=== PATIENT | female | born 1945 | race Two or more races ===

== ENCOUNTER 2016-07-31 20:45 | Inpatient (IN) | payer MEDICARE, MEDICAID ==
[~2016-07-31] VITALS: Ht 153.4 cm; Wt 74.8 kg
[2016-07-31 23:52] VITALS: BP 130/86
--- NOTE | 2016-08-01 00:01 | History and Physical ---
History of Present Illness General Date patient seen: Jul 31, 2016 Reason for Hospitalization: ALOC Present Illness HPI 71 year old female with hx of htn, bipolar, cachexia, brought in for evaluation of ALOC. Pt was less responsive. She is admitted to telemetry to rule out acute CVA. Allergies: Coded Allergies: No Known Allergies (Unverified , 07/31/16) Patient History Healthcare decision maker Resuscitation status Advanced Directive on File Past Medical/Surgical History Past Medical/Surgical History: (1) Psychosis (2) History of hypertension Review of Systems Constitutional: Reports: no symptoms All Other Systems: negative except mentioned in HPI Physical Exam General Appearance: cachetic Lines, tubes and drains: peripheral, PICC HEENT: normocephalic, atraumatic, anicteric Neck: non-tender, normal alignment Respiratory/Chest: chest wall non-tender, lungs clear Cardiovascular/Chest: normal peripheral pulses, normal rate, no JVD Abdomen: normal bowel sounds Genitourinary/Rectal: normal genital exam, normal rectal exam Extremities: normal range of motion, non-tender Medications Current Medications Medications (Trade) Dose Ordered Sig/Yao Route PRN Reason Start Time Stop Time Status Last Admin Dose Admin Amlodipine Besylate (Norvasc) 5 mg ONCE ONCE ORAL 08/01/16 00:00 08/01/16 00:01 UNV Clonidine HCl (Catapres) 0.1 mg EVERY 8 HOURS ORAL 08/01/16 06:00 08/31/16 05:59 UNV Hydralazine HCl (Apresoline) 50 mg Q8HR ORAL 08/01/16 06:00 08/31/16 05:59 UNV Risperidone (RisperDAL) 0.5 mg BEDTIME ORAL 08/01/16 21:00 08/31/16 20:59 UNV Assessment/Plan Problem List: (1) Acute encephalopathy ICD Codes: G93.40 - Encephalopathy, unspecified SNOMED: 7686832 (2) ATN (acute tubular necrosis) ICD Codes: N17.0 - Acute kidney failure with tubular necrosis SNOMED: 07081645 (3) Anemia ICD Codes: D64.9 - Anemia, unspecified SNOMED: 328250608 (4) History of hypertension ICD Codes: Z86.79 - Personal history of other diseases of the circulatory system SNOMED: 368632008 (5) Psychosis ICD Codes: F29 - Unspecified psychosis not due to a substance or known physiological condition SNOMED: 75821278 Assessment/Plan neuro evaluation monitor BP MRI anemia w/u psych evaluation check lithium level. JESUS CHE Aug 01, 2016 00:01
[2016-08-01 04:00] VITALS: BP 153/89
[2016-08-01] MEDS: HydrALAZINE 50mg tab ORAL SCH ×4 (06:02→21:45)
[2016-08-01 07:29] LABS: BASOPHILS % (AUTO) 0.5 % (0.0-2.0); EOSINOPHILS % (AUTO) 1.5 % (0.0-3.0); LYMPHOCYTES % (AUTO) 15.6 % (20.0-45.0); MEAN CORPUSCULAR HEMOGLOBIN 27.5 PG (27.0-31.0); MEAN CORPUSCULAR HGB CONC 30.7 G/DL (32.0-36.0); MEAN CORPUSCULAR VOLUME 90 FL (80-99); MEAN PLATELET VOLUME 15.3 FL (6.5-10.1); NEUTROPHILS % (AUTO) 74.4 % (45.0-75.0); PLATELET COUNT 109 K/UL (150-450); RED CELL DISTRIBUTION WIDTH 14.8 % (11.6-14.8); WHITE BLOOD COUNT 5.3 K/UL (4.8-10.8)
[2016-08-01 07:57] LABS: ALANINE AMINOTRANSFERASE 11 U/L (3-33); ALBUMIN/GLOBULIN RATIO 0.8 (1.0-2.7); ANION GAP 12 (5-15); ASPARTATE AMINO TRANSFERASE 17 U/L (5-40); CALCIUM 10.8 mg/dL (8.6-10.2); CARBON DIOXIDE 25 mEQ/L (20-30); CHLORIDE 117 mEQ/L (98-107); CHOLESTEROL 179 mg/dL (< 200); CHOLESTEROL/HDL RATIO 2.1 (3.3-4.4); CREATININE 1.7 mg/dL (0.5-0.9); HEMOLYSIS 4; LDL CHOLESTEROL (CALC.) 79 mg/dL (60-99); POTASSIUM 3.8 mEQ/L (3.4-4.9); SODIUM 154 mEQ/L (135-145); TOTAL PROTEIN 6.8 g/dL (6.6-8.7)
[2016-08-01 08:02] LABS: THYROID STIMULATING HORMONE 0.958 uIU/mL (0.300-4.500)
--- NOTE | 2016-08-01 11:52 | Neurology Progress Note ---
Objective Physical Exam Last Vital Signs Date Time Temp Pulse Resp B/P Pulse Ox O2 Delivery O2 Flow Rate FiO2 08/01/16 08:00 73 08/01/16 06:02 153/89 08/01/16 04:00 97.4 19 97 Nasal Cannula 4.0 Laboratory Tests Test 08/01/16 05:35 White Blood Count 5.3 K/UL (4.8-10.8) Red Blood Count 3.90 M/UL (4.20-5.40) L Hemoglobin 10.7 G/DL (12.0-16.0) L Hematocrit 35.0 % (37.0-47.0) L Mean Corpuscular Volume 90 FL (80-99) Mean Corpuscular Hemoglobin 27.5 PG (27.0-31.0) Mean Corpuscular Hemoglobin Concent 30.7 G/DL (32.0-36.0) L Red Cell Distribution Width 14.8 % (11.6-14.8) Platelet Count 109 K/UL (150-450) L Mean Platelet Volume 15.3 FL (6.5-10.1) H Neutrophils (%) (Auto) 74.4 % (45.0-75.0) Lymphocytes (%) (Auto) 15.6 % (20.0-45.0) L Monocytes (%) (Auto) 8.0 % (1.0-10.0) Eosinophils (%) (Auto) 1.5 % (0.0-3.0) Basophils (%) (Auto) 0.5 % (0.0-2.0) Sodium Level 154 mEQ/L (135-145) H Potassium Level 3.8 mEQ/L (3.4-4.9) Chloride Level 117 mEQ/L (98-107) H Carbon Dioxide Level 25 mEQ/L (20-30) Anion Gap 12 (5-15) Blood Urea Nitrogen 21 mg/dL (7-23) Creatinine 1.7 mg/dL (0.5-0.9) H Estimat Glomerular Filtration Rate mL/min (>60) Glucose Level 89 mg/dL (74-106) Calcium Level 10.8 mg/dL (8.6-10.2) H Total Bilirubin 0.3 mg/dL (0.0-1.2) Aspartate Amino Transf (AST/SGOT) 17 U/L (5-40) Alanine Aminotransferase (ALT/SGPT) 11 U/L (3-33) Alkaline Phosphatase 49 U/L (35-104) Total Protein 6.8 g/dL (6.6-8.7) Albumin 3.2 g/dL (3.5-5.2) L Globulin 3.6 g/dL Albumin/Globulin Ratio 0.8 (1.0-2.7) L Triglycerides Level 67 mg/dL (< 150) Cholesterol Level 179 mg/dL (< 200) LDL Cholesterol 79 mg/dL (60-99) HDL Cholesterol 87 mg/dL (> 60) H Cholesterol/HDL Ratio 2.1 (3.3-4.4) L Thyroid Stimulating Hormone (TSH) 0.958 uIU/mL (0.300-4.500) [place] Level Pending Impression/Recommendations Recommendations #[id number] ALEXIS BACA Aug 01, 2016 11:52
[2016-08-01] MEDS ORDERED: LORazepam Inj 2mg/ml 1ml IV PRN (13:00)
[2016-08-01] MEDS ORDERED: Nitroglycerin Subl 0.4mg tab (Bottle Of 25) SL PRN (13:00)
[2016-08-01] MEDS ORDERED: Miralax 17gm pkt ORAL PRN (13:00)
--- NOTE | 2016-08-01 13:00 | Pulmonology Progress Note ---
Assessment/Plan Problems: (1) Acute encephalopathy (2) ATN (acute tubular necrosis) (3) Anemia (4) History of hypertension (5) Severe protein-calorie malnutrition (6) Psychosis Assessment/Plan MRI pending lithium level was slightly elevated neuro consult appreciated check pt/ot evaluation swallow study calorie count Subjective ROS Limited/Unobtainable: No Constitutional: Reports: no symptoms HEENT: Repors: no symptoms Respiratory: Reports: no symptoms Allergies: Coded Allergies: No Known Allergies (Unverified , 07/31/16) Objective Last 24 Hour Vital Signs Date Time Temp Pulse Resp B/P Pulse Ox O2 Delivery O2 Flow Rate FiO2 08/01/16 08:00 73 08/01/16 06:02 153/89 08/01/16 06:02 153/89 08/01/16 04:21 77 08/01/16 04:00 97.4 81 19 153/89 97 Nasal Cannula 4.0 08/01/16 01:16 98 130/86 07/31/16 23:52 97.0 98 20 130/86 99 Nasal Cannula 4.0 General Appearance: cachetic HEENT: normocephalic, atraumatic Respiratory/Chest: chest wall non-tender, lungs clear Breasts: no masses Cardiovascular: normal peripheral pulses Abdomen: normal bowel sounds, soft, non tender Genitourinary: normal external genitalia Extremities: no cyanosis Skin: no rash Laboratory Tests 08/01/16 05:35: White Blood Count 5.3, Red Blood Count 3.90L, Hemoglobin 10.7L, Hematocrit 35.0L , Mean Corpuscular Volume 90, Mean Corpuscular Hemoglobin 27.5, Mean Corpuscular Hemoglobin Concent 30.7L, Red Cell Distribution Width 14.8, Platelet Count 109L, Mean Platelet Volume 15.3H, Neutrophils (%) (Auto) 74.4, Lymphocytes (%) (Auto) 15.6L, Monocytes (%) (Auto) 8.0, Eosinophils (%) (Auto) 1.5, Basophils (%) (Auto) 0.5, Sodium Level 154H, Potassium Level 3.8, Chloride Level 117H, Carbon Dioxide Level 25, Anion Gap 12, Blood Urea Nitrogen 21, Creatinine 1.7H, Estimat Glomerular Filtration Rate , Glucose Level 89, Uric Acid [Pending], Calcium Level 10.8H, Total Bilirubin 0.3, Aspartate Amino Transf (AST/SGOT) 17, Alanine Aminotransferase (ALT/SGPT) 11, Alkaline Phosphatase 49, Total Creatine Kinase [Pending], Total Protein 6.8, Albumin 3.2L , Globulin 3.6, Albumin/Globulin Ratio 0.8L, Triglycerides Level 67, Cholesterol Level 179, LDL Cholesterol 79, HDL Cholesterol 87H, Cholesterol/HDL Ratio 2.1L, Thyroid Stimulating Hormone (TSH) 0.958, [place] Level 1.80 Current Medications Medications (Trade) Dose Ordered Sig/Yao Route PRN Reason Start Time Stop Time Status Last Admin Dose Admin Acetaminophen (Tylenol) 650 mg Q4H PRN ORAL FEVER 08/01/16 13:00 08/31/16 12:59 UNV Acetaminophen (Tylenol) 650 mg Q4H PRN ORAL Mild Pain (Pain Scale 1-3) 08/01/16 13:00 08/31/16 12:59 UNV Aspirin (ASA) 81 mg DAILY ORAL 08/01/16 13:00 08/31/16 12:59 Bisacodyl (Dulcolax) 10 mg DAILYPRN PRN RECTAL Constipation 08/01/16 13:00 08/31/16 12:59 UNV Clonidine HCl (Catapres) 0.1 mg EVERY 8 HOURS ORAL 08/01/16 06:00 08/31/16 05:59 08/01/16 06:02 Docusate Sodium (Colace) 100 mg EVERY 12 HOURS ORAL 08/01/16 21:00 08/31/16 20:59 UNV Heparin Sodium (Porcine) (Heparin 5000 units/ml) 5,000 units EVERY 12 HOURS SUBQ 08/01/16 21:00 08/31/16 20:59 UNV Hydralazine HCl (Apresoline) 50 mg Q8HR ORAL 08/01/16 06:00 08/31/16 05:59 08/01/16 06:02 Lorazepam (Ativan 2mg/ml 1ml) 0.5 mg Q4H PRN IV For Anxiety 08/01/16 13:00 08/08/16 12:59 UNV Nitroglycerin (Ntg) 0.4 mg Q5M PRN SL Prn Chest Pain 08/01/16 13:00 UNV Ondansetron HCl (Zofran) 4 mg Q6H PRN IVP Nausea & Vomiting 08/01/16 13:00 08/31/16 12:59 UNV Polyethylene Glycol (Miralax) 17 gm DAILY PRN ORAL Constipation 08/01/16 13:00 08/31/16 12:59 UNV Risperidone (RisperDAL) 0.5 mg BEDTIME ORAL 08/01/16 21:00 08/31/16 20:59 Temazepam (Restoril) 15 mg HSPRN PRN ORAL Insomnia 08/01/16 13:00 08/08/16 12:59 UNV JESUS CHE Aug 01, 2016 13:00
[2016-08-01 13:10] LABS: URIC ACID 9.2 mg/dL (3.0-7.5)
[2016-08-01 13:40] VITALS: BP 138/103
[2016-08-01] MEDS: Aspirin Baby 81mg ORAL SCH (13:41)
[2016-08-01] MEDS ORDERED: NS 275ml ONE (13:50)
[2016-08-01] MEDS ORDERED: Sterile Water For Irrig 2000ml IRRIG ONE (13:50)
[2016-08-01] MEDS ORDERED: Tubing IV Secondary IV ONE (13:50)
[2016-08-01] MEDS ORDERED: Sterile Water Irrig 1000ml IRRIG ONE (13:50)
[2016-08-01 16:52] VITALS: BP 137/91
--- NOTE | 2016-08-01 17:30 | Diagnostic Imaging Report ---
Indication: Abnormal renal function tests Technique: Grayscale and duplex images of the kidneys, retroperitoneum, and bladder were obtained. Comparison:None Findings: Right kidney measures 9.8 cm in length. Left kidney measures 9.5 cm in length. Both kidneys demonstrate is increased echogenicity. No hydronephrosis. There are bilateral renal cysts, largest on the right measuring 15 mm diameter, largest on the left measuring 11 mm diameter. Innumerable calcifications are seen throughout the parenchyma of both kidneys, slightly more striking on the left than on the right. Normal inferior vena cava. Bladder is nondistended, demonstrates possible wall thickening. There is incidental finding of a pericardial effusion Impression: Negative for hydronephrosis. Increased bilateral renal echogenicity, consistent with medical renal disease. Bilateral renal cysts Possible bladder wall thickening, most likely artifact of under distention, but chronic bladder obstruction or cystitis not excludable Pericardial effusion incidentally noted
[2016-08-01 20:00] VITALS: BP 121/79
[2016-08-01] MEDS: Docusate 100mg cap ORAL SCH (21:00)
[2016-08-01] MEDS ORDERED: RisperiDONE 0.25mg tab ORAL SCH (21:00)
[2016-08-01] MEDS: Heparin 5000 units/ml inj SUBQ SCH (21:00)
--- NOTE | 2016-08-01 23:01 | Consultation ---
DATE OF CONSULTATION: 08/01/2016 CONSULTING PHYSICIAN: Stephanie Kebede M.D. HISTORY OF PRESENT ILLNESS: The patient is a 71-year-old female with a history of schizoaffective disorder, who has been admitted to the hospital due to uncontrollable blood pressure or hypertensive crisis and also altered mental level of consciousness. During the evaluation, the patient is confused, not able to answer the questions. The patient was admitted to rule out CVA and the patient is presenting with impairment of cognition. She has been presenting with waxing and waning consciousness. PAST PSYCHIATRIC HISTORY: Diagnosed with schizoaffective disorder as well as psychiatric hospitalization. She has been treated with risperidone and lithium. PAST MEDICAL HISTORY: Significant for hypertension. ALLERGIES: No known drug allergies. SUBSTANCE ABUSE HISTORY: No known history of illicit drug use or alcohol. MENTAL STATUS EXAMINATION: The patient is not able to be engaged during evaluation. She is a poor historian. impairment in concentration, memory, and attention. Waxing and waning consciousness. ASSESSMENT: Alpha I Delirium due to general medical condition. Alpha II Deferred. Alpha III As above. Alpha IV Low. Alpha V Global assessment of functioning is 10. PLAN: 1. We will hold off all the psychotropic medications including risperidone. 2. [place] level is 1.8. 3. We will continue to follow and readjust the medications. Stephanie Kebede M.D. DR: Karyna JOB#: [id number] CC:
--- NOTE | 2016-08-01 23:31 | Consultation ---
DATE OF CONSULTATION: 08/01/2016 NEUROLOGICAL CONSULTATION REQUESTING PHYSICIAN: Ila Mckenna M.D. HISTORY OF PRESENT ILLNESS: This is a 71-year-old female, seen in neurological consultation to evaluate acute onset of confusion and disorientation. The patient was brought initially from [facility] where she was admitted for episodes of confusion, lethargy, and mental status changes from her local assisted living facility. In addition, she had a significant elevation of blood pressure and according to the nursing facility, she is more confused and more altered than usual baseline mentation. The patient initially was nonverbal. No history was obtained. Her [place] coma scale was 10. She had a EKG with premature ventricular contractions. Also chest x-ray, no acute pulmonary disease. Stat CT of the brain revealed no acute intracranial abnormalities. There was a small vessel disease noted. Lab work was obtained with sodium 148, calcium of 11.0, and normal ammonia. Negative drug screen. Normal thyroid. The patient was brought to the facility. She . She has been on maintained on hydralazine, clonidine and amlodipine with small dose of Risperdal 0.5 at that time. Her vital signs down to 153/89 and temperature 97.4 degrees. Lab work was obtained revealing mild anemia, hemoglobin 10.7, hematocrit 35.0 and platelet count 109,000. Chemistry panel with creatinine 1.7, sodium 154, and calcium 10.8. Unremarkable lipid panel and normal TSH. [place] level pending. Since admission till present, there were no paroxysmal events. The patient still with abnormal speech and confusion. PAST MEDICAL HISTORY: The patient has a history of hypertension and history of memory loss. She has a history of chronic psychiatric disorder and chronic renal failure. She is considered to be nonambulatory, although she claims being able to use walker for ambulation. MEDICATIONS: Prior to admission including clonidine, amlodipine, hydralazine, Mylanta, Ativan, lithium, temazepam, and Risperdal. ALLERGIES: None reported. FAMILY HISTORY: Unavailable. REVIEW OF SYMPTOMS: Limited due to the patient's status, who informed that she does feel week, but not too weak. PHYSICAL EXAMINATION: GENERAL: The patient is well-developed, somewhat cachectic and ill-appearing elderly female, lying in bed quietly. VITAL SIGNS: Now stable, blood pressure of 152/89. HEENT: Head, normocephalic. No evidence of trauma. Eyes, ears, and throat are clear. NECK: Rigid in all directions. MUSCULOSKELETAL: Unremarkable. There is no deformities. Peripheral pulses 1+ and symmetric. MENTAL STATUS: The patient is alert. She was able to give her age of 69. She is unaware where she is now and unable to give her address or place. Her speech is very slow with poor verbal output, dysarthric, difficult to understand. Speech is hypophonic. The patient appears quite confused and does not able to provide with any meaningful history. CRANIAL NERVE II: Pupils both responding to light and accommodation. Extraocular movement intact. No nystagmus. CRANIAL NERVE V: Normal corneal responses. CRANIAL NERVE VII: No facial asymmetry. CRANIAL NERVE VIII: Slight decrease in hearing. CRANIAL NERVE IX THROUGH XII: Tongue is in midline. MOTOR EXAMINATION: Increased muscle tone. There is a resting tremor of both hands. Deep reflexes are 2+ bilaterally. Plantar response is mute. SENSORY EXAMINATION: Withdrawing to pin stimulation. Gait not tested. The patient was having difficulty to turn around or sit up and . IMPRESSION: 1. 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 2. Hypertension, out of control. 3. Hypercalcemia. 4. Chronic renal failure. 5. Chronic anemia. RECOMMENDATION: 1. Get a MRI of the brain without contrast. 2. Carotid duplex study. 3. A 2D echocardiogram. 4. Start on aspirin 81 mg daily. Consider adding a statin. 5. Get PT/OT assessment for mobility protocol. 6. Maintain strict blood pressure control. Thank you for allowing me to see this interesting patient in neurological consultation. Jean Carlos Field M.D. DR: CELINE JOB#: [id number] CC:
[2016-08-02] VITALS: BP 138/92
[2016-08-02 04:00] VITALS: BP 152/72
[2016-08-02] MEDS: HydrALAZINE 50mg tab ORAL SCH ×3 (05:43→21:33)
[2016-08-02 07:06] LABS: BASOPHILS % (AUTO) 0.6 % (0.0-2.0); EOSINOPHILS % (AUTO) 2.1 % (0.0-3.0); LYMPHOCYTES % (AUTO) 13.8 % (20.0-45.0); MEAN CORPUSCULAR HEMOGLOBIN 27.8 PG (27.0-31.0); MEAN CORPUSCULAR HGB CONC 31.1 G/DL (32.0-36.0); MEAN CORPUSCULAR VOLUME 89 FL (80-99); MONOCYTES % (AUTO) 8.9 % (1.0-10.0); NEUTROPHILS % (AUTO) 74.7 % (45.0-75.0); PLATELET COUNT 111 K/UL (150-450); RED BLOOD COUNT 3.76 M/UL (4.20-5.40); RED CELL DISTRIBUTION WIDTH 14.7 % (11.6-14.8); WHITE BLOOD COUNT 7.7 K/UL (4.8-10.8)
[2016-08-02 07:11] LABS: INR 1.1 (0.9-1.1); PROTHROMBIN TIME 11.9 SEC (9.30-11.50)
[2016-08-02 07:32] LABS: LACTATE DEHYDROGENASE 240 U/L (135-230)
[2016-08-02 07:33] LABS: HEMOLYSIS 1; IRON 56 ug/dL (37-145); TOTAL IRON BINDING CAPACITY 221 ug/dL (250-400)
[2016-08-02 08:00] VITALS: BP 130/77
--- NOTE | 2016-08-02 08:31 | Cardiology Report ---
APPROVED REPORT EXAM: Two-dimensional and M-mode echocardiogram with Doppler and color Doppler. INDICATION LV function M-Mode DIMENSIONS IVSd1.9 (0.7-1.1cm)Left Atrium (MM)5.1 (1.6-4.0cm) LVDd4.9 (3.5-5.6cm)Aortic Root3.5 (2.0-3.7cm) PWd2.5 (0.7-1.1cm)Aortic Cusp Exc.1.8 (1.5-2.0cm) LVDs2.3 (2.5-4.0cm) PWs2.9 cm Normal left ventricular chamber size, systolic function and wall motion. Left ventricular ejection fraction estimated to be 65 %. Mild to moderate left ventricular hypertrophy by 2-D. Anterior Echo-free space, may be due to pericardial fat or effusion. Moderate left atrial enlargement. Right atrial size at upper limits of normal. Right ventricular chamber size is within normal limits. Focal aortic valve sclerosis with adequate cusp excursion. Thickened mitral valve leaflets with normal excursion. Mitral annulus and aortic root calcification. Normal pulmonic valve structure. Normal tricuspid valve structure. IVC at normal size with physiologic collapse. A color flow and spectral Doppler study was performed and revealed: Mild aortic regurgitation. Mild mitral regurgitation. Mitral diastolic velocities suggest reduced left ventricular relaxation c/w mild LV diastolic dysfunction (Grade I). Trace tricuspid regurgitation. Tricuspid systolic velocities suggests peak right ventricular systolic pressure of 17 mmHg. Mild pulmonic regurgitation present.
[2016-08-02] MEDS: Aspirin Baby 81mg ORAL SCH (08:35)
[2016-08-02] MEDS: Docusate 100mg cap ORAL SCH (08:35)
[2016-08-02] MEDS: Heparin 5000 units/ml inj SUBQ SCH ×2 (08:43→21:00)
[2016-08-02 09:17] LABS: ERYTHROCYTE SEDIMENTATION RATE 28 MM/HR (0-30); RETICULOCYTE COUNT 0.3 % (0.0-2.0)
--- NOTE | 2016-08-02 10:45 | Pulmonology Progress Note ---
Assessment/Plan Problems: (1) Acute encephalopathy (2) ATN (acute tubular necrosis) (3) Anemia (4) History of hypertension (5) Severe protein-calorie malnutrition (6) Psychosis Assessment/Plan MRI pending lithium level was slightly elevated neuro consult appreciated check pt/ot evaluation swallow study calorie count check electrolytes haldol for agitation Subjective ROS Limited/Unobtainable: No Constitutional: Reports: no symptoms HEENT: Repors: no symptoms Respiratory: Reports: no symptoms Allergies: Coded Allergies: No Known Allergies (Unverified , 07/31/16) Objective Last 24 Hour Vital Signs Date Time Temp Pulse Resp B/P Pulse Ox O2 Delivery O2 Flow Rate FiO2 08/02/16 08:00 97.2 80 18 130/77 95 Nasal Cannula 3.5 08/02/16 05:43 142/95 08/02/16 05:43 142/95 08/02/16 04:00 97.2 73 19 152/72 100 Nasal Cannula 3.5 08/02/16 04:00 63 08/02/16 00:00 97.3 55 18 138/92 100 Nasal Cannula 3.5 08/02/16 00:00 62 08/01/16 21:45 121/79 08/01/16 21:45 121/79 08/01/16 20:00 64 08/01/16 20:00 97.5 61 20 121/79 100 Nasal Cannula 3.0 08/01/16 16:52 98.4 64 20 137/91 100 Nasal Cannula 3.0 08/01/16 16:00 77 08/01/16 13:42 138/103 08/01/16 13:42 138/103 08/01/16 13:40 138/103 Intake and Output 08/01/16 08/02/16 19:00 07:00 Intake Total 500 ml Balance 500 ml Intake Oral 500 ml # Voids 1 3 General Appearance: cachetic HEENT: normocephalic, atraumatic Respiratory/Chest: chest wall non-tender, lungs clear Breasts: no masses Cardiovascular: normal peripheral pulses Abdomen: normal bowel sounds, soft, non tender Extremities: no cyanosis, no clubbing Skin: no rash Neurologic/Psychiatric: alarm operator II-XII grossly normal Laboratory Tests 08/02/16 06:05: White Blood Count 7.7, Red Blood Count 3.76L, Hemoglobin 10.4L, Hematocrit 33.6L , Mean Corpuscular Volume 89, Mean Corpuscular Hemoglobin 27.8, Mean Corpuscular Hemoglobin Concent 31.1L, Red Cell Distribution Width 14.7, Platelet Count 111L, Mean Platelet Volume 14.0H, Neutrophils (%) (Auto) 74.7, Lymphocytes (%) (Auto) 13.8L, Monocytes (%) (Auto) 8.9, Eosinophils (%) (Auto) 2.1, Basophils (%) (Auto) 0.6, Erythrocyte Sedimentation Rate 28, Reticulocyte Count 0.3, Prothrombin Time 11.9H, Prothromb Time International Ratio 1.1, Activated Partial Thromboplast Time 28, Iron Level 56, Total Iron Binding Capacity 221L, Percent Iron Saturation 25, Unsaturated Iron Binding 165, Lactate Dehydrogenase 240H, Carcinoembryonic Antigen 4.1H, Vitamin B12 Level 516 , Folate [Pending] Current Medications Medications (Trade) Dose Ordered Sig/Yao Route PRN Reason Start Time Stop Time Status Last Admin Dose Admin Acetaminophen (Tylenol) 650 mg Q4H PRN ORAL FEVER 08/01/16 13:00 08/31/16 12:59 Acetaminophen (Tylenol) 650 mg Q4H PRN ORAL Mild Pain (Pain Scale 1-3) 08/01/16 13:00 08/31/16 12:59 Aspirin (ASA) 81 mg DAILY ORAL 08/01/16 13:00 08/31/16 12:59 08/02/16 08:35 Bisacodyl (Dulcolax) 10 mg DAILYPRN PRN RECTAL Constipation 08/01/16 13:00 08/31/16 12:59 Clonidine HCl (Catapres) 0.1 mg EVERY 8 HOURS ORAL 08/01/16 06:00 08/31/16 05:59 08/02/16 05:43 Dextrose (Dextrose 50%) STAT PRN IV Hypoglycemia 08/02/16 04:30 09/01/16 04:29 Docusate Sodium (Colace) 100 mg EVERY 12 HOURS ORAL 08/01/16 21:00 08/31/16 20:59 08/02/16 08:35 Haloperidol Lactate (Haldol) 5 mg EVERY 4 HOURS PRN IM Agitation 08/01/16 22:45 08/31/16 22:44 Heparin Sodium (Porcine) (Heparin 5000 units/ml) 5,000 units EVERY 12 HOURS SUBQ 08/01/16 21:00 08/31/16 20:59 Hydralazine HCl (Apresoline) 50 mg Q8HR ORAL 08/01/16 06:00 08/31/16 05:59 08/02/16 05:43 Lorazepam (Ativan 2mg/ml 1ml) 0.5 mg Q4H PRN IV For Anxiety 08/01/16 13:00 08/08/16 12:59 08/02/16 08:36 Nitroglycerin (Ntg) 0.4 mg Q5M PRN SL Prn Chest Pain 08/01/16 13:00 08/31/16 12:59 Ondansetron HCl (Zofran) 4 mg Q6H PRN IVP Nausea & Vomiting 08/01/16 13:00 08/31/16 12:59 Polyethylene Glycol (Miralax) 17 gm DAILY PRN ORAL Constipation 08/01/16 13:00 08/31/16 12:59 Temazepam (Restoril) 15 mg HSPRN PRN ORAL Insomnia 08/01/16 13:00 08/08/16 12:59 JESUS CHE Aug 02, 2016 10:45
[2016-08-02] MEDS ORDERED: LORazepam Inj 2mg/ml 1ml IV ONE ×2 (11:45→13:06)
[2016-08-02 11:55] LABS: BAND NEUTROPHILS % (MANUAL) 0 % (0-8); BASOPHILS % (MANUAL) 0 % (0-2); EOSINOPHILS % (MANUAL) 3 % (0-3); LYMPHOCYTES % (MANUAL) 16 % (20-45); NEUTROPHILS % (MANUAL) 74 % (45-75); PLATELET ESTIMATE DECREASED; PLATELET MORPHOLOGY NORMAL; TOTAL CELLS COUNTED 100
[2016-08-02 11:56] LABS: POIKILOCYTOSIS 1+
[2016-08-02 11:58] LABS: HYPOCHROMASIA 1+
[2016-08-02 11:59] LABS: ACANTHOCYTES 1+; BURR CELLS OCCASIONAL
[2016-08-02 12:00] VITALS: BP_SYST 127; BP_SYST 134; BP_DIAS 46; BP_DIAS 83
[2016-08-02 12:03] LABS: PATH BLOOD SMEAR/OMC SENT TO PATHOLOGIST
--- NOTE | 2016-08-02 12:17 | Neurology Progress Note ---
Interim History Interim History ROS Limited/Unobtainable: No Complaints: feel ok Events: nite time confusion agitation Objective Physical Exam Last Vital Signs Date Time Temp Pulse Resp B/P Pulse Ox O2 Delivery O2 Flow Rate FiO2 08/02/16 12:00 97.0 86 20 127/46 97 Nasal Cannula 3.5 Laboratory Tests Test 08/02/16 06:05 White Blood Count 7.7 K/UL (4.8-10.8) Red Blood Count 3.76 M/UL (4.20-5.40) L Hemoglobin 10.4 G/DL (12.0-16.0) L Hematocrit 33.6 % (37.0-47.0) L Mean Corpuscular Volume 89 FL (80-99) Mean Corpuscular Hemoglobin 27.8 PG (27.0-31.0) Mean Corpuscular Hemoglobin Concent 31.1 G/DL (32.0-36.0) L Red Cell Distribution Width 14.7 % (11.6-14.8) Platelet Count 111 K/UL (150-450) L Mean Platelet Volume 14.0 FL (6.5-10.1) H Neutrophils (%) (Auto) 74.7 % (45.0-75.0) Lymphocytes (%) (Auto) 13.8 % (20.0-45.0) L Monocytes (%) (Auto) 8.9 % (1.0-10.0) Eosinophils (%) (Auto) 2.1 % (0.0-3.0) Basophils (%) (Auto) 0.6 % (0.0-2.0) Differential Total Cells Counted 100 Neutrophils % (Manual) 74 % (45-75) Lymphocytes % (Manual) 16 % (20-45) L Monocytes % (Manual) 7 % (1-10) Eosinophils % (Manual) 3 % (0-3) Basophils % (Manual) 0 % (0-2) Band Neutrophils 0 % (0-8) Platelet Estimate Decreased L Platelet Morphology Normal Hypochromasia 1+ Poikilocytosis 1+ [place] Cells Occasional Acanthocytes 1+ Erythrocyte Sedimentation Rate 28 MM/HR (0-30) Reticulocyte Count 0.3 % (0.0-2.0) Prothrombin Time 11.9 SEC (9.30-11.50) H Prothromb Time International Ratio 1.1 (0.9-1.1) Activated Partial Thromboplast Time 28 SEC (23-33) Iron Level 56 ug/dL (37-145) Total Iron Binding Capacity 221 ug/dL (250-400) L Percent Iron Saturation 25 % (15-50) Unsaturated Iron Binding 165 ug/dL (112-346) Lactate Dehydrogenase 240 U/L (135-230) H Carcinoembryonic Antigen 4.1 ng/mL H Vitamin B12 Level 516 pg/mL (211-946) Folate Pending General: well developed, no acute distress Head: normocophalic, atraumatic Neck: no rigidity Neurologic Exam Mental Status: awake, alert, other - ox2 confused Speech: other - slurred Language: no aphasia Cranial Nerve II: no papilledema Cranial Nerves III, IV, : pupils Cranial Nerve V: masseters function normal Cranial Nerve VII: no facial asymmetry Cranial Nerve VIII: no nystagmus Cranial Nerve IX: gag response Cranial Nerve XI: trapezii function normal Cranial Nerve XII: no tongue atrophy/fasciculations Motor System: no involuntary movement, no muscle wasting Sensory: normal pinprick Coordination: other Deep Tendon Reflexes: 0 ankle (L), 0 ankle (R), 0 bicep (L), 0 bicep (R), 0 brachioradialis (L), 0 brachioradialis (R), 0 knee (L), 0 knee (R), 0 tricep (L) , 0 tricep (R) Reflexes: mute plantar (L), mute plantar (R) Gait: other - unstable Impression/Recommendations Problems: (1) dementia vascular with sundown confusion (2) Cerebrovascular small vessel disease Status: stable Recommendations #[id number] MRI brain, carotid , asa statins ALEXIS BACA Aug 02, 2016 12:17
--- NOTE | 2016-08-02 14:36 | Geriatric Progress Note ---
Assessment/Plan Assessment/Plan Delirium. schizoaffective d/o -zyprexa 5mg qhs -ativan 1.5 prior mri Subjective Constitutional: Reports: malaise, weakness Mood/Memory: Reports: anxiety, emotional problems, prior hx Psychiatric: Reports: hallucinations, see HPI Sleep: Reports: doesn't sleep well Geriatric Geriatric Last 24 Hour Vital Signs Date Time Temp Pulse Resp B/P Pulse Ox O2 Delivery O2 Flow Rate FiO2 08/02/16 14:00 118/81 08/02/16 14:00 118/81 08/02/16 12:00 97.7 86 18 134/83 100 Nasal Cannula 3.5 08/02/16 08:00 97.2 80 18 130/77 95 Nasal Cannula 3.5 08/02/16 08:00 67 08/02/16 05:43 142/95 08/02/16 05:43 142/95 08/02/16 04:00 97.2 73 19 152/72 100 Nasal Cannula 3.5 08/02/16 04:00 63 08/02/16 00:00 97.3 55 18 138/92 100 Nasal Cannula 3.5 08/02/16 00:00 62 08/01/16 21:45 121/79 08/01/16 21:45 121/79 08/01/16 20:00 64 08/01/16 20:00 97.5 61 20 121/79 100 Nasal Cannula 3.0 08/01/16 16:52 98.4 64 20 137/91 100 Nasal Cannula 3.0 08/01/16 16:00 77 Intake and Output 08/01/16 08/02/16 19:00 07:00 Intake Total 500 ml Balance 500 ml Intake Oral 500 ml # Voids 1 3 Laboratory Tests Test 08/02/16 06:05 White Blood Count 7.7 K/UL (4.8-10.8) Red Blood Count 3.76 M/UL (4.20-5.40) L Hemoglobin 10.4 G/DL (12.0-16.0) L Hematocrit 33.6 % (37.0-47.0) L Mean Corpuscular Volume 89 FL (80-99) Mean Corpuscular Hemoglobin 27.8 PG (27.0-31.0) Mean Corpuscular Hemoglobin Concent 31.1 G/DL (32.0-36.0) L Red Cell Distribution Width 14.7 % (11.6-14.8) Platelet Count 111 K/UL (150-450) L Mean Platelet Volume 14.0 FL (6.5-10.1) H Neutrophils (%) (Auto) 74.7 % (45.0-75.0) Lymphocytes (%) (Auto) 13.8 % (20.0-45.0) L Monocytes (%) (Auto) 8.9 % (1.0-10.0) Eosinophils (%) (Auto) 2.1 % (0.0-3.0) Basophils (%) (Auto) 0.6 % (0.0-2.0) Differential Total Cells Counted 100 Neutrophils % (Manual) 74 % (45-75) Lymphocytes % (Manual) 16 % (20-45) L Monocytes % (Manual) 7 % (1-10) Eosinophils % (Manual) 3 % (0-3) Basophils % (Manual) 0 % (0-2) Band Neutrophils 0 % (0-8) Platelet Estimate Decreased L Platelet Morphology Normal Hypochromasia 1+ Poikilocytosis 1+ Julio César Cells Occasional Acanthocytes 1+ Erythrocyte Sedimentation Rate 28 MM/HR (0-30) Reticulocyte Count 0.3 % (0.0-2.0) Prothrombin Time 11.9 SEC (9.30-11.50) H Prothromb Time International Ratio 1.1 (0.9-1.1) Activated Partial Thromboplast Time 28 SEC (23-33) Iron Level 56 ug/dL (37-145) Total Iron Binding Capacity 221 ug/dL (250-400) L Percent Iron Saturation 25 % (15-50) Unsaturated Iron Binding 165 ug/dL (112-346) Lactate Dehydrogenase 240 U/L (135-230) H Carcinoembryonic Antigen 4.1 ng/mL H Vitamin B12 Level 516 pg/mL (211-946) Folate Pending Current Medications Medications (Trade) Dose Ordered Sig/Yao Route PRN Reason Start Time Stop Time Status Last Admin Dose Admin Acetaminophen (Tylenol) 650 mg Q4H PRN ORAL FEVER 08/01/16 13:00 08/31/16 12:59 Acetaminophen (Tylenol) 650 mg Q4H PRN ORAL Mild Pain (Pain Scale 1-3) 08/01/16 13:00 7/26/17 12:59 Aspirin (ASA) 81 mg DAILY ORAL 08/01/16 13:00 08/31/16 12:59 08/02/16 08:35 Bisacodyl (Dulcolax) 10 mg DAILYPRN PRN RECTAL Constipation 08/01/16 13:00 08/31/16 12:59 Clonidine HCl (Catapres) 0.1 mg EVERY 8 HOURS ORAL 08/01/16 06:00 08/31/16 05:59 08/02/16 05:43 Dextrose (Dextrose 50%) STAT PRN IV Hypoglycemia 08/02/16 04:30 09/01/16 04:29 Docusate Sodium (Colace) 100 mg EVERY 12 HOURS ORAL 08/01/16 21:00 08/31/16 20:59 08/02/16 08:35 Haloperidol Lactate (Haldol) 5 mg EVERY 4 HOURS PRN IM Agitation 08/01/16 22:45 08/31/16 22:44 Heparin Sodium (Porcine) (Heparin 5000 units/ml) 5,000 units EVERY 12 HOURS SUBQ 08/01/16 21:00 08/31/16 20:59 Hydralazine HCl (Apresoline) 50 mg Q8HR ORAL 08/01/16 06:00 08/31/16 05:59 08/02/16 05:43 Lorazepam (Ativan 2mg/ml 1ml) 0.5 mg Q4H PRN IV For Anxiety 08/01/16 13:00 08/08/16 12:59 08/02/16 08:36 Nitroglycerin (Ntg) 0.4 mg Q5M PRN SL Prn Chest Pain 08/01/16 13:00 08/31/16 12:59 Ondansetron HCl (Zofran) 4 mg Q6H PRN IVP Nausea & Vomiting 08/01/16 13:00 08/31/16 12:59 Polyethylene Glycol (Miralax) 17 gm DAILY PRN ORAL Constipation 08/01/16 13:00 08/31/16 12:59 Temazepam (Restoril) 15 mg HSPRN PRN ORAL Insomnia 08/01/16 13:00 08/08/16 12:59 Height (Feet): 5 Height (Inches): 0.41 Weight (Pounds): 165 General Appearance: alert, appears stated age, moderate distress, poor eye contact, disheveled Neurologic: alert Psychiatric: anxious Psychiatric Behavior: uncooperative, psychomotor agitation Orientation: disoriented Affect: restricted Insight: poor Thought Content: auditory hallucinations, paranoia Stephanie Kebede M.D. Aug 02, 2016 14:36
--- NOTE | 2016-08-02 14:39 | Diagnostic Imaging Report ---
APPROVED REPORT CPT Code: 23079 Present Symptoms Comments: R/O DVT BILATERAL: Imaging reveals a patent deep venous system bilaterally. There is no evidence of thrombus within the femoral, popliteal or tibial segments. The greater saphenous veins are also within normal limits. Doppler indicates normal spontaneous flow within these segments.
[2016-08-02 16:10] VITALS: BP 141/90
--- NOTE | 2016-08-02 19:22 | Consultation ---
Consult Note Consult Note asked to eval for renal failure and electrolyte imbalances . Assessment/Plan renal failure, Cr 1.7 chronic vs Acute ( patient on [place]) HyperNatremia due to dehydration and free water deficit High Ca and high Uric acid due to dehydration Anemia Hydrate- bollous D5W Adjust BP meds- Monitor renal parameters- per consultants- check TSH per orders CAMILLE BEYER Aug 02, 2016 19:22
[2016-08-02 19:56] VITALS: BP 156/99
--- NOTE | 2016-08-02 20:00 | Cardiology Progress Note ---
Assessment/Plan Assessment/Plan The patient is seen and examined, full consult note is dictated. Objective Last 24 Hour Vital Signs Date Time Temp Pulse Resp B/P Pulse Ox O2 Delivery O2 Flow Rate FiO2 08/02/16 19:56 98.3 56 18 156/99 98 Nasal Cannula 2.0 08/02/16 16:31 53 08/02/16 16:10 97.5 49 17 141/90 49 Room Air 08/02/16 14:00 118/81 08/02/16 14:00 118/81 08/02/16 12:00 97.7 86 18 134/83 100 Nasal Cannula 3.5 08/02/16 12:00 55 08/02/16 08:00 97.2 80 18 130/77 95 Nasal Cannula 3.5 08/02/16 08:00 67 08/02/16 05:43 142/95 08/02/16 05:43 142/95 08/02/16 04:00 97.2 73 19 152/72 100 Nasal Cannula 3.5 08/02/16 04:00 63 08/02/16 00:00 97.3 55 18 138/92 100 Nasal Cannula 3.5 08/02/16 00:00 62 08/01/16 21:45 121/79 08/01/16 21:45 121/79 08/01/16 20:00 64 08/01/16 20:00 97.5 61 20 121/79 100 Nasal Cannula 3.0 Intake and Output 08/01/16 08/02/16 19:00 07:00 Intake Total 500 ml Balance 500 ml Intake Oral 500 ml # Voids 1 3 Laboratory Tests Test 08/02/16 06:05 White Blood Count 7.7 K/UL (4.8-10.8) Red Blood Count 3.76 M/UL (4.20-5.40) L Hemoglobin 10.4 G/DL (12.0-16.0) L Hematocrit 33.6 % (37.0-47.0) L Mean Corpuscular Volume 89 FL (80-99) Mean Corpuscular Hemoglobin 27.8 PG (27.0-31.0) Mean Corpuscular Hemoglobin Concent 31.1 G/DL (32.0-36.0) L Red Cell Distribution Width 14.7 % (11.6-14.8) Platelet Count 111 K/UL (150-450) L Mean Platelet Volume 14.0 FL (6.5-10.1) H Neutrophils (%) (Auto) 74.7 % (45.0-75.0) Lymphocytes (%) (Auto) 13.8 % (20.0-45.0) L Monocytes (%) (Auto) 8.9 % (1.0-10.0) Eosinophils (%) (Auto) 2.1 % (0.0-3.0) Basophils (%) (Auto) 0.6 % (0.0-2.0) Differential Total Cells Counted 100 Neutrophils % (Manual) 74 % (45-75) Lymphocytes % (Manual) 16 % (20-45) L Monocytes % (Manual) 7 % (1-10) Eosinophils % (Manual) 3 % (0-3) Basophils % (Manual) 0 % (0-2) Band Neutrophils 0 % (0-8) Platelet Estimate Decreased L Platelet Morphology Normal Hypochromasia 1+ Poikilocytosis 1+ Julio César Cells Occasional Acanthocytes 1+ Erythrocyte Sedimentation Rate 28 MM/HR (0-30) Reticulocyte Count 0.3 % (0.0-2.0) Prothrombin Time 11.9 SEC (9.30-11.50) H Prothromb Time International Ratio 1.1 (0.9-1.1) Activated Partial Thromboplast Time 28 SEC (23-33) Iron Level 56 ug/dL (37-145) Total Iron Binding Capacity 221 ug/dL (250-400) L Percent Iron Saturation 25 % (15-50) Unsaturated Iron Binding 165 ug/dL (112-346) Lactate Dehydrogenase 240 U/L (135-230) H Carcinoembryonic Antigen 4.1 ng/mL H Vitamin B12 Level 516 pg/mL (211-946) Folate Pending PETE AGUILERA Aug 02, 2016 20:00
[2016-08-02] MEDS: Haloperidol 5mg/ml Inj IM PRN (21:56)
[2016-08-03] VITALS (9 sets, daily range): BP systolic 111–159; BP diastolic 54–87
[2016-08-03 00:59] LABS: APPEARANCE,URINE CLOUDY; KETONES,URINE NEGATIVE (NEGATIVE); LEUKOCYTE ESTERASE ,URINE 3+ (NEGATIVE); NITRITE,URINE NEGATIVE (NEGATIVE); PH,URINE 7 (4.5-8.0); PROTEIN,URINE 3+ (NEGATIVE); UROBILINOGEN,URINE NORMAL MG/DL (0.0-1.0)
--- NOTE | 2016-08-03 01:30 | Consultation ---
DATE OF CONSULTATION: 08/02/2016 CARDIOLOGY CONSULTATION REFERRING PHYSICIAN: Angelina Wu M.D. REASON FOR CONSULTATION: Management of bradycardia. HISTORY OF PRESENT ILLNESS: The patient is a very unfortunate 71-year-old female who was brought in from [facility] for episode of confusion, lethargy, and mental status changes, who is admitted to this facility for evaluation of altered level of consciousness including confusion, lethargy, and mental status changes. At the time of arrival to this facility, the patient had a blood pressure as high as 153/89. The patient was admitted for workup of altered level of consciousness. She is nonverbal and cannot provide any history. Cardiology consultation was made at request of Dr. Wu as she tends to drop her heart rate into the 30s. The patient's rhythm strip while in the hospital showed single premature ventricular complexes. CT of the brain showed no acute intracranial abnormalities. PAST MEDICAL HISTORY: Hypertension, history of dementia, history of psychiatric disorder, and history of chronic kidney disease. MEDICATIONS: Clonidine, amlodipine, hydralazine, Mylanta, Ativan, lithium, temazepam, and Risperdal. ALLERGIES: No known drug allergies. FAMILY HISTORY: No premature coronary artery disease according to the review of the old chart. REVIEW OF SYSTEMS: In view of the patient's inability to verbalize, I could not obtain 12-system review. PHYSICAL EXAMINATION: VITAL SIGNS: Blood pressure is 156/99, heart rate is 56, the lowest heart rate recorded on the floor is 49, respirations of 18, and O2 saturation 98% on two liters of oxygen. HEENT: Atraumatic and normocephalic. Anicteric. Pupils are equal, round, and reactive to light and accommodation. Extraocular muscles are intact. Poor dentition. NECK: JVP less than 5 cm. No carotid bruits. Carotid upstrokes 2+ bilaterally. CARDIOVASCULAR: Normal S1 and S2. Regular rate and rhythm. No murmurs, gallops, or rubs. PMI is at fourth intercostal space at the midclavicular line. LUNGS: Clear to auscultation bilaterally. ABDOMEN: Soft, nontender, and nondistended. No hepatosplenomegaly. Positive bowel sounds. EXTREMITIES: No evidence of edema, clubbing, or cyanosis. LABORATORY AND DIAGNOSTIC FINDINGS: WBC 5.3, hemoglobin 10.7, hematocrit 35, and platelet count is 109,000. Sodium was 154, potassium 3.8, chloride 117, bicarbonate 25, BUN 21, creatinine 1.7, and glucose 89. Uric acid is 9.2. Calcium is 10.8. Triglycerides 67, total cholesterol 179, LDL of 79, and HDL of 87. INR is 1.1. A 2D echocardiography showed moderate left atrial enlargement, mild to moderate left ventricular hypertrophy, and left ventricular ejection fraction approximately 65%. There is mild atrial and aortic regurgitation, grade 1 LV diastolic dysfunction, and right ventricular systolic pressure measured at 17 mmHg. ASSESSMENT AND PLAN: The patient is a very unfortunate 71-year-old female, seen in Cardiology consultation at request of Dr. Mckenna. 1. Sinus bradycardia. It appears that bradycardia is reactive to increase adrenaline when the patient is more active. The patient has sinus node response to activities with the rise of the heart rate appropriately based on the level of activity. At this point, the patient does not require any pacemaker implantation. There is no evidence of hemodynamic compromise with sinus bradycardia. 2. Chronic kidney disease. 3. Psych disorder. 4. Accelerated hypertension. I would agree with use of hydralazine, which may help with the heart rate by reflex tachycardia. I would continue calcium-channel shannon along with this. It is also important to mention that the benzodiazepines also can cause bradycardia to some extent. I would like to thank, Dr. Mckenna, for the kind consultation. Andrea Art M.D. DR: IVETTE JOB#: [id number] CC:
[2016-08-03 01:54] LABS: BACTERIA,URINE MANY /HPF; RBC,URINE 15-20 /HPF (0 - 2); SQUAMOUS EPITHELIAL CELL,UR MANY /LPF (NONE/OCC); WBC,URINE TNTC /HPF (0 - 2)
[2016-08-03] MEDS: HydrALAZINE 50mg tab ORAL SCH ×3 (06:10→21:48)
[2016-08-03 08:00] LABS: BASOPHILS % (AUTO) 0.6 % (0.0-2.0); EOSINOPHILS % (AUTO) 3.5 % (0.0-3.0); LYMPHOCYTES % (AUTO) 16.2 % (20.0-45.0); MEAN CORPUSCULAR HEMOGLOBIN 27.3 PG (27.0-31.0); MEAN CORPUSCULAR HGB CONC 30.5 G/DL (32.0-36.0); MEAN CORPUSCULAR VOLUME 89 FL (80-99); MEAN PLATELET VOLUME 14.1 FL (6.5-10.1); MONOCYTES % (AUTO) 8.6 % (1.0-10.0); NEUTROPHILS % (AUTO) 71.1 % (45.0-75.0); PLATELET COUNT 117 K/UL (150-450); RED BLOOD COUNT 3.97 M/UL (4.20-5.40); RED CELL DISTRIBUTION WIDTH 15.1 % (11.6-14.8)
[2016-08-03 08:17] LABS: AMMONIA 76 umol/L (11-51)
[2016-08-03 08:29] LABS: ALANINE AMINOTRANSFERASE 10 U/L (3-33); ANION GAP 11 (5-15); ASPARTATE AMINO TRANSFERASE 13 U/L (5-40); CALCIUM 10.6 mg/dL (8.6-10.2); CARBON DIOXIDE 25 mEQ/L (20-30); CHLORIDE 111 mEQ/L (98-107); CHOLESTEROL 173 mg/dL (< 200); CHOLESTEROL/HDL RATIO 2.1 (3.3-4.4); CREATININE 1.7 mg/dL (0.5-0.9); CRP QUANT < 0.3 mg/dL (< 0.5); HEMOLYSIS 3; LDL CHOLESTEROL (CALC.) 76 mg/dL (60-99); PHOSPHORUS 2.8 mg/dL (2.5-4.8); POTASSIUM 3.7 mEQ/L (3.4-4.9); SODIUM 147 mEQ/L (135-145); TOTAL PROTEIN 6.1 g/dL (6.6-8.7); URIC ACID 8.8 mg/dL (3.0-7.5)
[2016-08-03] MEDS: Heparin 5000 units/ml inj SUBQ SCH ×2 (09:00→21:00)
[2016-08-03] MEDS: Aspirin Baby 81mg ORAL SCH (09:43)
[2016-08-03] MEDS: Docusate 100mg cap ORAL SCH ×4 (09:44→18:00)
--- NOTE | 2016-08-03 10:06 | Neurology Progress Note ---
Interim History Interim History ROS Limited/Unobtainable: No Complaints: feel ok Events: nite time confusion agitation, responded to haldol Objective Physical Exam Last Vital Signs Date Time Temp Pulse Resp B/P Pulse Ox O2 Delivery O2 Flow Rate FiO2 08/03/16 09:45 128 86/61 08/03/16 07:35 97.8 18 99 Nasal Cannula 08/03/16 03:48 2.0 Laboratory Tests Test 08/02/16 23:55 08/03/16 07:10 Urine Color Pale yellow Urine Appearance Cloudy Urine pH 7 (4.5-8.0) Urine Specific [place] 1.005 (1.005-1.035) Urine Protein 3+ (NEGATIVE) H Urine Glucose (UA) Negative (NEGATIVE) Urine Ketones Negative (NEGATIVE) Urine Occult Blood 5+ (NEGATIVE) H Urine Nitrite Negative (NEGATIVE) Urine Bilirubin Negative (NEGATIVE) Urine Urobilinogen Normal MG/DL (0.0-1.0) Urine Leukocyte Esterase 3+ (NEGATIVE) H Urine RBC 15-20 /HPF (0 - 2) H Urine WBC Tntc /HPF (0 - 2) H Urine Squamous Epithelial Cells Many /LPF (NONE/OCC) H Urine Bacteria Many /HPF (NONE) H Urine Eosinophils None seen Urine Random Sodium 29 mmol/L Urine Potassium Timed 8 mmol/L White Blood Count 8.0 K/UL (4.8-10.8) Red Blood Count 3.97 M/UL (4.20-5.40) L Hemoglobin 10.8 G/DL (12.0-16.0) L Hematocrit 35.5 % (37.0-47.0) L Mean Corpuscular Volume 89 FL (80-99) Mean Corpuscular Hemoglobin 27.3 PG (27.0-31.0) Mean Corpuscular Hemoglobin Concent 30.5 G/DL (32.0-36.0) L Red Cell Distribution Width 15.1 % (11.6-14.8) H Platelet Count 117 K/UL (150-450) L Mean Platelet Volume 14.1 FL (6.5-10.1) H Neutrophils (%) (Auto) 71.1 % (45.0-75.0) Lymphocytes (%) (Auto) 16.2 % (20.0-45.0) L Monocytes (%) (Auto) 8.6 % (1.0-10.0) Eosinophils (%) (Auto) 3.5 % (0.0-3.0) H Basophils (%) (Auto) 0.6 % (0.0-2.0) Sodium Level 147 mEQ/L (135-145) H Potassium Level 3.7 mEQ/L (3.4-4.9) Chloride Level 111 mEQ/L (98-107) H Carbon Dioxide Level 25 mEQ/L (20-30) Anion Gap 11 (5-15) Blood Urea Nitrogen 24 mg/dL (7-23) H Creatinine 1.7 mg/dL (0.5-0.9) H Estimat Glomerular Filtration Rate mL/min (>60) Glucose Level 94 mg/dL (74-106) Hemoglobin A1c 5.0 % (< 6.0) Uric Acid 8.8 mg/dL (3.0-7.5) H Calcium Level 10.6 mg/dL (8.6-10.2) H Phosphorus Level 2.8 mg/dL (2.5-4.8) Magnesium Level 2.0 mg/dL (1.7-2.5) Total Bilirubin 0.4 mg/dL (0.0-1.2) Gamma Glutamyl Transpeptidase 10 U/L (5-36) Aspartate Amino Transf (AST/SGOT) 13 U/L (5-40) Alanine Aminotransferase (ALT/SGPT) 10 U/L (3-33) Alkaline Phosphatase 49 U/L (35-104) Ammonia 76 umol/L (11-51) H Total Creatine Kinase 110 U/L (26-140) C-Reactive Protein, Quantitative < 0.3 mg/dL (< 0.5) Pro-B-Type Natriuretic Peptide 354 pg/mL (0-125) H Total Protein 6.1 g/dL (6.6-8.7) L Albumin 3.1 g/dL (3.5-5.2) L Globulin 3.0 g/dL Albumin/Globulin Ratio 1.0 (1.0-2.7) Triglycerides Level 65 mg/dL (< 150) Cholesterol Level 173 mg/dL (< 200) LDL Cholesterol 76 mg/dL (60-99) HDL Cholesterol 84 mg/dL (> 60) H Cholesterol/HDL Ratio 2.1 (3.3-4.4) L Thyroid Stimulating Hormone (TSH) 2.950 uIU/mL (0.300-4.500) General: well developed, no acute distress Head: normocophalic, atraumatic Neck: no rigidity Neurologic Exam Mental Status: awake, alert, other - ox2 confused Speech: other - slurred Language: no aphasia Cranial Nerve II: no papilledema Cranial Nerves III, IV, : pupils Cranial Nerve V: masseters function normal Cranial Nerve VII: no facial asymmetry Cranial Nerve VIII: no nystagmus Cranial Nerve IX: gag response Cranial Nerve XI: trapezii function normal Cranial Nerve XII: no tongue atrophy/fasciculations Motor System: no involuntary movement, no muscle wasting Sensory: normal pinprick Coordination: other Deep Tendon Reflexes: 0 ankle (L), 0 ankle (R), 0 bicep (L), 0 bicep (R), 0 brachioradialis (L), 0 brachioradialis (R), 0 knee (L), 0 knee (R), 0 tricep (L) , 0 tricep (R) Reflexes: mute plantar (L), mute plantar (R) Gait: other - unstable, full assist Impression/Recommendations Problems: (1) dementia vascular with sundown confusion (2) Cerebrovascular small vessel disease Status: stable Recommendations #[id number] MRI brain, carotid ,done no acute changes asa statins rebeca vanegasal/f/u pt/ot ALEXIS BACA Aug 03, 2016 10:06
--- NOTE | 2016-08-03 10:36 | Diagnostic Imaging Report ---
Indication: Altered mental status Technique: sagittal T1 fast spin echo, axial T1 FLAIR, axial T2 FLAIR, axial T2 FS PROPELLER, axial T2* GRE, axial diffusion weighted images. ADC and exponential ADC maps generated Comparison: None Findings: No abnormal areas of restricted diffusion to suggest acute infarction. No acute hemorrhage or edema. No mass effect nor midline shift. Normal size ventricles and extra axial CSF spaces, for age. Multiple focal areas of T2 hyperintensity are seen throughout the deep white matter bilaterally, as well as in the periventricular sub-ependymal regions. There is a focus of susceptibility artifact in the high posterior left parasagittal frontal cortex. Is evidence of minimal surrounding gliosis. Small old lacunar infarcts are seen in the luiz bilaterally.. Visualized orbits and sinuses are unremarkable. Impression: Negative for acute intracranial bleed, mass effect, or infarct T2 hyperintense foci scattered throughout the deep white matter, most likely on the basis of chronic deep white matter ischemic change. 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
--- NOTE | 2016-08-03 12:08 | Pulmonology Progress Note ---
Assessment/Plan Problems: (1) Acute encephalopathy (2) ATN (acute tubular necrosis) (3) Anemia (4) History of hypertension (5) Severe protein-calorie malnutrition (6) Psychosis Assessment/Plan MRI: T2 hyperintense foci scattered throughout the deep white matter, most likely on the basis of chronic deep white matter ischemic change. Demyelinating disease also a possibility [place] old lacunar infarcts neuro consult appreciated check pt/ot evaluation swallow study calorie count check electrolytes haldol for agitation worked well last night All medications and treatment were reviewed med/surg Subjective ROS Limited/Unobtainable: No Constitutional: Reports: no symptoms HEENT: Repors: no symptoms Respiratory: Reports: no symptoms Allergies: Coded Allergies: No Known Allergies (Unverified , 07/31/16) Objective Last 24 Hour Vital Signs Date Time Temp Pulse Resp B/P Pulse Ox O2 Delivery O2 Flow Rate FiO2 08/03/16 11:35 97.7 58 18 122/54 96 Nasal Cannula 08/03/16 09:45 128 86/61 08/03/16 07:35 97.8 58 18 128/86 99 Nasal Cannula 08/03/16 06:10 131/68 08/03/16 05:48 131/68 08/03/16 03:54 54 08/03/16 03:48 98.1 58 18 111/73 Nasal Cannula 2.0 08/03/16 00:08 98.6 52 19 141/83 94 Nasal Cannula 2.0 08/03/16 00:00 53 08/02/16 21:33 156/99 08/02/16 20:00 64 08/02/16 19:56 98.3 56 18 156/99 98 Nasal Cannula 2.0 08/02/16 16:31 53 08/02/16 16:10 97.5 49 17 141/90 49 Room Air 08/02/16 14:00 118/81 08/02/16 14:00 118/81 Intake and Output 08/02/16 08/03/16 19:00 07:00 Intake Total 980 ml 500 ml Balance 980 ml 500 ml Intake Oral 980 ml IV Total 500 ml # Voids 5 3 General Appearance: cachetic HEENT: normocephalic, atraumatic Respiratory/Chest: chest wall non-tender, lungs clear Breasts: no masses Cardiovascular: normal peripheral pulses Abdomen: normal bowel sounds, soft, non tender Genitourinary: normal external genitalia Extremities: no clubbing Skin: no rash 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 Laboratory Tests 08/02/16 23:55: Urine Color Pale yellow, Urine Appearance Cloudy, Urine pH 7, Urine Specific [place] 1.005, Urine Protein 3+H, Urine Glucose (UA) Negative, Urine Ketones Negative, Urine Occult Blood 5+H, Urine Nitrite Negative, Urine Bilirubin Negative, Urine Urobilinogen Normal, Urine Leukocyte Esterase 3+H, Urine RBC 15- 20H, Urine WBC TntcH, Urine Squamous Epithelial Cells ManyH, Urine Bacteria ManyH, Urine Eosinophils None seen, Urine Random Sodium 29, Urine Potassium Timed 8 08/03/16 07:10: White Blood Count 8.0, Red Blood Count 3.97L, Hemoglobin 10.8L, Hematocrit 35.5L , Mean Corpuscular Volume 89, Mean Corpuscular Hemoglobin 27.3, Mean Corpuscular Hemoglobin Concent 30.5L, Red Cell Distribution Width 15.1H, Platelet Count 117L, Mean Platelet Volume 14.1H, Neutrophils (%) (Auto) 71.1, Lymphocytes (%) (Auto) 16.2L, Monocytes (%) (Auto) 8.6, Eosinophils (%) (Auto) 3.5H, Basophils (%) (Auto) 0.6, Sodium Level 147H, Potassium Level 3.7, Chloride Level 111H, Carbon Dioxide Level 25, Anion Gap 11, Blood Urea Nitrogen 24H, Creatinine 1.7H, Estimat Glomerular Filtration Rate , Glucose Level 94, Hemoglobin A1c 5.0, Uric Acid 8.8H, Calcium Level 10.6H, Phosphorus Level 2.8, Magnesium Level 2.0, Total Bilirubin 0.4, Gamma Glutamyl Transpeptidase 10, Aspartate Amino Transf (AST/SGOT) 13, Alanine Aminotransferase (ALT/SGPT) 10, Alkaline Phosphatase 49, Ammonia 76H, Total Creatine Kinase 110, C-Reactive Protein, Quantitative < 0.3, Pro-B-Type Natriuretic Peptide 354H, Total Protein 6.1L, Albumin 3.1L, Globulin 3.0, Albumin/Globulin Ratio 1.0, Triglycerides Level 65, Cholesterol Level 173, LDL Cholesterol 76, HDL Cholesterol 84H, Cholesterol/HDL Ratio 2.1L, Thyroid Stimulating Hormone (TSH) 2.950 Current Medications Medications (Trade) Dose Ordered Sig/Yao Route PRN Reason Start Time Stop Time Status Last Admin Dose Admin Acetaminophen (Tylenol) 650 mg Q4H PRN ORAL FEVER 08/01/16 13:00 08/31/16 12:59 Acetaminophen (Tylenol) 650 mg Q4H PRN ORAL Mild Pain (Pain Scale 1-3) 08/01/16 13:00 08/31/16 12:59 Amlodipine Besylate (Norvasc) 5 mg BID ORAL 08/03/16 09:00 09/02/16 08:59 08/03/16 09:45 Aspirin (ASA) 81 mg DAILY ORAL 08/01/16 13:00 08/31/16 12:59 08/03/16 09:43 Bisacodyl (Dulcolax) 10 mg DAILYPRN PRN RECTAL Constipation 08/01/16 13:00 08/31/16 12:59 Clonidine HCl (Catapres) 0.1 mg Q4H PRN ORAL SBP > 165 08/02/16 19:30 09/01/16 19:29 Dextrose (Dextrose 50%) STAT PRN IV Hypoglycemia 08/02/16 04:30 09/01/16 04:29 Docusate Sodium (Colace) 100 mg TID ORAL 08/03/16 09:00 09/02/16 08:59 08/03/16 09:44 Haloperidol Lactate (Haldol) 5 mg EVERY 4 HOURS PRN IM Agitation 08/01/16 22:45 08/31/16 22:44 08/02/16 21:56 Heparin Sodium (Porcine) (Heparin 5000 units/ml) 5,000 units EVERY 12 HOURS SUBQ 08/01/16 21:00 08/31/16 20:59 Hydralazine HCl (Apresoline) 50 mg Q8HR ORAL 08/01/16 06:00 08/31/16 05:59 08/03/16 06:10 Lorazepam (Ativan 2mg/ml 1ml) 0.5 mg Q4H PRN IV For Anxiety 08/01/16 13:00 08/08/16 12:59 08/02/16 08:36 Nitroglycerin (Ntg) 0.4 mg Q5M PRN SL Prn Chest Pain 08/01/16 13:00 08/31/16 12:59 Olanzapine (ZyPREXA) 5 mg BEDTIME ORAL 08/02/16 21:00 09/01/16 20:59 08/02/16 21:33 Ondansetron HCl (Zofran) 4 mg Q6H PRN IVP Nausea & Vomiting 08/01/16 13:00 08/31/16 12:59 Polyethylene Glycol (Miralax) 17 gm DAILY PRN ORAL Constipation 08/01/16 13:00 08/31/16 12:59 Temazepam (Restoril) 15 mg HSPRN PRN ORAL Insomnia 08/01/16 13:00 08/08/16 12:59 JESUS CHE Aug 03, 2016 12:08
--- NOTE | 2016-08-03 12:43 | General Progress Note ---
Assessment/Plan Status: unchanged Status Narrative Cr 1.7 not changed Assessment/Plan status: renal failure, Cr 1.7 chronic vs Acute ( patient on [place]) HyperNatremia due to dehydration and free water deficit High Ca and high Uric acid due to dehydration Anemia Plan: Hydrate- bollous D5W Adjust BP meds- Monitor renal parameters- per consultants- check TSH per orders Subjective ROS Limited/Unobtainable: No Constitutional: Reports: malaise, weakness Allergies: Coded Allergies: No Known Allergies (Unverified , 07/31/16) Objective Last 24 Hour Vital Signs Date Time Temp Pulse Resp B/P Pulse Ox O2 Delivery O2 Flow Rate FiO2 08/03/16 11:35 97.7 58 18 122/54 96 Nasal Cannula 08/03/16 09:45 128 86/61 08/03/16 07:35 97.8 58 18 128/86 99 Nasal Cannula 08/03/16 06:10 131/68 08/03/16 05:48 131/68 08/03/16 03:54 54 08/03/16 03:48 98.1 58 18 111/73 Nasal Cannula 2.0 08/03/16 00:08 98.6 52 19 141/83 94 Nasal Cannula 2.0 08/03/16 00:00 53 08/02/16 21:33 156/99 08/02/16 20:00 64 08/02/16 19:56 98.3 56 18 156/99 98 Nasal Cannula 2.0 08/02/16 16:31 53 08/02/16 16:10 97.5 49 17 141/90 49 Room Air 08/02/16 14:00 118/81 08/02/16 14:00 118/81 Intake and Output 08/02/16 08/03/16 19:00 07:00 Intake Total 980 ml 500 ml Balance 980 ml 500 ml Intake Oral 980 ml IV Total 500 ml # Voids 5 3 Laboratory Tests 08/02/16 23:55: Urine Color Pale yellow, Urine Appearance Cloudy, Urine pH 7, Urine Specific [place] 1.005, Urine Protein 3+H, Urine Glucose (UA) Negative, Urine Ketones Negative, Urine Occult Blood 5+H, Urine Nitrite Negative, Urine Bilirubin Negative, Urine Urobilinogen Normal, Urine Leukocyte Esterase 3+H, Urine RBC 15- 20H, Urine WBC TntcH, Urine Squamous Epithelial Cells ManyH, Urine Bacteria ManyH, Urine Eosinophils None seen, Urine Random Sodium 29, Urine Potassium Timed 8 08/03/16 07:10: White Blood Count 8.0, Red Blood Count 3.97L, Hemoglobin 10.8L, Hematocrit 35.5L , Mean Corpuscular Volume 89, Mean Corpuscular Hemoglobin 27.3, Mean Corpuscular Hemoglobin Concent 30.5L, Red Cell Distribution Width 15.1H, Platelet Count 117L, Mean Platelet Volume 14.1H, Neutrophils (%) (Auto) 71.1, Lymphocytes (%) (Auto) 16.2L, Monocytes (%) (Auto) 8.6, Eosinophils (%) (Auto) 3.5H, Basophils (%) (Auto) 0.6, Sodium Level 147H, Potassium Level 3.7, Chloride Level 111H, Carbon Dioxide Level 25, Anion Gap 11, Blood Urea Nitrogen 24H, Creatinine 1.7H, Estimat Glomerular Filtration Rate , Glucose Level 94, Hemoglobin A1c 5.0, Uric Acid 8.8H, Calcium Level 10.6H, Phosphorus Level 2.8, Magnesium Level 2.0, Total Bilirubin 0.4, Gamma Glutamyl Transpeptidase 10, Aspartate Amino Transf (AST/SGOT) 13, Alanine Aminotransferase (ALT/SGPT) 10, Alkaline Phosphatase 49, Ammonia 76H, Total Creatine Kinase 110, C-Reactive Protein, Quantitative < 0.3, Pro-B-Type Natriuretic Peptide 354H, Total Protein 6.1L, Albumin 3.1L, Globulin 3.0, Albumin/Globulin Ratio 1.0, Triglycerides Level 65, Cholesterol Level 173, LDL Cholesterol 76, HDL Cholesterol 84H, Cholesterol/HDL Ratio 2.1L, Thyroid Stimulating Hormone (TSH) 2.950 Height (Feet): 5 Height (Inches): 0.41 Weight (Pounds): 165 General Appearance: no apparent distress Respiratory/Chest: decreased breath sounds Abdomen: soft Objective no change in physical exam CAMILLE BEYER Aug 03, 2016 12:43
[2016-08-03] MEDS ORDERED: D5 1/2NS 1,000 ML IV SCH (13:00)
--- NOTE | 2016-08-03 20:00 | Progress Note ---
DATE: 08/03/2016 SUBJECTIVE: The patient was seen today. She is calmer, less agitated. She was alert and oriented to self. She was and was cooperative. Her cognition is improved than yesterday. MRI of the brain is significant for demyelinating process as well as T2 hyperintense foci scattered throughout deep white matter therefore there is a possibility of multiple sclerosis. The patient is confused at baseline, presents with disorganized speech and behavior. MENTAL STATUS EXAMINATION: The patient is alert, oriented to self. Mood is neutral today. Affect is constricted. Congruent with mood. Thought process disorganized. Thought content, positive for delusions. Cognition is impaired. Insight and judgment impaired. ASSESSMENT: Schizoaffective disorder, possible multiple sclerosis, possible old lacunar infarct. PLAN: 1. The patient will be started on low-dose of antipsychotics. 2. We will continue olanzapine 5 mg at bedtime. 3. We will continue to follow and readjust the medications. Stephanie Kebede M.D. DR: Lacey JOB#: [id number] CC:
[2016-08-03] MEDS: Haloperidol 5mg/ml Inj IM PRN (23:53)
[2016-08-04] MEDS ORDERED: Nitroglycerin Subl 0.4mg tab (Bottle Of 25) SL PRN (00:45)
[2016-08-04] MEDS ORDERED: Miralax 17gm pkt ORAL PRN (00:49)
[2016-08-04] MEDS: D5 1/2NS 1,000 ML IV SCH ×2 (00:51→14:16)
[2016-08-04] MEDS ORDERED: LORazepam Inj 2mg/ml 1ml IV PRN (01:00)
[2016-08-04 03:44] VITALS: BP 132/77
[2016-08-04] MEDS ORDERED: Haloperidol 5mg/ml Inj IM PRN (04:00)
[2016-08-04] MEDS: HydrALAZINE 50mg tab ORAL SCH ×3 (05:39→21:02)
[2016-08-04] MEDS ORDERED: LORAZEPAM1 MG ORAL (06:32)
[2016-08-04] MEDS ORDERED: RISPERDAL2 MG ORAL (06:32)
[2016-08-04] MEDS ORDERED: MILK OF MA400 MG/51 ORAL (06:32)
[2016-08-04] MEDS ORDERED: CATAPRES0.1 MG ORAL (06:32)
[2016-08-04] MEDS ORDERED: LITHIUM CARBON300 MG ORAL (06:32)
[2016-08-04] MEDS ORDERED: RISPERDAL37.5 MG/2 IM (06:32)
[2016-08-04] MEDS ORDERED: TEMAZEPAM15 MG ORAL (06:32)
[2016-08-04] MEDS ORDERED: AMLODIPINE BESYL5 MG ORAL (06:32)
[2016-08-04] MEDS ORDERED: HYDRALAZINE HCL50 MG ORAL (06:32)
[2016-08-04 08:00] VITALS: BP 140/93
[2016-08-04 08:31] LABS: BASOPHILS % (AUTO) 0.5 % (0.0-2.0); EOSINOPHILS % (AUTO) 2.7 % (0.0-3.0); LYMPHOCYTES % (AUTO) 15.1 % (20.0-45.0); MEAN CORPUSCULAR HEMOGLOBIN 27.5 PG (27.0-31.0); MEAN CORPUSCULAR HGB CONC 30.5 G/DL (32.0-36.0); MEAN CORPUSCULAR VOLUME 90 FL (80-99); MEAN PLATELET VOLUME 13.6 FL (6.5-10.1); MONOCYTES % (AUTO) 9.5 % (1.0-10.0); NEUTROPHILS % (AUTO) 72.1 % (45.0-75.0); PLATELET COUNT 115 K/UL (150-450); RED BLOOD COUNT 4.33 M/UL (4.20-5.40); WHITE BLOOD COUNT 8.3 K/UL (4.8-10.8)
--- NOTE | 2016-08-04 08:36 | Cardiology Progress Note ---
Assessment/Plan Assessment/Plan 1. Sinus bradycardia, HR is stable between 57-64, asymptomatic. 2. Chronic kidney disease. 3. Psych disorder. 4. Accelerated hypertension, continue amlodipine an d hydralazine. Subjective Subjective Transferred to the med -surg unit. No cardiac events. Objective Last 24 Hour Vital Signs Date Time Temp Pulse Resp B/P Pulse Ox O2 Delivery O2 Flow Rate FiO2 08/04/16 05:39 132/77 08/04/16 03:44 98.8 57 18 132/77 95 Room Air 08/03/16 23:48 98.6 62 19 159/86 98 Room Air 08/03/16 21:48 136/87 08/03/16 19:45 98.3 70 18 136/87 95 Room Air 08/03/16 18:40 138/87 08/03/16 18:00 65 138/87 08/03/16 16:18 97.7 61 18 129/75 97 Room Air 08/03/16 16:00 57 08/03/16 14:00 103/60 08/03/16 12:00 55 08/03/16 11:35 97.7 58 18 122/54 96 Nasal Cannula 08/03/16 09:45 128 86/61 Intake and Output 08/03/16 08/04/16 19:00 07:00 Intake Total 413 ml 750 ml Balance 413 ml 750 ml IV Total 413 ml 750 ml # Voids 3 2D Echo: LVEF 65%, LAE, LVH, RVSP 17 mmHg, Grade I LVDD Laboratory Tests Test 08/04/16 07:35 White Blood Count Pending Red Blood Count Pending Hemoglobin Pending Hematocrit Pending Mean Corpuscular Volume Pending Mean Corpuscular Hemoglobin Pending Mean Corpuscular Hemoglobin Concent Pending Red Cell Distribution Width Pending Platelet Count Pending Mean Platelet Volume Pending Neutrophils (%) (Auto) Pending Lymphocytes (%) (Auto) Pending Monocytes (%) (Auto) Pending Eosinophils (%) (Auto) Pending Basophils (%) (Auto) Pending Sodium Level Pending Potassium Level Pending Chloride Level Pending Carbon Dioxide Level Pending Blood Urea Nitrogen Pending Creatinine Pending Estimat Glomerular Filtration Rate Pending Glucose Level Pending Uric Acid Pending Calcium Level Pending Phosphorus Level Pending Total Bilirubin Pending Aspartate Amino Transf (AST/SGOT) Pending Alanine Aminotransferase (ALT/SGPT) Pending Alkaline Phosphatase Pending Pro-B-Type Natriuretic Peptide Pending Total Protein Pending Albumin Pending Globulin Pending Microbiology Date/Time Source Procedure Growth Status 08/02/16 04:00 Rectal Mucosa VRE Culture - Final NO VANCOMYCIN RESISTANT ENTEROCOCCUS ... Complete Objective HEENT: Atraumatic and normocephalic. Anicteric. Pupils are equal, round, and reactive to light and accommodation. Extraocular muscles are intact. Poor dentition. NECK: JVP less than 5 cm. No carotid bruits. Carotid upstrokes 2+ bilaterally. CARDIOVASCULAR: Normal S1 and S2. Regular rate and rhythm. No murmurs, gallops, or rubs. PMI is at fourth intercostal space at the midclavicular line. LUNGS: Clear to auscultation bilaterally. ABDOMEN: Soft, nontender, and nondistended. No hepatosplenomegaly. Positive bowel sounds. EXTREMITIES: No evidence of edema, clubbing, or cyanosis. PETE AGUILERA Aug 04, 2016 08:36
[2016-08-04] MEDS: Heparin 5000 units/ml inj SUBQ SCH ×2 (08:38→21:00)
[2016-08-04] MEDS: Docusate 100mg cap ORAL SCH ×3 (08:39→17:12)
[2016-08-04] MEDS: Aspirin Baby 81mg ORAL SCH (08:40)
[2016-08-04 09:16] LABS: ALANINE AMINOTRANSFERASE 11 U/L (3-33); ALBUMIN/GLOBULIN RATIO 0.8 (1.0-2.7); ANION GAP 13 (5-15); ASPARTATE AMINO TRANSFERASE 18 U/L (5-40); CALCIUM 10.6 mg/dL (8.6-10.2); CARBON DIOXIDE 23 mEQ/L (20-30); CHLORIDE 109 mEQ/L (98-107); CREATININE 1.7 mg/dL (0.5-0.9); HEMOLYSIS 4; PHOSPHORUS 2.3 mg/dL (2.5-4.8); POTASSIUM 3.8 mEQ/L (3.4-4.9); SODIUM 145 mEQ/L (135-145); TOTAL PROTEIN 6.8 g/dL (6.6-8.7); URIC ACID 8.5 mg/dL (3.0-7.5)
--- NOTE | 2016-08-04 09:24 | General Progress Note ---
Assessment/Plan Status: unchanged Status Narrative Cr 1.7 Na now wnl Assessment/Plan status: renal failure, Cr 1.7 chronic vs Acute ( patient on [place]) HyperNatremia due to dehydration and free water deficit High Ca and high Uric acid due to dehydration Anemia Plan: Hydrate- Adjust BP meds- Monitor renal parameters- per consultants- ? DC Subjective ROS Limited/Unobtainable: No Constitutional: Reports: malaise, weakness Allergies: Coded Allergies: No Known Allergies (Unverified , 07/31/16) Objective Last 24 Hour Vital Signs Date Time Temp Pulse Resp B/P Pulse Ox O2 Delivery O2 Flow Rate FiO2 08/04/16 08:39 75 140/93 08/04/16 05:39 132/77 08/04/16 03:44 98.8 57 18 132/77 95 Room Air 08/03/16 23:48 98.6 62 19 159/86 98 Room Air 08/03/16 21:48 136/87 08/03/16 19:45 98.3 70 18 136/87 95 Room Air 08/03/16 18:40 138/87 08/03/16 18:00 65 138/87 08/03/16 16:18 97.7 61 18 129/75 97 Room Air 08/03/16 16:00 57 08/03/16 14:00 103/60 08/03/16 12:00 55 08/03/16 11:35 97.7 58 18 122/54 96 Nasal Cannula 08/03/16 09:45 128 86/61 Intake and Output 08/03/16 08/04/16 19:00 07:00 Intake Total 413 ml 750 ml Balance 413 ml 750 ml IV Total 413 ml 750 ml # Voids 3 Laboratory Tests 08/04/16 07:35: White Blood Count 8.3, Red Blood Count 4.33, Hemoglobin 11.9L, Hematocrit 39.0, Mean Corpuscular Volume 90, Mean Corpuscular Hemoglobin 27.5, Mean Corpuscular Hemoglobin Concent 30.5L, Red Cell Distribution Width 15.0H, Platelet Count 115L , Mean Platelet Volume 13.6H, Neutrophils (%) (Auto) 72.1, Lymphocytes (%) (Auto ) 15.1L, Monocytes (%) (Auto) 9.5, Eosinophils (%) (Auto) 2.7, Basophils (%) ( Auto) 0.5, Sodium Level 145, Potassium Level 3.8, Chloride Level 109H, Carbon Dioxide Level 23, Anion Gap 13, Blood Urea Nitrogen 24H, Creatinine 1.7H, Estimat Glomerular Filtration Rate , Glucose Level 114H, Uric Acid 8.5H, Calcium Level 10.6H, Phosphorus Level 2.3L, Total Bilirubin 0.3, Aspartate Amino Transf (AST/SGOT) 18, Alanine Aminotransferase (ALT/SGPT) 11, Alkaline Phosphatase 58, Pro-B-Type Natriuretic Peptide [Pending], Total Protein 6.8, Albumin 3.2L, Globulin 3.6, Albumin/Globulin Ratio 0.8L Height (Feet): 5 Height (Inches): 0.41 Weight (Pounds): 165 General Appearance: no apparent distress Objective no change in physical exam CAMILLE BEYER Aug 04, 2016 09:24
[2016-08-04 11:18] VITALS: BP 151/91
--- NOTE | 2016-08-04 13:50 | Neurology Progress Note ---
Interim History Interim History ROS Limited/Unobtainable: No Complaints: feel ok need to get up Events: more coherent, calmer Objective Physical Exam Last Vital Signs Date Time Temp Pulse Resp B/P Pulse Ox O2 Delivery O2 Flow Rate FiO2 08/04/16 13:18 151/91 08/04/16 11:18 97.2 68 19 99 Room Air 08/03/16 03:48 2.0 Laboratory Tests Test 08/04/16 07:35 White Blood Count 8.3 K/UL (4.8-10.8) Red Blood Count 4.33 M/UL (4.20-5.40) Hemoglobin 11.9 G/DL (12.0-16.0) L Hematocrit 39.0 % (37.0-47.0) Mean Corpuscular Volume 90 FL (80-99) Mean Corpuscular Hemoglobin 27.5 PG (27.0-31.0) Mean Corpuscular Hemoglobin Concent 30.5 G/DL (32.0-36.0) L Red Cell Distribution Width 15.0 % (11.6-14.8) H Platelet Count 115 K/UL (150-450) L Mean Platelet Volume 13.6 FL (6.5-10.1) H Neutrophils (%) (Auto) 72.1 % (45.0-75.0) Lymphocytes (%) (Auto) 15.1 % (20.0-45.0) L Monocytes (%) (Auto) 9.5 % (1.0-10.0) Eosinophils (%) (Auto) 2.7 % (0.0-3.0) Basophils (%) (Auto) 0.5 % (0.0-2.0) Sodium Level 145 mEQ/L (135-145) Potassium Level 3.8 mEQ/L (3.4-4.9) Chloride Level 109 mEQ/L (98-107) H Carbon Dioxide Level 23 mEQ/L (20-30) Anion Gap 13 (5-15) Blood Urea Nitrogen 24 mg/dL (7-23) H Creatinine 1.7 mg/dL (0.5-0.9) H Estimat Glomerular Filtration Rate mL/min (>60) Glucose Level 114 mg/dL (74-106) H Uric Acid 8.5 mg/dL (3.0-7.5) H Calcium Level 10.6 mg/dL (8.6-10.2) H Phosphorus Level 2.3 mg/dL (2.5-4.8) L Total Bilirubin 0.3 mg/dL (0.0-1.2) Aspartate Amino Transf (AST/SGOT) 18 U/L (5-40) Alanine Aminotransferase (ALT/SGPT) 11 U/L (3-33) Alkaline Phosphatase 58 U/L (35-104) Pro-B-Type Natriuretic Peptide 288 pg/mL (0-125) H Total Protein 6.8 g/dL (6.6-8.7) Albumin 3.2 g/dL (3.5-5.2) L Globulin 3.6 g/dL Albumin/Globulin Ratio 0.8 (1.0-2.7) L General: well developed, no acute distress Head: normocophalic, atraumatic Neck: no rigidity Neurologic Exam Mental Status: awake, alert, other - ox2 confused, more verbal, smiling Speech: other - slurred Language: no aphasia Cranial Nerve II: no papilledema Cranial Nerves III, IV, : pupils Cranial Nerve V: masseters function normal Cranial Nerve VII: no facial asymmetry Cranial Nerve VIII: no nystagmus Cranial Nerve IX: gag response Cranial Nerve XI: trapezii function normal Cranial Nerve XII: no tongue atrophy/fasciculations Motor System: no involuntary movement, no muscle wasting, other - rigidity BLE Sensory: normal pinprick Coordination: other Deep Tendon Reflexes: 0 ankle (L), 0 ankle (R), 0 bicep (L), 0 bicep (R), 0 brachioradialis (L), 0 brachioradialis (R), 0 knee (L), 0 knee (R), 0 tricep (L) , 0 tricep (R) Reflexes: mute plantar (L), mute plantar (R) Gait: other - unstable, full assist Impression/Recommendations Problems: (1) dementia vascular with sundown confusion (2) Cerebrovascular small vessel disease Status: unchanged Recommendations #[id number] MRI brain, carotid ,done no acute changes asa statins geropsych eval/f/u pt/ot ALEXIS BACA Aug 04, 2016 13:50
[2016-08-04 15:39] VITALS: BP 129/82
[2016-08-04 19:42] VITALS: BP 139/81
[2016-08-04] MEDS ORDERED: cefTRIAXone 1 GM in D5W 55 ML IVPB SCH (20:00)
--- NOTE | 2016-08-04 23:43 | Pulmonology Progress Note ---
Assessment/Plan Problems: (1) Acute encephalopathy (2) ATN (acute tubular necrosis) (3) Anemia (4) History of hypertension (5) Severe protein-calorie malnutrition (6) Psychosis Assessment/Plan MRI: T2 hyperintense foci scattered throughout the deep white matter, most likely on the basis of chronic deep white matter ischemic change. Demyelinating disease also a possibility [place] old lacunar infarcts neuro consult and f/u appreciated check pt/ot evaluation check electrolytes All medications and treatment were reviewed dc planning to a snif med/surg Subjective ROS Limited/Unobtainable: Yes Interval Events: calmer today, more cohorent Allergies: Coded Allergies: No Known Allergies (Unverified , 07/31/16) Objective Last 24 Hour Vital Signs Date Time Temp Pulse Resp B/P Pulse Ox O2 Delivery O2 Flow Rate FiO2 08/04/16 21:02 139/81 08/04/16 19:42 98.1 63 17 139/81 100 Room Air 08/04/16 17:12 62 129/82 08/04/16 15:39 98.2 62 19 129/82 100 Room Air 08/04/16 13:18 151/91 08/04/16 11:18 97.2 68 19 151/91 99 Room Air 08/04/16 08:39 75 140/93 08/04/16 08:00 97.0 75 18 140/93 97 Room Air 08/04/16 05:39 132/77 08/04/16 03:44 98.8 57 18 132/77 95 Room Air 08/03/16 23:48 98.6 62 19 159/86 98 Room Air Intake and Output 08/03/16 08/04/16 19:00 07:00 Intake Total 413 ml 750 ml Balance 413 ml 750 ml IV Total 413 ml 750 ml # Voids 3 General Appearance: cachetic HEENT: normocephalic, atraumatic Respiratory/Chest: chest wall non-tender, lungs clear Cardiovascular: normal peripheral pulses, normal rate Abdomen: normal bowel sounds, soft, non tender Genitourinary: normal external genitalia Extremities: no cyanosis Microbiology Date/Time Source Procedure Growth Status 08/02/16 04:00 Nasal Nares Left MRSA Culture - Final NO METHICILLIN RESISTANT STAPH AUREUS... Complete 08/02/16 04:00 Rectal Mucosa VRE Culture - Final NO VANCOMYCIN RESISTANT ENTEROCOCCUS ... Complete Laboratory Tests 08/04/16 07:35: White Blood Count 8.3, Red Blood Count 4.33, Hemoglobin 11.9L, Hematocrit 39.0, Mean Corpuscular Volume 90, Mean Corpuscular Hemoglobin 27.5, Mean Corpuscular Hemoglobin Concent 30.5L, Red Cell Distribution Width 15.0H, Platelet Count 115L , Mean Platelet Volume 13.6H, Neutrophils (%) (Auto) 72.1, Lymphocytes (%) (Auto ) 15.1L, Monocytes (%) (Auto) 9.5, Eosinophils (%) (Auto) 2.7, Basophils (%) ( Auto) 0.5, Sodium Level 145, Potassium Level 3.8, Chloride Level 109H, Carbon Dioxide Level 23, Anion Gap 13, Blood Urea Nitrogen 24H, Creatinine 1.7H, Estimat Glomerular Filtration Rate , Glucose Level 114H, Uric Acid 8.5H, Calcium Level 10.6H, Phosphorus Level 2.3L, Total Bilirubin 0.3, Aspartate Amino Transf (AST/SGOT) 18, Alanine Aminotransferase (ALT/SGPT) 11, Alkaline Phosphatase 58, Pro-B-Type Natriuretic Peptide 288H, Total Protein 6.8, Albumin 3.2L, Globulin 3.6, Albumin/Globulin Ratio 0.8L Current Medications Medications (Trade) Dose Ordered Sig/Yao Route PRN Reason Start Time Stop Time Status Last Admin Dose Admin Acetaminophen (Tylenol) 650 mg Q4H PRN ORAL FEVER 08/04/16 01:00 09/03/16 00:59 Acetaminophen (Tylenol) 650 mg Q4H PRN ORAL Mild Pain (Pain Scale 1-3) 08/04/16 01:00 09/03/16 00:59 Amlodipine Besylate (Norvasc) 5 mg BID ORAL 08/04/16 09:00 09/03/16 08:59 08/04/16 17:12 Aspirin (ASA) 81 mg DAILY ORAL 08/04/16 09:00 09/03/16 08:59 08/04/16 08:40 Bisacodyl (Dulcolax) 10 mg DAILYPRN PRN RECTAL Constipation 08/04/16 00:45 09/03/16 00:44 Ceftriaxone Sodium/Dextrose (Rocephin/D5W) 55 ml @ 110 mls/hr Q24H IVPB 08/04/16 20:00 08/11/16 19:59 08/04/16 20:42 Clonidine HCl (Catapres) 0.1 mg Q4H PRN ORAL SBP > 165 08/04/16 00:45 09/03/16 00:44 Dextrose (Dextrose 50%) STAT PRN IV Hypoglycemia 08/04/16 00:46 09/03/16 00:45 Dextrose/Sodium Chloride (D5 0.45% NS) 1,000 ml @ 75 mls/hr [id number] IV 08/04/16 01:00 09/03/16 00:59 08/04/16 14:16 Docusate Sodium (Colace) 100 mg TID ORAL 08/04/16 09:00 09/03/16 08:59 08/04/16 08:39 Haloperidol Lactate (Haldol) 5 mg Q4H PRN IM Agitation 08/04/16 04:00 09/03/16 03:59 08/04/16 05:39 Heparin Sodium (Porcine) (Heparin 5000 units/ml) 5,000 units EVERY 12 HOURS SUBQ 08/04/16 09:00 09/03/16 08:59 Hydralazine HCl (Apresoline) 50 mg Q8HR ORAL 08/04/16 06:00 09/03/16 05:59 08/04/16 21:02 Lorazepam (Ativan 2mg/ml 1ml) 0.5 mg Q4H PRN IV For Anxiety 08/04/16 01:00 08/11/16 00:59 Nitroglycerin (Ntg) 0.4 mg Q5M PRN SL Prn Chest Pain 08/04/16 00:45 09/03/16 00:44 Olanzapine (ZyPREXA) 5 mg BEDTIME ORAL 08/04/16 21:00 09/03/16 20:59 08/04/16 21:02 Ondansetron HCl (Zofran) 4 mg Q6H PRN IVP Nausea & Vomiting 08/04/16 01:00 09/03/16 00:59 Polyethylene Glycol (Miralax) 17 gm DAILY PRN ORAL Constipation 08/04/16 00:49 09/03/16 00:48 Temazepam 15 mg 15 mg HSPRN PRN ORAL Insomnia 08/04/16 00:49 08/11/16 00:48 JESUS CHE Aug 04, 2016 23:43
[2016-08-04 23:56] VITALS: BP 160/104
[2016-08-05 00:50] VITALS: BP 146/97
[2016-08-05 04:00] VITALS: BP 155/66
[2016-08-05] MEDS: D5 1/2NS 1,000 ML IV SCH ×2 (04:01→17:00)
[2016-08-05] MEDS: HydrALAZINE 50mg tab ORAL SCH ×2 (05:20→13:23)
--- NOTE | 2016-08-05 07:29 | Pulmonology Progress Note ---
Assessment/Plan Assessment/Plan ASSESSMENT acute encephalopathy on chronic dementia vascular dementia with sundown confusion acute on chronic renal failure hypernatremia 2 to free water deficit and dehydration-resolved dehydration anemia HTN urgency UTI severe protein calorie malnutrition cerebrovascular disease schizoaffective disorder PLAN OF CARE MS floor neuro follows MRI brain, carotid Duplex no acute changes continue ASA and statin recommended geropsych eval as outpt nephro follows no change in renal parameters renal US with increased echogenicity bilaterally c/w medical renal disease, no hydro hydration avoid nephrotoxic closely monitor lytes, renal parameters UA with evidence of UTI, empiric abx, urine cx hyper Na 2 to free water deficit and dehydration, resolved BP management with CCB and Hydralazine cardio follows ECHO wwith EF 65% SB 57-64, asymptomatic PT/OT swallow eval calorie count psych follows on low dose of Zyprexa, Haldol prn behavior improved HH stable, terndign up, stable iron, folate and B 2 level dc plan soon case discussed and evaluated by supervising physician Subjective Allergies: Coded Allergies: No Known Allergies (Unverified , 07/31/16) Subjective denies chest pain, SOB sitter at the bedside Objective Last 24 Hour Vital Signs Date Time Temp Pulse Resp B/P Pulse Ox O2 Delivery O2 Flow Rate FiO2 08/05/16 05:20 155/66 08/05/16 04:00 96.3 67 16 155/66 99 Room Air 08/05/16 00:50 74 146/97 08/04/16 23:56 97.9 72 18 160/104 100 Room Air 08/04/16 21:02 139/81 08/04/16 19:42 98.1 63 17 139/81 100 Room Air 08/04/16 17:12 62 129/82 08/04/16 15:39 98.2 62 19 129/82 100 Room Air 08/04/16 13:18 151/91 08/04/16 11:18 97.2 68 19 151/91 99 Room Air 08/04/16 08:39 75 140/93 08/04/16 08:00 97.0 75 18 140/93 97 Room Air Intake and Output 08/04/16 08/05/16 19:00 07:00 Intake Total 1665 ml 1180 ml Balance 1665 ml 1180 ml Intake Oral 840 ml 300 ml IV Total 825 ml 880 ml # Voids 1 3 General Appearance: no acute distress HEENT: normocephalic, atraumatic, anicteric, mucous membranes moist Respiratory/Chest: chest wall non-tender, lungs clear, no respiratory distress , no accessory muscle use Cardiovascular: normal peripheral pulses, normal rate, regular rhythm, no JVD Abdomen: normal bowel sounds, soft, non tender, no organomegaly Genitourinary: normal external genitalia Extremities: no edema, pedal pulses normal Neurologic/Psychiatric: alert, responsive Musculoskeletal: atrophy - BLE Laboratory Tests 08/04/16 07:35: White Blood Count 8.3, Red Blood Count 4.33, Hemoglobin 11.9L, Hematocrit 39.0, Mean Corpuscular Volume 90, Mean Corpuscular Hemoglobin 27.5, Mean Corpuscular Hemoglobin Concent 30.5L, Red Cell Distribution Width 15.0H, Platelet Count 115L , Mean Platelet Volume 13.6H, Neutrophils (%) (Auto) 72.1, Lymphocytes (%) (Auto ) 15.1L, Monocytes (%) (Auto) 9.5, Eosinophils (%) (Auto) 2.7, Basophils (%) ( Auto) 0.5, Sodium Level 145, Potassium Level 3.8, Chloride Level 109H, Carbon Dioxide Level 23, Anion Gap 13, Blood Urea Nitrogen 24H, Creatinine 1.7H, Estimat Glomerular Filtration Rate , Glucose Level 114H, Uric Acid 8.5H, Calcium Level 10.6H, Phosphorus Level 2.3L, Total Bilirubin 0.3, Aspartate Amino Transf (AST/SGOT) 18, Alanine Aminotransferase (ALT/SGPT) 11, Alkaline Phosphatase 58, Pro-B-Type Natriuretic Peptide 288H, Total Protein 6.8, Albumin 3.2L, Globulin 3.6, Albumin/Globulin Ratio 0.8L Current Medications Medications (Trade) Dose Ordered Sig/Yao Route PRN Reason Start Time Stop Time Status Last Admin Dose Admin Acetaminophen (Tylenol) 650 mg Q4H PRN ORAL FEVER 08/04/16 01:00 09/03/16 00:59 Acetaminophen (Tylenol) 650 mg Q4H PRN ORAL Mild Pain (Pain Scale 1-3) 08/04/16 01:00 09/03/16 00:59 Amlodipine Besylate (Norvasc) 5 mg BID ORAL 08/04/16 09:00 09/03/16 08:59 08/04/16 17:12 Aspirin (ASA) 81 mg DAILY ORAL 08/04/16 09:00 09/03/16 08:59 08/04/16 08:40 Bisacodyl (Dulcolax) 10 mg DAILYPRN PRN RECTAL Constipation 08/04/16 00:45 09/03/16 00:44 Ceftriaxone Sodium/Dextrose (Rocephin/D5W) 55 ml @ 110 mls/hr Q24H IVPB 08/04/16 20:00 08/11/16 19:59 08/04/16 20:42 Clonidine HCl (Catapres) 0.1 mg Q4H PRN ORAL SBP > 165 08/04/16 00:45 09/03/16 00:44 Dextrose (Dextrose 50%) STAT PRN IV Hypoglycemia 08/04/16 00:46 09/03/16 00:45 Dextrose/Sodium Chloride (D5 0.45% NS) 1,000 ml @ 75 mls/hr [id number] IV 08/04/16 01:00 09/03/16 00:59 08/05/16 04:01 Docusate Sodium (Colace) 100 mg TID ORAL 08/04/16 09:00 09/03/16 08:59 08/04/16 08:39 Haloperidol Lactate (Haldol) 5 mg Q4H PRN IM Agitation 08/04/16 04:00 09/03/16 03:59 08/04/16 05:39 Heparin Sodium (Porcine) (Heparin 5000 units/ml) 5,000 units EVERY 12 HOURS SUBQ 08/04/16 09:00 09/03/16 08:59 Hydralazine HCl (Apresoline) 50 mg Q8HR ORAL 08/04/16 06:00 09/03/16 05:59 08/05/16 05:20 Lorazepam (Ativan 2mg/ml 1ml) 0.5 mg Q4H PRN IV For Anxiety 08/04/16 01:00 08/11/16 00:59 Nitroglycerin (Ntg) 0.4 mg Q5M PRN SL Prn Chest Pain 08/04/16 00:45 09/03/16 00:44 Olanzapine (ZyPREXA) 5 mg BEDTIME ORAL 08/04/16 21:00 09/03/16 20:59 08/04/16 21:02 Ondansetron HCl (Zofran) 4 mg Q6H PRN IVP Nausea & Vomiting 08/04/16 01:00 09/03/16 00:59 Polyethylene Glycol (Miralax) 17 gm DAILY PRN ORAL Constipation 08/04/16 00:49 09/03/16 00:48 Temazepam 15 mg 15 mg HSPRN PRN ORAL Insomnia 08/04/16 00:49 08/11/16 00:48 Pal ([facility])Gloria NP Aug 05, 2016 07:29
[2016-08-05 08:00] VITALS: BP 157/89
[2016-08-05] MEDS: Docusate 100mg cap ORAL SCH ×3 (08:25→17:30)
[2016-08-05] MEDS: Aspirin Baby 81mg ORAL SCH (08:25)
[2016-08-05] MEDS: Heparin 5000 units/ml inj SUBQ SCH (08:26)
--- NOTE | 2016-08-05 11:54 | General Progress Note ---
Assessment/Plan Status: stable - from renal stand Assessment/Plan Status: Renal failure, Cr 1.7 chronic vs Acute ( patient on August) HyperNatremia due to dehydration and free water deficit High Ca and high Uric acid due to dehydration Anemia Plan: Hydrate- Adjust BP meds- Monitor renal parameters- per consultants- ? DC Subjective ROS Limited/Unobtainable: No Constitutional: Reports: malaise Allergies: Coded Allergies: No Known Allergies (Unverified , 07/31/16) Objective Last 24 Hour Vital Signs Date Time Temp Pulse Resp B/P Pulse Ox O2 Delivery O2 Flow Rate FiO2 08/05/16 08:25 76 157/89 08/05/16 08:00 97.1 76 18 157/89 98 Room Air 08/05/16 05:20 155/66 08/05/16 04:00 96.3 67 16 155/66 99 Room Air 08/05/16 00:50 74 146/97 08/04/16 23:56 97.9 72 18 160/104 100 Room Air 08/04/16 21:02 139/81 08/04/16 19:42 98.1 63 17 139/81 100 Room Air 08/04/16 17:12 62 129/82 08/04/16 15:39 98.2 62 19 129/82 100 Room Air 08/04/16 13:18 151/91 Intake and Output 08/04/16 08/05/16 19:00 07:00 Intake Total 1665 ml 1180 ml Balance 1665 ml 1180 ml Intake Oral 840 ml 300 ml IV Total 825 ml 880 ml # Voids 1 3 Height (Feet): 5 Height (Inches): 0.41 Weight (Pounds): 165 General Appearance: no apparent distress, confused Objective no change in physical exam CAMILLE BEYER Aug 05, 2016 11:54
[2016-08-05 12:00] VITALS: BP 137/82
[2016-08-05 16:00] VITALS: BP 130/92
--- NOTE | 2016-08-05 17:15 | Progress Note ---
DATE: 08/05/2016 SUBJECTIVE: The patient is stable at baseline. No behavior issues. Mental condition is unchanged since previous encounter. MENTAL STATUS EXAMINATION: The patient is alert, awake, oriented x0. Mood is neutral, at times anxious. Affect is constricted. Congruent with mood. Thought process, there is a paucity of thought content. Thought content, no suicidal, homicidal ideation. ASSESSMENT: 1. Cognitive impairment. 2. Delirium. 3. Schizoaffective disorder. PLAN: 1. The patient will be continued on olanzapine. 2. We will continue follow and readjust the medications. Stephanie Kebede M.D. DR: Lacey JOB#: [id number] CC:
--- NOTE | 2016-08-05 17:31 | Progress Note ---
DATE: 08/04/2016 SUBJECTIVE: The patient is doing better, calmer, more cooperative, still confused, and disoriented. The level of consciousness has improved. No agitation. MENTAL STATUS EXAMINATION: The patient is confused and disoriented. Mood is neutral. Affect is constricted. Congruent mood. Thought process is concrete and there is a paucity of thought content. Positive for delusions. Cognition is impaired. ASSESSMENT: 1. Delirium, improved. 2. Cognitive impairment. 3. Schizoaffective disorder by history. PLAN: 1. The patient will be continued on olanzapine 5 mg at bedtime. 2. Also, she is on Ativan p.r.n. 3. We will continue to follow and readjust the medications. Stephanie Kebede M.D. DR: KATHE JOB#: [id number] CC:
[2016-08-05 17:44] VITALS: BP 130/92
[2016-08-05] MEDS ORDERED: TYLENOL650 MG/20. ORAL (18:00)
[2016-08-05] MEDS ORDERED: ASPIRIN81 MG ORAL (18:00)
[2016-08-05] MEDS ORDERED: COLACE100 MG ORAL (18:01)
[2016-08-05] MEDS ORDERED: BISACODYL5 MG ORAL (18:01)
[2016-08-05] MEDS ORDERED: RESTORIL15 MG ORAL (18:02)
[2016-08-05] MEDS ORDERED: CATAPRES0.1 MG ORAL (18:02)
[2016-08-05] MEDS ORDERED: ZYPREXA5 MG ORAL (18:02)
[2016-08-05] MEDS ORDERED: D5 1/2NS 1000ml IV ONE ×2 (18:20→18:21)
[2016-08-05] MEDS ORDERED: Tubing IV Secondary IV ONE (18:21)
[2016-08-05] MEDS ORDERED: D5W 550ml IV ONE (18:29)
--- NOTE | 2016-08-10 12:55 | Discharge Summary ---
Discharge Summary Hospital Course Date of Admission Jul 31, 2016 at 23:17 Date of Discharge Aug 05, 2016 at 18:30 Admitting Diagnosis HPI Gaviota Christine is a 71 year old female who was admitted on Jul 31, 2016 at 23:17 for Uncontrolled Hypertension/Altered Mental Status Hospital Course dc summary #[id number] Discharge Medications Continued Medications: Acetaminophen (Acetaminophen) 650 Mg/20.3 Ml Solution 650 MG ORAL Q4HR PRN for Prn Headache/Temp > 101, ML 0 Refills Amlodipine Besylate* (Amlodipine Besylate*) 5 Mg Tablet 5 MG ORAL BID, TAB Aspirin* (Aspirin*) 81 Mg Tab.chew 81 MG ORAL DAILY, TAB Bisacodyl* (Dulcolax*) 5 Mg Tablet.dr 10 MG ORAL DAILY, #10 TAB 0 Refills Clonidine Hcl* (Catapres*) 0.1 Mg Tablet 0.1 MG ORAL EVERY 4 HOURS, TAB Docusate Sodium* (Colace*) 100 Mg Capsule 100 MG ORAL THREE TIMES A DAY, CAP Hydralazine Hcl* (Hydralazine Hcl*) 50 Mg Tablet 50 MG ORAL TID, TAB Olanzapine* (Zyprexa*) 5 Mg Tablet 5 MG ORAL HS, TAB Temazepam* (Restoril*) 15 Mg Capsule 15 MG ORAL BEDTIME PRN for Insomnia, CAP Discontinued Medications: Clonidine Hcl* (Catapres*) 0.1 Mg Tablet 0.1 MG ORAL EVERY 6 HOURS PRN for PRN, TAB [place]hill Carbonate* (Pinehill*) 300 Mg Capsule 300 MG ORAL BEDTIME, CAP 0 Refills Lorazepam* (Lorazepam*) 1 Mg Tablet 1 MG ORAL Q6HR PRN for For Anxiety, TAB Magnesium Hydroxide* (Milk Of Magnesia*) 400 Mg/5 Ml Oral.susp 30 ML ORAL Q6HR, ML Risperidone Microspheres (Risperdal Consta) 25 Mg/2 Ml Syringe 37.5 MG IM, EA Risperidone* (Risperdal*) 2 Mg Tablet 4 MG ORAL BEDTIME, #30 TAB 0 Refills Temazepam (Temazepam*) 15 Mg Capsule 15 MG ORAL BEDTIME PRN for Insomnia, #30 CAP 0 Refills Discharge Condition Upon Discharge: stable Discharge Disposition Patient was discharged to SNF Discharge Diagnoses: Pal (Dandy)Gloria NP Aug 10, 2016 12:55
--- NOTE | 2016-08-11 02:45 | Discharge Summary 2 SIG ---
DATE OF ADMISSION: 07/31/2016 DATE OF DISCHARGE: 08/05/2016 REASON FOR ADMISSION: This is a 71-year-old female with a history of hypertension, schizoaffective disorder, cachexia, brought in for evaluation of altered level of consciousness. The patient was less responsive. INITIAL DIAGNOSES: 1. Acute encephalopathy. 2. Acute tubular necrosis. 3. Anemia. 4. Psychosis. 5. History of hypertension. HOSPITAL STAY: The patient admitted. Neurology consult and Psychiatry consult were requested. Neurologist followed. MRI of the brain along with carotid duplex revealed no evidence of acute changes. The patient was continued on aspirin and statin. Neurologist recommended Geropsychiatric evaluation as an outpatient. Core Finisher followed. No change in renal parameters. Renal ultrasound revealed increased echogenicity bilaterally consistent with medical renal disease, but no hydronephrosis. Hydration provided, recommended to avoid nephrotoxic. Electrolytes and renal parameters were closely monitored and replaced and corrected as needed. Urinalysis revealed evidence of UTI. The patient was on empiric antibiotics. Urine culture was pending. Hypernatremia was likely secondary to free water deficit and dehydration and it resolved with hydration. Blood pressure was managed with calcium channel shannon and hydralazine. . Echocardiogram revealed ejection fraction of 65%. The patient was on status viktoriya, heart rate was between 57 to 64, but she was asymptomatic. The patient was worked on physical and occupational therapy. Calorie count implemented. Psychiatrist followed, the patient started on low dose of Zyprexa at night time and Ativan and Haldol p.r.n. Behavior improved. Hemoglobin and hematocrit remained stable with some trend up. Stable iron, folate, and B12 level. The patient was stable for discharge. Neurologist seen and evaluated the patient and per neurologist, the patient had extensive ischemic cerebrovascular disease, probably multiple old lacunar stroke and presented at this time as cognitive loss, speech abnormality, and gait ataxia. Neurologist wanted to rule out CVA that is the reason that MRI and carotid were ordered and was negative and 2D echo revealed ejection fraction of 65%, right ventricular systolic pressure of 17, [id number] left ventricular hypertrophy. FINAL DIAGNOSES: 1. Acute encephalopathy on chronic dementia. 2. Vascular dementia with sundown confusion. 3. Acute on chronic renal failure. 4. Hypernatremia secondary to free water deficit and dehydration, resolved. 5. Dehydration, resolved. 6. Anemia. 7. Hypertensive urgency, resolved. 8. Urinary tract infection. 9. Severe protein-calorie malnutrition. 10. Extensive cerebrovascular disease. 11. Schizoaffective disorder. 12. Delirium, improving. Of note, sodium is down to 145. Renal parameter without change likely significant chronic component. The patient is stable for discharge. Ila Mckenna M.D. I have been assigned to dictate discharge summary on this account and I was not involved in the patient's management. Gloria [facility] N.PRodrick DR: JUVENAL JOB#: [id number] CC:
== END 2016-08-05 18:30 | DRG 304 ==
LOC: 2E 23:17 → 4W 08-04 00:42
DX: I16.9 Hypertensive crisis, unspecified (principal); G93.40 Encephalopathy, unspecified; N17.0 Acute kidney failure with tubular necrosis; E43 Unspecified severe protein-calorie malnutrition; E87.0 Hyperosmolality and hypernatremia; F05 Delirium due to known physiological condition; R00.1 Bradycardia, unspecified; E86.0 Dehydration; N39.0 Urinary tract infection, site not specified; D64.9 Anemia, unspecified; F01.50 Vascular dementia, unspecified severity, without behavioral disturbance, psychotic disturbance, mood disturbance, and anxiety; I12.9 Hypertensive chronic kidney disease with stage 1 through stage 4 chronic kidney disease, or unspecified chronic kidney disease; N18.9 Chronic kidney disease, unspecified; F25.0 Schizoaffective disorder, bipolar type; E83.52 Hypercalcemia; R27.0 Ataxia, unspecified; F09 Unspecified mental disorder due to known physiological condition
CPT/HCPCS: 36415; 70551; 76775; 80053; 80061; 80178; 81001; 82140; 82378; 82550; 82607; 82728; 82746; 82962; 82977; 83036; 83540; 83550; 83615; 83735; 83880; 84100; 84133; 84300; 84443; 84550; 85007; 85025; 85044; 85060; 85610; 85651; 85730; 86140; 87081; 87086; 89050; 93306; 93970

== ENCOUNTER 2016-10-23 15:37 | Inpatient (IN) | payer MEDICARE, MEDICAID ==
[~2016-10-23] VITALS: Ht 172.7 cm; Wt 68.0 kg
[~2016-10-23 15:37] MED LIST: AMLODIPINE BESYL5 MG ORAL; ASPIRIN81 MG ORAL; BISACODYL5 MG ORAL; CATAPRES0.1 MG ORAL; COLACE100 MG ORAL; HYDRALAZINE HCL50 MG ORAL; LITHIUM CARBON300 MG ORAL; LORAZEPAM1 MG ORAL; MILK OF MA400 MG/51 ORAL; RESTORIL15 MG ORAL; RISPERDAL2 MG ORAL; RISPERDAL37.5 MG/2 IM; TEMAZEPAM15 MG ORAL; TYLENOL650 MG/20. ORAL; ZYPREXA5 MG ORAL
[2016-10-23] MEDS ORDERED: DEPAKOTE250 MG PO (16:36)
[2016-10-23] MEDS ORDERED: ATIVAN1 MG ORAL (16:36)
[2016-10-23] MEDS ORDERED: MOM30 ML ORAL (16:36)
[2016-10-23 16:50] LABS: BASOPHILS % (AUTO) 1.2 % (0.0-2.0); EOSINOPHILS % (AUTO) 0.7 % (0.0-3.0); LYMPHOCYTES % (AUTO) 35.9 % (20.0-45.0); MEAN CORPUSCULAR HEMOGLOBIN 28.2 PG (27.0-31.0); MEAN CORPUSCULAR VOLUME 88 FL (80-99); MEAN PLATELET VOLUME 9.9 FL (6.5-10.1); MONOCYTES % (AUTO) 8.3 % (1.0-10.0); NEUTROPHILS % (AUTO) 53.9 % (45.0-75.0); PLATELET COUNT 118 K/UL (150-450); RED BLOOD COUNT 3.81 M/UL (4.20-5.40); RED CELL DISTRIBUTION WIDTH 14.7 % (11.6-14.8); WHITE BLOOD COUNT 4.5 K/UL (4.8-10.8)
[2016-10-23 17:05] LABS: ALANINE AMINOTRANSFERASE 9 U/L (3-33); ALBUMIN/GLOBULIN RATIO 1.1 (1.0-2.7); ANION GAP 12 (5-15); ASPARTATE AMINO TRANSFERASE 18 U/L (5-40); CALCIUM 9.5 mg/dL (8.6-10.2); CARBON DIOXIDE 28 mEQ/L (20-30); CHLORIDE 103 mEQ/L (98-107); CREATININE 1.8 mg/dL (0.5-0.9); HEMOLYSIS 0; POTASSIUM 3.5 mEQ/L (3.4-4.9); SODIUM 143 mEQ/L (135-145); TOTAL PROTEIN 7.7 g/dL (6.6-8.7)
[2016-10-23 17:06] LABS: TROPONIN I < 0.30 ng/mL (<=0.30)
[2016-10-23 17:16] LABS: CKMB 2.9 ng/mL (< 3.8)
[2016-10-23 18:32] VITALS: BP 166/100
--- NOTE | 2016-10-23 19:56 | Emergency Room Report ---
History of Present Illness General Chief Complaint: Behavioral Complaint Source: Patient, EMS Present Illness HPI 71-year-old female presents to ED for evaluation. Patient comes from retirement, nursing staff states that patient has been overly aggressive screaming yelling and throwing objects at them. patient does have history of schizoaffective disorder. Patient was medicated and after sleeping resume the same behavior. Patient was brought to ER for evaluation. Patient is well- known to Dr. Kebede (psychiatry). Arrival patient is agitated and screaming. Denies any chest pain or shortness of breath. Denies any fevers or chills. No other aggravating relieving factors. Denies any other associated symptoms Allergies: Coded Allergies: CODEINE (Unverified Allergy, Unknown, 10/23/16) ENALAPRIL (Unverified Allergy, Unknown, 10/23/16) LISINOPRIL (Unverified Allergy, Unknown, 10/23/16) MORPHINE (Unverified Allergy, Unknown, 10/23/16) Patient History Past Medical History: HTN, psych hx Past Surgical History: none Pertinent Family History: none Social History: Denies: smoking, alcohol use, drug use Now: No Immunizations: UTD Reviewed Nursing Documentation: PMH: Agreed, PSxH: Agreed Nursing Documentation-PMH Past Medical History: No History, Except For Hx Cardiac Problems: Yes Hx Hypertension: Yes Hx Cancer: No Hx Gastrointestinal Problems: No History Of Psychiatric Problem: Yes Hx Neurological Problems: No Hx Neurologic Surgery: No Review of Systems All Other Systems: negative except mentioned in HPI Physical Exam Vital Signs Date Time Temp Pulse Resp B/P (MAP) Pulse Ox O2 Delivery O2 Flow Rate FiO2 10/23/16 15:30 97.9 78 16 161/93 98 Room Air Sp02 EP Interpretation: reviewed, normal General Appearance: no apparent distress, alert, GCS 15, non-toxic, other - agitated/combative Head: normocephalic, atraumatic Eyes: bilateral eye normal inspection, bilateral eye PERRL ENT: hearing grossly normal, normal pharynx, no angioedema, normal voice Neck: full range of motion, supple/symm/no masses Respiratory: chest non-tender, lungs clear, normal breath sounds, speaking full sentences Cardiovascular #1: regular rate, rhythm, no edema Cardiovascular #2: 2+ carotid (R), 2+ carotid (L), 2+ radial (R), 2+ radial (L) , 2+ dorsalis pedis (R), 2+ dorsalis pedis (L) Gastrointestinal: normal bowel sounds, non tender, soft, non-distended, no guarding, no rebound Rectal: deferred Genitourinary: normal inspection, no CVA tenderness Musculoskeletal: back normal, gait/station normal, normal range of motion, non- tender Neurologic: alert, responsive, motor strength/tone normal, sensory intact, speech normal, other - agitated/combative Psychiatric: no suicidal/homicidal ideation, other - agitated/combative Reflexes: 3+ bicep (R), 3+ bicep (L), 3+ tricep (R), 3+ tricep (L), 3+ knee (R) , 3+ knee (L) Skin: normal color, no rash, warm/dry, well hydrated Lymphatic: no adenopathy Medical Decision Making Diagnostic Impression: Primary Impression: Schizoaffective disorder Qualified Codes: F25.9 - Schizoaffective disorder, unspecified Additional Impressions: Aggressive behavior Renal insufficiency ER Course 71-year-old female presents ED her evaluation of aggressive behavior. History of schizoaffective disorder Differential-dehydration, UTI, sepsis, psychosis Patient presents stretcher. After initial history I ordered labs, IV fluids, EKG chest x-ray Labs-no leukocytosis, hemoglobin/hematocrit stable, BUN/creatinine elevated She refused UA EKG-normal sinus rhythm no acute ischemic changes interpreted by me Chest x-ray unremarkable Patient seen by Dr. Kebede; she will consult on patient Patient will be admitted to Dr. Wu Diagnosis - schizoaffective disorder, and aggressive behavior, renal insufficiency Admitted to floor in serious condition Labs Test 10/23/16 16:25 White Blood Count 4.5 K/UL (4.8-10.8) Red Blood Count 3.81 M/UL (4.20-5.40) Hemoglobin 10.8 G/DL (12.0-16.0) Hematocrit 33.6 % (37.0-47.0) Mean Corpuscular Volume 88 FL (80-99) Mean Corpuscular Hemoglobin 28.2 PG (27.0-31.0) Mean Corpuscular Hemoglobin Concent 32.0 G/DL (32.0-36.0) Red Cell Distribution Width 14.7 % (11.6-14.8) Platelet Count 118 K/UL (150-450) Mean Platelet Volume 9.9 FL (6.5-10.1) Neutrophils (%) (Auto) 53.9 % (45.0-75.0) Lymphocytes (%) (Auto) 35.9 % (20.0-45.0) Monocytes (%) (Auto) 8.3 % (1.0-10.0) Eosinophils (%) (Auto) 0.7 % (0.0-3.0) Basophils (%) (Auto) 1.2 % (0.0-2.0) Sodium Level 143 mEQ/L (135-145) Potassium Level 3.5 mEQ/L (3.4-4.9) Chloride Level 103 mEQ/L (98-107) Carbon Dioxide Level 28 mEQ/L (20-30) Anion Gap 12 (5-15) Blood Urea Nitrogen 32 mg/dL (7-23) Creatinine 1.8 mg/dL (0.5-0.9) Estimat Glomerular Filtration Rate mL/min (>60) Glucose Level 113 mg/dL (74-106) Lactic Acid Level 1.00 mmol/L (0.66-2.22) Calcium Level 9.5 mg/dL (8.6-10.2) Total Bilirubin < 0.2 mg/dL (0.0-1.2) Aspartate Amino Transf (AST/SGOT) 18 U/L (5-40) Alanine Aminotransferase (ALT/SGPT) 9 U/L (3-33) Alkaline Phosphatase 65 U/L (35-104) Total Creatine Kinase 152 U/L (26-140) Creatine Kinase MB 2.9 ng/mL (< 3.8) Creatine Kinase MB Relative Index 1.9 Troponin I < 0.30 ng/mL (<=0.30) Total Protein 7.7 g/dL (6.6-8.7) Albumin 4.1 g/dL (3.5-5.2) Globulin 3.6 g/dL Albumin/Globulin Ratio 1.1 (1.0-2.7) EKG Diagnostic Results Rate: normal Rhythm: NSR ST Segments: no acute changes ASA given to the pt in ED: No Rhythm Strip Diag. Results EP Interpretation: yes Rhythm: NSR, no PVC's, no ectopy Chest X-Ray Diagnostic Results Chest X-Ray Diagnostic Results : Chest X-Ray Ordered: Yes # of Views/Limited/Complete: 1 View Indication: Other - ams EP Interpretation: Yes Interpretation: no consolidation, no effusion, no pneumothorax, no acute cardiopulmonary disease Impression: No acute disease Electronically Signed by: Electronically signed by Leobardo Craft MD Last Vital Signs Date Time Temp Pulse Resp B/P (MAP) Pulse Ox O2 Delivery O2 Flow Rate FiO2 10/23/16 18:32 98.2 64 16 166/100 98 Room Air Status: improved Disposition: ADMITTED INPATIENT Condition: Serious Referrals: Angelina Wu MD (PCP) LEOBARDO CRAFT M.D. Oct 23, 2016 19:56
--- NOTE | 2016-10-23 20:21 | Consultation ---
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 the pt has hx of schizoaffective d/o , htn, renal failure and shortness of breath. i was called to transfer the pt for aggressive bahaviour and agitation. the pt was sent to [facility] seen in er. the pt was pressured and loud, agitated and delusion. she was disorganized. Allergies: Coded Allergies: CODEINE (Unverified Allergy, Unknown, 10/23/16) ENALAPRIL (Unverified Allergy, Unknown, 10/23/16) LISINOPRIL (Unverified Allergy, Unknown, 10/23/16) MORPHINE (Unverified Allergy, Unknown, 10/23/16) General Appearance: Disheveled, Older Orientation: Person, Disoriented Attention Span Description: Poor Mood/Memory: Angry Affect: Constricted Thought Process: Tangential Thought Content: Paranoid to Delusions Perception: Hallucinations Speech: Pressured Intelligence: Average Insight/ Judgement: Poor Impulse Control: Poor Assessment/Plan Status: not improved, unchanged Assessment/Plan schizoaffective will start antipsychotic and mood stablizer dr. silva was notified Stephanie Kebede M.D. Oct 23, 2016 20:21
[2016-10-23 20:30] VITALS: BP 156/101
[2016-10-23] MEDS: Depakote ER 500mg tab ORAL SCH (21:00)
[2016-10-23] MEDS ORDERED: Milk of Magnesia 30ml Ud ORAL PRN (23:30)
[2016-10-23] MEDS ORDERED: Acetaminophen 650mg/20.3ml ORAL PRN (23:30)
[2016-10-23] MEDS ORDERED: LORazepam 1mg tab ORAL PRN (23:30)
[2016-10-24] VITALS (9 sets, daily range): BP systolic 121–166; BP diastolic 73–105
[2016-10-24 02:33] LABS: APPEARANCE,URINE CLEAR; KETONES,URINE NEGATIVE (NEGATIVE); LEUKOCYTE ESTERASE ,URINE NEGATIVE (NEGATIVE); NITRITE,URINE NEGATIVE (NEGATIVE); PH,URINE 6.5 (4.5-8.0); PROTEIN,URINE NEGATIVE (NEGATIVE); UROBILINOGEN,URINE NORMAL MG/DL (0.0-1.0)
[2016-10-24] MEDS ORDERED: Docusate 100mg cap ORAL SCH (09:00)
[2016-10-24] MEDS: Bisacodyl EC 5mg tab ORAL SCH (09:00)
[2016-10-24 09:14] LABS: BASOPHILS % (AUTO) 1.7 % (0.0-2.0); EOSINOPHILS % (AUTO) 2.3 % (0.0-3.0); LYMPHOCYTES % (AUTO) 40.3 % (20.0-45.0); MEAN CORPUSCULAR HEMOGLOBIN 27.7 PG (27.0-31.0); MEAN CORPUSCULAR HGB CONC 31.6 G/DL (32.0-36.0); MEAN CORPUSCULAR VOLUME 88 FL (80-99); MEAN PLATELET VOLUME 10.4 FL (6.5-10.1); MONOCYTES % (AUTO) 11.3 % (1.0-10.0); NEUTROPHILS % (AUTO) 44.5 % (45.0-75.0); PLATELET COUNT 143 K/UL (150-450); RED BLOOD COUNT 3.83 M/UL (4.20-5.40); RED CELL DISTRIBUTION WIDTH 14.8 % (11.6-14.8); WHITE BLOOD COUNT 3.6 K/UL (4.8-10.8)
[2016-10-24 09:15] LABS: PROTHROMBIN TIME 10.7 SEC (9.30-11.50)
[2016-10-24 09:21] LABS: ANION GAP 13 (5-15); CALCIUM 9.6 mg/dL (8.6-10.2); CARBON DIOXIDE 26 mEQ/L (20-30); CHLORIDE 106 mEQ/L (98-107); CREATININE 1.6 mg/dL (0.5-0.9); HEMOLYSIS 3; POTASSIUM 3.7 mEQ/L (3.4-4.9); SODIUM 145 mEQ/L (135-145)
[2016-10-24 09:33] LABS: THYROID STIMULATING HORMONE 3.67 uIU/mL (0.300-4.500)
[2016-10-24] MEDS: HydrALAZINE 50mg tab ORAL SCH ×3 (09:33→18:51)
[2016-10-24] MEDS: Aspirin Baby 81mg ORAL SCH (09:33)
[2016-10-24 09:48] LABS: ACANTHOCYTES 1+; BAND NEUTROPHILS % (MANUAL) 0 % (0-8); BASOPHILS % (MANUAL) 0 % (0-2); EOSINOPHILS % (MANUAL) 1 % (0-3); HYPOCHROMASIA 1+; LYMPHOCYTES % (MANUAL) 56 % (20-45); NEUTROPHILS % (MANUAL) 34 % (45-75); PLATELET ESTIMATE DECREASED; PLATELET MORPHOLOGY NORMAL; SCHISTOCYTES 1+; TEAR DROP CELLS 1+; TOTAL CELLS COUNTED 100
[2016-10-24 09:53] LABS: PATH BLOOD SMEAR/OMC SEND TO PATHOLOGIST; RETICULOCYTE COUNT 0.3 % (0.0-2.0)
--- NOTE | 2016-10-24 09:54 | Diagnostic Imaging Report ---
Indication: Cough Technique: One view of the chest Comparison: none Findings: The heart is mildly enlarged. Lungs and pleural spaces are clear. Aorta is tortuous and ectatic. Upper mediastinum is unremarkable Impression: Cardiomegaly. No acute process This agrees with the preliminary interpretation provided by the emergency room physician
--- NOTE | 2016-10-24 11:59 | Consultation ---
Consult Note Consult Note asked to eval for renal failure 71-year-old female presents to ED for evaluation. Patient comes from assisted, nursing staff states that patient has been overly aggressive screaming yelling and throwing objects at them. patient does have history of schizoaffective disorder. Patient was medicated and after sleeping resume the same behavior. Patient was brought to ER for evaluation. Patient is well- known to Dr. Kebede (psychiatry). Arrival patient is agitated and screaming. Denies any chest pain or shortness of breath. Denies any fevers or chills. No other aggravating relieving factors. Denies any other associated symptoms Allergies: Coded Allergies: CODEINE (Unverified Allergy, Unknown, 10/23/16) ENALAPRIL (Unverified Allergy, Unknown, 10/23/16) LISINOPRIL (Unverified Allergy, Unknown, 10/23/16) MORPHINE (Unverified Allergy, Unknown, 10/23/16) Past Medical History: HTN, psych hx Past Medical History: No History, Except For Hx Cardiac Problems: Yes Hx Hypertension: Yes History Of Psychiatric Problem: Yes . Assessment/Plan Renal Failure- ? dehydration on top of Hypertensive kidney disease Anemia Schizoaffective disorder Repeat UA adjust BP meds Anemia camacho monitor Renal parameters CAMILLE BEYER Oct 24, 2016 11:59
[2016-10-24] MEDS: Docusate 100mg cap ORAL SCH ×2 (13:00→18:00)
[2016-10-24] MEDS ORDERED: Iron Sucrose 200 MG in NS 110 ML IV ONE (14:00)
[2016-10-24] MEDS: Vitamin B12 1000mcg/ml Inj IM SCH (14:00)
--- NOTE | 2016-10-24 19:03 | Cardiology Report ---
APPROVED REPORT EKG Measurement Heart [id number] Normal sinus rhythm Nonspecific T wave abnormality Abnormal ECG
--- NOTE | 2016-10-24 19:46 | General Progress Note ---
Assessment/Plan Status: stable Assessment/Plan schizoaffective d/o cont current meds Subjective Neurologic/Psychiatric: Reports: anxiety, depressed, emotional problems Allergies: Coded Allergies: CODEINE (Unverified Allergy, Unknown, 10/23/16) ENALAPRIL (Unverified Allergy, Unknown, 10/23/16) LISINOPRIL (Unverified Allergy, Unknown, 10/23/16) MORPHINE (Unverified Allergy, Unknown, 10/23/16) Subjective the pt is confused and disorganized however recognizes me. the pt is still agitated Objective Last 24 Hour Vital Signs Date Time Temp Pulse Resp B/P (MAP) Pulse Ox O2 Delivery O2 Flow Rate FiO2 10/24/16 18:51 154/95 10/24/16 18:51 71 154/95 10/24/16 16:00 97.8 67 19 139/91 98 Room Air 10/24/16 14:14 64 135/92 10/24/16 14:06 135/92 10/24/16 12:54 75 155/99 10/24/16 12:48 155/99 10/24/16 12:00 98.1 72 20 121/73 99 Room Air 10/24/16 09:37 73 148/105 10/24/16 09:34 73 148/105 10/24/16 09:33 148/105 10/24/16 08:00 97.9 74 20 166/100 99 Room Air 10/24/16 04:00 97.9 70 20 153/102 98 Room Air 10/24/16 00:00 97.7 89 18 139/90 96 Room Air 10/23/16 20:30 98.1 74 18 156/101 98 Room Air 10/23/16 20:09 98.2 71 12 158/97 99 Room Air Intake and Output 10/24/16 10/25/16 19:00 07:00 Intake Total 300 ml Balance 300 ml Intake Oral 300 ml # Voids 1 Laboratory Tests 10/24/16 00:00: Urine Color Yellow, Urine Appearance Clear, Urine pH 6.5, Urine Specific Baldwin 1.010, Urine Protein Negative, Urine Glucose (UA) Negative, Urine Ketones Negative, Urine Occult Blood Negative, Urine Nitrite Negative, Urine Bilirubin Negative, Urine Urobilinogen Normal, Urine Leukocyte Esterase Negative 10/24/16 08:25: White Blood Count 3.6L, Red Blood Count 3.83L, Hemoglobin 10.6L, Hematocrit 33.6L, Mean Corpuscular Volume 88, Mean Corpuscular Hemoglobin 27.7, Mean Corpuscular Hemoglobin Concent 31.6L, Red Cell Distribution Width 14.8, Platelet Count 143L, Mean Platelet Volume 10.4H, Neutrophils (%) (Auto) 44.5L, Lymphocytes (%) (Auto) 40.3, Monocytes (%) (Auto) 11.3H, Eosinophils (%) (Auto) 2.3, Basophils (%) (Auto) 1.7, Differential Total Cells Counted 100, Neutrophils % (Manual) 34L, Lymphocytes % (Manual) 56H, Monocytes % (Manual) 9, Eosinophils % (Manual) 1, Basophils % (Manual) 0, Band Neutrophils 0, Platelet Estimate DecreasedL, Platelet Morphology Normal, Hypochromasia 1+, Tear Drop Cells 1+, Acanthocytes 1+, Schistocytes 1+, Reticulocyte Count 0.3, Prothrombin Time 10.7, Prothromb Time International Ratio 1.0, Sodium Level 145, Potassium Level 3.7, Chloride Level 106, Carbon Dioxide Level 26, Anion Gap 13, Blood Urea Nitrogen 28H, Creatinine 1.6H, Estimat Glomerular Filtration Rate , Glucose Level 85, Calcium Level 9.6, Iron Level 67, Total Iron Binding Capacity 344, Percent Iron Saturation 19, Unsaturated Iron Binding 277, Ferritin 76, Total Protein (PEP) [Pending], Albumin (PEP) [Pending], Globulin (PEP) [Pending] , Albumin/Globulin Ratio [Pending], [id number] [Pending], Alpha-2- Globulins [Pending], Beta Globulins [Pending], Beta Gamma Globulin [Pending], PEP Abnormal Protein Bands [Pending], Protein Electrophoresis Interpret [Pending ], Carcinoembryonic Antigen 4.3H, Vitamin B12 Level 371, Methylmalonic Acid [ Pending], Folate [Pending], Thyroid Stimulating Hormone (TSH) 3.670, Hepatitis A IgM Antibody [Pending], Hepatitis B Surface Antigen [Pending], Hepatitis B Core IgM Antibody [Pending], Hepatitis C Antibody [Pending], HIV (1&2) Antibody Rapid Negative Height (Feet): 5 Height (Inches): 8.00 Weight (Pounds): 150 General Appearance: alert, confused, moderate distress, overweight Neurologic: alert, responsive, disoriented Stephanie Kebede M.D. Oct 24, 2016 19:46
[2016-10-24] MEDS: Depakote ER 500mg tab ORAL SCH (20:09)
[2016-10-25] VITALS: BP 126/85
[2016-10-25 04:00] VITALS: BP 149/86
--- NOTE | 2016-10-25 07:15 | History and Physical Report ---
DATE OF ADMISSION: 10/23/2016 History Of Present Illness: The patient is admitted for dementia and altered mental status. The patient is also a psychiatric patient. She is a poor historian, cannot give reliable history. Denies nausea, vomiting, diarrhea, fever, chills, or abdominal pain. Denies shortness of breath. Denies cough. She is more confused than her baseline according to the staff at the facility. She has been now admitted for AMS workup. Past Medical History: Hypertension, dementia, constipation, psychosis and insomnia. ALLERGIES: Enalapril, codeine, lisinopril and morphine. SOCIAL HISTORY: comes from a [place] [facility]. Review Of Systems: HEENT: Denies headaches. Respiratory: Denies shortness of breath. Denies cough. Cardiovascular: Denies chest pain. Gastrointestinal: Denies nausea, vomiting, or diarrhea. Extremities: Denies . PHYSICAL EXAMINATION: Vital Signs: Temperature is 98.1 degrees, pulse is 72, and blood pressure is 121/72. HEENT: PERRLA. NECK: Supple. No lymphadenopathy. CHEST: Clear to auscultation. Gastrointestinal: Soft, nontender, and nondistended. No organomegaly. EXTREMITIES: No edema. . Able to move all four extremities. Neurologic: Poor historian. Reflexes are equal on both sides, and not oriented. Laboratory Data: WBC of 4.5, hemoglobin 10.8, and platelets 118,000. Sodium 145, potassium 3.7, BUN of 28, and creatinine of 1.6. ASSESSMENT AND PLAN: 1. Azotemia. 2. Dehydration. Dr. Ramos was consulted. 3. Dementia, altered mental status could be due to behavioral reasons as well. Dr. Kebede has been consulted for that reason for treatment and diagnoses. Angelina Wu M.D. DR: MARLY JOB#: [id number] CC:
[2016-10-25 08:00] VITALS: BP 151/99
[2016-10-25] MEDS: Bisacodyl EC 5mg tab ORAL SCH (09:00)
[2016-10-25] MEDS: Docusate 100mg cap ORAL SCH ×3 (09:00→18:00)
[2016-10-25] MEDS: HydrALAZINE 50mg tab ORAL SCH ×3 (10:06→18:00)
[2016-10-25] MEDS: Aspirin Baby 81mg ORAL SCH (10:06)
[2016-10-25] MEDS: Vitamin B12 1000mcg/ml Inj IM SCH (10:08)
--- NOTE | 2016-10-25 10:50 | General Progress Note ---
Assessment/Plan Status: stable Status Narrative refuses meds- IV - blood draw Assessment/Plan status: Renal Failure- ? dehydration on top of Hypertensive kidney disease Anemia Schizoaffective disorder Repeat UA adjust BP meds Anemia camacho monitor Renal parameters per psych Subjective ROS Limited/Unobtainable: No Allergies: Coded Allergies: CODEINE (Unverified Allergy, Unknown, 10/23/16) ENALAPRIL (Unverified Allergy, Unknown, 10/23/16) LISINOPRIL (Unverified Allergy, Unknown, 10/23/16) MORPHINE (Unverified Allergy, Unknown, 10/23/16) Objective Last 24 Hour Vital Signs Date Time Temp Pulse Resp B/P (MAP) Pulse Ox O2 Delivery O2 Flow Rate FiO2 10/25/16 10:07 151/99 10/25/16 10:07 60 151/99 10/25/16 10:06 151/99 10/25/16 08:00 98.1 60 20 151/99 97 Room Air 10/25/16 04:00 97.3 57 18 149/86 96 Room Air 10/25/16 00:00 98.1 60 20 126/85 100 Room Air 10/24/16 20:09 138/96 10/24/16 20:00 98.3 71 20 135/96 99 Room Air 10/24/16 18:51 154/95 10/24/16 18:51 71 154/95 10/24/16 16:00 97.8 67 19 139/91 98 Room Air 10/24/16 14:14 64 135/92 10/24/16 14:06 135/92 10/24/16 12:54 75 155/99 10/24/16 12:48 155/99 10/24/16 12:00 98.1 72 20 121/73 99 Room Air Height (Feet): 5 Height (Inches): 8.00 Weight (Pounds): 150 General Appearance: other - uncoaporative Cardiovascular: regular rhythm Respiratory/Chest: lungs clear Abdomen: soft CAMILLE BEYER Oct 25, 2016 10:50
[2016-10-25 12:00] VITALS: BP 133/88
[2016-10-25 15:46] VITALS: BP 120/87
--- NOTE | 2016-10-25 15:48 | Infectious Diseases Prog Note ---
Assessment/Plan Problems: (1) MRSA (methicillin resistant Staphylococcus aureus) colonization Assessment & Plan: will start Bactroban intranasally , keep on contact isolation for now (2) Schizoaffective disorder Assessment & Plan: on psych meds, psychiatrist is following (3) Renal insufficiency Assessment & Plan: continue hydration, avoid nephrotoxic meds , renal is following (4) Anemia Assessment & Plan: monitor H/H, transfuse if needed Subjective Allergies: Coded Allergies: CODEINE (Unverified Allergy, Unknown, 10/23/16) ENALAPRIL (Unverified Allergy, Unknown, 10/23/16) LISINOPRIL (Unverified Allergy, Unknown, 10/23/16) MORPHINE (Unverified Allergy, Unknown, 10/23/16) Objective Vital Signs Last 24 Hour Vital Signs Date Time Temp Pulse Resp B/P (MAP) Pulse Ox O2 Delivery O2 Flow Rate FiO2 10/25/16 13:12 133/88 10/25/16 12:00 97.5 54 20 133/88 98 Room Air 10/25/16 10:07 151/99 10/25/16 10:07 60 151/99 10/25/16 10:06 151/99 10/25/16 08:00 98.1 60 20 151/99 97 Room Air 10/25/16 04:00 97.3 57 18 149/86 96 Room Air 10/25/16 00:00 98.1 60 20 126/85 100 Room Air 10/24/16 20:09 138/96 10/24/16 20:00 98.3 71 20 135/96 99 Room Air 10/24/16 18:51 154/95 10/24/16 18:51 71 154/95 10/24/16 16:00 97.8 67 19 139/91 98 Room Air Height (Feet): 5 Height (Inches): 8.00 Weight (Pounds): 150 Microbiology Date/Time Source Procedure Growth Status 10/23/16 16:35 Blood Blood Culture - Preliminary NO GROWTH AFTER 24 HOURS Resulted 10/23/16 16:25 Blood Blood Culture - Preliminary NO GROWTH AFTER 24 HOURS Resulted 10/23/16 19:45 Nasal Nares MRSA Culture - Final Staphylococcus Aureus - Mrsa Complete 10/23/16 19:45 Rectum VRE Culture - Final NO VANCOMYCIN RESISTANT ENTEROCOCCUS ... Complete Current Medications Medications (Trade) Dose Ordered Sig/Yao Route PRN Reason Start Time Stop Time Status Last Admin Dose Admin Acetaminophen (Tylenol) 650 mg Q4HR PRN ORAL Prn Headache/Temp > 101 10/23/16 23:30 11/22/16 23:29 Amlodipine Besylate (Norvasc) 5 mg BID ORAL 10/24/16 09:00 11/23/16 08:59 10/25/16 10:07 Aspirin (ASA) 81 mg DAILY ORAL 10/24/16 09:00 11/23/16 08:59 10/25/16 10:06 Bisacodyl (Dulcolax) 5 mg DAILY ORAL 10/24/16 09:00 11/23/16 08:59 Clonidine HCl (Catapres) 0.1 mg EVERY 12 HOURS ORAL 10/24/16 21:00 11/23/16 20:59 10/25/16 10:07 Clonidine HCl (Catapres) 0.1 mg Q4H PRN ORAL For High Blood Pressure 10/24/16 12:15 11/23/16 12:14 Cyanocobalamin (Vitamin B12) 1,000 mcg DAILY IM 10/24/16 14:00 10/26/16 09:01 10/25/16 10:08 Divalproex Sodium (Depakote ER) 500 mg BEDTIME ORAL 10/23/16 21:00 11/22/16 20:59 Docusate Sodium (Colace) 100 mg TID ORAL 10/24/16 13:00 11/23/16 08:59 Ferrous Sulfate (Feosol) 325 mg THREE TIMES A DAY ORAL 10/25/16 13:00 11/24/16 12:59 10/25/16 13:12 Folic Acid (Folate) 2 mg DAILY ORAL 10/24/16 13:00 11/23/16 12:59 10/25/16 10:06 Hydralazine HCl (Apresoline) 50 mg TID ORAL 10/24/16 09:00 11/23/16 08:59 10/25/16 13:12 Lorazepam (Ativan) 1 mg EVERY 8 HOURS PRN ORAL For Anxiety 10/23/16 23:30 10/30/16 23:29 Magnesium Hydroxide (Mom) 30 ml DAILY PRN ORAL Constipation 10/23/16 23:30 11/22/16 23:29 Mupirocin (Bactroban Oint) 1 applic THREE TIMES A DAY TOPIC 10/25/16 13:00 10/30/16 12:59 10/25/16 13:12 Pantoprazole (Protonix) 40 mg DAILY ORAL 10/24/16 13:00 11/23/16 12:59 10/25/16 10:06 Risperidone (RisperDAL) 1 mg BEDTIME ORAL 10/23/16 21:00 11/22/16 20:59 10/23/16 21:16 Temazepam (Restoril) 7.5 mg BEDTIME PRN ORAL Insomnia 10/23/16 23:30 10/30/16 23:29 Tracie Hernandes M.D. Oct 25, 2016 15:48
--- NOTE | 2016-10-25 17:00 | Diagnostic Imaging Report ---
Indication: Nausea, abnormal liver function tests Technique: Hwang-scale and duplex images of the upper abdomen were obtained Comparison: Reference made to renal ultrasound dated 08/01/2016 Findings: Gallbladder is unremarkable, without stones, wall thickening, nor pericholecystic fluid. Sonographic Garcia's sign is negative. Common bile duct measures 3 mm in diameter. No intrahepatic biliary ductal dilatation. Liver demonstrates normal echogenicity, no focal abnormality. Portal vein and hepatic veins are patent. Pancreas is unremarkable. Spleen is unremarkable. Left kidney measures 10.5 cm in length. Right kidney measures 10 cm length. Both kidneys demonstrate increased echogenicity. There is no hydronephrosis. Bright echoes throughout both kidneys are demonstrated. There is a 16 mm cyst in the lower pole left kidney, and a 9 mm cyst in the interpolar region of the right kidney. Non-aneurysmal abdominal aorta . Impression: Negative for gallstones or dilated ducts Echogenic kidneys, consistent with medical renal disease, also described on prior renal ultrasound of 08/01/2016 Diffuse bilateral renal parenchymal bright echoes, could indicate nephrocalcinosis Bilateral small renal cysts incidentally noted
[2016-10-25] MEDS: Depakote ER 500mg tab ORAL SCH (20:55)
[2016-10-25 21:00] VITALS: BP 131/69
--- NOTE | 2016-10-25 21:19 | General Progress Note ---
Assessment/Plan Problem List: (1) Schizoaffective disorder ICD Codes: F25.9 - Schizoaffective disorder, unspecified SNOMED: 55644869 Qualifiers: Qualified Codes: F25.9 - Schizoaffective disorder, unspecified (2) Psychosis ICD Codes: F29 - Unspecified psychosis not due to a substance or known physiological condition SNOMED: 50428836 Status: progressing Assessment/Plan ams afebrile psychiatric patient vitals stable dc planning reviewed chart and labs Subjective Allergies: Coded Allergies: CODEINE (Unverified Allergy, Unknown, 10/23/16) ENALAPRIL (Unverified Allergy, Unknown, 10/23/16) LISINOPRIL (Unverified Allergy, Unknown, 10/23/16) MORPHINE (Unverified Allergy, Unknown, 10/23/16) Objective Last 24 Hour Vital Signs Date Time Temp Pulse Resp B/P (MAP) Pulse Ox O2 Delivery O2 Flow Rate FiO2 10/25/16 21:00 97.0 57 23 131/69 100 Room Air 10/25/16 18:00 120/87 10/25/16 15:46 97.9 58 20 120/87 99 Room Air 10/25/16 13:12 133/88 10/25/16 12:00 97.5 54 20 133/88 98 Room Air 10/25/16 10:07 151/99 10/25/16 10:07 60 151/99 10/25/16 10:06 151/99 10/25/16 08:00 98.1 60 20 151/99 97 Room Air 10/25/16 04:00 97.3 57 18 149/86 96 Room Air 10/25/16 00:00 98.1 60 20 126/85 100 Room Air Intake and Output 10/25/16 10/26/16 19:00 07:00 Intake Total 240 ml Output Total 200 ml Balance 40 ml Intake Oral 240 ml Output Urine Total 200 ml Height (Feet): 5 Height (Inches): 8.00 Weight (Pounds): 150 Cardiovascular: normal rate Respiratory/Chest: lungs clear Angelina Wu MD Oct 25, 2016 21:19
--- NOTE | 2016-10-26 04:17 | Consultation ---
DATE OF CONSULTATION: INFECTIOUS DISEASES CONSULTATION CONSULTING PHYSICIAN: Tracie Hernandes M.D. REQUESTING PHYSICIAN: Angelina Wu M.D. Reason For Consultation: MRSA colonization. Recommendation for antibiotics treatment. History Of Present Illness: The patient is a 71-year-old female with history of psych disorder, who was sent to the [facility] emergency room from care home for aggressive behavior, yelling, and throwing objects at the staff. The patient had history of schizoaffective disorder and she was sent for evaluation by psychiatrist. The patient was found to have renal failure. No fever or chills. No other associated symptoms. Screening for MRSA was done upon admission, result of which showed positive result in the nares so I was consulted by the primary provider for antibiotics treatment and further management. As of note, the patient is poor historian and cannot provide any history. History was mainly obtained from the medical record. Past Medical History: Significant for hypertension and psych disorder. Allergies: She is allergic to codeine, enalapril, lisinopril, and morphine. Medications: She is on ferrous sulfate, Catapres, vitamin B12, Colace, Protonix, folate, Norvasc, aspirin, Dulcolax, Apresoline, Tylenol, Ativan, Restoril, Risperdal, and Depakote. REVIEW OF SYSTEMS: Unable to obtain at this point. Social History: She is living at the care home. Currently, denied using any drugs, tobacco, or alcohol. FAMILY HISTORY: Not contributory. PHYSICAL EXAMINATION: Vital Signs: Temperature 97.5, pulse 54, respirations 20, blood pressure 133/88, and saturation 98% on room air. General: An elderly female, up in bed, alert, nonverbal, and does not follow command, not in acute distress. HEENT: Normocephalic and atraumatic. Pupils are reactive to light. Dry oral mucosa. No exudate. NECK: Supple. No lymphadenopathy. CARDIOVASCULAR: Regular rate and rhythm. No murmur. Lungs: Clear bilaterally. No wheezing. No rhonchi. No respiratory distress. Abdomen: Soft, nontender, and nondistended. Positive bowel sounds. No hepatosplenomegaly or ascites. EXTREMITIES: No edema or cyanosis. Laboratory Data: Showed white count of 3.6, hemoglobin of 10.6, and platelet count of 143,000. BUN of 28 and creatinine of 1.6. Urinalysis was negative for infection. Microbiology: Nares culture positive for MRSA. VRE culture was negative and blood culture x2 were negative on 10/23/2016. Imaging: Chest x-ray on admission showed cardiomegaly with no acute process. ASSESSMENT AND RECOMMENDATION: 1. Methicillin resistant Staphylococcus aureus colonization of the nares. We will start Bactroban intranasally for five days. Keep in contact isolation for now. 2. Psychosis with schizoaffective disorder. Continue psychiatric medications. Psychiatrist is following. 3. Renal failure. Continue hydration. Avoid nephrotoxic medicine. Renal is following. 4. Anemia. Monitor hemoglobin and hematocrit. Transfuse if needed. Follow up with gastrointestinal. Tracie Hernandes M.D. DR: ADAM JOB#: [id number] CC:
[2016-10-26 05:09] LABS: A/G RATIO 1.2 (0.7-1.7); ABNORMAL PROTEIN BAND 1 Not Observed g/dL (Not Observed); ALPHA-1 GLOBULIN 0.2 g/dL (0.0-0.4); ALPHA-2 GLOBULIN 0.5 g/dL (0.4-1.0); BETA GLOBULIN 1.1 g/dL (0.7-1.3); GAMMA GLOBULIN 1.6 g/dL (0.4-1.8); GLOBULIN, TOTAL 3.4 g/dL (2.2-3.9); TOTAL PROTEIN 7.4 g/dL (6.0-8.5)
[2016-10-26 07:15] LABS: ALANINE AMINOTRANSFERASE 8 U/L (3-33); ALBUMIN/GLOBULIN RATIO 1.1 (1.0-2.7); ANION GAP 11 (5-15); ASPARTATE AMINO TRANSFERASE 17 U/L (5-40); CALCIUM 9.8 mg/dL (8.6-10.2); CARBON DIOXIDE 25 mEQ/L (20-30); CHLORIDE 108 mEQ/L (98-107); CREATININE 1.6 mg/dL (0.5-0.9); HEMOLYSIS 6; MAGNESIUM 1.9 mg/dL (1.7-2.5); PHOSPHORUS 3.4 mg/dL (2.5-4.8); POTASSIUM 3.5 mEQ/L (3.4-4.9); SODIUM 144 mEQ/L (135-145); TOTAL PROTEIN 7.2 g/dL (6.6-8.7); URIC ACID 5.7 mg/dL (3.0-7.5)
--- NOTE | 2016-10-26 07:15 | Progress Note ---
DATE: 10/25/2016 Subjective: The patient continues to be disorganized. She is very agitated, loud, yelling, and screaming. Poor insight and judgment into her mental condition. Compliant with medications. Mental Status Examination: The patient is alert and oriented times self and place. Mood is neutral. Affect is flat, congruent with mood. Thought process is concrete. Thought content, no suicidal or homicidal ideation. Positive for delusions. Cognition is impaired. ASSESSMENT: Schizoaffective disorder. PLAN: 1. We will continue the risperidone. Increase the dosage. 2. Provide the patient with supportive therapy and reality orientation. Stephanie Kebede M.D. DR: KATHE JOB#: [id number] CC:
[2016-10-26 08:00] VITALS: BP 140/97
--- NOTE | 2016-10-26 08:57 | General Progress Note ---
Assessment/Plan Status: stable Status Narrative Cr 1.6 stable Assessment/Plan status: Renal Failure- ? dehydration on top of chronic Hypertensive kidney disease Anemia Schizoaffective disorder plan: Repeat UA adjust BP meds Anemia camacho monitor Renal parameters per psych DC planning Subjective ROS Limited/Unobtainable: No Allergies: Coded Allergies: CODEINE (Unverified Allergy, Unknown, 10/23/16) ENALAPRIL (Unverified Allergy, Unknown, 10/23/16) LISINOPRIL (Unverified Allergy, Unknown, 10/23/16) MORPHINE (Unverified Allergy, Unknown, 10/23/16) Objective Last 24 Hour Vital Signs Date Time Temp Pulse Resp B/P (MAP) Pulse Ox O2 Delivery O2 Flow Rate FiO2 10/25/16 21:00 97.0 57 23 131/69 100 Room Air 10/25/16 18:00 120/87 10/25/16 15:46 97.9 58 20 120/87 99 Room Air 10/25/16 13:12 133/88 10/25/16 12:00 97.5 54 20 133/88 98 Room Air 10/25/16 10:07 151/99 10/25/16 10:07 60 151/99 10/25/16 10:06 151/99 Laboratory Tests 10/26/16 05:35: White Blood Count [Pending], Red Blood Count [Pending], Hemoglobin [Pending], Hematocrit [Pending], Mean Corpuscular Volume [Pending], Mean Corpuscular Hemoglobin [Pending], Mean Corpuscular Hemoglobin Concent [Pending], Red Cell Distribution Width [Pending], Platelet Count [Pending], Mean Platelet Volume [ Pending], Neutrophils (%) (Auto) [Pending], Lymphocytes (%) (Auto) [Pending], Monocytes (%) (Auto) [Pending], Eosinophils (%) (Auto) [Pending], Basophils (%) (Auto) [Pending], Sodium Level 144, Potassium Level 3.5, Chloride Level 108H, Carbon Dioxide Level 25, Anion Gap 11, Blood Urea Nitrogen 35H, Creatinine 1.6H , Estimat Glomerular Filtration Rate , Glucose Level 83, Uric Acid 5.7, Calcium Level 9.8, Phosphorus Level 3.4, Magnesium Level 1.9, Total Bilirubin 0.4, Aspartate Amino Transf (AST/SGOT) 17, Alanine Aminotransferase (ALT/SGPT) 8, Alkaline Phosphatase 54, Total Protein 7.2, Albumin 3.8, Globulin 3.4, Albumin/ Globulin Ratio 1.1 Height (Feet): 5 Height (Inches): 8.00 Weight (Pounds): 150 General Appearance: no apparent distress, confused Objective other PE not changed CAMILLE BEYER Oct 26, 2016 08:57
[2016-10-26] MEDS: Docusate 100mg cap ORAL SCH ×3 (09:00→12:35)
--- NOTE | 2016-10-26 09:15 | Consultation ---
DATE OF CONSULTATION: 10/24/2016 HEMATOLOGY/ONCOLOGY CONSULTATION REQUESTING PHYSICIAN: Angelina Wu M.D. REASON FOR CONSULTATION: Evaluation of pancytopenia. IDENTIFYING DATA: Dear Dr. Angelina Wu: The patient is a pleasant 71-year-old male. She has a past medical history, which is significant for anemia, acute tubular necrosis, severe protein-calorie malnutrition, CVA, LUPE, and history of aggressive behavior. At this time, he presents to [facility] due to Hematology/Oncology Service consulted given the patient had pancytopenia. Past Medical History: Hypertension, dementia, constipation, and psychosis. ALLERGIES: Codeine SOCIAL HISTORY: Lives in a snf. Review of Systems: Constitutional: No fever, chills, or night sweats. Skin: No rashes, lumps, or itching. HEENT: No headache, hearing or vision changes. Breasts: No lumps, pain, or discharge. Pulmonary: No cough, sputum, or shortness of breath. Gastrointestinal: No nausea, vomiting, or diarrhea. Genitourinary: No dysuria, frequency, or urgency. Musculoskeletal: No joint swelling, muscle pain, or trauma. PHYSICAL EXAMINATION: GENERAL: The patient is in no acute distress. Vital Signs: Temperature 98 degrees Fahrenheit, pulse rate of 82, respiratory rate 12, and blood pressure 121/62. PULMONARY: Decreased breath sounds. CARDIOVASCULAR: Regular rate. No S3 or S4. ABDOMEN: Soft, nontender, and nondistended.. EXTREMITIES: 1+ edema. Laboratory And Diagnostic Data: WBC , hemoglobin 10.6, hematocrit , platelet count 0.3. BUN 28, and creatinine 1.6. 76. CEA of 4.3. B12 . INR is 10. Hepatitis panel is negative. HIV is negative. Imaging reviewed. An ultrasound of the abdomen is still pending. ASSESSMENT AND PLAN: 1. Pancytopenia. Pancytopenia in the patient secondary to medications. The patient was noted to have history of alcohol abuse, less likely that she has myelodysplastic syndrome, platelet count currently improving. 2. Thrombocytopenia, rule out medication effect. Medications have been reviewed. 3. Elevated CEA. Consider GI evaluation as needed. 4. Acute kidney injury on top of hypertension. Nephrology service to follow up. 5. Schizoaffective disorder. Psychiatry service to follow up. 6. Anemia secondary to iron deficiency. Begin the patient on ferrous sulfate. I appreciate the consultation. Cl Bird M.D. DR: TAPAN JOB#: [id number] CC:
[2016-10-26 09:24] VITALS: BP 140/97
[2016-10-26] MEDS: Aspirin Baby 81mg ORAL SCH (09:24)
[2016-10-26] MEDS: HydrALAZINE 50mg tab ORAL SCH ×2 (09:24→12:35)
[2016-10-26] MEDS: Bisacodyl EC 5mg tab ORAL SCH (09:24)
[2016-10-26] MEDS: Vitamin B12 1000mcg/ml Inj IM SCH (09:25)
--- NOTE | 2016-10-26 11:27 | General Progress Note ---
Assessment/Plan Problem List: (1) Schizoaffective disorder ICD Codes: F25.9 - Schizoaffective disorder, unspecified SNOMED: [id number] Qualifiers: Qualified Codes: F25.9 - Schizoaffective disorder, unspecified (2) Psychosis ICD Codes: F29 - Unspecified psychosis not due to a substance or known physiological condition SNOMED: [id number] Status: progressing Assessment/Plan ams afebrile psychiatric patient vitals stable dc back to snf psych clered for dc reviewed chart and labs Subjective ROS Limited/Unobtainable: Yes Constitutional: Reports: no symptoms Allergies: Coded Allergies: CODEINE (Unverified Allergy, Unknown, 10/23/16) ENALAPRIL (Unverified Allergy, Unknown, 10/23/16) LISINOPRIL (Unverified Allergy, Unknown, 10/23/16) MORPHINE (Unverified Allergy, Unknown, 10/23/16) Objective Last 24 Hour Vital Signs Date Time Temp Pulse Resp B/P (MAP) Pulse Ox O2 Delivery O2 Flow Rate FiO2 10/26/16 09:24 140/97 10/26/16 09:24 140/97 10/26/16 09:24 59 140/97 10/26/16 08:00 97.9 59 18 140/97 100 Room Air 10/25/16 21:00 97.0 57 23 131/69 100 Room Air 10/25/16 18:00 120/87 10/25/16 15:46 97.9 58 20 120/87 99 Room Air 10/25/16 13:12 133/88 10/25/16 12:00 97.5 54 20 133/88 98 Room Air Laboratory Tests 10/26/16 05:35: Sodium Level 144, Potassium Level 3.5, Chloride Level 108H, Carbon Dioxide Level 25, Anion Gap 11, Blood Urea Nitrogen 35H, Creatinine 1.6H, Estimat Glomerular Filtration Rate , Glucose Level 83, Uric Acid 5.7, Calcium Level 9.8 , Phosphorus Level 3.4, Magnesium Level 1.9, Total Bilirubin 0.4, Aspartate Amino Transf (AST/SGOT) 17, Alanine Aminotransferase (ALT/SGPT) 8, Alkaline Phosphatase 54, Total Protein 7.2, Albumin 3.8, Globulin 3.4, Albumin/Globulin Ratio 1.1 Height (Feet): 5 Height (Inches): 8.00 Weight (Pounds): 150 Neck: supple Cardiovascular: normal rate Respiratory/Chest: lungs clear Abdomen: soft Angelina Wu MD Oct 26, 2016 11:27
--- NOTE | 2016-10-26 12:42 | General Progress Note ---
Assessment/Plan Assessment/Plan ASSESSMENT AND PLAN: 1. Pancytopenia. Secondary to medications. --> plt count improved 2. Thrombocytopenia 3. Elevated CEA. Consider GI evaluation as needed. 4. Acute kidney injury on top of hypertension. Nephrology service following 5. Schizoaffective disorder. Psychiatry service following 6. Anemia secondary to iron deficiency. Begin the patient on ferrous sulfate --> hgb currently stable ~10-11. Subjective Date patient seen: Oct 25, 2016 Constitutional: Reports: no symptoms HEENT: Reports: no symptoms Cardiovascular: Reports: no symptoms Respiratory: Reports: no symptoms Gastrointestinal/Abdominal: Reports: no symptoms Genitourinary: Reports: no symptoms Neurologic/Psychiatric: Reports: no symptoms Endocrine: Reports: no symptoms Hematologic/Lymphatic: Reports: no symptoms Allergies: Coded Allergies: CODEINE (Unverified Allergy, Unknown, 10/23/16) ENALAPRIL (Unverified Allergy, Unknown, 10/23/16) LISINOPRIL (Unverified Allergy, Unknown, 10/23/16) MORPHINE (Unverified Allergy, Unknown, 10/23/16) Subjective NAD Objective Last 24 Hour Vital Signs Date Time Temp Pulse Resp B/P (MAP) Pulse Ox O2 Delivery O2 Flow Rate FiO2 10/26/16 09:24 140/97 10/26/16 09:24 140/97 10/26/16 09:24 59 140/97 10/26/16 08:00 97.9 59 18 140/97 100 Room Air 10/25/16 21:00 97.0 57 23 131/69 100 Room Air 10/25/16 18:00 120/87 10/25/16 15:46 97.9 58 20 120/87 99 Room Air 10/25/16 13:12 133/88 Laboratory Tests 10/26/16 05:35: Sodium Level 144, Potassium Level 3.5, Chloride Level 108H, Carbon Dioxide Level 25, Anion Gap 11, Blood Urea Nitrogen 35H, Creatinine 1.6H, Estimat Glomerular Filtration Rate , Glucose Level 83, Uric Acid 5.7, Calcium Level 9.8 , Phosphorus Level 3.4, Magnesium Level 1.9, Total Bilirubin 0.4, Aspartate Amino Transf (AST/SGOT) 17, Alanine Aminotransferase (ALT/SGPT) 8, Alkaline Phosphatase 54, Total Protein 7.2, Albumin 3.8, Globulin 3.4, Albumin/Globulin Ratio 1.1 Height (Feet): 5 Height (Inches): 8.00 Weight (Pounds): 150 General Appearance: no apparent distress EENT: normal ENT inspection Neck: normal alignment Cardiovascular: regular rhythm Respiratory/Chest: no accessory muscle use Abdomen: soft, no organomegaly, no mass Edema: mild edema 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
--- NOTE | 2016-10-26 15:39 | General Progress Note ---
Assessment/Plan Assessment/Plan ASSESSMENT AND PLAN: 1. Pancytopenia. Secondary to medications. --> plt count improved 2. Thrombocytopenia 3. Elevated CEA. Consider GI evaluation as outpatient 4. Acute kidney injury on top of hypertension. Nephrology service following 5. Schizoaffective disorder. Psychiatry service following 6. Anemia secondary to iron deficiency. Begin the patient on ferrous sulfate --> hgb currently stable ~10-11. Subjective Constitutional: Reports: no symptoms HEENT: Reports: no symptoms Cardiovascular: Reports: no symptoms Respiratory: Reports: no symptoms Gastrointestinal/Abdominal: Reports: no symptoms Genitourinary: Reports: no symptoms Neurologic/Psychiatric: Reports: no symptoms Endocrine: Reports: no symptoms Hematologic/Lymphatic: Reports: no symptoms Allergies: Coded Allergies: CODEINE (Unverified Allergy, Unknown, 10/23/16) ENALAPRIL (Unverified Allergy, Unknown, 10/23/16) LISINOPRIL (Unverified Allergy, Unknown, 10/23/16) MORPHINE (Unverified Allergy, Unknown, 10/23/16) Subjective clear for dc today Objective Last 24 Hour Vital Signs Date Time Temp Pulse Resp B/P (MAP) Pulse Ox O2 Delivery O2 Flow Rate FiO2 10/26/16 09:24 140/97 10/26/16 09:24 140/97 10/26/16 09:24 59 140/97 10/26/16 08:00 97.9 59 18 140/97 100 Room Air 10/25/16 21:00 97.0 57 23 131/69 100 Room Air 10/25/16 18:00 120/87 10/25/16 15:46 97.9 58 20 120/87 99 Room Air Intake and Output 10/26/16 10/27/16 19:00 07:00 Intake Total 240 ml Balance 240 ml Intake Oral 240 ml # Voids 3 Laboratory Tests 10/26/16 05:35: Sodium Level 144, Potassium Level 3.5, Chloride Level 108H, Carbon Dioxide Level 25, Anion Gap 11, Blood Urea Nitrogen 35H, Creatinine 1.6H, Estimat Glomerular Filtration Rate , Glucose Level 83, Uric Acid 5.7, Calcium Level 9.8 , Phosphorus Level 3.4, Magnesium Level 1.9, Total Bilirubin 0.4, Aspartate Amino Transf (AST/SGOT) 17, Alanine Aminotransferase (ALT/SGPT) 8, Alkaline Phosphatase 54, Total Protein 7.2, Albumin 3.8, Globulin 3.4, Albumin/Globulin Ratio 1.1 Height (Feet): 5 Height (Inches): 8.00 Weight (Pounds): 150 General Appearance: no apparent distress EENT: normal ENT inspection Neck: normal alignment Abdomen: non tender Extremities: non-tender 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
[2016-10-27 11:35] LABS: METHYLMALONIC ACID 251 nmol/L (0-378)
--- NOTE | 2016-10-28 08:35 | Discharge Summary ---
Discharge Summary Hospital Course Date of Admission Oct 23, 2016 at 16:54 Date of Discharge Oct 26, 2016 at 15:30 Admitting Diagnosis ams/dementia HPI Gaviotakatt Christine is a 71 year old female who was admitted on Oct 23, 2016 at 16:54 for Ams/Dementia Hospital Course [id number] Discharge Discharge Disposition Patient was discharged to snf Discharge Diagnoses: Thu Velazco NP Oct 28, 2016 08:35
[2016-10-28 10:46] LABS: OTHERS PATHOLOGIST COMMENT
--- NOTE | 2016-10-29 00:15 | Discharge Summary 2 SIG ---
DATE OF ADMISSION: 10/23/2016 DATE OF DISCHARGE: 10/26/2016 CONSULTANTS: 1. Cl Bird M.D. 2. Refugio Ramos M.D. 3. Stephanie Kebede M.D. 4. Tracie Hernandes M.D. Brief Hospital Course: The patient is a 71-year-old female with dementia and altered mental status, presented to ED from correction as the patient has been overly aggressive, screaming, yelling, and throwing objects at staff. She has a history of schizoaffective disorder and was brought to ED for further evaluation. On evaluation, blood work did not show any leukocytosis. Hemoglobin and hematocrit were stable. Creatinine was elevated to 1.8. BUN was 32. EKG was in normal sinus rhythm. Chest x-ray showed no acute cardiopulmonary disease with no consolidation, no effusion, and no pneumothorax. She was admitted to telemetry for psychosis and underwent psychiatric evaluation. The patient was agitated and disorganized. She was diagnosed with schizoaffective disorder and was started on antipsychotics and mood stabilizers. She was given Depakote 500 mg at bedtime and was given Risperdal and dosage was eventually increased to 2 mg at bedtime. The patient had renal failure. Abdominal ultrasound showed echogenic kidneys. The patient had renal failure secondary to dehydration on top of hypertensive kidney disease. The patient had positive MRSA nares screen and was given Bactroban intranasally. She had pancytopenia. WBC was 4, hemoglobin 10, and platelet 118,000. Pancytopenia was assessed to be secondary to medications. It was also noted that she has a history of alcohol abuse. Platelet counts eventually improved. Anemia workup done showed iron deficiency anemia and was given ferrous sulfate. She was eventually discharged back to correction. FINAL DIAGNOSES: 1. Schizoaffective disorder. 2. Psychosis. 3. Pancytopenia. 4. Elevated carcinoembryonic antigen. 5. Acute kidney injury on top of hypertensive nephrosclerosis. 6. Iron deficiency anemia. 7. Methicillin-resistant Staphylococcus aureus nares colonization. Discharge Disposition: The patient was discharged to [facility]. DISCHARGE MEDICATIONS: Refer to medication list. Angelina Wu M.D. I have been assigned to dictate discharge summary on this account and I was not involved in the patient's management. Thu Velazco N.P. DR: YODIT JOB#: [id number] CC:
== END 2016-10-26 15:30 | DRG 885 ==
LOC: EDBD 15:37 → EMR 16:50 → 4E 16:54 → EDBEDREQ 17:02
DX: F25.9 Schizoaffective disorder, unspecified (principal); N17.9 Acute kidney failure, unspecified; D61.811 Other drug-induced pancytopenia; F03.90 Unspecified dementia, unspecified severity, without behavioral disturbance, psychotic disturbance, mood disturbance, and anxiety; D69.6 Thrombocytopenia, unspecified; E86.0 Dehydration; F29 Unspecified psychosis not due to a substance or known physiological condition; F03.91 Unspecified dementia, unspecified severity, with behavioral disturbance; I12.9 Hypertensive chronic kidney disease with stage 1 through stage 4 chronic kidney disease, or unspecified chronic kidney disease; N18.9 Chronic kidney disease, unspecified; Z88.6 Allergy status to analgesic agent; Z88.8 Allergy status to other drugs, medicaments and biological substances; Z22.322 Carrier or suspected carrier of Methicillin resistant Staphylococcus aureus; Z86.73 Personal history of transient ischemic attack (TIA), and cerebral infarction without residual deficits; D50.9 Iron deficiency anemia, unspecified; R97.0 Elevated carcinoembryonic antigen [CEA]
CPT/HCPCS: 36415; 71010; 76700; 80048; 80053; 81003; 82378; 82550; 82553; 82607; 82728; 82746; 83540; 83550; 83605; 83735; 83921; 84100; 84165; 84443; 84484; 84550; 85007; 85025; 85044; 85060; 85610; 86703; 86705; 86709; 86803; 87040; 87081; 87340; 93005; 99285

== ENCOUNTER 2018-03-09 10:48 | Inpatient (IN) | payer MEDICARE, MEDICAID ==
[~2018-03-09] VITALS: Ht 167.6 cm; Wt 68.0 kg
[~2018-03-09 10:48] MED LIST changes: +ATIVAN1 MG ORAL; +DEPAKOTE250 MG PO; +MOM30 ML ORAL
[2018-03-09] MEDS ORDERED: CRANBERRY450 M4 PO (10:56)
[2018-03-09] MEDS ORDERED: NORVASC5 MG ORAL (10:56)
[2018-03-09 11:05] VITALS: BP 138/86
--- NOTE | 2018-03-09 11:09 | NUR ---
ED Nurse Note: Pt. brought in by ambulance from [facility]. Ambulatory with limited assistance. Per EMS, pt. was reported to be having a burning sensation during urination and increase urinary frequency. Pt. appears to be very agitated and uncooperative. Pt. is AOX1-2, to her self and place. Pt changed into a gown and attached to cardiac rehabilitation specialist for continuous monitoring. No acute s/s of distress noted at this time.
[2018-03-09 11:33] LABS: EOSINOPHILS % (AUTO) 2.6 % (0.0-3.0); HEMATOCRIT 38.9 % (37.0-47.0); HEMOGLOBIN 11.7 G/DL (12.0-16.0); LYMPHOCYTES % (AUTO) 25.9 % (20.0-45.0); MEAN CORPUSCULAR VOLUME 82 FL (80-99); MONOCYTES % (AUTO) 10.5 % (1.0-10.0); NEUTROPHILS % (AUTO) 59.9 % (45.0-75.0); PLATELET COUNT 190 K/UL (150-450); RED BLOOD COUNT 4.76 M/UL (4.20-5.40); WHITE BLOOD COUNT 4.3 K/UL (4.8-10.8)
[2018-03-09 11:36] LABS: ANION GAP 7 mmol/L (5-15); BLOOD UREA NITROGEN 19 mg/dL (7-18); CARBON DIOXIDE 30 MMOL/L (21-32); CHLORIDE 108 MMOL/L (98-107); CREATININE 1.9 MG/DL (0.55-1.30); POTASSIUM 3.1 MMOL/L (3.5-5.1); SODIUM 145 MMOL/L (136-145)
[2018-03-09 12:12] LABS: ALANINE AMINOTRANSFERASE 16 U/L (12-78); ALBUMIN 3.3 G/DL (3.4-5.0); ALBUMIN/GLOBULIN RATIO 0.6 (1.0-2.7); ALKALINE PHOSPHATASE 78 U/L (46-116); ASPARTATE AMINO TRANSFERASE 18 U/L (15-37); BILIRUBIN,TOTAL 0.4 MG/DL (0.2-1.0); CKMB 1.2 NG/ML (0.0-3.6); CREATINE KINASE 170 U/L (26-308)
--- NOTE | 2018-03-09 12:12 | Diagnostic Imaging Report ---
Indication: Shortness of breath Technique: One view of the chest Comparison: 10/23/2016 Findings: Interim development of bilateral right greater than left pleural effusions. There is mild interstitial congestion, not evident previously. The heart remains enlarged. The aorta is tortuous ectatic and calcified. Impression: Evidence of congestive heart failure, with interstitial edema and bilateral pleural effusions Cardiomegaly
[2018-03-09 12:39] LABS: APPEARANCE,URINE SLIGHTLY CLOUDY; BILIRUBIN, URINE NEGATIVE (NEGATIVE); COLOR,URINE PALE YELLOW; GLUCOSE, URINE (UA) NEGATIVE (NEGATIVE); KETONES,URINE NEGATIVE (NEGATIVE); LEUKOCYTE ESTERASE ,URINE NEGATIVE (NEGATIVE); NITRITE,URINE NEGATIVE (NEGATIVE); PH,URINE 6.5 (4.5-8.0); PROTEIN,URINE 1+ (NEGATIVE); UROBILINOGEN,URINE NORMAL MG/DL (0.0-1.0)
--- NOTE | 2018-03-09 12:40 | NUR ---
NURSE NOTES: Received report from CAT Hanson/ER
--- NOTE | 2018-03-09 13:00 | NUR ---
ED Nurse Note: Patient transported to [place], report given to CAT Elizabeth
--- NOTE | 2018-03-09 13:10 | NUR ---
patient came to 4th floor via gurney accompanied by ER nurses. patient is alert, verbally responsive. no respiratory distress noted. no c/o pain at this time. skin check done. skin intact. check belonging and counted sierra with patient. patient wants put the sierra $170 to the safety box. notified boots and shoes supervisor CAT [place] and security and obtained sign from patient. bed in the lowest position. alarm on, call light within reach. notified dr. silva for the admission orders.
--- NOTE | 2018-03-09 13:57 | Emergency Room Report ---
History of Present Illness General Chief Complaint: General Complaint Source: Patient, Medical Record Present Illness HPI Patient presents with reports of weakness Patient has not been eating and drinking well Patient herself has underlying psychiatric condition Has difficult time providing appropriate history History of present illness is somewhat limited Patient herself denies any cough or shortness of breath and eyes any fevers Allergies: Coded Allergies: CODEINE (Unverified Allergy, Unknown, 10/23/16) ENALAPRIL (Unverified Allergy, Unknown, 10/23/16) LISINOPRIL (Unverified Allergy, Unknown, 10/23/16) MORPHINE (Unverified Allergy, Unknown, 10/23/16) Patient History Limited by: medical condition Past Medical History: see triage record Pertinent Family History: unable to obtain Reviewed Nursing Documentation: PMH: Agreed; PSxH: Agreed Nursing Documentation-PMH Past Medical History: No History, Except For Hx Cardiac Problems: Yes Hx Hypertension: Yes Hx Diabetes: Yes Hx Cancer: No Hx Gastrointestinal Problems: No History Of Psychiatric Problem: Yes - dementia, schizoprenia, bipolar, anxiety Hx Neurological Problems: No Hx Cerebrovascular Accident: Yes Hx Tremors: Yes Hx Neurologic Surgery: No Review of Systems All Other Systems: limited - Other than the ones mentioned in the history of present illness all others are reviewed however they do stay limited due to the patient's mental status Physical Exam Vital Signs Date Time Temp Pulse Resp B/P (MAP) Pulse Ox O2 Delivery O2 Flow Rate FiO2 03/09/18 10:46 97.9 73 16 139/89 100 Room Air Sp02 EP Interpretation: reviewed, normal General Appearance: no apparent distress Head: normocephalic, atraumatic Eyes: bilateral eye PERRL, bilateral eye EOMI ENT: dry mucus membranes Neck: supple Respiratory: lungs clear, no retraction, no accessory muscle use Cardiovascular #1: regular rate, rhythm Gastrointestinal: soft, no mass Musculoskeletal: normal inspection Neurologic: alert, responsive Skin: normal color, no rash Lymphatic: no adenopathy Medical Decision Making Diagnostic Impression: Primary Impression: Encounter for generalized patient complaints Additional Impressions: Dehydration Encephalopathy ER Course Patient is complex requiring imaging and extensive blood work Patient's kidney function appears abnormal x-ray does show right lower lobe effusion the acuteness of this is unclear patient is otherwise asymptomatic with this Evaluation with previous imaging will be required Patient's further hydrated continues to feel improved and admitted for further care Labs Test 03/09/18 11:20 03/09/18 12:20 White Blood Count 4.3 K/UL (4.8-10.8) Red Blood Count 4.76 M/UL (4.20-5.40) Hemoglobin 11.7 G/DL (12.0-16.0) Hematocrit 38.9 % (37.0-47.0) Mean Corpuscular Volume 82 FL (80-99) Mean Corpuscular Hemoglobin 24.5 PG (27.0-31.0) Mean Corpuscular Hemoglobin Concent 30.0 G/DL (32.0-36.0) Red Cell Distribution Width 16.0 % (11.6-14.8) Platelet Count 190 K/UL (150-450) Mean Platelet Volume 9.2 FL (6.5-10.1) Neutrophils (%) (Auto) 59.9 % (45.0-75.0) Lymphocytes (%) (Auto) 25.9 % (20.0-45.0) Monocytes (%) (Auto) 10.5 % (1.0-10.0) Eosinophils (%) (Auto) 2.6 % (0.0-3.0) Basophils (%) (Auto) 1.0 % (0.0-2.0) Sodium Level 145 MMOL/L (136-145) Potassium Level 3.1 MMOL/L (3.5-5.1) Chloride Level 108 MMOL/L (98-107) Carbon Dioxide Level 30 MMOL/L (21-32) Anion Gap 7 mmol/L (5-15) Blood Urea Nitrogen 19 mg/dL (7-18) Creatinine 1.9 MG/DL (0.55-1.30) Estimat Glomerular Filtration Rate mL/min (>60) Glucose Level 110 MG/DL (74-106) Calcium Level 9.0 MG/DL (8.5-10.1) Total Bilirubin 0.4 MG/DL (0.2-1.0) Aspartate Amino Transf (AST/SGOT) 18 U/L (15-37) Alanine Aminotransferase (ALT/SGPT) 16 U/L (12-78) Alkaline Phosphatase 78 U/L (46-116) Total Creatine Kinase 170 U/L (26-308) Creatine Kinase MB 1.2 NG/ML (0.0-3.6) Creatine Kinase MB Relative Index 0.7 Troponin I 0.013 ng/mL (0.000-0.056) Total Protein 8.8 G/DL (6.4-8.2) Albumin 3.3 G/DL (3.4-5.0) Globulin 5.5 g/dL Albumin/Globulin Ratio 0.6 (1.0-2.7) Lipase 247 U/L (73-393) Urine Color Pale yellow Urine Appearance Slightly cloudy Urine pH 6.5 (4.5-8.0) Urine Specific [place] 1.010 (1.005-1.035) Urine Protein 1+ (NEGATIVE) Urine Glucose (UA) Negative (NEGATIVE) Urine Ketones Negative (NEGATIVE) Urine Blood Negative (NEGATIVE) Urine Nitrite Negative (NEGATIVE) Urine Bilirubin Negative (NEGATIVE) Urine Urobilinogen Normal MG/DL (0.0-1.0) Urine Leukocyte Esterase Negative (NEGATIVE) Urine RBC 0 /HPF (0 - 2) Urine WBC 0-2 /HPF (0 - 2) Urine Squamous Epithelial Cells Moderate /LPF (NONE/OCC) Urine Bacteria Few /HPF (NONE) EKG Diagnostic Results Rate: normal Rhythm: NSR ST Segments: no acute changes Rhythm Strip Diag. Results EP Interpretation: yes Rate: 60 Rhythm: NSR, no PVC's, no ectopy Chest X-Ray Diagnostic Results Chest X-Ray Diagnostic Results : Chest X-Ray Ordered: Yes # of Views/Limited/Complete: 1 View Indication: Chest Pain EP Interpretation: Yes Interpretation: no pneumothorax, other - Cardiomegaly, right lower lobe effusion Impression: Other - Cardiomegaly, right lower lobe effusion Electronically Signed by: Angelina Torrez DO Last Vital Signs Date Time Temp Pulse Resp B/P (MAP) Pulse Ox O2 Delivery O2 Flow Rate FiO2 03/09/18 13:00 98.2 82 16 143/83 100 Room Air Status: improved Disposition: ADMITTED INPATIENT Condition: Serious Referrals: Angelina Wu MD (PCP) Angelina Torrez DO Mar 09, 2018 13:57
--- NOTE | 2018-03-09 15:32 | NUR ---
NURSE NOTES: patient admission blood pressure was 165/105, HR96. current blood pressure 181/115, HR [address] silva.
[2018-03-09 16:00] VITALS: BP 181/115
[2018-03-09] MEDS ORDERED: Milk of Magnesia 30ml Ud ORAL PRN (16:15)
[2018-03-09] MEDS ORDERED: LORazepam 1mg tab ORAL PRN (16:15)
[2018-03-09] MEDS ORDERED: Bisacodyl EC 5mg tab ORAL PRN (16:15)
--- NOTE | 2018-03-09 16:54 | Pulmonology Progress Note ---
Assessment/Plan Assessment/Plan Pulmonary Consultation Note HPI Patient presents with reports of weakness Patient has not been eating and drinking well Patient with underlying psychiatric condition History of present illness is limited Patient herself denies any cough, SOB or fevers Allergies: CODEINE ENALAPRIL LISINOPRIL MORPHINE Past Medical History: Cardiac Problems, Hypertension, Diabetes, dementia, schizoprenia, bipolar, anxiety, Cerebrovascular Accident, Tremors All Other Systems: limited - Other than the ones mentioned in the history of present illness all others are reviewed however they do stay limited due to the patient's mental status Physical Exam Vital Signs Date Time Temp Pulse Resp B/P (MAP) Pulse Ox O2 Delivery O2 Flow Rate FiO2 03/09/18 10:46 97.9 73 16 139/89 100 Room Air General Appearance: no apparent distress Head: normocephalic, atraumatic Eyes: bilateral eye PERRL, bilateral eye EOMI ENT: dry mucus membranes Neck: supple Respiratory: lungs clear, no retraction, no accessory muscle use Cardiovascular #1: regular rate, rhythm Gastrointestinal: soft, no mass Musculoskeletal: normal inspection Neurologic: alert, responsive Skin: normal color, no rash Lymphatic: no adenopathy Impression: Dementia Hypokalemia Dehydration Encephalopathy HTN Diabetes Previous CVA Plan Cautious hydration Supplement K HHN O2 PRN Swallow evaluation Follow labs Labs Test 03/09/18 11:20 03/09/18 12:20 White Blood Count 4.3 K/UL (4.8-10.8) Red Blood Count 4.76 M/UL (4.20-5.40) Hemoglobin 11.7 G/DL (12.0-16.0) Hematocrit 38.9 % (37.0-47.0) Mean Corpuscular Volume 82 FL (80-99) Mean Corpuscular Hemoglobin 24.5 PG (27.0-31.0) Mean Corpuscular Hemoglobin Concent 30.0 G/DL (32.0-36.0) Red Cell Distribution Width 16.0 % (11.6-14.8) Platelet Count 190 K/UL (150-450) Mean Platelet Volume 9.2 FL (6.5-10.1) Neutrophils (%) (Auto) 59.9 % (45.0-75.0) Lymphocytes (%) (Auto) 25.9 % (20.0-45.0) Monocytes (%) (Auto) 10.5 % (1.0-10.0) Eosinophils (%) (Auto) 2.6 % (0.0-3.0) Basophils (%) (Auto) 1.0 % (0.0-2.0) Sodium Level 145 MMOL/L (136-145) Potassium Level 3.1 MMOL/L (3.5-5.1) Chloride Level 108 MMOL/L (98-107) Carbon Dioxide Level 30 MMOL/L (21-32) Anion Gap 7 mmol/L (5-15) Blood Urea Nitrogen 19 mg/dL (7-18) Creatinine 1.9 MG/DL (0.55-1.30) Estimat Glomerular Filtration Rate mL/min (>60) Glucose Level 110 MG/DL (74-106) Calcium Level 9.0 MG/DL (8.5-10.1) Total Bilirubin 0.4 MG/DL (0.2-1.0) Aspartate Amino Transf (AST/SGOT) 18 U/L (15-37) Alanine Aminotransferase (ALT/SGPT) 16 U/L (12-78) Alkaline Phosphatase 78 U/L (46-116) Total Creatine Kinase 170 U/L (26-308) Creatine Kinase MB 1.2 NG/ML (0.0-3.6) Creatine Kinase MB Relative Index 0.7 Troponin I 0.013 ng/mL (0.000-0.056) Total Protein 8.8 G/DL (6.4-8.2) Albumin 3.3 G/DL (3.4-5.0) Globulin 5.5 g/dL Albumin/Globulin Ratio 0.6 (1.0-2.7) Lipase 247 U/L (73-393) Urine Color Pale yellow Urine Appearance Slightly cloudy Urine pH 6.5 (4.5-8.0) Urine Specific [place] 1.010 (1.005-1.035) Urine Protein 1+ (NEGATIVE) Urine Glucose (UA) Negative (NEGATIVE) Urine Ketones Negative (NEGATIVE) Urine Blood Negative (NEGATIVE) Urine Nitrite Negative (NEGATIVE) Urine Bilirubin Negative (NEGATIVE) Urine Urobilinogen Normal MG/DL (0.0-1.0) Urine Leukocyte Esterase Negative (NEGATIVE) Urine RBC 0 /HPF (0 - 2) Urine WBC 0-2 /HPF (0 - 2) Urine Squamous Epithelial Cells Moderate /LPF (NONE/OCC) Urine Bacteria Few /HPF (NONE) EKG Diagnostic Results Rate: normal Rhythm: NSR ST Segments: no acute changes Rhythm Strip Diag. Results EP Interpretation: yes Rate: 60 Rhythm: NSR, no PVC's, no ectopy Chest X-Ray Diagnostic Results Chest X-Ray Diagnostic Results : Chest X-Ray Ordered: Yes # of Views/Limited/Complete: 1 View Indication: Chest Pain EP Interpretation: Yes Interpretation: no pneumothorax, other - Cardiomegaly, right lower lobe effusion Impression: Other - Cardiomegaly, right lower lobe effusion Subjective ROS Limited/Unobtainable: No Respiratory: Reports: shortness of breath Allergies: Coded Allergies: CODEINE (Unverified Allergy, Unknown, 10/23/16) ENALAPRIL (Unverified Allergy, Unknown, 10/23/16) LISINOPRIL (Unverified Allergy, Unknown, 10/23/16) MORPHINE (Unverified Allergy, Unknown, 10/23/16) Objective Last 24 Hour Vital Signs Date Time Temp Pulse Resp B/P (MAP) Pulse Ox O2 Delivery O2 Flow Rate FiO2 03/09/18 15:26 Room Air 03/09/18 13:00 98.2 82 16 143/83 100 Room Air 03/09/18 11:05 73 16 Room Air 03/09/18 11:05 97.9 79 16 138/86 100 Room Air 03/09/18 10:46 97.9 73 16 139/89 100 Room Air Laboratory Tests 03/09/18 11:20: White Blood Count 4.3L, Red Blood Count 4.76, Hemoglobin 11.7L, Hematocrit 38.9 , Mean Corpuscular Volume 82, Mean Corpuscular Hemoglobin 24.5L, Mean Corpuscular Hemoglobin Concent 30.0L, Red Cell Distribution Width 16.0H, Platelet Count 190, Mean Platelet Volume 9.2, Neutrophils (%) (Auto) 59.9, Lymphocytes (%) (Auto) 25.9, Monocytes (%) (Auto) 10.5H, Eosinophils (%) (Auto) 2.6, Basophils (%) (Auto) 1.0, Sodium Level 145, Potassium Level 3.1L, Chloride Level 108H, Carbon Dioxide Level 30, Anion Gap 7, Blood Urea Nitrogen 19H, Creatinine 1.9H, Estimat Glomerular Filtration Rate , Glucose Level 110H, Calcium Level 9.0, Total Bilirubin 0.4, Aspartate Amino Transf (AST/SGOT) 18, Alanine Aminotransferase (ALT/SGPT) 16, Alkaline Phosphatase 78, Total Creatine Kinase 170, Creatine Kinase MB 1.2, Creatine Kinase MB Relative Index 0.7, Troponin I 0.013, Total Protein 8.8H, Albumin 3.3L, Globulin 5.5, Albumin/ Globulin Ratio 0.6L, Lipase 247 03/09/18 12:20: Urine Color Pale yellow, Urine Appearance Slightly cloudy, Urine pH 6.5, Urine Specific [place] 1.010, Urine Protein 1+H, Urine Glucose (UA) Negative, Urine Ketones Negative, Urine Blood Negative, Urine Nitrite Negative, Urine Bilirubin Negative, Urine Urobilinogen Normal, Urine Leukocyte Esterase Negative, Urine RBC 0, Urine WBC 0-2, Urine Squamous Epithelial Cells ModerateH, Urine Bacteria Few Current Medications Medications (Trade) Dose Ordered Sig/Yao Route PRN Reason Start Time Stop Time Status Last Admin Dose Admin Acetaminophen (Tylenol) 650 mg Q4H PRN ORAL Mild Pain/Temp > 100.5 03/09/18 16:15 04/08/18 16:14 Amlodipine Besylate (Norvasc) 5 mg Q12HR ORAL 03/09/18 21:00 04/08/18 20:59 Aspirin (ASA) 81 mg DAILY ORAL 03/10/18 09:00 04/09/18 08:59 Bisacodyl (Dulcolax) 5 mg DAILYPRN PRN ORAL Constipation 03/09/18 16:15 04/08/18 16:14 Clonidine HCl (Catapres Tab) 0.1 mg Q8H PRN ORAL For High Blood Pressure 03/09/18 16:15 04/08/18 16:14 Divalproex Sodium (Depakote) 500 mg BEDTIME ORAL 03/09/18 21:00 04/08/18 20:59 Docusate Sodium (Colace) 100 mg DAILY ORAL 03/10/18 09:00 04/09/18 08:59 Hydralazine HCl (Apresoline) 50 mg Q8HR ORAL 03/09/18 22:00 04/08/18 21:59 Lorazepam (Ativan) 1 mg Q8H PRN ORAL For Anxiety 03/09/18 16:15 03/16/18 16:14 Magnesium Hydroxide (Mom) 30 ml DAILYPRN PRN ORAL Constipation 03/09/18 16:15 04/08/18 16:14 Olanzapine (ZyPREXA) 5 mg BEDTIME ORAL 03/09/18 21:00 04/08/18 20:59 Temazepam (Restoril) 7.5 mg HSPRN PRN ORAL Insomnia 03/09/18 16:15 03/16/18 16:14 Pradeep Maya MD Mar 09, 2018 16:54
--- NOTE | 2018-03-09 18:25 | Consultation ---
Consult Note Consult Note patient seen and examined and data reviewed Patient presents with reports of weakness Patient has not been eating and drinking well Patient herself has underlying psychiatric condition Has difficult time providing appropriate history History of present illness is somewhat limited Patient herself denies any cough or shortness of breath and eyes any fevers Allergies: Coded Allergies: CODEINE (Unverified Allergy, Unknown, 10/23/16) ENALAPRIL (Unverified Allergy, Unknown, 10/23/16) LISINOPRIL (Unverified Allergy, Unknown, 10/23/16) MORPHINE (Unverified Allergy, Unknown, 10/23/16) Past Medical History: No History, Except For Hx Cardiac Problems: Yes Hx Hypertension: Yes Hx Diabetes: Yes History Of Psychiatric Problem: Yes - dementia, schizoprenia, bipolar, anxiety Hx Cerebrovascular Accident: Yes Hx Tremors: Yes Assessment/Plan renal failure Cr 1.9 Dementia Hypokalemia Dehydration Encephalopathy HTN ooc Diabetes Previous CVA pleural effusions adjust bp meds very slow hydrate 2D echo urine studies monitor renal parameters Refugio Ramos MD Mar 09, 2018 18:25
--- NOTE | 2018-03-09 18:40 | NUR ---
NURSE NOTES: received call from Dr. Wu and got admission orders. order noted and carried out.
--- NOTE | 2018-03-09 19:23 | NUR ---
HAND-OFF: Report given to CAT Stewart.
--- NOTE | 2018-03-09 19:29 | NUR ---
NURSE NOTES: Received patient in bed, ambulatory, awake, alert, oriented, no acute distress noted, bed is in low position, locked and alarm is on. Call light is within reach, will continue to monitor.
[2018-03-09 20:00] VITALS: BP 159/104
[2018-03-09] MEDS: Depakote 500mg tab ORAL SCH ×2 (20:35→20:38)
[2018-03-09] MEDS: HydrALAZINE 50mg tab ORAL SCH (21:18)
[2018-03-09] MEDS ORDERED: HydrALAZINE 50mg tab ORAL SCH (22:00)
--- NOTE | 2018-03-09 22:31 | Physician Query ---
--------- THIS DOCUMENT IS A PERMANENT PART OF THE MEDICAL RECORD --------- PLEASE COMPLETE DOCUMENT BEFORE SIGNING Dear Dr. Juaquin RAMOS Date: __03/09/2018_ Textile Science Technician/CDS Name: __Michelle AVILA Textile Science Technician/CDS Phone No.: Exercise your independent professional judgment when responding to the query. Questions asked do not imply a particular answer is desired or expected. We greatly appreciate your clarification on this issue. CLINICAL DOCUMENTATION STATES: "RENAL FAILURE" - documented in Dr. Ramos's Consultation note CLINICAL FINDINGS SHOW: Creatinine - 1.9 mg/dl Please specify the ACUITY of the RENAL FAILURE: [] ACUTE [] CHRONIC [*] ACUTE ON CHRONIC [] OTHER Condition Present on Admission: [*] Yes [] No []Clinically Undeterminable Please also document in your Progress Notes and/or Discharge Summary and indicate if the condition was present on admission. CAMILLE RAMOS M.D. DATE & TIME [facility]
--- NOTE | 2018-03-09 22:38 | Physician Query ---
--------- THIS DOCUMENT IS A PERMANENT PART OF THE MEDICAL RECORD --------- PLEASE COMPLETE DOCUMENT BEFORE SIGNING Dear Dr. FUENTES Date: _03/09/18__ Truck Crane Operator/CDS Name: _Lisa AVILA___ Truck Crane Operator / CDS Phone # Exercise your independent professional judgment when responding to query. Question asked do not imply a particular answer is desired/expected. Clinical Documentation States: "ENCEPHALOPATHY" documented in Dr. Beyer's Consultation note Clinical Findings Show: Creatinine - 1.9 mg/dl Please indicate the nature & chronicity of the condition below: [*] Metabolic Encephalopathy [] Toxic Encephalopathy [] Toxic - Metabolic Encephalopathy [] Progressive Encephalopathy [] Other: [] Not Applicable Severity [] Acute [] Chronic [*] Acute on Chronic [] Unable to determine Condition Present on Admission: [*] Yes [] No []Clinically Undeterminable Please also document in your Progress Notes and/or Discharge Summary and indicate if the condition was present on admission. CAMILLE BEYER M.D. DATE & TIME [facility]
[2018-03-09] MEDS ORDERED: Albuterol 90mcg Inhaler 8gm INH PRN (23:00)
--- NOTE | 2018-03-09 23:22 | Consultation ---
History of Present Illness General Chief Complaint: General Complaint Present Illness HPI 72 yo residential pt from [place] was admitted for weakness and failure to thrive. the pt has hx of schizoaffective do and stopped taking her meds about a week ago. the pt has been pacing in the day room and at some point became combative when staff tried to redirect her. the pt responds to internal stimuli and has been refusing to eat or drink. the pt in addition has been confused and disorganized. Allergies: Coded Allergies: CODEINE (Unverified Allergy, Unknown, 10/23/16) ENALAPRIL (Unverified Allergy, Unknown, 10/23/16) LISINOPRIL (Unverified Allergy, Unknown, 10/23/16) MORPHINE (Unverified Allergy, Unknown, 10/23/16) Medication History Scheduled Amlodipine Besylate (Norvasc), 5 MG ORAL BID, (Reported) Amlodipine Besylate* (Amlodipine Besylate*), 5 MG ORAL BID, (Reported) Aspirin* (Aspirin*), 81 MG ORAL DAILY, (Reported) Bisacodyl* (Dulcolax*), 5 MG ORAL DAILY, (Reported) Cranberry Fruit Concentrate (Cranberry), 450 MG PO BID, (Reported) Divalproex Sodium* (Depakote*), 500 MG PO BEDTIME, (Reported) Docusate Sodium* (Colace*), 100 MG ORAL DAILY, (Reported) Hydralazine Hcl* (Hydralazine Hcl*), 50 MG ORAL TID, (Reported) Olanzapine* (Zyprexa*), 5 MG ORAL HS, (Reported) Scheduled PRN Acetaminophen (Acetaminophen), 650 MG ORAL Q4HR PRN for Prn Headache/Temp > 101, (Reported) Clonidine Hcl* (Catapres*), 0.1 MG ORAL EVERY 8 HOURS PRN for For High Blood Pressure, (Reported) Lorazepam* (Ativan*), 1 MG ORAL EVERY 8 HOURS PRN for For Anxiety, (Reported) Magnesium Hydroxide (Milk of Magnesia), 30 ML ORAL DAILY PRN for Constipation, ( Reported) Temazepam* (Restoril*), 7.5 MG ORAL BEDTIME PRN for Insomnia, (Reported) Patient History Limited by: medical condition History Provided By: Patient, Medical Record, PMD Healthcare decision maker Resuscitation status Advanced Directive on File Past Medical/Surgical History Past Medical/Surgical History: (1) ATN (acute tubular necrosis) (2) Severe protein-calorie malnutrition (3) Cerebrovascular small vessel disease (4) Psychosis (5) Anemia (6) MRSA (methicillin resistant Staphylococcus aureus) colonization (7) Dehydration (8) Encephalopathy (9) Encounter for generalized patient complaints (10) Acute encephalopathy (11) History of hypertension (12) Psychosis Review of Systems Psychiatric: Reports: prior hx, anxiety, depressed feelings, hallucinations Physical Exam General Appearance: alert, confused, moderate distress, agitated Neurologic: disoriented, depressed affect Last 24 Hour Vital Signs Date Time Temp Pulse Resp B/P (MAP) Pulse Ox O2 Delivery O2 Flow Rate FiO2 03/09/18 23:01 169/104 03/09/18 21:18 154/104 03/09/18 21:00 Room Air 03/09/18 20:35 88 154/104 03/09/18 20:00 98.8 62 18 159/104 (122) 03/09/18 17:51 181/115 03/09/18 16:00 98.1 65 20 181/115 (137) 94 03/09/18 15:26 Room Air 03/09/18 13:00 98.2 82 16 143/83 100 Room Air 03/09/18 11:05 73 16 Room Air 03/09/18 11:05 97.9 79 16 138/86 100 Room Air 03/09/18 10:46 97.9 73 16 139/89 100 Room Air Laboratory Tests Test 03/09/18 11:20 03/09/18 12:20 White Blood Count 4.3 K/UL (4.8-10.8) L Red Blood Count 4.76 M/UL (4.20-5.40) Hemoglobin 11.7 G/DL (12.0-16.0) L Hematocrit 38.9 % (37.0-47.0) Mean Corpuscular Volume 82 FL (80-99) Mean Corpuscular Hemoglobin 24.5 PG (27.0-31.0) L Mean Corpuscular Hemoglobin Concent 30.0 G/DL (32.0-36.0) L Red Cell Distribution Width 16.0 % (11.6-14.8) H Platelet Count 190 K/UL (150-450) Mean Platelet Volume 9.2 FL (6.5-10.1) Neutrophils (%) (Auto) 59.9 % (45.0-75.0) Lymphocytes (%) (Auto) 25.9 % (20.0-45.0) Monocytes (%) (Auto) 10.5 % (1.0-10.0) H Eosinophils (%) (Auto) 2.6 % (0.0-3.0) Basophils (%) (Auto) 1.0 % (0.0-2.0) Sodium Level 145 MMOL/L (136-145) Potassium Level 3.1 MMOL/L (3.5-5.1) L Chloride Level 108 MMOL/L (98-107) H Carbon Dioxide Level 30 MMOL/L (21-32) Anion Gap 7 mmol/L (5-15) Blood Urea Nitrogen 19 mg/dL (7-18) H Creatinine 1.9 MG/DL (0.55-1.30) H Estimat Glomerular Filtration Rate mL/min (>60) Glucose Level 110 MG/DL (74-106) H Calcium Level 9.0 MG/DL (8.5-10.1) Total Bilirubin 0.4 MG/DL (0.2-1.0) Aspartate Amino Transf (AST/SGOT) 18 U/L (15-37) Alanine Aminotransferase (ALT/SGPT) 16 U/L (12-78) Alkaline Phosphatase 78 U/L (46-116) Total Creatine Kinase 170 U/L (26-308) Creatine Kinase MB 1.2 NG/ML (0.0-3.6) Creatine Kinase MB Relative Index 0.7 Troponin I 0.013 ng/mL (0.000-0.056) C-Reactive Protein, Quantitative < 0.4 mg/dL (0.00-0.90) Total Protein 8.8 G/DL (6.4-8.2) H Albumin 3.3 G/DL (3.4-5.0) L Globulin 5.5 g/dL Albumin/Globulin Ratio 0.6 (1.0-2.7) L Lipase 247 U/L (73-393) Urine Color Pale yellow Urine Appearance Slightly cloudy Urine pH 6.5 (4.5-8.0) Urine Specific [place] 1.010 (1.005-1.035) Urine Protein 1+ (NEGATIVE) H Urine Glucose (UA) Negative (NEGATIVE) Urine Ketones Negative (NEGATIVE) Urine Blood Negative (NEGATIVE) Urine Nitrite Negative (NEGATIVE) Urine Bilirubin Negative (NEGATIVE) Urine Urobilinogen Normal MG/DL (0.0-1.0) Urine Leukocyte Esterase Negative (NEGATIVE) Urine RBC 0 /HPF (0 - 2) Urine WBC 0-2 /HPF (0 - 2) Urine Squamous Epithelial Cells Moderate /LPF (NONE/OCC) H Urine Bacteria Few /HPF (NONE) Height (Feet): 5 Height (Inches): 6.00 Weight (Pounds): 150 Medications Current Medications Medications (Trade) Dose Ordered Sig/Yao Route PRN Reason Start Time Stop Time Status Last Admin Dose Admin Acetaminophen (Tylenol) 650 mg Q4H PRN ORAL Mild Pain/Temp > 100.5 03/09/18 16:15 04/08/18 16:14 Albuterol Sulfate (Proventil MDI) 2 puff Q6H PRN INH Shortness of Breath 03/09/18 23:00 04/08/18 22:59 Amlodipine Besylate (Norvasc) 5 mg Q12HR ORAL 03/09/18 21:00 04/08/18 20:59 03/09/18 20:35 Aspirin (ASA) 81 mg DAILY ORAL 03/10/18 09:00 04/09/18 08:59 Bisacodyl (Dulcolax) 5 mg DAILYPRN PRN ORAL Constipation 03/09/18 16:15 04/08/18 16:14 Clonidine HCl (Catapres Tab) 0.1 mg Q4H PRN ORAL For High Blood Pressure 03/09/18 18:30 04/08/18 16:14 03/09/18 23:01 Divalproex Sodium (Depakote) 500 mg BEDTIME ORAL 03/09/18 21:00 04/08/18 20:59 Docusate Sodium (Colace) 100 mg DAILY ORAL 03/10/18 09:00 04/09/18 08:59 Hydralazine HCl (Apresoline) 50 mg Q8HR ORAL 03/09/18 22:00 04/08/18 21:59 03/09/18 21:18 Lorazepam (Ativan) 1 mg Q8H PRN ORAL For Anxiety 03/09/18 16:15 03/16/18 16:14 Magnesium Hydroxide (Mom) 30 ml DAILYPRN PRN ORAL Constipation 03/09/18 16:15 04/08/18 16:14 Olanzapine (ZyPREXA) 5 mg BEDTIME ORAL 03/09/18 21:00 04/08/18 20:59 03/09/18 20:34 Temazepam (Restoril) 7.5 mg HSPRN PRN ORAL Insomnia 03/09/18 16:15 03/16/18 16:14 Assessment/Plan Problem List: (1) Schizoaffective disorder ICD Codes: F25.9 - Schizoaffective disorder, unspecified SNOMED: 69646138 (2) encephalpathy metabolic Status: not improved, unchanged Assessment/Plan depakote 250mg po bid zyprexa 10mg po qhs ativan prn Stephanie Kebede MD Mar 09, 2018 23:22
[2018-03-10] VITALS (7 sets, daily range): BP systolic 133–164; BP diastolic 86–117
--- NOTE | 2018-03-10 00:16 | NUR ---
NURSE NOTES: BP rechecked at 0000 163/103, CN notified, will continue to monitor, Clonidine 0.1 mg was administered at 2300.
[2018-03-10] MEDS: HydrALAZINE 50mg tab ORAL SCH (06:00)
[2018-03-10 06:45] LABS: BASOPHILS % (AUTO) 1.2 % (0.0-2.0); EOSINOPHILS % (AUTO) 3.6 % (0.0-3.0); HEMATOCRIT 34.6 % (37.0-47.0); HEMOGLOBIN 10.6 G/DL (12.0-16.0); LYMPHOCYTES % (AUTO) 36.6 % (20.0-45.0); MEAN CORPUSCULAR VOLUME 82 FL (80-99); MONOCYTES % (AUTO) 11.6 % (1.0-10.0); PLATELET COUNT 176 K/UL (150-450); RED BLOOD COUNT 4.24 M/UL (4.20-5.40); WHITE BLOOD COUNT 3.6 K/UL (4.8-10.8)
[2018-03-10 07:15] LABS: ALANINE AMINOTRANSFERASE 14 U/L (12-78); ALBUMIN 2.9 G/DL (3.4-5.0); ALBUMIN/GLOBULIN RATIO 0.6 (1.0-2.7); ALKALINE PHOSPHATASE 68 U/L (46-116); ANION GAP 9 mmol/L (5-15); ASPARTATE AMINO TRANSFERASE 21 U/L (15-37); BILIRUBIN,TOTAL 0.4 MG/DL (0.2-1.0); BLOOD UREA NITROGEN 13 mg/dL (7-18); CARBON DIOXIDE 27 MMOL/L (21-32); CHLORIDE 109 MMOL/L (98-107); CHOLESTEROL 191 MG/DL (< 200); CREATINE KINASE 160 U/L (26-308); CREATININE 1.4 MG/DL (0.55-1.30); FERRITIN 61 NG/ML (8-388); GAMMA GLUTAMYL TRANSPEPTIDASE 20 U/L (5-85); HDL CHOLESTEROL 90 MG/DL (40-60); PHOSPHORUS 2.8 MG/DL (2.5-4.9); POTASSIUM 3.6 MMOL/L (3.5-5.1); SODIUM 145 MMOL/L (136-145); TRIGLYCERIDES 41 MG/DL (30-150)
--- NOTE | 2018-03-10 07:28 | NUR ---
HAND-OFF: Report given to Cindy SHELTON and Carmen SHELTON.
--- NOTE | 2018-03-10 07:45 | NUR ---
NURSE NOTES: Received patient in bed, alert x4, able to make needs kn own,No acute distress noted, No c/o pain noted at this time, Bed in lowest position and locked, Call light and needs within reach, Will continue to monitor.
[2018-03-10 07:47] LABS: % IRON SATURATION 16 % (15-50); IRON 40 ug/dL (50-175); TOTAL IRON BINDING CAPACITY 255 ug/dL (250-450)
--- NOTE | 2018-03-10 08:25 | Consultation ---
History of Present Illness General Date patient seen: Mar 10, 2018 Time patient seen: 08:16 Chief Complaint: General Complaint Present Illness HPI Pt. brought in by ambulance from [facility] c/o a burning sensation during urination and increase urinary frequency, dehydration, hypertensive urgency. Clonidine given and BP improved, patient noted not to be taking medications for a few days. Troponin levels normal. CXR concerning for Evidence of congestive heart failure, with interstitial edema and bilateral pleural effusions, BNP not elevated. Allergies: Coded Allergies: CODEINE (Unverified Allergy, Unknown, 10/23/16) ENALAPRIL (Unverified Allergy, Unknown, 10/23/16) LISINOPRIL (Unverified Allergy, Unknown, 10/23/16) MORPHINE (Unverified Allergy, Unknown, 10/23/16) Medication History Scheduled Amlodipine Besylate (Norvasc), 5 MG ORAL BID, (Reported) Amlodipine Besylate* (Amlodipine Besylate*), 5 MG ORAL BID, (Reported) Aspirin* (Aspirin*), 81 MG ORAL DAILY, (Reported) Bisacodyl* (Dulcolax*), 5 MG ORAL DAILY, (Reported) Cranberry Fruit Concentrate (Cranberry), 450 MG PO BID, (Reported) Divalproex Sodium* (Depakote*), 500 MG PO BEDTIME, (Reported) Docusate Sodium* (Colace*), 100 MG ORAL DAILY, (Reported) Hydralazine Hcl* (Hydralazine Hcl*), 50 MG ORAL TID, (Reported) Olanzapine* (Zyprexa*), 5 MG ORAL HS, (Reported) Scheduled PRN Acetaminophen (Acetaminophen), 650 MG ORAL Q4HR PRN for Prn Headache/Temp > 101, (Reported) Clonidine Hcl* (Catapres*), 0.1 MG ORAL EVERY 8 HOURS PRN for For High Blood Pressure, (Reported) Lorazepam* (Ativan*), 1 MG ORAL EVERY 8 HOURS PRN for For Anxiety, (Reported) Magnesium Hydroxide (Milk of Magnesia), 30 ML ORAL DAILY PRN for Constipation, ( Reported) Temazepam* (Restoril*), 7.5 MG ORAL BEDTIME PRN for Insomnia, (Reported) Patient History Healthcare decision maker Resuscitation status Advanced Directive on File Review of Systems Constitutional: Reports: no symptoms Eye: Reports: no symptoms ENT: Reports: no symptoms Respiratory: Reports: no symptoms Cardiovascular: Reports: no symptoms Gastrointestinal: Reports: no symptoms Genitourinary: Reports: no symptoms Musculoskeletal: Reports: no symptoms Skin: Reports: no symptoms Psychiatric: Reports: no symptoms Neurological: Reports: no symptoms Endocrine: Reports: no symptoms Hematologic/Lymphatic: Reports: no symptoms Physical Exam General Appearance: no apparent distress, alert Lines, tubes and drains: peripheral HEENT: normocephalic, atraumatic, anicteric, mucous membranes moist, PERRL Neck: non-tender, normal alignment, supple, normal inspection Respiratory/Chest: chest wall non-tender, lungs clear Cardiovascular/Chest: normal peripheral pulses, normal rate, regular rhythm Abdomen: normal bowel sounds, non tender Extremities: normal range of motion, non-tender Skin Exam: normal pigmentation 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, no motor/sensory deficits Last 24 Hour Vital Signs Date Time Temp Pulse Resp B/P (MAP) Pulse Ox O2 Delivery O2 Flow Rate FiO2 03/10/18 06:00 140/65 03/10/18 04:00 98.8 57 18 149/88 (108) 03/10/18 02:43 170/69 03/10/18 00:33 98.9 105 19 163/103 (123) 03/09/18 23:01 169/104 03/09/18 21:18 154/104 03/09/18 21:00 Room Air 03/09/18 20:35 88 154/104 03/09/18 20:00 98.8 62 18 159/104 (122) 03/09/18 17:51 181/115 03/09/18 16:00 98.1 65 20 181/115 (137) 94 03/09/18 15:26 Room Air 03/09/18 13:00 98.2 82 16 143/83 100 Room Air 03/09/18 11:05 73 16 Room Air 03/09/18 11:05 97.9 79 16 138/86 100 Room Air 03/09/18 10:46 97.9 73 16 139/89 100 Room Air Intake and Output 03/09/18 03/10/18 18:59 06:59 Intake Total 236 ml 240 ml Output Total 0 ml Balance 236 ml 240 ml Intake Oral 236 ml Other 240 ml Output Urine Total 0 ml # Voids 2 # Bowel Movements 1 Laboratory Tests Test 03/09/18 11:20 03/09/18 12:20 03/10/18 06:10 White Blood Count 4.3 K/UL (4.8-10.8) L 3.6 K/UL (4.8-10.8) L Red Blood Count 4.76 M/UL (4.20-5.40) 4.24 M/UL (4.20-5.40) Hemoglobin 11.7 G/DL (12.0-16.0) L 10.6 G/DL (12.0-16.0) L Hematocrit 38.9 % (37.0-47.0) 34.6 % (37.0-47.0) L Mean Corpuscular Volume 82 FL (80-99) 82 FL (80-99) Mean Corpuscular Hemoglobin 24.5 PG (27.0-31.0) L 25.0 PG (27.0-31.0) L Mean Corpuscular Hemoglobin Concent 30.0 G/DL (32.0-36.0) L 30.6 G/DL (32.0-36.0) L Red Cell Distribution Width 16.0 % (11.6-14.8) H 16.0 % (11.6-14.8) H Platelet Count 190 K/UL (150-450) 176 K/UL (150-450) Mean Platelet Volume 9.2 FL (6.5-10.1) 8.4 FL (6.5-10.1) Neutrophils (%) (Auto) 59.9 % (45.0-75.0) 47.0 % (45.0-75.0) Lymphocytes (%) (Auto) 25.9 % (20.0-45.0) 36.6 % (20.0-45.0) Monocytes (%) (Auto) 10.5 % (1.0-10.0) H 11.6 % (1.0-10.0) H Eosinophils (%) (Auto) 2.6 % (0.0-3.0) 3.6 % (0.0-3.0) H Basophils (%) (Auto) 1.0 % (0.0-2.0) 1.2 % (0.0-2.0) Sodium Level 145 MMOL/L (136-145) 145 MMOL/L (136-145) Potassium Level 3.1 MMOL/L (3.5-5.1) L 3.6 MMOL/L (3.5-5.1) Chloride Level 108 MMOL/L (98-107) H 109 MMOL/L (98-107) H Carbon Dioxide Level 30 MMOL/L (21-32) 27 MMOL/L (21-32) Anion Gap 7 mmol/L (5-15) 9 mmol/L (5-15) Blood Urea Nitrogen 19 mg/dL (7-18) H 13 mg/dL (7-18) Creatinine 1.9 MG/DL (0.55-1.30) H 1.4 MG/DL (0.55-1.30) H Estimat Glomerular Filtration Rate mL/min (>60) mL/min (>60) Glucose Level 110 MG/DL (74-106) H 90 MG/DL (74-106) Calcium Level 9.0 MG/DL (8.5-10.1) 9.0 MG/DL (8.5-10.1) Total Bilirubin 0.4 MG/DL (0.2-1.0) 0.4 MG/DL (0.2-1.0) Aspartate Amino Transf (AST/SGOT) 18 U/L (15-37) 21 U/L (15-37) Alanine Aminotransferase (ALT/SGPT) 16 U/L (12-78) 14 U/L (12-78) Alkaline Phosphatase 78 U/L (46-116) 68 U/L (46-116) Total Creatine Kinase 170 U/L (26-308) 160 U/L (26-308) Creatine Kinase MB 1.2 NG/ML (0.0-3.6) Creatine Kinase MB Relative Index 0.7 Troponin I 0.013 ng/mL (0.000-0.056) 0.024 ng/mL (0.000-0.056) C-Reactive Protein, Quantitative < 0.4 mg/dL (0.00-0.90) Total Protein 8.8 G/DL (6.4-8.2) H 7.4 G/DL (6.4-8.2) Albumin 3.3 G/DL (3.4-5.0) L 2.9 G/DL (3.4-5.0) L Globulin 5.5 g/dL 4.5 g/dL Albumin/Globulin Ratio 0.6 (1.0-2.7) L 0.6 (1.0-2.7) L Lipase 247 U/L (73-393) Urine Color Pale yellow Urine Appearance Slightly cloudy Urine pH 6.5 (4.5-8.0) Urine Specific [place] 1.010 (1.005-1.035) Urine Protein 1+ (NEGATIVE) H Urine Glucose (UA) Negative (NEGATIVE) Urine Ketones Negative (NEGATIVE) Urine Blood Negative (NEGATIVE) Urine Nitrite Negative (NEGATIVE) Urine Bilirubin Negative (NEGATIVE) Urine Urobilinogen Normal MG/DL (0.0-1.0) Urine Leukocyte Esterase Negative (NEGATIVE) Urine RBC 0 /HPF (0 - 2) Urine WBC 0-2 /HPF (0 - 2) Urine Squamous Epithelial Cells Moderate /LPF (NONE/OCC) H Urine Bacteria Few /HPF (NONE) Hemoglobin A1c Pending Uric Acid 5.1 MG/DL (2.6-7.2) Phosphorus Level 2.8 MG/DL (2.5-4.9) Magnesium Level 1.9 MG/DL (1.8-2.4) Iron Level 40 ug/dL (50-175) L Total Iron Binding Capacity 255 ug/dL (250-450) Percent Iron Saturation 16 % (15-50) Unsaturated Iron Binding 215 ug/dL (112-346) Ferritin 61 NG/ML (8-388) Gamma Glutamyl Transpeptidase 20 U/L (5-85) Pro-B-Type Natriuretic Peptide 387 pg/mL (0-125) H Triglycerides Level 41 MG/DL (30-150) Cholesterol Level 191 MG/DL (< 200) LDL Cholesterol 85 mg/dL (<100) HDL Cholesterol 90 MG/DL (40-60) H Cholesterol/HDL Ratio 2.1 (3.3-4.4) L Vitamin B12 Level 289 PG/ML (193-986) Folate 16.2 NG/ML (8.6-58.9) Thyroid Stimulating Hormone (TSH) 1.913 uiU/mL (0.358-3.740) Height (Feet): 5 Height (Inches): 6.00 Weight (Pounds): 150 Medications Current Medications Medications (Trade) Dose Ordered Sig/Yao Route PRN Reason Start Time Stop Time Status Last Admin Dose Admin Acetaminophen (Tylenol) 650 mg Q4H PRN ORAL Mild Pain/Temp > 100.5 03/09/18 16:15 04/08/18 16:14 Albuterol Sulfate (Proventil MDI) 2 puff Q6H PRN INH Shortness of Breath 03/09/18 23:00 04/08/18 22:59 Amlodipine Besylate (Norvasc) 5 mg Q12HR ORAL 03/09/18 21:00 04/08/18 20:59 03/09/18 20:35 Aspirin (ASA) 81 mg DAILY ORAL 03/10/18 09:00 04/09/18 08:59 Bisacodyl (Dulcolax) 5 mg DAILYPRN PRN ORAL Constipation 03/09/18 16:15 04/08/18 16:14 Clonidine HCl (Catapres Tab) 0.1 mg Q4H PRN ORAL For High Blood Pressure 03/09/18 18:30 04/08/18 16:14 03/10/18 02:43 Divalproex Sodium (Depakote) 250 mg BID ORAL 03/10/18 09:00 04/09/18 08:59 Docusate Sodium (Colace) 100 mg DAILY ORAL 03/10/18 09:00 04/09/18 08:59 Hydralazine HCl (Apresoline) 50 mg Q8HR ORAL 03/09/18 22:00 04/08/18 21:59 03/10/18 06:00 Lorazepam (Ativan) 1 mg Q8H PRN ORAL For Anxiety 03/09/18 16:15 03/16/18 16:14 Magnesium Hydroxide (Mom) 30 ml DAILYPRN PRN ORAL Constipation 03/09/18 16:15 04/08/18 16:14 Olanzapine (ZyPREXA) 10 mg BEDTIME ORAL 03/10/18 21:00 04/09/18 20:59 Temazepam (Restoril) 7.5 mg HSPRN PRN ORAL Insomnia 03/09/18 16:15 03/16/18 16:14 Assessment/Plan Status: stable Assessment/Plan Assessment: Schizoaffective disorder Medication non compliance Dementia Hypokalemia Dehydration Encephalopathy HTN uncontrolled Diabetes Previous CVA Plan: BP control with Losartan and Norvasc repeat CXR: BNP not elevated, no signs of fluid overload Echocardiogram to evaluate filling pressures and LV function Mild IV fluid hydration, Hold diuresis Outpatient stress testing, no indication for cardiac cath Pradeep Knight MD Mar 10, 2018 08:25
[2018-03-10] MEDS: Depakote 500mg tab ORAL SCH ×3 (09:00→17:12)
[2018-03-10] MEDS: Docusate 100mg cap ORAL SCH (09:25)
[2018-03-10] MEDS: Losartan 50mg tab ORAL SCH (09:29)
[2018-03-10] MEDS: Aspirin Baby 81mg ORAL SCH (09:29)
--- NOTE | 2018-03-10 09:29 | NUR ---
NURSE NOTES: Patient refused Depokote 500mg po scheduled 9AM, explained benefit and risk, but, patient insisted and stated she know her medical condition better.Will continue to monitor. Addendum: 03/10/18 at 1741 by Carmen Rodriguez RN Depokote was 250mg not 500mg
--- NOTE | 2018-03-10 11:19 | NUR ---
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 Knight made aware.
--- NOTE | 2018-03-10 11:31 | NUR ---
PT REFUSED 2-D ECHOCARDIOGRAM , SHE WAS SCREAMING AND YELLING DONT TOUCH ME . NURSE EDGAR IS AWARE .
--- NOTE | 2018-03-10 13:34 | NUR ---
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 97.8 HR 73 RR 16 B/P 139/89 K 3.1 BUN 19 CR 1.9 UA+ PROTEIN,SQUAMOUS EPTH CELLS IS: IV BOLUS NS 500ML ADMITTED TO MED/SURG MED/SURG STATUS
[2018-03-10] MEDS ORDERED: HydrALAZINE 25mg tab ORAL PRN (16:30)
--- NOTE | 2018-03-10 16:34 | Nephrology Progress Note ---
Assessment/Plan Problem List: (1) Acute on chronic renal failure (2) Pleural effusion (3) Hypertensive heart and chronic kidney disease Assessment renal failure Cr 1.9 down 1.4 Dementia Hypokalemia Dehydration Encephalopathy HTN ooc Diabetes A1c 6.2 Previous CVA pleural effusions Plan adjust BP meds IV Iron once monitor renal parameters waiting for echo per consultants Subjective ROS Limited/Unobtainable: No Constitutional: Reports: malaise Objective Objective Last 24 Hour Vital Signs Date Time Temp Pulse Resp B/P (MAP) Pulse Ox O2 Delivery O2 Flow Rate FiO2 03/10/18 12:00 98.1 61 18 149/117 (128) 98 03/10/18 09:29 146/95 03/10/18 09:00 Room Air 03/10/18 08:00 97.6 67 18 146/95 (112) 97 03/10/18 06:00 140/65 03/10/18 04:00 98.8 57 18 149/88 (108) 03/10/18 02:43 170/69 03/10/18 00:33 98.9 105 19 163/103 (123) 03/09/18 23:01 169/104 03/09/18 21:18 154/104 03/09/18 21:00 Room Air 03/09/18 20:35 88 154/104 03/09/18 20:00 98.8 62 18 159/104 (122) 03/09/18 17:51 181/115 Intake and Output 03/09/18 03/10/18 19:00 07:00 Intake Total 236 ml 240 ml Output Total 0 ml Balance 236 ml 240 ml Intake Oral 236 ml Other 240 ml Output Urine Total 0 ml # Voids 2 # Bowel Movements 1 Laboratory Tests 03/10/18 06:10: White Blood Count 3.6L, Red Blood Count 4.24, Hemoglobin 10.6L, Hematocrit 34.6L , Mean Corpuscular Volume 82, Mean Corpuscular Hemoglobin 25.0L, Mean Corpuscular Hemoglobin Concent 30.6L, Red Cell Distribution Width 16.0H, Platelet Count 176, Mean Platelet Volume 8.4, Neutrophils (%) (Auto) 47.0, Lymphocytes (%) (Auto) 36.6, Monocytes (%) (Auto) 11.6H, Eosinophils (%) (Auto) 3.6H, Basophils (%) (Auto) 1.2, Sodium Level 145, Potassium Level 3.6, Chloride Level 109H, Carbon Dioxide Level 27, Anion Gap 9, Blood Urea Nitrogen 13, Creatinine 1.4H, Estimat Glomerular Filtration Rate , Glucose Level 90, Hemoglobin A1c 6.2H, Uric Acid 5.1, Calcium Level 9.0, Phosphorus Level 2.8, Magnesium Level 1.9, Iron Level 40L, Total Iron Binding Capacity 255, Percent Iron Saturation 16, Unsaturated Iron Binding 215, Ferritin 61, Total Bilirubin 0.4, Gamma Glutamyl Transpeptidase 20, Aspartate Amino Transf (AST/SGOT) 21, Alanine Aminotransferase (ALT/SGPT) 14, Alkaline Phosphatase 68, Total Creatine Kinase 160, Troponin I 0.024, Pro-B-Type Natriuretic Peptide 387H, Total Protein 7.4, Albumin 2.9L, Globulin 4.5, Albumin/Globulin Ratio 0.6L, Triglycerides Level 41, Cholesterol Level 191, LDL Cholesterol 85, HDL Cholesterol 90H, Cholesterol/HDL Ratio 2.1L, Vitamin B12 Level 289, Folate 16.2 , Thyroid Stimulating Hormone (TSH) 1.913 03/10/18 10:26: Urine Eosinophils None seen, Urine Random Sodium 72 Height (Feet): 5 Height (Inches): 6.00 Weight (Pounds): 150 General Appearance: no apparent distress Cardiovascular: bradycardia Respiratory/Chest: decreased breath sounds Abdomen: soft Refugio Ramos MD Mar 10, 2018 16:34
--- NOTE | 2018-03-10 17:20 | NUR ---
NURSE NOTES: Patient refused Depokote 250mg po scheduled 1800, explained benefit and risk, but, patient still refused, Dr. Kebede made aware.
--- NOTE | 2018-03-10 17:54 | General Progress Note ---
Assessment/Plan Problem List: (1) Schizoaffective disorder ICD Codes: F25.9 - Schizoaffective disorder, unspecified SNOMED: 42160549 (2) encephalpathy metabolic Assessment/Plan depakote 250mg po bid zyprexa 10mg po qhs ativan prn the pt lacks capacity to refuse meds Subjective Neurologic/Psychiatric: Reports: anxiety, depressed, emotional problems Allergies: Coded Allergies: CODEINE (Unverified Allergy, Unknown, 10/23/16) ENALAPRIL (Unverified Allergy, Unknown, 10/23/16) LISINOPRIL (Unverified Allergy, Unknown, 10/23/16) MORPHINE (Unverified Allergy, Unknown, 10/23/16) Subjective the pt is refusing depakote Objective Last 24 Hour Vital Signs Date Time Temp Pulse Resp B/P (MAP) Pulse Ox O2 Delivery O2 Flow Rate FiO2 03/10/18 17:11 62 172/111 03/10/18 16:00 97.5 61 19 152/98 (116) 95 03/10/18 12:00 98.1 61 18 149/117 (128) 98 03/10/18 09:29 146/95 03/10/18 09:00 Room Air 03/10/18 08:00 97.6 67 18 146/95 (112) 97 03/10/18 06:00 140/65 03/10/18 04:00 98.8 57 18 149/88 (108) 03/10/18 02:43 170/69 03/10/18 00:33 98.9 105 19 163/103 (123) 03/09/18 23:01 169/104 03/09/18 21:18 154/104 03/09/18 21:00 Room Air 03/09/18 20:35 88 154/104 03/09/18 20:00 98.8 62 18 159/104 (122) Intake and Output 03/09/18 03/10/18 19:00 07:00 Intake Total 236 ml 240 ml Output Total 0 ml Balance 236 ml 240 ml Intake Oral 236 ml Other 240 ml Output Urine Total 0 ml # Voids 2 # Bowel Movements 1 Laboratory Tests 03/10/18 06:10: White Blood Count 3.6L, Red Blood Count 4.24, Hemoglobin 10.6L, Hematocrit 34.6L , Mean Corpuscular Volume 82, Mean Corpuscular Hemoglobin 25.0L, Mean Corpuscular Hemoglobin Concent 30.6L, Red Cell Distribution Width 16.0H, Platelet Count 176, Mean Platelet Volume 8.4, Neutrophils (%) (Auto) 47.0, Lymphocytes (%) (Auto) 36.6, Monocytes (%) (Auto) 11.6H, Eosinophils (%) (Auto) 3.6H, Basophils (%) (Auto) 1.2, Sodium Level 145, Potassium Level 3.6, Chloride Level 109H, Carbon Dioxide Level 27, Anion Gap 9, Blood Urea Nitrogen 13, Creatinine 1.4H, Estimat Glomerular Filtration Rate , Glucose Level 90, Hemoglobin A1c 6.2H, Uric Acid 5.1, Calcium Level 9.0, Phosphorus Level 2.8, Magnesium Level 1.9, Iron Level 40L, Total Iron Binding Capacity 255, Percent Iron Saturation 16, Unsaturated Iron Binding 215, Ferritin 61, Total Bilirubin 0.4, Gamma Glutamyl Transpeptidase 20, Aspartate Amino Transf (AST/SGOT) 21, Alanine Aminotransferase (ALT/SGPT) 14, Alkaline Phosphatase 68, Total Creatine Kinase 160, Troponin I 0.024, Pro-B-Type Natriuretic Peptide 387H, Total Protein 7.4, Albumin 2.9L, Globulin 4.5, Albumin/Globulin Ratio 0.6L, Triglycerides Level 41, Cholesterol Level 191, LDL Cholesterol 85, HDL Cholesterol 90H, Cholesterol/HDL Ratio 2.1L, Vitamin B12 Level 289, Folate 16.2 , Thyroid Stimulating Hormone (TSH) 1.913 03/10/18 10:26: Urine Eosinophils None seen, Urine Random Sodium 72 Height (Feet): 5 Height (Inches): 6.00 Weight (Pounds): 150 General Appearance: alert, confused, agitated Stephanie Kebede MD Mar 10, 2018 17:54
--- NOTE | 2018-03-10 18:17 | Pulmonology Progress Note ---
Assessment/Plan Assessment/Plan Pulmonary Progress Note HPI Patient presents with reports of weakness Patient has not been eating and drinking well Patient with underlying psychiatric condition History of present illness is limited Patient herself denies any cough, SOB or fevers Allergies: CODEINE ENALAPRIL LISINOPRIL MORPHINE Past Medical History: Cardiac Problems, Hypertension, Diabetes, dementia, schizoprenia, bipolar, anxiety, Cerebrovascular Accident, Tremors All Other Systems: limited - Other than the ones mentioned in the history of present illness all others are reviewed however they do stay limited due to the patient's mental status Physical Exam Vital Signs Date Time Temp Pulse Resp B/P (MAP) Pulse Ox O2 Delivery O2 Flow Rate FiO2 03/09/18 10:46 97.9 73 16 139/89 100 Room Air General Appearance: no apparent distress Head: normocephalic, atraumatic Eyes: bilateral eye PERRL, bilateral eye EOMI ENT: dry mucus membranes Neck: supple Respiratory: lungs clear, no retraction, no accessory muscle use Cardiovascular #1: regular rate, rhythm Gastrointestinal: soft, no mass Musculoskeletal: normal inspection Neurologic: alert, responsive Skin: normal color, no rash Lymphatic: no adenopathy Impression: Dementia Hypokalemia Dehydration Encephalopathy HTN Diabetes Previous CVA Plan Cautious hydration Supplement K HHN O2 PRN Swallow evaluation Follow labs Labs Test 03/09/18 11:20 03/09/18 12:20 White Blood Count 4.3 K/UL (4.8-10.8) Red Blood Count 4.76 M/UL (4.20-5.40) Hemoglobin 11.7 G/DL (12.0-16.0) Hematocrit 38.9 % (37.0-47.0) Mean Corpuscular Volume 82 FL (80-99) Mean Corpuscular Hemoglobin 24.5 PG (27.0-31.0) Mean Corpuscular Hemoglobin Concent 30.0 G/DL (32.0-36.0) Red Cell Distribution Width 16.0 % (11.6-14.8) Platelet Count 190 K/UL (150-450) Mean Platelet Volume 9.2 FL (6.5-10.1) Neutrophils (%) (Auto) 59.9 % (45.0-75.0) Lymphocytes (%) (Auto) 25.9 % (20.0-45.0) Monocytes (%) (Auto) 10.5 % (1.0-10.0) Eosinophils (%) (Auto) 2.6 % (0.0-3.0) Basophils (%) (Auto) 1.0 % (0.0-2.0) Sodium Level 145 MMOL/L (136-145) Potassium Level 3.1 MMOL/L (3.5-5.1) Chloride Level 108 MMOL/L (98-107) Carbon Dioxide Level 30 MMOL/L (21-32) Anion Gap 7 mmol/L (5-15) Blood Urea Nitrogen 19 mg/dL (7-18) Creatinine 1.9 MG/DL (0.55-1.30) Estimat Glomerular Filtration Rate mL/min (>60) Glucose Level 110 MG/DL (74-106) Calcium Level 9.0 MG/DL (8.5-10.1) Total Bilirubin 0.4 MG/DL (0.2-1.0) Aspartate Amino Transf (AST/SGOT) 18 U/L (15-37) Alanine Aminotransferase (ALT/SGPT) 16 U/L (12-78) Alkaline Phosphatase 78 U/L (46-116) Total Creatine Kinase 170 U/L (26-308) Creatine Kinase MB 1.2 NG/ML (0.0-3.6) Creatine Kinase MB Relative Index 0.7 Troponin I 0.013 ng/mL (0.000-0.056) Total Protein 8.8 G/DL (6.4-8.2) Albumin 3.3 G/DL (3.4-5.0) Globulin 5.5 g/dL Albumin/Globulin Ratio 0.6 (1.0-2.7) Lipase 247 U/L (73-393) Urine Color Pale yellow Urine Appearance Slightly cloudy Urine pH 6.5 (4.5-8.0) Urine Specific [place] 1.010 (1.005-1.035) Urine Protein 1+ (NEGATIVE) Urine Glucose (UA) Negative (NEGATIVE) Urine Ketones Negative (NEGATIVE) Urine Blood Negative (NEGATIVE) Urine Nitrite Negative (NEGATIVE) Urine Bilirubin Negative (NEGATIVE) Urine Urobilinogen Normal MG/DL (0.0-1.0) Urine Leukocyte Esterase Negative (NEGATIVE) Urine RBC 0 /HPF (0 - 2) Urine WBC 0-2 /HPF (0 - 2) Urine Squamous Epithelial Cells Moderate /LPF (NONE/OCC) Urine Bacteria Few /HPF (NONE) EKG Diagnostic Results Rate: normal Rhythm: NSR ST Segments: no acute changes Rhythm Strip Diag. Results EP Interpretation: yes Rate: 60 Rhythm: NSR, no PVC's, no ectopy Chest X-Ray Diagnostic Results Chest X-Ray Diagnostic Results : Chest X-Ray Ordered: Yes # of Views/Limited/Complete: 1 View Indication: Chest Pain EP Interpretation: Yes Interpretation: no pneumothorax, other - Cardiomegaly, right lower lobe effusion Impression: Other - Cardiomegaly, right lower lobe effusion Subjective ROS Limited/Unobtainable: No Allergies: Coded Allergies: CODEINE (Unverified Allergy, Unknown, 10/23/16) ENALAPRIL (Unverified Allergy, Unknown, 10/23/16) LISINOPRIL (Unverified Allergy, Unknown, 10/23/16) MORPHINE (Unverified Allergy, Unknown, 10/23/16) Objective Last 24 Hour Vital Signs Date Time Temp Pulse Resp B/P (MAP) Pulse Ox O2 Delivery O2 Flow Rate FiO2 03/10/18 17:11 62 172/111 03/10/18 16:00 97.5 61 19 152/98 (116) 95 03/10/18 12:00 98.1 61 18 149/117 (128) 98 03/10/18 09:29 146/95 03/10/18 09:00 Room Air 03/10/18 08:00 97.6 67 18 146/95 (112) 97 03/10/18 06:00 140/65 03/10/18 04:00 98.8 57 18 149/88 (108) 03/10/18 02:43 170/69 03/10/18 00:33 98.9 105 19 163/103 (123) 03/09/18 23:01 169/104 03/09/18 21:18 154/104 03/09/18 21:00 Room Air 03/09/18 20:35 88 154/104 03/09/18 20:00 98.8 62 18 159/104 (122) Intake and Output 03/09/18 03/10/18 19:00 07:00 Intake Total 236 ml 240 ml Output Total 0 ml Balance 236 ml 240 ml Intake Oral 236 ml Other 240 ml Output Urine Total 0 ml # Voids 2 # Bowel Movements 1 Laboratory Tests 03/10/18 06:10: White Blood Count 3.6L, Red Blood Count 4.24, Hemoglobin 10.6L, Hematocrit 34.6L , Mean Corpuscular Volume 82, Mean Corpuscular Hemoglobin 25.0L, Mean Corpuscular Hemoglobin Concent 30.6L, Red Cell Distribution Width 16.0H, Platelet Count 176, Mean Platelet Volume 8.4, Neutrophils (%) (Auto) 47.0, Lymphocytes (%) (Auto) 36.6, Monocytes (%) (Auto) 11.6H, Eosinophils (%) (Auto) 3.6H, Basophils (%) (Auto) 1.2, Sodium Level 145, Potassium Level 3.6, Chloride Level 109H, Carbon Dioxide Level 27, Anion Gap 9, Blood Urea Nitrogen 13, Creatinine 1.4H, Estimat Glomerular Filtration Rate , Glucose Level 90, Hemoglobin A1c 6.2H, Uric Acid 5.1, Calcium Level 9.0, Phosphorus Level 2.8, Magnesium Level 1.9, Iron Level 40L, Total Iron Binding Capacity 255, Percent Iron Saturation 16, Unsaturated Iron Binding 215, Ferritin 61, Total Bilirubin 0.4, Gamma Glutamyl Transpeptidase 20, Aspartate Amino Transf (AST/SGOT) 21, Alanine Aminotransferase (ALT/SGPT) 14, Alkaline Phosphatase 68, Total Creatine Kinase 160, Troponin I 0.024, Pro-B-Type Natriuretic Peptide 387H, Total Protein 7.4, Albumin 2.9L, Globulin 4.5, Albumin/Globulin Ratio 0.6L, Triglycerides Level 41, Cholesterol Level 191, LDL Cholesterol 85, HDL Cholesterol 90H, Cholesterol/HDL Ratio 2.1L, Vitamin B12 Level 289, Folate 16.2 , Thyroid Stimulating Hormone (TSH) 1.913 03/10/18 10:26: Urine Eosinophils None seen, Urine Random Sodium 72 Current Medications Medications (Trade) Dose Ordered Sig/Yao Route PRN Reason Start Time Stop Time Status Last Admin Dose Admin Acetaminophen (Tylenol) 650 mg Q4H PRN ORAL Mild Pain/Temp > 100.5 03/09/18 16:15 04/08/18 16:14 Albuterol Sulfate (Proventil MDI) 2 puff Q6H PRN INH Shortness of Breath 03/09/18 23:00 04/08/18 22:59 Aspirin (ASA) 81 mg DAILY ORAL 03/10/18 09:00 04/09/18 08:59 03/10/18 09:29 Bisacodyl (Dulcolax) 5 mg DAILYPRN PRN ORAL Constipation 03/09/18 16:15 04/08/18 16:14 Divalproex Sodium (Depakote) 250 mg BID ORAL 03/10/18 09:00 04/09/18 08:59 Docusate Sodium (Colace) 100 mg DAILY ORAL 03/10/18 09:00 04/09/18 08:59 03/10/18 09:25 Hydralazine HCl (Apresoline) 25 mg Q4H PRN ORAL bp over 160 syst 03/10/18 16:30 04/09/18 16:29 Lorazepam (Ativan) 1 mg Q8H PRN ORAL For Anxiety 03/09/18 16:15 03/16/18 16:14 Losartan Potassium (Cozaar) 100 mg DAILY ORAL 03/10/18 09:00 04/09/18 08:59 03/10/18 09:29 Magnesium Hydroxide (Mom) 30 ml DAILYPRN PRN ORAL Constipation 03/09/18 16:15 04/08/18 16:14 Nifedipine (Procardia XL) 30 mg DAILY ORAL 03/11/18 09:00 04/10/18 08:59 Olanzapine (ZyPREXA) 10 mg BEDTIME ORAL 03/10/18 21:00 04/09/18 20:59 Temazepam (Restoril) 7.5 mg HSPRN PRN ORAL Insomnia 03/09/18 16:15 03/16/18 16:14 Pradeep Maya MD Mar 10, 2018 18:17
--- NOTE | 2018-03-10 19:29 | NUR ---
HAND-OFF: Report given to CAT Barnes.
--- NOTE | 2018-03-10 19:40 | NUR ---
NURSE NOTES: Pt received awake, alert, bed in lowest position, no c/o pain at the moment and no signs of distress, call light within reach, able to make needs known, informed that we have to collect urine and she said ok.
--- NOTE | 2018-03-10 23:35 | NUR ---
NURSE NOTES: Pt blood pressure at 2029 164/103, gave hydralazine. Blood pressure was retaken 164/97, taken again at 0 and it was 174/91. Left a voicemail for dr. lechuga, he called back at 233 and gave a one time order of 0.1mg Clonidine and new order of 0.1mg Clonidine q4hr PRN and to discontinue the hydralazine order. At 2330 pt BP 174/112 and I gave the clonidine one time order. Will recheck pt blood pressure.
[2018-03-11] VITALS: BP 174/112
[2018-03-11 04:00] VITALS: BP 165/91
--- NOTE | 2018-03-11 07:28 | NUR ---
HAND-OFF: Report given to CAT Morales & Jennifer Golden RN.
--- NOTE | 2018-03-11 07:43 | NUR ---
NURSE NOTES: Received patient in bed,awake, alert, oriented, No acute distress noted, No c/o pain noted at this time, Bed in lowest position and locked, Call light and needs within reach, Will continue to monitor.
[2018-03-11 08:00] VITALS: BP 175/110
[2018-03-11] MEDS: Docusate 100mg cap ORAL SCH ×4 (09:00→18:32)
--- NOTE | 2018-03-11 09:02 | NUR ---
NURSE NOTES: Patient refused Colace scheduled at 9AM, explained benefit and risk, but, patient still refused.
[2018-03-11] MEDS: Losartan 50mg tab ORAL SCH (09:03)
[2018-03-11] MEDS: Aspirin Baby 81mg ORAL SCH (09:04)
--- NOTE | 2018-03-11 11:26 | NUR ---
Patient Blood pressure 177/115, pulse 74, given Clonidine 0.1mg prn as ordered, Patient alert, verbally responsive, denied chest pain or any discomfort, No SOB noted, Breathing even and unlabored, Will continue to monitor. Addendum: 03/11/18 at 1130 by Carmen Rodriguez RN wrong entry
--- NOTE | 2018-03-11 11:30 | NUR ---
NURSE NOTES: Patient Blood pressure 177/115, pulse 74, given Clonidine 0.1mg prn as ordered, Patient alert, verbally responsive, denied chest pain or any discomfort, No SOB noted, Breathing even and unlabored, Will continue to monitor.
[2018-03-11 12:00] VITALS: BP 156/115
--- NOTE | 2018-03-11 12:05 | NUR ---
NURSE NOTES: Rechecked patient Blood pressure, Patient Blood pressure 156/115,pulse 82, Patient alert, verbally responsive, denied chest pain or any discomfort, No SOB noted, Breathing even and unlabored, Will continue to monitor.
--- NOTE | 2018-03-11 14:08 | Nephrology Progress Note ---
Assessment/Plan Problem List: (1) Acute on chronic renal failure (2) Pleural effusion (3) Hypertensive heart and chronic kidney disease Assessment renal failure Cr 1.9 down 1.4 Dementia Hypokalemia Dehydration Encephalopathy HTN ooc Diabetes A1c 6.2 Previous CVA pleural effusions Plan no labs today further adjustment of BP meds IV Iron once monitor renal parameters waiting for echo per consultants Subjective ROS Limited/Unobtainable: No Constitutional: Reports: malaise Objective Objective Last 24 Hour Vital Signs Date Time Temp Pulse Resp B/P (MAP) Pulse Ox O2 Delivery O2 Flow Rate FiO2 03/11/18 12:00 97.4 82 20 156/115 (129) 97 03/11/18 11:19 177/115 03/11/18 09:04 91 175/110 03/11/18 09:03 175/110 03/11/18 09:00 Room Air 03/11/18 08:21 78 18 Room Air 21 03/11/18 08:00 97.7 91 20 175/110 (131) 97 03/11/18 04:49 165/91 03/11/18 04:00 97.8 68 20 165/91 (115) 94 03/11/18 00:00 97.7 70 18 174/112 (132) 96 03/10/18 23:43 174/112 03/10/18 21:00 Room Air 03/10/18 20:08 164/103 03/10/18 20:00 97.9 66 18 164/103 (123) 96 03/10/18 18:26 61 133/86 (102) 03/10/18 17:11 62 172/111 03/10/18 16:00 97.5 61 19 152/98 (116) 95 Intake and Output 03/10/18 03/11/18 18:59 06:59 Intake Total 1200 ml 250 ml Balance 1200 ml 250 ml Intake Oral 250 ml Other 1200 ml # Voids 1 # Bowel Movements 1 Laboratory Tests 03/11/18 12:15: Urine Eosinophils None seen Height (Feet): 5 Height (Inches): 6.00 Weight (Pounds): 150 General Appearance: no apparent distress Objective no change Refugio Ramos MD Mar 11, 2018 14:08
[2018-03-11 16:00] VITALS: BP 172/110
--- NOTE | 2018-03-11 16:33 | NUR ---
Patient Blood pressure 172/110, pulse 78, given Clonidine 0.1mg prn as ordered, Patient alert, verbally responsive, denied chest pain or any discomfort, No SOB noted, Breathing even and unlabored, Will continue to monitor. Addendum: 03/11/18 at 1634 by Carmen Rodriguez RN wrong entry
--- NOTE | 2018-03-11 16:34 | NUR ---
NURSE NOTES: Patient Blood pressure 172/110, pulse 78, given Clonidine 0.1mg prn as ordered, Patient alert, verbally responsive, denied chest pain or any discomfort, No SOB noted, Breathing even and unlabored, Will continue to monitor.
--- NOTE | 2018-03-11 17:24 | Pulmonology Progress Note ---
Assessment/Plan Assessment/Plan Pulmonary Progress Note HPI Patient initially admitted with weakness Patient has not been eating and drinking well Patient has underlying psychiatric condition Denies any cough, SOB or fevers Allergies: CODEINE ENALAPRIL LISINOPRIL MORPHINE Past Medical History: Cardiac Problems, Hypertension, Diabetes, dementia, schizoprenia, bipolar, anxiety, Cerebrovascular Accident, Tremors All Other Systems: limited - Other than the ones mentioned in the history of present illness all others are reviewed however they do stay limited due to the patient's mental status Physical Exam Vital Signs Date Time Temp Pulse Resp B/P (MAP) Pulse Ox O2 Delivery O2 Flow Rate FiO2 03/09/18 10:46 97.9 73 16 139/89 100 Room Air General Appearance: no apparent distress Head: normocephalic, atraumatic Eyes: bilateral eye PERRL, bilateral eye EOMI ENT: dry mucus membranes Neck: supple Respiratory: lungs clear, no retraction, no accessory muscle use Cardiovascular #1: regular rate, rhythm Gastrointestinal: soft, no mass Musculoskeletal: normal inspection Neurologic: alert, responsive Skin: normal color, no rash Lymphatic: no adenopathy Impression: Dementia Hypokalemia Dehydration Encephalopathy HTN Diabetes Previous CVA Plan Cautious hydration Supplement K HHN O2 PRN Swallow evaluation Follow labs Labs Test 03/09/18 11:20 03/09/18 12:20 White Blood Count 4.3 K/UL (4.8-10.8) Red Blood Count 4.76 M/UL (4.20-5.40) Hemoglobin 11.7 G/DL (12.0-16.0) Hematocrit 38.9 % (37.0-47.0) Mean Corpuscular Volume 82 FL (80-99) Mean Corpuscular Hemoglobin 24.5 PG (27.0-31.0) Mean Corpuscular Hemoglobin Concent 30.0 G/DL (32.0-36.0) Red Cell Distribution Width 16.0 % (11.6-14.8) Platelet Count 190 K/UL (150-450) Mean Platelet Volume 9.2 FL (6.5-10.1) Neutrophils (%) (Auto) 59.9 % (45.0-75.0) Lymphocytes (%) (Auto) 25.9 % (20.0-45.0) Monocytes (%) (Auto) 10.5 % (1.0-10.0) Eosinophils (%) (Auto) 2.6 % (0.0-3.0) Basophils (%) (Auto) 1.0 % (0.0-2.0) Sodium Level 145 MMOL/L (136-145) Potassium Level 3.1 MMOL/L (3.5-5.1) Chloride Level 108 MMOL/L (98-107) Carbon Dioxide Level 30 MMOL/L (21-32) Anion Gap 7 mmol/L (5-15) Blood Urea Nitrogen 19 mg/dL (7-18) Creatinine 1.9 MG/DL (0.55-1.30) Estimat Glomerular Filtration Rate mL/min (>60) Glucose Level 110 MG/DL (74-106) Calcium Level 9.0 MG/DL (8.5-10.1) Total Bilirubin 0.4 MG/DL (0.2-1.0) Aspartate Amino Transf (AST/SGOT) 18 U/L (15-37) Alanine Aminotransferase (ALT/SGPT) 16 U/L (12-78) Alkaline Phosphatase 78 U/L (46-116) Total Creatine Kinase 170 U/L (26-308) Creatine Kinase MB 1.2 NG/ML (0.0-3.6) Creatine Kinase MB Relative Index 0.7 Troponin I 0.013 ng/mL (0.000-0.056) Total Protein 8.8 G/DL (6.4-8.2) Albumin 3.3 G/DL (3.4-5.0) Globulin 5.5 g/dL Albumin/Globulin Ratio 0.6 (1.0-2.7) Lipase 247 U/L (73-393) Urine Color Pale yellow Urine Appearance Slightly cloudy Urine pH 6.5 (4.5-8.0) Urine Specific [place] 1.010 (1.005-1.035) Urine Protein 1+ (NEGATIVE) Urine Glucose (UA) Negative (NEGATIVE) Urine Ketones Negative (NEGATIVE) Urine Blood Negative (NEGATIVE) Urine Nitrite Negative (NEGATIVE) Urine Bilirubin Negative (NEGATIVE) Urine Urobilinogen Normal MG/DL (0.0-1.0) Urine Leukocyte Esterase Negative (NEGATIVE) Urine RBC 0 /HPF (0 - 2) Urine WBC 0-2 /HPF (0 - 2) Urine Squamous Epithelial Cells Moderate /LPF (NONE/OCC) Urine Bacteria Few /HPF (NONE) EKG Diagnostic Results Rate: normal Rhythm: NSR ST Segments: no acute changes Rhythm Strip Diag. Results EP Interpretation: yes Rate: 60 Rhythm: NSR, no PVC's, no ectopy Chest X-Ray Diagnostic Results Chest X-Ray Diagnostic Results : Chest X-Ray Ordered: Yes # of Views/Limited/Complete: 1 View Indication: Chest Pain EP Interpretation: Yes Interpretation: no pneumothorax, other - Cardiomegaly, right lower lobe effusion Impression: Other - Cardiomegaly, right lower lobe effusion Subjective ROS Limited/Unobtainable: No Allergies: Coded Allergies: CODEINE (Unverified Allergy, Unknown, 10/23/16) ENALAPRIL (Unverified Allergy, Unknown, 10/23/16) LISINOPRIL (Unverified Allergy, Unknown, 10/23/16) MORPHINE (Unverified Allergy, Unknown, 10/23/16) Objective Last 24 Hour Vital Signs Date Time Temp Pulse Resp B/P (MAP) Pulse Ox O2 Delivery O2 Flow Rate FiO2 03/11/18 16:31 172/110 03/11/18 16:00 97.9 78 18 172/110 (130) 96 03/11/18 12:00 97.4 82 20 156/115 (129) 97 03/11/18 11:19 177/115 03/11/18 09:04 91 175/110 03/11/18 09:03 175/110 03/11/18 09:00 Room Air 03/11/18 08:21 78 18 Room Air 21 03/11/18 08:00 97.7 91 20 175/110 (131) 97 03/11/18 04:49 165/91 03/11/18 04:00 97.8 68 20 165/91 (115) 94 03/11/18 00:00 97.7 70 18 174/112 (132) 96 03/10/18 23:43 174/112 03/10/18 21:00 Room Air 03/10/18 20:08 164/103 03/10/18 20:00 97.9 66 18 164/103 (123) 96 03/10/18 18:26 61 133/86 (102) Intake and Output 03/10/18 03/11/18 19:00 07:00 Intake Total 1200 ml 250 ml Balance 1200 ml 250 ml Intake Oral 250 ml Other 1200 ml # Voids 1 # Bowel Movements 1 Microbiology Date/Time Source Procedure Growth Status 03/09/18 11:40 Nasal Nares MRSA Culture - Final NO METHICILLIN RESISTANT STAPH AUREUS... Complete 03/09/18 11:40 Rectum VRE Culture - Final NO VANCOMYCIN RESISTANT ENTEROCOCCUS ... Complete 03/09/18 11:40 Rectum - Final NO CARBAPENEM-RESISTANT ENTEROBACTERI... Complete Laboratory Tests 03/11/18 12:15: Urine Eosinophils None seen Current Medications Medications (Trade) Dose Ordered Sig/Yao Route PRN Reason Start Time Stop Time Status Last Admin Dose Admin Acetaminophen (Tylenol) 650 mg Q4H PRN ORAL Mild Pain/Temp > 100.5 03/09/18 16:15 04/08/18 16:14 Albuterol Sulfate (Proventil MDI) 2 puff Q6H PRN INH Shortness of Breath 03/09/18 23:00 04/08/18 22:59 Aspirin (ASA) 81 mg DAILY ORAL 03/10/18 09:00 04/09/18 08:59 03/11/18 09:04 Bisacodyl (Dulcolax) 5 mg DAILYPRN PRN ORAL Constipation 03/09/18 16:15 04/08/18 16:14 Clonidine HCl (Catapres Tab) 0.1 mg EVERY 8 HOURS ORAL 03/11/18 22:00 04/10/18 13:59 03/11/18 16:31 Clonidine HCl (Catapres Tab) 0.1 mg Q4H PRN ORAL For SBP>160 03/10/18 23:30 04/09/18 23:29 03/11/18 11:19 Divalproex Sodium (Depakote ER) 500 mg BEDTIME ORAL 03/11/18 21:00 04/10/18 20:59 Docusate Sodium (Colace) 100 mg TID ORAL 03/11/18 18:00 04/09/18 08:59 Lorazepam (Ativan) 1 mg Q8H PRN ORAL For Anxiety 03/09/18 16:15 03/16/18 16:14 Losartan Potassium (Cozaar) 100 mg DAILY ORAL 03/10/18 09:00 04/09/18 08:59 03/11/18 09:03 Magnesium Hydroxide (Mom) 30 ml DAILYPRN PRN ORAL Constipation 03/09/18 16:15 04/08/18 16:14 Nifedipine (Procardia XL) 30 mg BID ORAL 03/11/18 18:00 04/10/18 08:59 Olanzapine (ZyPREXA) 10 mg BEDTIME ORAL 03/10/18 21:00 04/09/18 20:59 03/10/18 20:10 Temazepam (Restoril) 7.5 mg HSPRN PRN ORAL Insomnia 03/09/18 16:15 03/16/18 16:14 Pradeep Maya MD Mar 11, 2018 17:24
--- NOTE | 2018-03-11 18:45 | NUR ---
NURSE NOTES: Patient refused Colace scheduled 6PM, Patient has No bowel movement, explained benefit and risk, but, patient still refused, Patient stated she wants to take MOM Will endorse to next shift.
--- NOTE | 2018-03-11 18:50 | NUR ---
Patient Blood pressure 167/106, pulse 61, given Nifedipine as ordered, Patient alert, verbally responsive, denied chest pain or any discomfort, No SOB noted, Breathing even and unlabored, Will continue to monitor.
--- NOTE | 2018-03-11 19:19 | NUR ---
NURSE NOTES: Pt received awake in bed at lowest position, call light within reach, able to make needs known, no signs of pain or distress at the moment.
--- NOTE | 2018-03-11 19:29 | NUR ---
HAND-OFF: Report given to CAT Barnes.
--- NOTE | 2018-03-11 19:59 | Cardiology Progress Note ---
Assessment/Plan Assessment/Plan Assessment/Plan Status: stable Assessment/Plan Assessment: Schizoaffective disorder Medication non compliance Dementia Hypokalemia Dehydration Encephalopathy HTN uncontrolled Diabetes Previous CVA Plan: BP control with Losartan and Norvasc repeat CXR: BNP not elevated, no signs of fluid overload Echocardiogram to evaluate filling pressures and LV function Mild IV fluid hydration, Hold diuresis Outpatient stress testing, no indication for cardiac cath Subjective Cardiovascular: Reports: no symptoms Respiratory: Reports: no symptoms Gastrointestinal/Abdominal: Reports: no symptoms Genitourinary: Reports: no symptoms Subjective COVERAGE FOR [facility]UL[facility] Patient declined echo, no acute events, vitals stable Objective Last 24 Hour Vital Signs Date Time Temp Pulse Resp B/P (MAP) Pulse Ox O2 Delivery O2 Flow Rate FiO2 03/11/18 18:32 61 167/106 03/11/18 16:31 172/110 03/11/18 16:00 97.9 78 18 172/110 (130) 96 03/11/18 12:00 97.4 82 20 156/115 (129) 97 03/11/18 11:19 177/115 03/11/18 09:04 91 175/110 03/11/18 09:03 175/110 03/11/18 09:00 Room Air 03/11/18 08:21 78 18 Room Air 21 03/11/18 08:00 97.7 91 20 175/110 (131) 97 03/11/18 04:49 165/91 03/11/18 04:00 97.8 68 20 165/91 (115) 94 03/11/18 00:00 97.7 70 18 174/112 (132) 96 03/10/18 23:43 174/112 03/10/18 21:00 Room Air 03/10/18 20:08 164/103 03/10/18 20:00 97.9 66 18 164/103 (123) 96 General Appearance: no apparent distress, alert EENT: PERRL/EOMI, normal ENT inspection, TMs normal Neck: non-tender, normal alignment, supple, normal inspection Rhythm: NSR Cardiovascular: normal peripheral pulses, normal rate, regular rhythm Respiratory/Chest: chest wall non-tender, lungs clear, normal breath sounds Abdomen: normal bowel sounds, non tender, soft Extremities: normal range of motion, non-tender 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 Complete 03/09/18 11:40 Rectum VRE Culture - Final NO VANCOMYCIN RESISTANT ENTEROCOCCUS ... Complete 03/09/18 11:40 Rectum - Final NO CARBAPENEM-RESISTANT ENTEROBACTERI... Complete Pradeep Knight MD Mar 11, 2018 19:59
[2018-03-11 20:00] VITALS: BP 163/104
--- NOTE | 2018-03-11 20:29 | NUR ---
NURSE NOTES: Pt BP 163/103 gave clonidine 0.1mg PRN. Pt refused Depakote medication stating it turns her skin white, starting with her face, hands arms and legs and that it makes her have tremors. Will waste medication, notify charge nurse and .
[2018-03-11] MEDS ORDERED: Depakote ER 500mg tab ORAL SCH (21:00)
--- NOTE | 2018-03-11 21:52 | General Progress Note ---
Assessment/Plan Problem List: (1) Schizoaffective disorder ICD Codes: F25.9 - Schizoaffective disorder, unspecified SNOMED: 29962916 (2) encephalpathy metabolic Assessment/Plan depakote 250mg po bid zyprexa 10mg po qhs ativan prn the pt lacks capacity to refuse meds Subjective Neurologic/Psychiatric: Reports: anxiety, emotional problems Allergies: Coded Allergies: CODEINE (Unverified Allergy, Unknown, 10/23/16) ENALAPRIL (Unverified Allergy, Unknown, 10/23/16) LISINOPRIL (Unverified Allergy, Unknown, 10/23/16) MORPHINE (Unverified Allergy, Unknown, 10/23/16) Subjective the pt is hallucinating Objective Last 24 Hour Vital Signs Date Time Temp Pulse Resp B/P (MAP) Pulse Ox O2 Delivery O2 Flow Rate FiO2 03/11/18 21:00 Room Air 03/11/18 20:29 163/104 03/11/18 20:00 97.9 63 18 163/104 (123) 97 03/11/18 18:32 61 167/106 03/11/18 16:31 172/110 03/11/18 16:00 97.9 78 18 172/110 (130) 96 03/11/18 12:00 97.4 82 20 156/115 (129) 97 03/11/18 11:19 177/115 03/11/18 09:04 91 175/110 03/11/18 09:03 175/110 03/11/18 09:00 Room Air 03/11/18 08:21 78 18 Room Air 21 03/11/18 08:00 97.7 91 20 175/110 (131) 97 03/11/18 04:49 165/91 03/11/18 04:00 97.8 68 20 165/91 (115) 94 03/11/18 00:00 97.7 70 18 174/112 (132) 96 03/10/18 23:43 174/112 Intake and Output 03/10/18 03/11/18 19:00 07:00 Intake Total 1200 ml 250 ml Balance 1200 ml 250 ml Intake Oral 250 ml Other 1200 ml # Voids 1 # Bowel Movements 1 Laboratory Tests 03/11/18 12:15: Urine Eosinophils None seen Height (Feet): 5 Height (Inches): 6.00 Weight (Pounds): 150 General Appearance: alert, confused, agitated Stephanie Kebede MD Mar 11, 2018 21:52
--- NOTE | 2018-03-11 21:52 | General Progress Note ---
Assessment/Plan Problem List: (1) Anemia ICD Codes: D64.9 - Anemia, unspecified SNOMED: 998428711 (2) Dehydration ICD Codes: E86.0 - Dehydration SNOMED: 96818982 (3) Encephalopathy ICD Codes: G93.40 - Encephalopathy, unspecified SNOMED: 92405279 (4) Schizoaffective disorder ICD Codes: F25.9 - Schizoaffective disorder, unspecified SNOMED: 50777551 (5) Pleural effusion ICD Codes: J90 - Pleural effusion, not elsewhere classified SNOMED: 47875916 (6) Hypertensive heart and chronic kidney disease ICD Codes: I13.10 - Hypertensive heart and chronic kidney disease without heart failure, with stage 1 through stage 4 chronic kidney disease, or unspecified chronic kidney disease SNOMED: 0740515990123 (7) History of hypertension ICD Codes: Z86.79 - Personal history of other diseases of the circulatory system SNOMED: 625594856 (8) Psychosis ICD Codes: F29 - Unspecified psychosis not due to a substance or known physiological condition SNOMED: 28666573 Status: progressing Assessment/Plan less agitated s/p refusal of care psychosis no sob htn bp is improving Subjective ROS Limited/Unobtainable: Yes Allergies: Coded Allergies: CODEINE (Unverified Allergy, Unknown, 10/23/16) ENALAPRIL (Unverified Allergy, Unknown, 10/23/16) LISINOPRIL (Unverified Allergy, Unknown, 10/23/16) MORPHINE (Unverified Allergy, Unknown, 10/23/16) Objective Last 24 Hour Vital Signs Date Time Temp Pulse Resp B/P (MAP) Pulse Ox O2 Delivery O2 Flow Rate FiO2 03/11/18 21:00 Room Air 03/11/18 20:29 163/104 03/11/18 20:00 97.9 63 18 163/104 (123) 97 03/11/18 18:32 61 167/106 03/11/18 16:31 172/110 03/11/18 16:00 97.9 78 18 172/110 (130) 96 03/11/18 12:00 97.4 82 20 156/115 (129) 97 03/11/18 11:19 177/115 03/11/18 09:04 91 175/110 03/11/18 09:03 175/110 03/11/18 09:00 Room Air 03/11/18 08:21 78 18 Room Air 21 03/11/18 08:00 97.7 91 20 175/110 (131) 97 03/11/18 04:49 165/91 03/11/18 04:00 97.8 68 20 165/91 (115) 94 03/11/18 00:00 97.7 70 18 174/112 (132) 96 03/10/18 23:43 174/112 Intake and Output 03/10/18 03/11/18 19:00 07:00 Intake Total 1200 ml 250 ml Balance 1200 ml 250 ml Intake Oral 250 ml Other 1200 ml # Voids 1 # Bowel Movements 1 Laboratory Tests 03/11/18 12:15: Urine Eosinophils None seen Height (Feet): 5 Height (Inches): 6.00 Weight (Pounds): 150 Neck: supple Cardiovascular: normal rate Respiratory/Chest: lungs clear Abdomen: soft Angelina Wu MD Mar 11, 2018 21:52
--- NOTE | 2018-03-11 22:25 | Consultation ---
History of Present Illness General Chief Complaint: General Complaint Present Illness Allergies: Coded Allergies: CODEINE (Unverified Allergy, Unknown, 10/23/16) ENALAPRIL (Unverified Allergy, Unknown, 10/23/16) LISINOPRIL (Unverified Allergy, Unknown, 10/23/16) MORPHINE (Unverified Allergy, Unknown, 10/23/16) Medication History Scheduled Amlodipine Besylate (Norvasc), 5 MG ORAL BID, (Reported) Amlodipine Besylate* (Amlodipine Besylate*), 5 MG ORAL BID, (Reported) Aspirin* (Aspirin*), 81 MG ORAL DAILY, (Reported) Bisacodyl* (Dulcolax*), 5 MG ORAL DAILY, (Reported) Cranberry Fruit Concentrate (Cranberry), 450 MG PO BID, (Reported) Divalproex Sodium* (Depakote*), 500 MG PO BEDTIME, (Reported) Docusate Sodium* (Colace*), 100 MG ORAL DAILY, (Reported) Hydralazine Hcl* (Hydralazine Hcl*), 50 MG ORAL TID, (Reported) Olanzapine* (Zyprexa*), 5 MG ORAL HS, (Reported) Scheduled PRN Acetaminophen (Acetaminophen), 650 MG ORAL Q4HR PRN for Prn Headache/Temp > 101, (Reported) Clonidine Hcl* (Catapres*), 0.1 MG ORAL EVERY 8 HOURS PRN for For High Blood Pressure, (Reported) Lorazepam* (Ativan*), 1 MG ORAL EVERY 8 HOURS PRN for For Anxiety, (Reported) Magnesium Hydroxide (Milk of Magnesia), 30 ML ORAL DAILY PRN for Constipation, ( Reported) Temazepam* (Restoril*), 7.5 MG ORAL BEDTIME PRN for Insomnia, (Reported) Patient History Healthcare decision maker Resuscitation status Advanced Directive on File Physical Exam Last 24 Hour Vital Signs Date Time Temp Pulse Resp B/P (MAP) Pulse Ox O2 Delivery O2 Flow Rate FiO2 03/11/18 21:00 Room Air 03/11/18 20:29 163/104 03/11/18 20:00 97.9 63 18 163/104 (123) 97 03/11/18 18:32 61 167/106 03/11/18 16:31 172/110 03/11/18 16:00 97.9 78 18 172/110 (130) 96 03/11/18 12:00 97.4 82 20 156/115 (129) 97 03/11/18 11:19 177/115 03/11/18 09:04 91 175/110 03/11/18 09:03 175/110 03/11/18 09:00 Room Air 03/11/18 08:21 78 18 Room Air 21 03/11/18 08:00 97.7 91 20 175/110 (131) 97 03/11/18 04:49 165/91 03/11/18 04:00 97.8 68 20 165/91 (115) 94 03/11/18 00:00 97.7 70 18 174/112 (132) 96 03/10/18 23:43 174/112 Intake and Output 03/10/18 03/11/18 19:00 07:00 Intake Total 1200 ml 250 ml Balance 1200 ml 250 ml Intake Oral 250 ml Other 1200 ml # Voids 1 # Bowel Movements 1 Laboratory Tests Test 03/11/18 12:15 Urine Eosinophils None seen (NONE SEEN) Height (Feet): 5 Height (Inches): 6.00 Weight (Pounds): 150 Medications Current Medications Medications (Trade) Dose Ordered Sig/Yao Route PRN Reason Start Time Stop Time Status Last Admin Dose Admin Acetaminophen (Tylenol) 650 mg Q4H PRN ORAL Mild Pain/Temp > 100.5 03/09/18 16:15 04/08/18 16:14 Albuterol Sulfate (Proventil MDI) 2 puff Q6H PRN INH Shortness of Breath 03/09/18 23:00 04/08/18 22:59 Aspirin (ASA) 81 mg DAILY ORAL 03/10/18 09:00 04/09/18 08:59 03/11/18 09:04 Bisacodyl (Dulcolax) 5 mg DAILYPRN PRN ORAL Constipation 03/09/18 16:15 04/08/18 16:14 Clonidine HCl (Catapres Tab) 0.1 mg EVERY 8 HOURS ORAL 03/11/18 22:00 04/10/18 13:59 03/11/18 16:31 Clonidine HCl (Catapres Tab) 0.1 mg Q4H PRN ORAL For SBP>160 03/10/18 23:30 04/09/18 23:29 03/11/18 20:29 Divalproex Sodium (Depakote ER) 500 mg BEDTIME ORAL 03/11/18 21:00 04/10/18 20:59 03/11/18 20:21 Docusate Sodium (Colace) 100 mg TID ORAL 03/11/18 18:00 04/09/18 08:59 Lorazepam (Ativan) 1 mg Q8H PRN ORAL For Anxiety 03/09/18 16:15 03/16/18 16:14 Losartan Potassium (Cozaar) 100 mg DAILY ORAL 03/10/18 09:00 04/09/18 08:59 03/11/18 09:03 Magnesium Hydroxide (Mom) 30 ml DAILYPRN PRN ORAL Constipation 03/09/18 16:15 04/08/18 16:14 Nifedipine (Procardia XL) 30 mg BID ORAL 03/11/18 18:00 04/10/18 08:59 03/11/18 18:32 Olanzapine (ZyPREXA) 10 mg BEDTIME ORAL 03/10/18 21:00 04/09/18 20:59 03/11/18 20:19 Temazepam (Restoril) 7.5 mg HSPRN PRN ORAL Insomnia 03/09/18 16:15 03/16/18 16:14 Assessment/Plan Assessment/Plan Hematology/Oncology Consultation Requesting MD: Angelina Wu Date of Service: 03/11/18 Reason for consultation: Anemia HPI: This is a 72 years old female brought in by ambulance from [facility] c/ o a burning sensation during urination and increase urinary frequency, dehydration, hypertensive urgency. Clonidine given and BP improved, patient noted not to be taking medications for a few days. Troponin levels normal. CXR concerning for Evidence of congestive heart failure, with interstitial edema and bilateral pleural effusions, BNP not elevated. Hematology/Oncology was consulted for Anemia . Hgb 10.6 Allergies: Coded Allergies: CODEINE (Unverified Allergy, Unknown, 10/23/16) ENALAPRIL (Unverified Allergy, Unknown, 10/23/16) LISINOPRIL (Unverified Allergy, Unknown, 10/23/16) MORPHINE (Unverified Allergy, Unknown, 10/23/16) Medication History Scheduled Amlodipine Besylate (Norvasc), 5 MG ORAL BID, (Reported) Amlodipine Besylate* (Amlodipine Besylate*), 5 MG ORAL BID, (Reported) Aspirin* (Aspirin*), 81 MG ORAL DAILY, (Reported) Bisacodyl* (Dulcolax*), 5 MG ORAL DAILY, (Reported) Cranberry Fruit Concentrate (Cranberry), 450 MG PO BID, (Reported) Divalproex Sodium* (Depakote*), 500 MG PO BEDTIME, (Reported) Docusate Sodium* (Colace*), 100 MG ORAL DAILY, (Reported) Hydralazine Hcl* (Hydralazine Hcl*), 50 MG ORAL TID, (Reported) Olanzapine* (Zyprexa*), 5 MG ORAL HS, (Reported) Scheduled PRN Acetaminophen (Acetaminophen), 650 MG ORAL Q4HR PRN for Prn Headache/Temp > 101, (Reported) Clonidine Hcl* (Catapres*), 0.1 MG ORAL EVERY 8 HOURS PRN for For High Blood Pressure, (Reported) Lorazepam* (Ativan*), 1 MG ORAL EVERY 8 HOURS PRN for For Anxiety, (Reported) Magnesium Hydroxide (Milk of Magnesia), 30 ML ORAL DAILY PRN for Constipation, ( Reported) Temazepam* (Restoril*), 7.5 MG ORAL BEDTIME PRN for Insomnia, (Reported) Review of Systems Constitutional: Reports: no symptoms Eye: Reports: no symptoms ENT: Reports: no symptoms Respiratory: Reports: no symptoms Cardiovascular: Reports: no symptoms Gastrointestinal: Reports: no symptoms Genitourinary: Reports: no symptoms Musculoskeletal: Reports: no symptoms Skin: Reports: no symptoms Psychiatric: Reports: no symptoms Neurological: Reports: no symptoms Endocrine: Reports: no symptoms Hematologic/Lymphatic: Reports: no symptoms Physical Exam General Appearance: no apparent distress, alert Lines, tubes and drains: peripheral HEENT: normocephalic, atraumatic, anicteric, mucous membranes moist, PERRL Neck: non-tender, normal alignment, supple, normal inspection Respiratory/Chest: chest wall non-tender, lungs clear Cardiovascular/Chest: normal peripheral pulses, normal rate, regular rhythm Abdomen: normal bowel sounds, non tender Extremities: normal range of motion, non-tender Skin Exam: normal pigmentation 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: supervisor 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-XII grossly normal, no motor/sensory deficits Laboratory Tests Test 03/09/18 11:20 03/09/18 12:20 03/10/18 06:10 White Blood Count 4.3 K/UL (4.8-10.8) L 3.6 K/UL (4.8-10.8) L Red Blood Count 4.76 M/UL (4.20-5.40) 4.24 M/UL (4.20-5.40) Hemoglobin 11.7 G/DL (12.0-16.0) L 10.6 G/DL (12.0-16.0) L Hematocrit 38.9 % (37.0-47.0) 34.6 % (37.0-47.0) L Mean Corpuscular Volume 82 FL (80-99) 82 FL (80-99) Mean Corpuscular Hemoglobin 24.5 PG (27.0-31.0) L 25.0 PG (27.0-31.0) L Mean Corpuscular Hemoglobin Concent 30.0 G/DL (32.0-36.0) L 30.6 G/DL (32.0-36.0) L Red Cell Distribution Width 16.0 % (11.6-14.8) H 16.0 % (11.6-14.8) H Platelet Count 190 K/UL (150-450) 176 K/UL (150-450) Mean Platelet Volume 9.2 FL (6.5-10.1) 8.4 FL (6.5-10.1) Neutrophils (%) (Auto) 59.9 % (45.0-75.0) 47.0 % (45.0-75.0) Lymphocytes (%) (Auto) 25.9 % (20.0-45.0) 36.6 % (20.0-45.0) Monocytes (%) (Auto) 10.5 % (1.0-10.0) H 11.6 % (1.0-10.0) H Eosinophils (%) (Auto) 2.6 % (0.0-3.0) 3.6 % (0.0-3.0) H Basophils (%) (Auto) 1.0 % (0.0-2.0) 1.2 % (0.0-2.0) Sodium Level 145 MMOL/L (136-145) 145 MMOL/L (136-145) Potassium Level 3.1 MMOL/L (3.5-5.1) L 3.6 MMOL/L (3.5-5.1) Chloride Level 108 MMOL/L (98-107) H 109 MMOL/L (98-107) H Carbon Dioxide Level 30 MMOL/L (21-32) 27 MMOL/L (21-32) Anion Gap 7 mmol/L (5-15) 9 mmol/L (5-15) Blood Urea Nitrogen 19 mg/dL (7-18) H 13 mg/dL (7-18) Creatinine 1.9 MG/DL (0.55-1.30) H 1.4 MG/DL (0.55-1.30) H Estimat Glomerular Filtration Rate mL/min (>60) mL/min (>60) Glucose Level 110 MG/DL (74-106) H 90 MG/DL (74-106) Calcium Level 9.0 MG/DL (8.5-10.1) 9.0 MG/DL (8.5-10.1) Total Bilirubin 0.4 MG/DL (0.2-1.0) 0.4 MG/DL (0.2-1.0) Aspartate Amino Transf (AST/SGOT) 18 U/L (15-37) 21 U/L (15-37) Alanine Aminotransferase (ALT/SGPT) 16 U/L (12-78) 14 U/L (12-78) Alkaline Phosphatase 78 U/L (46-116) 68 U/L (46-116) Total Creatine Kinase 170 U/L (26-308) 160 U/L (26-308) Creatine Kinase MB 1.2 NG/ML (0.0-3.6) Creatine Kinase MB Relative Index 0.7 Troponin I 0.013 ng/mL (0.000-0.056) 0.024 ng/mL (0.000-0.056) C-Reactive Protein, Quantitative < 0.4 mg/dL (0.00-0.90) Total Protein 8.8 G/DL (6.4-8.2) H 7.4 G/DL (6.4-8.2) Albumin 3.3 G/DL (3.4-5.0) L 2.9 G/DL (3.4-5.0) L Globulin 5.5 g/dL 4.5 g/dL Albumin/Globulin Ratio 0.6 (1.0-2.7) L 0.6 (1.0-2.7) L Lipase 247 U/L (73-393) Urine Color Pale yellow Urine Appearance Slightly cloudy Urine pH 6.5 (4.5-8.0) Urine Specific [place] 1.010 (1.005-1.035) Urine Protein 1+ (NEGATIVE) H Urine Glucose (UA) Negative (NEGATIVE) Urine Ketones Negative (NEGATIVE) Urine Blood Negative (NEGATIVE) Urine Nitrite Negative (NEGATIVE) Urine Bilirubin Negative (NEGATIVE) Urine Urobilinogen Normal MG/DL (0.0-1.0) Urine Leukocyte Esterase Negative (NEGATIVE) Urine RBC 0 /HPF (0 - 2) Urine WBC 0-2 /HPF (0 - 2) Urine Squamous Epithelial Cells Moderate /LPF (NONE/OCC) H Urine Bacteria Few /HPF (NONE) Hemoglobin A1c Pending Uric Acid 5.1 MG/DL (2.6-7.2) Phosphorus Level 2.8 MG/DL (2.5-4.9) Magnesium Level 1.9 MG/DL (1.8-2.4) Iron Level 40 ug/dL (50-175) L Total Iron Binding Capacity 255 ug/dL (250-450) Percent Iron Saturation 16 % (15-50) Unsaturated Iron Binding 215 ug/dL (112-346) Ferritin 61 NG/ML (8-388) Gamma Glutamyl Transpeptidase 20 U/L (5-85) Pro-B-Type Natriuretic Peptide 387 pg/mL (0-125) H Triglycerides Level 41 MG/DL (30-150) Cholesterol Level 191 MG/DL (< 200) LDL Cholesterol 85 mg/dL (<100) HDL Cholesterol 90 MG/DL (40-60) H Cholesterol/HDL Ratio 2.1 (3.3-4.4) L Vitamin B12 Level 289 PG/ML (193-986) Folate 16.2 NG/ML (8.6-58.9) Thyroid Stimulating Hormone (TSH) 1.913 uiU/mL (0.358-3.740) Assessment/Plan # Anemia of chronic disease (or of iron deficiency) due to underlying chronic medical issues, multifactorial --> Anemia workup has been ordered --> No evidence of hemolysis is noted, peripheral smear has been reviewed. --> Hgb goal >7. Transfuse prn. --> Epogen or iron at this time is not particularly indicated --> Medications have been reviewed # Acute on chronic renal failure -->repeat CXR: BNP not elevated, no signs of fluid overload -->renal failure Cr 1.9 down 1.4 # Hypertensive heart and chronic kidney disease -->BP control with Losartan and Norvasc -->Echocardiogram to evaluate filling pressures and LV function --> Outpatient stress testing, no indication for cardiac cath #Hypokalemia-- #Dehydration--Mild IV fluid hydration, Hold diuresis The timing of this note does not necessarily reflect the time of the patient was seen Greatly appreciate consultation! Cl Bird MD Mar 11, 2018 22:25
[2018-03-12] VITALS: BP 133/98
[2018-03-12 04:00] VITALS: BP 148/110
[2018-03-12 06:43] LABS: BASOPHILS % (AUTO) 1.4 % (0.0-2.0); EOSINOPHILS % (AUTO) 3.3 % (0.0-3.0); HEMATOCRIT 39.3 % (37.0-47.0); HEMOGLOBIN 12.1 G/DL (12.0-16.0); LYMPHOCYTES % (AUTO) 27.8 % (20.0-45.0); MEAN CORPUSCULAR VOLUME 81 FL (80-99); MONOCYTES % (AUTO) 10.4 % (1.0-10.0); NEUTROPHILS % (AUTO) 57.1 % (45.0-75.0); PLATELET COUNT 199 K/UL (150-450); RED BLOOD COUNT 4.86 M/UL (4.20-5.40); RED CELL DISTRIBUTION WIDTH 16.1 % (11.6-14.8); WHITE BLOOD COUNT 3.9 K/UL (4.8-10.8)
[2018-03-12 07:15] LABS: ALANINE AMINOTRANSFERASE 14 U/L (12-78); ALBUMIN 3.4 G/DL (3.4-5.0); ALBUMIN/GLOBULIN RATIO 0.6 (1.0-2.7); ALKALINE PHOSPHATASE 80 U/L (46-116); ANION GAP 9 mmol/L (5-15); ASPARTATE AMINO TRANSFERASE 20 U/L (15-37); BILIRUBIN,TOTAL 0.6 MG/DL (0.2-1.0); BLOOD UREA NITROGEN 23 mg/dL (7-18); CALCIUM 9.9 MG/DL (8.5-10.1); CARBON DIOXIDE 27 MMOL/L (21-32); CHLORIDE 107 MMOL/L (98-107); CREATININE 1.7 MG/DL (0.55-1.30); PHOSPHORUS 2.9 MG/DL (2.5-4.9); POTASSIUM 3.5 MMOL/L (3.5-5.1); SODIUM 143 MMOL/L (136-145)
--- NOTE | 2018-03-12 07:16 | NUR ---
HAND-OFF: Report given to CAT Jean Baptiste.
[2018-03-12 08:00] VITALS: BP 150/101
[2018-03-12] MEDS: Docusate 100mg cap ORAL SCH ×3 (08:53→18:09)
[2018-03-12] MEDS: Aspirin Baby 81mg ORAL SCH (08:53)
[2018-03-12] MEDS: Losartan 50mg tab ORAL SCH (08:54)
--- NOTE | 2018-03-12 10:00 | History and Physical Report ---
DATE OF ADMISSION: 03/09/2018 HISTORY OF PRESENT ILLNESS: The patient is confused, refusing medications, care as well as agitated. The patient is admitted for dehydration and encephalopathy as well as for elevated blood pressure as well as CHF on the x-ray and bilateral pleural effusion on the x-ray as well as low potassium. The patient basically also has not been eating and drinking well due to psychiatric condition. Denies nausea, vomiting, or diarrhea. Does have chronic pain syndrome. No fever or chills. No shortness of breath. PAST MEDICAL HISTORY: Hypertension, NIDDM, history of psychosis, history of CVA, history of tremors, and constipation as well as psychosis. PAST SURGICAL HISTORY: None. ALLERGIES: Codeine, enalapril, Centrum, and morphine. MEDICATIONS: Amlodipine, aspirin, bisacodyl, Depakote, Colace, hydralazine, lorazepam, olanzapine, . SOCIAL HISTORY: Denies history of smoking, alcohol, or illicit drugs. Comes from a retirement. REVIEW OF SYSTEMS: HEENT: Denies headaches. RESPIRATORY: Denies shortness of breath. Denies cough. CARDIOVASCULAR: Denies chest pain. Denies nausea, vomiting, or diarrhea. EXTREMITIES: Denies pain in lower extremity. CENTRAL NERVOUS SYSTEM: No change in vision or speech pattern. Does feel weak. PHYSICAL EXAMINATION: VITAL SIGNS: Temperature 97.6, blood pressure is 146/95, and pulse 67. HEENT: PERRLA. NECK: Supple. No lymphadenopathy. CHEST: Clear to auscultation. CARDIOVASCULAR: Regular rate and rhythm. No murmurs or extra sounds. GASTROINTESTINAL: Soft, nontender, and nondistended. No organomegaly. EXTREMITIES: She does have pitting edema in the lower extremities. NEUROLOGIC: Generalized weakness. Reflexes on both sides. LABORATORY DATA: WBC of 4.3, hemoglobin 11.7, and platelets 190,000. Sodium 145, potassium 3.1, and chloride of 108. BUN of 19, creatinine 1.9, and glucose of 110. ASSESSMENT AND PLAN: Low potassium. Chest x-ray shows CHF, underlying pleural effusion. The patient was agitated elevated blood pressure and dehydration, admitted for those reasons. I have also consulted Dr. Kebede, Dr. Ramos, Dr. Kruger, Dr. Hoff to help with the management of the above-mentioned diagnoses and treatment. Angelina Wu M.D. DR: BUD JOB#: [id number] CC:
--- NOTE | 2018-03-12 12:20 | General Progress Note ---
Assessment/Plan Problem List: (1) Schizoaffective disorder ICD Codes: F25.9 - Schizoaffective disorder, unspecified SNOMED: 57579025 (2) encephalpathy metabolic Assessment/Plan dc depakote 250mg po bid zyprexa 20 mg po qhs ativan prn the pt lacks capacity to refuse meds dc when medically cleared Subjective Neurologic/Psychiatric: Reports: anxiety, depressed Allergies: Coded Allergies: CODEINE (Unverified Allergy, Unknown, 10/23/16) ENALAPRIL (Unverified Allergy, Unknown, 10/23/16) LISINOPRIL (Unverified Allergy, Unknown, 10/23/16) MORPHINE (Unverified Allergy, Unknown, 10/23/16) Subjective the pt is hallucinating and is disorganized. the pt is refusing depakote Objective Last 24 Hour Vital Signs Date Time Temp Pulse Resp B/P (MAP) Pulse Ox O2 Delivery O2 Flow Rate FiO2 03/12/18 09:00 Room Air 03/12/18 08:54 148/110 03/12/18 08:53 82 148/110 03/12/18 08:00 98.1 75 20 150/101 (117) 97 03/12/18 07:49 82 18 Room Air 21 03/12/18 05:05 148/110 03/12/18 04:00 98.7 69 19 148/110 (123) 96 03/12/18 00:54 80 18 Room Air 21 03/12/18 00:00 98.2 69 17 133/98 (110) 98 03/11/18 21:00 Room Air 03/11/18 20:29 163/104 03/11/18 20:00 97.9 63 18 163/104 (123) 97 03/11/18 18:32 61 167/106 03/11/18 16:31 172/110 03/11/18 16:00 97.9 78 18 172/110 (130) 96 Intake and Output 03/11/18 03/12/18 18:59 06:59 Intake Total 880 ml 360 ml Balance 880 ml 360 ml Intake Oral 880 ml 360 ml # Voids 2 1 Laboratory Tests 03/12/18 06:10: White Blood Count 3.9L, Red Blood Count 4.86, Hemoglobin 12.1, Hematocrit 39.3, Mean Corpuscular Volume 81, Mean Corpuscular Hemoglobin 24.9L, Mean Corpuscular Hemoglobin Concent 30.9L, Red Cell Distribution Width 16.1H, Platelet Count 199 , Mean Platelet Volume 9.0, Neutrophils (%) (Auto) 57.1, Lymphocytes (%) (Auto) 27.8, Monocytes (%) (Auto) 10.4H, Eosinophils (%) (Auto) 3.3H, Basophils (%) ( Auto) 1.4, Sodium Level 143, Potassium Level 3.5, Chloride Level 107, Carbon Dioxide Level 27, Anion Gap 9, Blood Urea Nitrogen 23H, Creatinine 1.7H, Estimat Glomerular Filtration Rate , Glucose Level 115H, Uric Acid 4.8, Calcium Level 9.9, Phosphorus Level 2.9, Magnesium Level 1.8, Total Bilirubin 0.6, Aspartate Amino Transf (AST/SGOT) 20, Alanine Aminotransferase (ALT/SGPT) 14, Alkaline Phosphatase 80, C-Reactive Protein, Quantitative 1.5H, Pro-B-Type Natriuretic Peptide 352H, Total Protein 9.2H, Albumin 3.4, Globulin 5.8, Albumin /Globulin Ratio 0.6L 03/12/18 10:00: Urine Eosinophils None seen Height (Feet): 5 Height (Inches): 6.00 Weight (Pounds): 150 General Appearance: WD/WN, no apparent distress, alert, confused Stephanie Kebede MD Mar 12, 2018 12:20
--- NOTE | 2018-03-12 13:20 | Nephrology Progress Note ---
Assessment/Plan Problem List: (1) Acute on chronic renal failure (2) Pleural effusion (3) Hypertensive heart and chronic kidney disease Assessment renal failure Cr 1.9 down 1.4 and up again to 1.7 Dementia Hypokalemia Dehydration Encephalopathy HTN ooc Diabetes A1c 6.2 Previous CVA pleural effusions Plan further adjustment of BP meds IV Iron once monitor renal parameters waiting for echo per consultants Subjective ROS Limited/Unobtainable: No Constitutional: Reports: malaise Objective Objective Last 24 Hour Vital Signs Date Time Temp Pulse Resp B/P (MAP) Pulse Ox O2 Delivery O2 Flow Rate FiO2 03/12/18 09:00 Room Air 03/12/18 08:54 148/110 03/12/18 08:53 82 148/110 03/12/18 08:00 98.1 75 20 150/101 (117) 97 03/12/18 07:49 82 18 Room Air 21 03/12/18 05:05 148/110 03/12/18 04:00 98.7 69 19 148/110 (123) 96 03/12/18 00:54 80 18 Room Air 21 03/12/18 00:00 98.2 69 17 133/98 (110) 98 03/11/18 21:00 Room Air 03/11/18 20:29 163/104 03/11/18 20:00 97.9 63 18 163/104 (123) 97 03/11/18 18:32 61 167/106 03/11/18 16:31 172/110 03/11/18 16:00 97.9 78 18 172/110 (130) 96 Intake and Output 03/11/18 03/12/18 18:59 06:59 Intake Total 880 ml 360 ml Balance 880 ml 360 ml Intake Oral 880 ml 360 ml # Voids 2 1 Laboratory Tests 03/12/18 06:10: White Blood Count 3.9L, Red Blood Count 4.86, Hemoglobin 12.1, Hematocrit 39.3, Mean Corpuscular Volume 81, Mean Corpuscular Hemoglobin 24.9L, Mean Corpuscular Hemoglobin Concent 30.9L, Red Cell Distribution Width 16.1H, Platelet Count 199 , Mean Platelet Volume 9.0, Neutrophils (%) (Auto) 57.1, Lymphocytes (%) (Auto) 27.8, Monocytes (%) (Auto) 10.4H, Eosinophils (%) (Auto) 3.3H, Basophils (%) ( Auto) 1.4, Sodium Level 143, Potassium Level 3.5, Chloride Level 107, Carbon Dioxide Level 27, Anion Gap 9, Blood Urea Nitrogen 23H, Creatinine 1.7H, Estimat Glomerular Filtration Rate , Glucose Level 115H, Uric Acid 4.8, Calcium Level 9.9, Phosphorus Level 2.9, Magnesium Level 1.8, Total Bilirubin 0.6, Aspartate Amino Transf (AST/SGOT) 20, Alanine Aminotransferase (ALT/SGPT) 14, Alkaline Phosphatase 80, C-Reactive Protein, Quantitative 1.5H, Pro-B-Type Natriuretic Peptide 352H, Total Protein 9.2H, Albumin 3.4, Globulin 5.8, Albumin /Globulin Ratio 0.6L 03/12/18 10:00: Urine Eosinophils None seen Height (Feet): 5 Height (Inches): 6.00 Weight (Pounds): 150 General Appearance: no apparent distress Objective no change Refugio Ramos MD Mar 12, 2018 13:20
[2018-03-12 16:00] VITALS: BP 148/105
--- NOTE | 2018-03-12 16:38 | Cardiac Electrophysiology PN ---
Assessment/Plan Assessment/Plan 1. HTN On LOsartan 25 and procardia 60 bid. 2. Schizoaffective disorder 3.Hypokalemia 4. Dehydration 5. Encephalopathy 6. Diabetes Echo EF 60% Outpatient stress testing, no indication for cardiac cath Subjective Subjective Feeling better. Expecting discharge Objective Last 24 Hour Vital Signs Date Time Temp Pulse Resp B/P (MAP) Pulse Ox O2 Delivery O2 Flow Rate FiO2 03/12/18 09:00 Room Air 03/12/18 08:54 148/110 03/12/18 08:53 82 148/110 03/12/18 08:00 98.1 75 20 150/101 (117) 97 03/12/18 07:49 82 18 Room Air 21 03/12/18 05:05 148/110 03/12/18 04:00 98.7 69 19 148/110 (123) 96 03/12/18 00:54 80 18 Room Air 21 03/12/18 00:00 98.2 69 17 133/98 (110) 98 03/11/18 21:00 Room Air 03/11/18 20:29 163/104 03/11/18 20:00 97.9 63 18 163/104 (123) 97 03/11/18 18:32 61 167/106 Intake and Output 03/11/18 03/12/18 18:59 06:59 Intake Total 880 ml 360 ml Balance 880 ml 360 ml Intake Oral 880 ml 360 ml # Voids 2 1 Laboratory Tests Test 03/12/18 06:10 03/12/18 10:00 White Blood Count 3.9 K/UL (4.8-10.8) L Red Blood Count 4.86 M/UL (4.20-5.40) Hemoglobin 12.1 G/DL (12.0-16.0) Hematocrit 39.3 % (37.0-47.0) Mean Corpuscular Volume 81 FL (80-99) Mean Corpuscular Hemoglobin 24.9 PG (27.0-31.0) L Mean Corpuscular Hemoglobin Concent 30.9 G/DL (32.0-36.0) L Red Cell Distribution Width 16.1 % (11.6-14.8) H Platelet Count 199 K/UL (150-450) Mean Platelet Volume 9.0 FL (6.5-10.1) Neutrophils (%) (Auto) 57.1 % (45.0-75.0) Lymphocytes (%) (Auto) 27.8 % (20.0-45.0) Monocytes (%) (Auto) 10.4 % (1.0-10.0) H Eosinophils (%) (Auto) 3.3 % (0.0-3.0) H Basophils (%) (Auto) 1.4 % (0.0-2.0) Sodium Level 143 MMOL/L (136-145) Potassium Level 3.5 MMOL/L (3.5-5.1) Chloride Level 107 MMOL/L (98-107) Carbon Dioxide Level 27 MMOL/L (21-32) Anion Gap 9 mmol/L (5-15) Blood Urea Nitrogen 23 mg/dL (7-18) H Creatinine 1.7 MG/DL (0.55-1.30) H Estimat Glomerular Filtration Rate mL/min (>60) Glucose Level 115 MG/DL (74-106) H Uric Acid 4.8 MG/DL (2.6-7.2) Calcium Level 9.9 MG/DL (8.5-10.1) Phosphorus Level 2.9 MG/DL (2.5-4.9) Magnesium Level 1.8 MG/DL (1.8-2.4) Total Bilirubin 0.6 MG/DL (0.2-1.0) Aspartate Amino Transf (AST/SGOT) 20 U/L (15-37) Alanine Aminotransferase (ALT/SGPT) 14 U/L (12-78) Alkaline Phosphatase 80 U/L (46-116) C-Reactive Protein, Quantitative 1.5 mg/dL (0.00-0.90) H Pro-B-Type Natriuretic Peptide 352 pg/mL (0-125) H Total Protein 9.2 G/DL (6.4-8.2) H Albumin 3.4 G/DL (3.4-5.0) Globulin 5.8 g/dL Albumin/Globulin Ratio 0.6 (1.0-2.7) L Urine Eosinophils None seen (NONE SEEN) Objective General Appearance: no apparent distress, alert HEENT: No JVD Cardiovascular: normal peripheral pulses, normal rate, regular rhythm Respiratory/Chest: chest wall non-tender, lungs clear, normal breath sounds Abdomen: normal bowel sounds, non tender, soft Extremities: normal range of motion, non-tender Neurologic: taper operator II-XII grossly normal, no motor/sensory deficits Andrea Kruger MD Mar 12, 2018 16:38
[2018-03-12] MEDS: cloNIDine 0.2mg Tab ORAL SCH ×2 (16:47→23:16)
--- NOTE | 2018-03-12 19:15 | Pulmonology Progress Note ---
Assessment/Plan Problems: (1) Schizoaffective disorder (2) Pleural effusion (3) Hypertensive heart and chronic kidney disease (4) History of hypertension (5) ATN (acute tubular necrosis) (6) Dehydration (7) Encounter for generalized patient complaints Assessment/Plan CT chest to further evaluate effusion and underlying parenchymal disease Thoracentesis evaluation Monitor volumes and renal function Aspiration precautions Pulmonary hygiene PRN Ventolin Start Hep SQ for DVT px F/U wardrobe image consultant recs Subjective Allergies: Coded Allergies: CODEINE (Unverified Allergy, Unknown, 10/23/16) ENALAPRIL (Unverified Allergy, Unknown, 10/23/16) LISINOPRIL (Unverified Allergy, Unknown, 10/23/16) MORPHINE (Unverified Allergy, Unknown, 10/23/16) Subjective AFVSS 100% on RA No cough, no SOB, no wheezing, no FC Objective Last 24 Hour Vital Signs Date Time Temp Pulse Resp B/P (MAP) Pulse Ox O2 Delivery O2 Flow Rate FiO2 03/12/18 18:18 75 148/105 03/12/18 16:47 148/105 03/12/18 16:00 97.6 75 20 148/105 (119) 97 03/12/18 09:00 Room Air 03/12/18 08:54 148/110 03/12/18 08:53 82 148/110 03/12/18 08:00 98.1 75 20 150/101 (117) 97 03/12/18 07:49 82 18 Room Air 21 03/12/18 05:05 148/110 03/12/18 04:00 98.7 69 19 148/110 (123) 96 03/12/18 00:54 80 18 Room Air 21 03/12/18 00:00 98.2 69 17 133/98 (110) 98 03/11/18 21:00 Room Air 03/11/18 20:29 163/104 03/11/18 20:00 97.9 63 18 163/104 (123) 97 Intake and Output 03/11/18 03/12/18 19:00 07:00 Intake Total 880 ml 360 ml Balance 880 ml 360 ml Intake Oral 880 ml 360 ml # Voids 2 1 General Appearance: WD/WN, no acute distress HEENT: normocephalic, atraumatic, anicteric, mucous membranes moist Respiratory/Chest: chest wall non-tender, lungs clear, normal breath sounds, no respiratory distress, no accessory muscle use Cardiovascular: normal peripheral pulses, normal rate, regular rhythm Abdomen: normal bowel sounds, soft, non tender, no organomegaly, non distended , no mass Extremities: no cyanosis, no clubbing, no edema Laboratory Tests 03/12/18 06:10: White Blood Count 3.9L, Red Blood Count 4.86, Hemoglobin 12.1, Hematocrit 39.3, Mean Corpuscular Volume 81, Mean Corpuscular Hemoglobin 24.9L, Mean Corpuscular Hemoglobin Concent 30.9L, Red Cell Distribution Width 16.1H, Platelet Count 199 , Mean Platelet Volume 9.0, Neutrophils (%) (Auto) 57.1, Lymphocytes (%) (Auto) 27.8, Monocytes (%) (Auto) 10.4H, Eosinophils (%) (Auto) 3.3H, Basophils (%) ( Auto) 1.4, Sodium Level 143, Potassium Level 3.5, Chloride Level 107, Carbon Dioxide Level 27, Anion Gap 9, Blood Urea Nitrogen 23H, Creatinine 1.7H, Estimat Glomerular Filtration Rate , Glucose Level 115H, Uric Acid 4.8, Calcium Level 9.9, Phosphorus Level 2.9, Magnesium Level 1.8, Total Bilirubin 0.6, Aspartate Amino Transf (AST/SGOT) 20, Alanine Aminotransferase (ALT/SGPT) 14, Alkaline Phosphatase 80, C-Reactive Protein, Quantitative 1.5H, Pro-B-Type Natriuretic Peptide 352H, Total Protein 9.2H, Albumin 3.4, Globulin 5.8, Albumin /Globulin Ratio 0.6L 03/12/18 10:00: Urine Eosinophils None seen Current Medications Medications (Trade) Dose Ordered Sig/Ayo Route PRN Reason Start Time Stop Time Status Last Admin Dose Admin Acetaminophen (Tylenol) 650 mg Q4H PRN ORAL Mild Pain/Temp > 100.5 03/09/18 16:15 04/08/18 16:14 Albuterol Sulfate (Proventil MDI) 2 puff Q6H PRN INH Shortness of Breath 03/09/18 23:00 04/08/18 22:59 Aspirin (ASA) 81 mg DAILY ORAL 03/10/18 09:00 04/09/18 08:59 03/12/18 08:53 Bisacodyl (Dulcolax) 5 mg DAILYPRN PRN ORAL Constipation 03/09/18 16:15 04/08/18 16:14 Clonidine HCl (Catapres Tab) 0.1 mg Q4H PRN ORAL For SBP>160 03/10/18 23:30 04/09/18 23:29 03/11/18 20:29 Clonidine HCl (Catapres tab) 0.2 mg EVERY 8 HOURS ORAL 03/12/18 14:00 04/10/18 13:59 03/12/18 16:47 Docusate Sodium (Colace) 100 mg TID ORAL 03/11/18 18:00 04/09/18 08:59 03/12/18 18:09 Lorazepam (Ativan) 1 mg Q8H PRN ORAL For Anxiety 03/09/18 16:15 03/16/18 16:14 03/12/18 08:53 Losartan Potassium (Cozaar) 25 mg DAILY ORAL 03/13/18 09:00 04/09/18 08:59 Magnesium Hydroxide (Mom) 30 ml DAILYPRN PRN ORAL Constipation 03/09/18 16:15 04/08/18 16:14 Nifedipine (Procardia XL) 60 mg BID ORAL 03/12/18 18:00 04/10/18 08:59 03/12/18 18:18 Olanzapine (ZyPREXA) 20 mg QHS ORAL 03/12/18 21:00 04/11/18 20:59 Temazepam (Restoril) 7.5 mg HSPRN PRN ORAL Insomnia 03/09/18 16:15 03/16/18 16:14 Tommy Hoff MD Mar 12, 2018 19:15
--- NOTE | 2018-03-12 19:34 | NUR ---
HAND-OFF: Report given to Mallory SHELTON.
--- NOTE | 2018-03-12 19:50 | NUR ---
NURSE NOTES: Patient received, ambulating around the room, steady gait. No acute distress noted at this time. Call light in reach, instructed to call for assistance, will continue to monitor.
[2018-03-12 20:00] VITALS: BP 141/86
--- NOTE | 2018-03-12 20:00 | NUR ---
NURSE NOTES: Placed call to Margi Trujillo (sister) [phone] for consent for US thoracentesis. No answer. [facility] left with call back number. Awaiting call back.
--- NOTE | 2018-03-12 20:10 | General Progress Note ---
Assessment/Plan Assessment/Plan Assessment/Plan # Panctyopenia -- have seen her in 07/2016 and had similar blood counts at that time as well, she has anemia of chronic disease to underlying chronic medical issues, multifactorial --> Anemia workup has been reviewed from prior ==> hepatitis and hiv are neg --> No evidence of hemolysis is noted, peripheral smear has been reviewed. --> Hgb goal >7. Transfuse prn. --> Epogen or iron at this time is not particularly indicated --> Medications have been reviewed # Elevated tumor markers --> CEA was before 4.3--> reheck --> prior colonoscopies were negative # Acute on chronic renal failure -->repeat CXR: BNP not elevated, no signs of fluid overload -->renal failure Cr 1.9 down 1.4 # Hypertensive heart and chronic kidney disease -->BP control with Losartan and Norvasc -->Echocardiogram to evaluate filling pressures and LV function --> Outpatient stress testing, no indication for cardiac cath # Hypokalemia-- # Dehydration--Mild IV fluid hydration, Hold diuresis The timing of this note does not necessarily reflect the time of the patient was seen Greatly appreciate consultation! Subjective Constitutional: Denies: no symptoms, chills, diaphoresis, fever, malaise, weakness, other HEENT: Denies: no symptoms, eye pain, blurred vision, tearing, double vision, ear pain, ear discharge, nose pain, nose congestion, throat pain, throat swelling, mouth pain, mouth swelling, other Genitourinary: Denies: no symptoms, burning, discharge, frequency, flank pain, hematuria, incontinence, pain, urgency, other Neurologic/Psychiatric: Denies: no symptoms, anxiety, depressed, emotional problems, headache, numbness, paresthesia, pre-existing deficit, seizure, tingling, tremors, weakness, other Hematologic/Lymphatic: Denies: no symptoms, anemia, easy bleeding, easy bruising, other Allergies: Coded Allergies: CODEINE (Unverified Allergy, Unknown, 10/23/16) ENALAPRIL (Unverified Allergy, Unknown, 10/23/16) LISINOPRIL (Unverified Allergy, Unknown, 10/23/16) MORPHINE (Unverified Allergy, Unknown, 10/23/16) Subjective 2/4: expecting discharge soon, pending ct chest Objective Last 24 Hour Vital Signs Date Time Temp Pulse Resp B/P (MAP) Pulse Ox O2 Delivery O2 Flow Rate FiO2 03/12/18 18:18 75 148/105 03/12/18 16:47 148/105 03/12/18 16:00 97.6 75 20 148/105 (119) 97 03/12/18 09:00 Room Air 03/12/18 08:54 148/110 03/12/18 08:53 82 148/110 03/12/18 08:00 98.1 75 20 150/101 (117) 97 03/12/18 07:49 82 18 Room Air 21 03/12/18 05:05 148/110 03/12/18 04:00 98.7 69 19 148/110 (123) 96 03/12/18 00:54 80 18 Room Air 21 03/12/18 00:00 98.2 69 17 133/98 (110) 98 03/11/18 21:00 Room Air 03/11/18 20:29 163/104 Intake and Output 03/11/18 03/12/18 19:00 07:00 Intake Total 880 ml 360 ml Balance 880 ml 360 ml Intake Oral 880 ml 360 ml # Voids 2 1 Laboratory Tests 03/12/18 06:10: White Blood Count 3.9L, Red Blood Count 4.86, Hemoglobin 12.1, Hematocrit 39.3, Mean Corpuscular Volume 81, Mean Corpuscular Hemoglobin 24.9L, Mean Corpuscular Hemoglobin Concent 30.9L, Red Cell Distribution Width 16.1H, Platelet Count 199 , Mean Platelet Volume 9.0, Neutrophils (%) (Auto) 57.1, Lymphocytes (%) (Auto) 27.8, Monocytes (%) (Auto) 10.4H, Eosinophils (%) (Auto) 3.3H, Basophils (%) ( Auto) 1.4, Sodium Level 143, Potassium Level 3.5, Chloride Level 107, Carbon Dioxide Level 27, Anion Gap 9, Blood Urea Nitrogen 23H, Creatinine 1.7H, Estimat Glomerular Filtration Rate , Glucose Level 115H, Uric Acid 4.8, Calcium Level 9.9, Phosphorus Level 2.9, Magnesium Level 1.8, Total Bilirubin 0.6, Aspartate Amino Transf (AST/SGOT) 20, Alanine Aminotransferase (ALT/SGPT) 14, Alkaline Phosphatase 80, C-Reactive Protein, Quantitative 1.5H, Pro-B-Type Natriuretic Peptide 352H, Total Protein 9.2H, Albumin 3.4, Globulin 5.8, Albumin /Globulin Ratio 0.6L 03/12/18 10:00: Urine Eosinophils None seen Height (Feet): 5 Height (Inches): 6.00 Weight (Pounds): 150 Objective General Appearance: no apparent distress, alert Lines, tubes and drains: peripheral HEENT: normocephalic, atraumatic, anicteric, mucous membranes moist, PERRL Neck: non-tender, normal alignment, supple, normal inspection Respiratory/Chest: chest wall non-tender, lungs clear Cardiovascular/Chest: normal peripheral pulses, normal rate, regular rhythm Abdomen: normal bowel sounds, non tender Extremities: normal range of motion, non-tender Skin Exam: normal pigmentation Neurologic: shellfish shucker II-XII grossly normal, no motor/sensory deficits Cl Bird MD Mar 12, 2018 20:10
[2018-03-12] MEDS: Heparin 5000 units/ml inj SUBQ SCH (21:00)
[2018-03-12] MEDS ORDERED: OLANZapine 10mg tab ORAL SCH (21:00)
--- NOTE | 2018-03-12 21:12 | General Progress Note ---
Assessment/Plan Problem List: (1) Anemia ICD Codes: D64.9 - Anemia, unspecified SNOMED: 988781186 (2) Dehydration ICD Codes: E86.0 - Dehydration SNOMED: 62753881 (3) Encephalopathy ICD Codes: G93.40 - Encephalopathy, unspecified SNOMED: 44795914 (4) Schizoaffective disorder ICD Codes: F25.9 - Schizoaffective disorder, unspecified SNOMED: 07240857 (5) Pleural effusion ICD Codes: J90 - Pleural effusion, not elsewhere classified SNOMED: 88595149 (6) Hypertensive heart and chronic kidney disease ICD Codes: I13.10 - Hypertensive heart and chronic kidney disease without heart failure, with stage 1 through stage 4 chronic kidney disease, or unspecified chronic kidney disease SNOMED: 0343329842003 (7) History of hypertension ICD Codes: Z86.79 - Personal history of other diseases of the circulatory system SNOMED: 014811630 (8) Psychosis ICD Codes: F29 - Unspecified psychosis not due to a substance or known physiological condition SNOMED: 25593254 Status: progressing Assessment/Plan dc planning uti is improvine less agitated bp is improving Subjective ROS Limited/Unobtainable: Yes Allergies: Coded Allergies: CODEINE (Unverified Allergy, Unknown, 10/23/16) ENALAPRIL (Unverified Allergy, Unknown, 10/23/16) LISINOPRIL (Unverified Allergy, Unknown, 10/23/16) MORPHINE (Unverified Allergy, Unknown, 10/23/16) Objective Last 24 Hour Vital Signs Date Time Temp Pulse Resp B/P (MAP) Pulse Ox O2 Delivery O2 Flow Rate FiO2 03/12/18 19:41 96 18 Room Air 21 03/12/18 18:18 75 148/105 03/12/18 16:47 148/105 03/12/18 16:00 97.6 75 20 148/105 (119) 97 03/12/18 09:00 Room Air 03/12/18 08:54 148/110 03/12/18 08:53 82 148/110 03/12/18 08:00 98.1 75 20 150/101 (117) 97 03/12/18 07:49 82 18 Room Air 21 03/12/18 05:05 148/110 03/12/18 04:00 98.7 69 19 148/110 (123) 96 03/12/18 00:54 80 18 Room Air 21 03/12/18 00:00 98.2 69 17 133/98 (110) 98 Intake and Output 03/11/18 03/12/18 19:00 07:00 Intake Total 880 ml 360 ml Balance 880 ml 360 ml Intake Oral 880 ml 360 ml # Voids 2 1 Laboratory Tests 03/12/18 06:10: White Blood Count 3.9L, Red Blood Count 4.86, Hemoglobin 12.1, Hematocrit 39.3, Mean Corpuscular Volume 81, Mean Corpuscular Hemoglobin 24.9L, Mean Corpuscular Hemoglobin Concent 30.9L, Red Cell Distribution Width 16.1H, Platelet Count 199 , Mean Platelet Volume 9.0, Neutrophils (%) (Auto) 57.1, Lymphocytes (%) (Auto) 27.8, Monocytes (%) (Auto) 10.4H, Eosinophils (%) (Auto) 3.3H, Basophils (%) ( Auto) 1.4, Sodium Level 143, Potassium Level 3.5, Chloride Level 107, Carbon Dioxide Level 27, Anion Gap 9, Blood Urea Nitrogen 23H, Creatinine 1.7H, Estimat Glomerular Filtration Rate , Glucose Level 115H, Uric Acid 4.8, Calcium Level 9.9, Phosphorus Level 2.9, Magnesium Level 1.8, Total Bilirubin 0.6, Aspartate Amino Transf (AST/SGOT) 20, Alanine Aminotransferase (ALT/SGPT) 14, Alkaline Phosphatase 80, C-Reactive Protein, Quantitative 1.5H, Pro-B-Type Natriuretic Peptide 352H, Total Protein 9.2H, Albumin 3.4, Globulin 5.8, Albumin /Globulin Ratio 0.6L, Carcinoembryonic Antigen [Pending] 03/12/18 10:00: Urine Eosinophils None seen Height (Feet): 5 Height (Inches): 6.00 Weight (Pounds): 150 Neck: supple Cardiovascular: normal rate Respiratory/Chest: lungs clear Abdomen: soft Angelina Wu MD Mar 12, 2018 21:11
--- NOTE | 2018-03-12 21:20 | NUR ---
NURSE NOTES: Patient refused zyprexa, stating it makes her feel nervous and she will talk to MD regarding this medication. Explained risks and benefits, verbalized understanding.
--- NOTE | 2018-03-12 21:30 | NUR ---
NURSE NOTES: Left another message to Margi Trujillo.
[2018-03-13] VITALS: BP 150/100
[2018-03-13] MEDS: cloNIDine 0.2mg Tab ORAL SCH (06:18)
--- NOTE | 2018-03-13 07:20 | NUR ---
HAND-OFF: Report given to Ita SHELTON.
--- NOTE | 2018-03-13 07:58 | NUR ---
NURSE NOTES: Patient received in stable condition, ambulating independently in room. Breathing unlabored on room air. No s/s of distress noted at this time. IV site on right forearm patent and intact. Call light within reach, will continue to monitor.
[2018-03-13 08:00] VITALS: BP 159/122
[2018-03-13] MEDS: Aspirin Baby 81mg ORAL SCH (08:50)
[2018-03-13] MEDS: Docusate 100mg cap ORAL SCH ×2 (08:50→12:30)
[2018-03-13] MEDS: Heparin 5000 units/ml inj SUBQ SCH (08:50)
[2018-03-13] MEDS ORDERED: Losartan 25mg tab ORAL SCH (09:00)
--- NOTE | 2018-03-13 09:30 | NUR ---
*-* DISCHARGE PLANNING *-* PATIENT HAS BEEN REFERRED BACK TO: [facility] P:[phone] F:[phone] EFAX:[phone]
[2018-03-13] MEDS ORDERED: Metoprolol Tartrate 12.5mg TAB ORAL SCH ×2 (09:39→21:00)
[2018-03-13] MEDS ORDERED: Minoxidil 2.5mg tab ORAL PRN (09:45)
--- NOTE | 2018-03-13 10:04 | NUR ---
*-* DISCHARGED PLANNED *-* PATIENT IS DISCHARGED TO: [facility] ROOM# 8-C SKILLED T: [phone] FOR NURSE TO NURSE REPORT [facility] HAS BEEN ARRANGED FOR EXPLOITATION ANALYST AT [phone]
[2018-03-13] MEDS ORDERED: ALBUTEROL SULF8.5 GM INH (10:05)
[2018-03-13] MEDS ORDERED: CLONIDINE 0.2M0.2 MG ORAL (10:08)
[2018-03-13] MEDS ORDERED: DOCUSATE SODIU100 M2 ORAL (10:09)
[2018-03-13] MEDS ORDERED: METOPROLOL TART25 MG ORAL (10:10)
[2018-03-13] MEDS ORDERED: LOSARTAN POTASS25 M1 PO (10:10)
[2018-03-13] MEDS ORDERED: OLANZAPINE20 MG ORAL (10:11)
[2018-03-13] MEDS ORDERED: LONITEN2.5 MG ORAL (10:12)
[2018-03-13] MEDS ORDERED: PROCARDIA XL30 MG ORAL (10:18)
--- NOTE | 2018-03-13 10:37 | NUR ---
NURSE NOTES: RN attempted to reach to patient's conservator Nila Daniel [phone] to inform about discharge. No answer. Voicemail left.
[2018-03-13 12:00] VITALS: BP 125/82
--- NOTE | 2018-03-13 12:20 | General Progress Note ---
Assessment/Plan Problem List: (1) Schizoaffective disorder ICD Codes: F25.9 - Schizoaffective disorder, unspecified SNOMED: 09905422 (2) encephalpathy metabolic Status: stable Assessment/Plan zyprexa 30mg po qhs ativan prn the pt lacks capacity to refuse meds dc when medically cleared Subjective Neurologic/Psychiatric: Reports: anxiety, depressed, emotional problems Allergies: Coded Allergies: CODEINE (Unverified Allergy, Unknown, 10/23/16) ENALAPRIL (Unverified Allergy, Unknown, 10/23/16) LISINOPRIL (Unverified Allergy, Unknown, 10/23/16) MORPHINE (Unverified Allergy, Unknown, 10/23/16) Subjective the pt is hallucinating and is disorganized. more interactive no agitation Objective Last 24 Hour Vital Signs Date Time Temp Pulse Resp B/P (MAP) Pulse Ox O2 Delivery O2 Flow Rate FiO2 03/13/18 12:00 97.9 54 18 125/82 (96) 99 03/13/18 10:08 72 159/122 03/13/18 09:45 72 18 Room Air 21 03/13/18 09:00 Room Air 03/13/18 08:50 99 159/122 03/13/18 08:49 159/122 03/13/18 08:00 97.7 99 18 159/122 (134) 98 03/13/18 06:18 155/97 03/13/18 00:00 97.6 66 20 150/100 (117) 95 03/12/18 23:16 151/100 03/12/18 21:00 Room Air 03/12/18 20:00 97.4 68 20 141/86 (104) 98 03/12/18 19:41 96 18 Room Air 21 03/12/18 18:18 75 148/105 03/12/18 16:47 148/105 03/12/18 16:00 97.6 75 20 148/105 (119) 97 Intake and Output 03/12/18 03/13/18 19:00 07:00 Intake Total 1650 ml Output Total 750 ml Balance 900 ml Intake Oral 1650 ml Output Urine Total 750 ml # Voids 4 Height (Feet): 5 Height (Inches): 6.00 Weight (Pounds): 150 General Appearance: WD/WN, alert, confused, agitated Farhadi,Pantea MD Mar 13, 2018 12:20
--- NOTE | 2018-03-13 12:35 | Nephrology Progress Note ---
Assessment/Plan Problem List: (1) Acute on chronic renal failure (2) Pleural effusion (3) Hypertensive heart and chronic kidney disease Assessment renal failure Cr 1.9 down 1.4 and up again to 1.7 Dementia Hypokalemia Dehydration Encephalopathy HTN ooc Diabetes A1c 6.2 Previous CVA pleural effusions Plan add beta blockers to bp meds further adjustment of BP meds IV Iron once monitor renal parameters waiting for echo per consultants Subjective ROS Limited/Unobtainable: No Objective Objective Last 24 Hour Vital Signs Date Time Temp Pulse Resp B/P (MAP) Pulse Ox O2 Delivery O2 Flow Rate FiO2 03/13/18 12:00 97.9 54 18 125/82 (96) 99 03/13/18 10:08 72 159/122 03/13/18 09:45 72 18 Room Air 21 03/13/18 09:00 Room Air 03/13/18 08:50 99 159/122 03/13/18 08:49 159/122 03/13/18 08:00 97.7 99 18 159/122 (134) 98 03/13/18 06:18 155/97 03/13/18 00:00 97.6 66 20 150/100 (117) 95 03/12/18 23:16 151/100 03/12/18 21:00 Room Air 03/12/18 20:00 97.4 68 20 141/86 (104) 98 03/12/18 19:41 96 18 Room Air 21 03/12/18 18:18 75 148/105 03/12/18 16:47 148/105 03/12/18 16:00 97.6 75 20 148/105 (119) 97 Intake and Output 03/12/18 03/13/18 19:00 07:00 Intake Total 1650 ml Output Total 750 ml Balance 900 ml Intake Oral 1650 ml Output Urine Total 750 ml # Voids 4 Height (Feet): 5 Height (Inches): 6.00 Weight (Pounds): 150 General Appearance: no apparent distress Objective no change Refugio Ramos MD Mar 13, 2018 12:35
--- NOTE | 2018-03-13 13:26 | NUR ---
NURSE NOTES: Patient discharged to SNF, accompanied by ambulance personnel. Belongings reviewed and confirmed. Breathing unlabored on room air, denies pain. Patient in stable condition upon departure. IV safely removed, site covered with gauze and tape.
--- NOTE | 2018-03-13 20:48 | General Progress Note ---
Assessment/Plan Assessment/Plan Assessment/Plan # Panctyopenia -- have seen her in 07/2016 and had similar blood counts at that time as well, she has anemia of chronic disease to underlying chronic medical issues, multifactorial --> Anemia workup has been reviewed from prior ==> hepatitis and hiv are neg from prior admission --> No evidence of hemolysis is noted, peripheral smear has been reviewed. --> Hgb goal >7. Transfuse prn. --> Epogen or iron at this time is not particularly indicated --> Medications have been reviewed # Elevated tumor markers --> CEA was before 4.3--> reheck (pending) --> prior colonoscopies were negative # Acute on chronic renal failure -->repeat CXR: BNP not elevated, no signs of fluid overload -->renal failure Cr 1.9 down 1.4 # Hypertensive heart and chronic kidney disease -->BP control with Losartan and Norvasc -->Echocardiogram to evaluate filling pressures and LV function --> Outpatient stress testing, no indication for cardiac cath # Hypokalemia-- # Dehydration--Mild IV fluid hydration, Hold diuresis The timing of this note does not necessarily reflect the time of the patient was seen Greatly appreciate consultation! Subjective Constitutional: Denies: no symptoms, chills, diaphoresis, fever, malaise, weakness, other Cardiovascular: Denies: no symptoms, chest pain, edema, irregular heart rate, lightheadedness, palpitations, syncope, other Respiratory: Denies: no symptoms, cough, orthopnea, shortness of breath, SOB with excertion, SOB at rest, sputum, stridor, wheezing, other Neurologic/Psychiatric: Denies: no symptoms, anxiety, depressed, emotional problems, headache, numbness, paresthesia, pre-existing deficit, seizure, tingling, tremors, weakness, other Endocrine: Denies: no symptoms, excessive sweating, flushing, intolerance to cold, intolerance to heat, increased hunger, increased thirst, increased urine, unexplained weight gain, unexplained weight loss, other Hematologic/Lymphatic: Denies: no symptoms, anemia, easy bleeding, easy bruising, other Allergies: Coded Allergies: CODEINE (Unverified Allergy, Unknown, 10/23/16) ENALAPRIL (Unverified Allergy, Unknown, 10/23/16) LISINOPRIL (Unverified Allergy, Unknown, 10/23/16) MORPHINE (Unverified Allergy, Unknown, 10/23/16) Subjective 03/12: expecting discharge soon, pending ct chest 03/13: dc today to sn[facility], labs reviewed again Objective Last 24 Hour Vital Signs Date Time Temp Pulse Resp B/P (MAP) Pulse Ox O2 Delivery O2 Flow Rate FiO2 03/13/18 12:00 97.9 54 18 125/82 (96) 99 03/13/18 10:08 72 159/122 03/13/18 09:45 72 18 Room Air 21 03/13/18 09:00 Room Air 03/13/18 08:50 99 159/122 03/13/18 08:49 159/122 03/13/18 08:00 97.7 99 18 159/122 (134) 98 03/13/18 06:18 155/97 03/13/18 00:00 97.6 66 20 150/100 (117) 95 03/12/18 23:16 151/100 03/12/18 21:00 Room Air Intake and Output 03/12/18 03/13/18 18:59 06:59 Intake Total 1650 ml Output Total 750 ml Balance 900 ml Intake Oral 1650 ml Output Urine Total 750 ml # Voids 4 Height (Feet): 5 Height (Inches): 6.00 Weight (Pounds): 150 Objective General Appearance: no apparent distress, alert Lines, tubes and drains: peripheral HEENT: normocephalic, atraumatic, anicteric, mucous membranes moist, PERRL Neck: non-tender, normal alignment, supple, normal inspection Respiratory/Chest: chest wall non-tender, lungs clear Cardiovascular/Chest: normal peripheral pulses, normal rate, regular rhythm Abdomen: normal bowel sounds, non tender Extremities: normal range of motion, non-tender Skin Exam: normal pigmentation Neurologic: computer numeric control setter II-XII grossly normal, no motor/sensory deficits Cl Bird MD Mar 13, 2018 20:48
[2018-03-13] MEDS ORDERED: OLANZapine 10mg tab ORAL SCH (21:00)
--- NOTE | 2018-03-15 08:07 | Discharge Summary ---
Discharge Summary Discharge Summary _ DATE OF ADMISSION: 03/09/2018 DATE OF DISCHARGE: 03/13/2018 DISCHARGED BY: Dr Wu REASON FOR ADMISSION: [] 72 years old female with past medical history of cerebrovascular accident, hypertension, diabetes, schizophrenia, bipolar disorder, GERD, osteoarthritis, was sent from the [facility] facility for evaluation due to increased generalized weakness. Apparently patient has not been eating or drinking well. She by herself was unable to provide any information due to underlying psychiatric condition. Upon evaluation blood pressure was significantly elevated 181/115 otherwise no fever pulse is 70 stable on room air. Laboratory workup revealed potassium 3.1 BUN 19, creatinine 1.9. Glucose 110. Revealed +1 protein no pyuria. No leukocytosis hemoglobin 11.7 hematocrit 38.9. Chest x-ray revealed evidence of congestive heart failure with interstitial edema and bilateral pleural effusion. Cardiomegaly. Patient was admitted for further management CONSULTANTS: organic gardening teacher Dr. Horn neurologist pulmonary Dr.Naraghi MARY specialist GI specialist sandwich wrapper Dr. Ramos tig welder/oncologist Dr. Menjivar surgery psychiatrist HOSPITAL COURSE: Patient initially admitted to telemetry floor. Echocardiogram revealed preserved ejection fraction of 60% with mild left ventricular hypertrophy. No evidence of wall motion abnormality. No evidence of pericardial effusion. Patient started on IV hydration . Supplemental oxygen provided as needed to keep pulse oximetry above 92%. Pulmonary toilet was on standby. Renal parameters and electrolytes were closely monitored. Electrolytes corrected as needed. Nephrotoxins were avoided. Volumes were closely monitored. No evidence of fluid overload, there was no need for diuresis at this time. Strict aspiration precaution maintained. DVT prophylaxis provided. Prior to discharge potassium stable. . Creatinine initially trended down to 1.4 and then up again to 1.7. According to sandwich wrapper , patient had acute on chronic renal failure due to hypertension. Blood pressure was managed with multiply antihypertensive medication regimen, including ARB, calcium channel shannon and clonidine. Beta-shannon were added to existing regimen. Blood pressure stabilized , and prior to discharge blood pressure 125/82. Antiplatelet therapy with aspirin continued. Lipid panel was stable. Per organic gardening teacher recommendation , consider outpatient stress test. No indication for cardiac catheterization. Marine Diver recommended to consider CT of the chest for further evaluation of pleural effusion and underlying parenchymal disease. Patient declined CT chest. Pulse oximetry was stable on room air , no evidence of respiratory distress. CT scan of the chest was canceled for now. Hemoglobin and hematocrit were closely monitored with goal to keep hemoglobin above7. Anemia workup revealed evidence of anemia of chronic disease with low iron and low ferritin. Anemia of chronic disease was due to underlying chronic medical issue , and was multifactorial, as per tig welder. IV Venofer administered x1. Prior to discharge hemoglobin 12.1 , hematocrit 39.3. [place] followed. Patient with evidence of pancytopenia , with similar blood counts previously. From prior admission hepatitis panel and HIV test were both negative. No evidence of hemolysis. Psychiatrist followed. Psychiatrist optimized psychiatric medication regimen. Psychiatrist cleared for discharge, when medically cleared. Patient clinically stabilized and was ready for discharge to the [facility] facility for continuation of care. FINAL DIAGNOSES: Acute on chronic metabolic encephalopathy Acute on chronic renal failure, possible acute tubular necrosis Dehydration Hypertensive urgency -resolved Hypertensive heart and chronic kidney disease Diabetes mellitus History of CVA Pleural effusion Dementia Hypokalemia-resolved Pancytopenia Anemia of chronic disease due to underlying chronic medical issue, multifactorial Schizoaffective disorder DISCHARGE MEDICATIONS: See Medication Reconciliation list. DISCHARGE INSTRUCTIONS: Patient was discharged to the [facility] facility. Follow up with medical doctor at the facility. I have been assigned to dictate discharge summary for this account. I was not involved in the patient's management. Gloria Aguillon NP Mar 15, 2018 08:07
== END 2018-03-13 13:25 | DRG 640 ==
LOC: EDBD 10:48 → EDBEDREQ 11:08 → EMR 11:30 → 4E 11:37 → EDBEDREQ 11:52 → 4E 14:23
DX: E86.0 Dehydration (principal); N17.0 Acute kidney failure with tubular necrosis; G93.41 Metabolic encephalopathy; D61.818 Other pancytopenia; I13.0 Hypertensive heart and chronic kidney disease with heart failure and stage 1 through stage 4 chronic kidney disease, or unspecified chronic kidney disease; F03.90 Unspecified dementia, unspecified severity, without behavioral disturbance, psychotic disturbance, mood disturbance, and anxiety; E87.6 Hypokalemia; F25.9 Schizoaffective disorder, unspecified; I16.0 Hypertensive urgency; E11.22 Type 2 diabetes mellitus with diabetic chronic kidney disease; N18.9 Chronic kidney disease, unspecified; I50.9 Heart failure, unspecified; K21.9 Gastro-esophageal reflux disease without esophagitis; Z79.82 Long term (current) use of aspirin; Z91.14 Patient's other noncompliance with medication regimen; Z86.73 Personal history of transient ischemic attack (TIA), and cerebral infarction without residual deficits
CPT/HCPCS: 36415; 71045; 80053; 80061; 81003; 82378; 82550; 82553; 82607; 82728; 82746; 82977; 83036; 83540; 83550; 83690; 83735; 83880; 84100; 84300; 84443; 84484; 84550; 85025; 86140; 87081; 89050; 93005; 93306; 94664; 99285; J8499

== ENCOUNTER 2018-04-30 15:15 | Inpatient (IN) | payer MEDICARE, MEDICAID ==
[~2018-04-30] VITALS: Ht 172.7 cm; Wt 95.7 kg
[~2018-04-30 15:15] MED LIST changes: +ALBUTEROL SULF8.5 GM INH; +CLONIDINE 0.2M0.2 MG ORAL; +CRANBERRY450 M4 PO; +DOCUSATE SODIU100 M2 ORAL; +LONITEN2.5 MG ORAL; +LOSARTAN POTASS25 M1 PO; +METOPROLOL TART25 MG ORAL; +NORVASC5 MG ORAL; +OLANZAPINE20 MG ORAL; +PROCARDIA XL30 MG ORAL
--- NOTE | 2018-04-30 15:20 | NUR ---
ED Nurse Note: Pt BIBA from [facility] to rule out PNA. Pt denies pain. Hx of DM, HTN, Anemia, GERD. Pt is A + O x4. Ambulatory. Skin warm to touch. Pt appears to be irritable and has dementia episodes. Pt gets irritable towards nursing staff and has the tendency to yell at staff.
[2018-04-30 15:26] VITALS: BP 156/98
[2018-04-30 16:13] LABS: BASOPHILS % (AUTO) 1.5 % (0.0-2.0); EOSINOPHILS % (AUTO) 2.9 % (0.0-3.0); HEMATOCRIT 35.1 % (37.0-47.0); HEMOGLOBIN 10.4 G/DL (12.0-16.0); LYMPHOCYTES % (AUTO) 28.1 % (20.0-45.0); MEAN CORPUSCULAR VOLUME 82 FL (80-99); MONOCYTES % (AUTO) 7.6 % (1.0-10.0); PLATELET COUNT 193 K/UL (150-450); RED BLOOD COUNT 4.29 M/UL (4.20-5.40); RED CELL DISTRIBUTION WIDTH 16.3 % (11.6-14.8); WHITE BLOOD COUNT 5.3 K/UL (4.8-10.8)
[2018-04-30 16:15] LABS: ANION GAP 11 mmol/L (5-15); BLOOD UREA NITROGEN 31 mg/dL (7-18); CALCIUM 9.3 MG/DL (8.5-10.1); CARBON DIOXIDE 26 MMOL/L (21-32); CHLORIDE 108 MMOL/L (98-107); CREATININE 2.2 MG/DL (0.55-1.30); POTASSIUM 3.7 MMOL/L (3.5-5.1); SODIUM 145 MMOL/L (136-145)
[2018-04-30 16:20] LABS: ALANINE AMINOTRANSFERASE 13 U/L (12-78); ALBUMIN 3.1 G/DL (3.4-5.0); ALBUMIN/GLOBULIN RATIO 0.5 (1.0-2.7); ALKALINE PHOSPHATASE 82 U/L (46-116); ASPARTATE AMINO TRANSFERASE 21 U/L (15-37); BILIRUBIN,TOTAL 0.2 MG/DL (0.2-1.0)
--- NOTE | 2018-04-30 16:27 | NUR ---
ED Nurse Note: Notified ERMD of refusal of straight cath for collection of urine. Will continue to monitor.
--- NOTE | 2018-04-30 16:37 | NUR ---
ED Nurse Note: At first, pt consented to go through belongings to create belongings list, while going through it, pt did not want nurse to touch any of her belongings and started to yell. Notified CN and cosigned belongings list w/ CN.
--- NOTE | 2018-04-30 16:52 | NUR ---
ED Nurse Note: Xray at the bedside.
--- NOTE | 2018-04-30 17:23 | NUR ---
ED Nurse Note: Gave telephone report to CAT Myles. Admission packet pending.
[2018-04-30 17:29] VITALS: BP 166/105
--- NOTE | 2018-04-30 17:45 | NUR ---
NURSE NOTES: Asked Dr. Wu for admission orders
--- NOTE | 2018-04-30 17:54 | NUR ---
ED Nurse Note: Pt transferred up to medsur unit w/ no acute distress noted. Left Er w/ all belongings.
--- NOTE | 2018-04-30 17:58 | Emergency Room Report ---
History of Present Illness General Chief Complaint: General Complaint Source: Patient, EMS Present Illness HPI 73-year-old female presents ED for evaluation. Brought in by EMS for evaluation of possible pneumonia. [facility]. Patient has been having cough times several days. Productive with yellowish phlegm. Denies fevers or chills. Denies chest pain. Denies sick contacts or recent travel. History of psych. Denies SI or HI. Denies hearing voices. No other aggravating relieving factors. Denies any other associated symptoms Allergies: Coded Allergies: CODEINE (Unverified Allergy, Unknown, 10/23/16) ENALAPRIL (Unverified Allergy, Unknown, 10/23/16) LISINOPRIL (Unverified Allergy, Unknown, 10/23/16) MORPHINE (Unverified Allergy, Unknown, 10/23/16) Patient History Past Medical History: DM, HTN, CVA/TIA, psych hx Past Surgical History: none Pertinent Family History: none Social History: Denies: smoking, alcohol use, drug use Now: No Immunizations: UTD Reviewed Nursing Documentation: PMH: Agreed; PSxH: Agreed Nursing Documentation-PMH Hx Cardiac Problems: No - anemia Hx Hypertension: Yes Hx Diabetes: Yes Hx Cancer: No Hx Gastrointestinal Problems: Yes - GERD Hx Neurological Problems: No Hx Cerebrovascular Accident: Yes Hx Tremors: Yes Hx Neurologic Surgery: No Review of Systems All Other Systems: negative except mentioned in HPI Physical Exam Vital Signs Date Time Temp Pulse Resp B/P (MAP) Pulse Ox O2 Delivery O2 Flow Rate FiO2 04/30/18 15:09 98.2 64 20 124/92 97 Room Air 04/30/18 15:26 98 Sp02 EP Interpretation: reviewed, normal General Appearance: no apparent distress, alert, GCS 15, non-toxic Head: normocephalic, atraumatic Eyes: bilateral eye normal inspection, bilateral eye PERRL ENT: hearing grossly normal, normal pharynx, no angioedema, normal voice Neck: full range of motion, supple/symm/no masses Respiratory: lungs clear, crackles, speaking full sentences Cardiovascular #1: regular rate, rhythm, no edema Cardiovascular #2: 2+ carotid (R), 2+ carotid (L), 2+ radial (R), 2+ radial (L) , 2+ dorsalis pedis (R), 2+ dorsalis pedis (L) Gastrointestinal: normal bowel sounds, non tender, soft, non-distended, no guarding, no rebound Rectal: deferred Genitourinary: normal inspection, no CVA tenderness Musculoskeletal: back normal, gait/station normal, normal range of motion, non- tender Neurologic: alert, oriented x3, responsive, motor strength/tone normal, sensory intact, speech normal Psychiatric: judgement/insight normal, memory normal, mood/affect normal, no suicidal/homicidal ideation Reflexes: 3+ bicep (R), 3+ bicep (L), 3+ tricep (R), 3+ tricep (L), 3+ knee (R) , 3+ knee (L) Skin: normal color, no rash, warm/dry, well hydrated Lymphatic: no adenopathy Medical Decision Making Diagnostic Impression: Primary Impression: Pneumonia Qualified Codes: J18.1 - Lobar pneumonia, unspecified organism Additional Impression: Acute on chronic renal failure Qualified Codes: N17.9 - Acute kidney failure, unspecified; N18.9 - Chronic kidney disease, unspecified ER Course Hospital Course 73-year-old F presenting to ED with persistent cough Differential diagnoses include: Pneumonia, CHF exacerbation, pneumothorax, fluid overload Clinical course Patient placed on stretcher. On cardiac rn with stable vitals. After initial history and physical, I ordered labs, IV fluids, EKG, chest x-ray, blood cultures, UA. Labs - no leukocytosis, hemoglobin/hematocrit stable, BUN/cr elevated, lactate okay EKG - NSR, no acute ischemic changes interpreted by me CXR - bilateral lower lobe inifltrates abx given. Case discussed with Dr. Wu and he agreed to the patient to his service for further care and support I feel this is a highly complex case requiring extensive working including EKG/ Rhythm strip, Xray/CT/US, Blood/urine lab work, repeat exams while in ED, and administration of strong opiates/narcotics for pain control, admission to hospital or close patient follow up. Diagnosis - pneumonia, acute on chronic renal failure Patient admitted to floor in [place] emergency department Labs Test 04/30/18 15:40 White Blood Count 5.3 K/UL (4.8-10.8) Red Blood Count 4.29 M/UL (4.20-5.40) Hemoglobin 10.4 G/DL (12.0-16.0) Hematocrit 35.1 % (37.0-47.0) Mean Corpuscular Volume 82 FL (80-99) Mean Corpuscular Hemoglobin 24.2 PG (27.0-31.0) Mean Corpuscular Hemoglobin Concent 29.6 G/DL (32.0-36.0) Red Cell Distribution Width 16.3 % (11.6-14.8) Platelet Count 193 K/UL (150-450) Mean Platelet Volume 8.7 FL (6.5-10.1) Neutrophils (%) (Auto) 60.0 % (45.0-75.0) Lymphocytes (%) (Auto) 28.1 % (20.0-45.0) Monocytes (%) (Auto) 7.6 % (1.0-10.0) Eosinophils (%) (Auto) 2.9 % (0.0-3.0) Basophils (%) (Auto) 1.5 % (0.0-2.0) Sodium Level 145 MMOL/L (136-145) Potassium Level 3.7 MMOL/L (3.5-5.1) Chloride Level 108 MMOL/L (98-107) Carbon Dioxide Level 26 MMOL/L (21-32) Anion Gap 11 mmol/L (5-15) Blood Urea Nitrogen 31 mg/dL (7-18) Creatinine 2.2 MG/DL (0.55-1.30) Estimat Glomerular Filtration Rate mL/min (>60) Glucose Level 79 MG/DL (74-106) Lactic Acid Level 1.00 mmol/L (0.4-2.0) Calcium Level 9.3 MG/DL (8.5-10.1) Total Bilirubin 0.2 MG/DL (0.2-1.0) Aspartate Amino Transf (AST/SGOT) 21 U/L (15-37) Alanine Aminotransferase (ALT/SGPT) 13 U/L (12-78) Alkaline Phosphatase 82 U/L (46-116) Total Protein 8.8 G/DL (6.4-8.2) Albumin 3.1 G/DL (3.4-5.0) Globulin 5.7 g/dL Albumin/Globulin Ratio 0.5 (1.0-2.7) EKG Diagnostic Results Rate: normal Rhythm: NSR ST Segments: no acute changes ASA given to the pt in ED: No Rhythm Strip Diag. Results EP Interpretation: yes Rhythm: NSR, no PVC's, no ectopy Chest X-Ray Diagnostic Results Chest X-Ray Diagnostic Results : Chest X-Ray Ordered: Yes # of Views/Limited/Complete: 1 View Indication: Other - cough EP Interpretation: Yes Interpretation: no pneumothorax, other - haziness lower lung magallanes Impression: Other - pneumonia Electronically Signed by: Electronically signed by Leobardo Craft MD Last Vital Signs Date Time Temp Pulse Resp B/P (MAP) Pulse Ox O2 Delivery O2 Flow Rate FiO2 04/30/18 17:29 98.0 76 22 166/105 98 Room Air 98 Status: improved Disposition: ADMITTED INPATIENT Condition: Serious Referrals: Angelina Wu MD (PCP) Leobardo Craft MD Apr 30, 2018 17:58
[2018-04-30 18:20] VITALS: BP 125/84
--- NOTE | 2018-04-30 18:20 | NUR ---
NURSE NOTES: Pt arrived to [facility] via ER [place]. Pt is talkative, no complaints of pain, no apparent distress noted, A/x4 able to answer assessment questions. Vitals obtained and assessment done, see flowsheets.
[2018-04-30] MEDS ORDERED: Acetaminophen 650mg/20.3ml ORAL PRN (18:45)
[2018-04-30] MEDS ORDERED: LORazepam 1mg tab ORAL PRN (18:45)
[2018-04-30] MEDS ORDERED: Milk of Magnesia 30ml Ud ORAL PRN (18:45)
[2018-04-30] MEDS ORDERED: Albuterol 90mcg Inhaler 8gm INH SCH (18:45)
--- NOTE | 2018-04-30 19:14 | NUR ---
HAND-OFF: Report given to CAT Adrian.
[2018-04-30] MEDS ORDERED: Lomotil 2.5mg tab ORAL PRN (19:21)
[2018-04-30] MEDS ORDERED: Albuterol 90mcg Inhaler 8gm INH PRN (19:30)
--- NOTE | 2018-04-30 19:44 | NUR ---
NURSE NOTES: Received patient in bed, new admit, patient is awake, alert, oriented, on room air, ambulatory with unsteady gate, VSS, afebrile. No acute distress noted or reported. Call light is within reach, bed is in low position, locked, alarm is on, will continue to monitor for safety and comfort.
[2018-04-30] MEDS: Metoprolol Tartrate 12.5mg TAB ORAL SCH (20:23)
[2018-04-30] MEDS ORDERED: Lomotil 2.5mg tab ORAL SCH (21:00)
[2018-04-30] MEDS: cefTRIAXone 1 GM in D5W 55 ML IVPB SCH (22:59)
[2018-04-30] MEDS: cloNIDine 0.2mg Tab ORAL SCH (22:59)
[2018-05-01 05:33] VITALS: BP 131/80
[2018-05-01] MEDS: cloNIDine 0.2mg Tab ORAL SCH ×3 (06:17→22:06)
--- NOTE | 2018-05-01 07:00 | NUR ---
HAND-OFF: Report given to Jennifer Golden RN.
--- NOTE | 2018-05-01 07:10 | NUR ---
NURSE NOTES: Received patient in be, awake, alert and oriented x2-3. Patient is calm @ this time. Denies any pain or discomfort. Noted with on and off cough. Afebrile. Bed is in lowest position and locked.Bed alarm is on. IV intact, no s/s of infiltration. Will continue plan of care.
[2018-05-01 07:29] LABS: BASOPHILS % (AUTO) 0.7 % (0.0-2.0); EOSINOPHILS % (AUTO) 4.5 % (0.0-3.0); HEMATOCRIT 31.4 % (37.0-47.0); HEMOGLOBIN 9.6 G/DL (12.0-16.0); LYMPHOCYTES % (AUTO) 30.9 % (20.0-45.0); MEAN CORPUSCULAR VOLUME 82 FL (80-99); MONOCYTES % (AUTO) 12.3 % (1.0-10.0); NEUTROPHILS % (AUTO) 51.6 % (45.0-75.0); PLATELET COUNT 172 K/UL (150-450); RED BLOOD COUNT 3.82 M/UL (4.20-5.40)
[2018-05-01 07:58] LABS: ALANINE AMINOTRANSFERASE 10 U/L (12-78); ALBUMIN 2.5 G/DL (3.4-5.0); ALBUMIN/GLOBULIN RATIO 0.5 (1.0-2.7); ALKALINE PHOSPHATASE 70 U/L (46-116); ANION GAP 7 mmol/L (5-15); ASPARTATE AMINO TRANSFERASE 15 U/L (15-37); BILIRUBIN,TOTAL 0.1 MG/DL (0.2-1.0); BLOOD UREA NITROGEN 28 mg/dL (7-18); CALCIUM 8.9 MG/DL (8.5-10.1); CARBON DIOXIDE 29 MMOL/L (21-32); CHLORIDE 110 MMOL/L (98-107); CREATININE 1.9 MG/DL (0.55-1.30); POTASSIUM 3.6 MMOL/L (3.5-5.1); SODIUM 146 MMOL/L (136-145)
[2018-05-01 08:00] VITALS: BP 141/88
[2018-05-01] MEDS: Aspirin Baby 81mg ORAL SCH (08:31)
[2018-05-01] MEDS: Losartan 25mg tab ORAL SCH (08:31)
[2018-05-01] MEDS: Docusate 100mg cap ORAL SCH ×4 (08:31→17:01)
[2018-05-01] MEDS: Metoprolol Tartrate 12.5mg TAB ORAL SCH (08:33)
--- NOTE | 2018-05-01 08:43 | NUR ---
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
--- NOTE | 2018-05-01 09:00 | NUR ---
NURSE NOTES: Patient refused to take Docusate stating " I do not need it." RN educated on meds and explained the risks and benefits.
--- NOTE | 2018-05-01 09:00 | NUR ---
NURSE NOTES: Unable to administer nifedipine and metoprolol due to pulse is less than 60. Patient is asymptomatic. Will continue to monitor.
[2018-05-01 12:00] VITALS: BP 143/92
[2018-05-01 12:31] LABS: APPEARANCE,URINE CLEAR; BILIRUBIN, URINE NEGATIVE (NEGATIVE); COLOR,URINE PALE YELLOW; GLUCOSE, URINE (UA) NEGATIVE (NEGATIVE); KETONES,URINE NEGATIVE (NEGATIVE); LEUKOCYTE ESTERASE ,URINE NEGATIVE (NEGATIVE); NITRITE,URINE NEGATIVE (NEGATIVE); PH,URINE 6 (4.5-8.0); PROTEIN,URINE NEGATIVE (NEGATIVE); UROBILINOGEN,URINE NORMAL MG/DL (0.0-1.0)
--- NOTE | 2018-05-01 12:46 | Consultation ---
History of Present Illness General Chief Complaint: General Complaint Present Illness Allergies: Coded Allergies: CODEINE (Unverified Allergy, Unknown, 10/23/16) ENALAPRIL (Unverified Allergy, Unknown, 10/23/16) LISINOPRIL (Unverified Allergy, Unknown, 10/23/16) MORPHINE (Unverified Allergy, Unknown, 10/23/16) Medication History Scheduled Albuterol Sulfate* (Albuterol Sulfate Mdi*), 2 PUFF INH Q6H, (Reported) Aspirin* (Aspirin*), 81 MG ORAL DAILY, (Reported) Clonidine HCl (Clonidine HCl), 0.2 MG ORAL Q8HR, (Reported) Docusate Sodium (Docusate Sodium), 100 MG ORAL TID, (Reported) Losartan Potassium (Losartan Potassium), 25 MG PO DAILY, (Reported) Metoprolol Tartrate* (Metoprolol Tartrate*), 12.5 MG ORAL EVERY 12 HOURS, ( Reported) Minoxidil (Minoxidil), 2.5 MG ORAL Q4HR, (Reported) Nifedipine Xl* (Procardia Xl*), 60 MG ORAL BID, (Reported) Olanzapine (Olanzapine), 20 MG ORAL BEDTIME, (Reported) Scheduled PRN Acetaminophen (Acetaminophen), 650 MG ORAL Q4HR PRN for Prn Headache/Temp > 101, (Reported) Lorazepam* (Ativan*), 1 MG ORAL EVERY 8 HOURS PRN for For Anxiety, (Reported) Magnesium Hydroxide (Milk of Magnesia), 30 ML ORAL DAILY PRN for Constipation, ( Reported) Temazepam* (Restoril*), 7.5 MG ORAL BEDTIME PRN for Insomnia, (Reported) Patient History Healthcare decision maker N Resuscitation status Full Code Advanced Directive on File No Physical Exam Last 24 Hour Vital Signs Date Time Temp Pulse Resp B/P (MAP) Pulse Ox O2 Delivery O2 Flow Rate FiO2 05/01/18 12:00 97.0 59 18 143/92 (109) 95 05/01/18 09:00 Room Air 05/01/18 08:34 56 141/88 05/01/18 08:33 56 141/88 05/01/18 08:31 141/88 05/01/18 08:00 98.1 56 18 141/88 (105) 98 05/01/18 06:17 144/85 05/01/18 05:33 97.9 59 18 131/80 (97) 04/30/18 22:59 144/78 04/30/18 20:23 86 142/90 04/30/18 18:36 Room Air 04/30/18 18:20 97.0 72 14 125/84 (98) 97 04/30/18 17:53 98.2 84 29 151/135 96 Room Air 98 04/30/18 17:29 98.0 76 22 166/105 98 Room Air 98 04/30/18 15:26 75 25 Room Air 98 04/30/18 15:26 98.1 75 25 156/98 98 Room Air 04/30/18 15:09 98.2 64 20 124/92 97 Room Air Intake and Output 04/30/18 05/01/18 19:00 07:00 Intake Total 500 ml Balance 500 ml IV Total 500 ml # Voids 1 Laboratory Tests Test 04/30/18 15:40 05/01/18 05:15 05/01/18 12:10 White Blood Count 5.3 K/UL (4.8-10.8) 4.0 K/UL (4.8-10.8) L Red Blood Count 4.29 M/UL (4.20-5.40) 3.82 M/UL (4.20-5.40) L Hemoglobin 10.4 G/DL (12.0-16.0) L 9.6 G/DL (12.0-16.0) L Hematocrit 35.1 % (37.0-47.0) L 31.4 % (37.0-47.0) L Mean Corpuscular Volume 82 FL (80-99) 82 FL (80-99) Mean Corpuscular Hemoglobin 24.2 PG (27.0-31.0) L 25.0 PG (27.0-31.0) L Mean Corpuscular Hemoglobin Concent 29.6 G/DL (32.0-36.0) L 30.4 G/DL (32.0-36.0) L Red Cell Distribution Width 16.3 % (11.6-14.8) H 17.0 % (11.6-14.8) H Platelet Count 193 K/UL (150-450) 172 K/UL (150-450) Mean Platelet Volume 8.7 FL (6.5-10.1) 8.3 FL (6.5-10.1) Neutrophils (%) (Auto) 60.0 % (45.0-75.0) 51.6 % (45.0-75.0) Lymphocytes (%) (Auto) 28.1 % (20.0-45.0) 30.9 % (20.0-45.0) Monocytes (%) (Auto) 7.6 % (1.0-10.0) 12.3 % (1.0-10.0) H Eosinophils (%) (Auto) 2.9 % (0.0-3.0) 4.5 % (0.0-3.0) H Basophils (%) (Auto) 1.5 % (0.0-2.0) 0.7 % (0.0-2.0) Sodium Level 145 MMOL/L (136-145) 146 MMOL/L (136-145) H Potassium Level 3.7 MMOL/L (3.5-5.1) 3.6 MMOL/L (3.5-5.1) Chloride Level 108 MMOL/L (98-107) H 110 MMOL/L (98-107) H Carbon Dioxide Level 26 MMOL/L (21-32) 29 MMOL/L (21-32) Anion Gap 11 mmol/L (5-15) 7 mmol/L (5-15) Blood Urea Nitrogen 31 mg/dL (7-18) H 28 mg/dL (7-18) H Creatinine 2.2 MG/DL (0.55-1.30) H 1.9 MG/DL (0.55-1.30) H Estimat Glomerular Filtration Rate mL/min (>60) mL/min (>60) Glucose Level 79 MG/DL (74-106) 83 MG/DL (74-106) Lactic Acid Level 1.00 mmol/L (0.4-2.0) Calcium Level 9.3 MG/DL (8.5-10.1) 8.9 MG/DL (8.5-10.1) Total Bilirubin 0.2 MG/DL (0.2-1.0) 0.1 MG/DL (0.2-1.0) L Aspartate Amino Transf (AST/SGOT) 21 U/L (15-37) 15 U/L (15-37) Alanine Aminotransferase (ALT/SGPT) 13 U/L (12-78) 10 U/L (12-78) L Alkaline Phosphatase 82 U/L (46-116) 70 U/L (46-116) Total Protein 8.8 G/DL (6.4-8.2) H 7.6 G/DL (6.4-8.2) Albumin 3.1 G/DL (3.4-5.0) L 2.5 G/DL (3.4-5.0) L Globulin 5.7 g/dL 5.1 g/dL Albumin/Globulin Ratio 0.5 (1.0-2.7) L 0.5 (1.0-2.7) L Urine Color Pale yellow Urine Appearance Clear Urine pH 6 (4.5-8.0) Urine Specific [place] 1.015 (1.005-1.035) Urine Protein Negative (NEGATIVE) Urine Glucose (UA) Negative (NEGATIVE) Urine Ketones Negative (NEGATIVE) Urine Blood Negative (NEGATIVE) Urine Nitrite Negative (NEGATIVE) Urine Bilirubin Negative (NEGATIVE) Urine Urobilinogen Normal MG/DL (0.0-1.0) Urine Leukocyte Esterase Negative (NEGATIVE) Microbiology Date/Time Source Procedure Growth Status 04/30/18 15:40 Nasal Nares Influenza Types A,B Antigen (ARIANE) - Final Complete Height (Feet): 5 Height (Inches): 8.00 Weight (Pounds): 211 Medications Current Medications Medications (Trade) Dose Ordered Sig/Yao Route PRN Reason Start Time Stop Time Status Last Admin Dose Admin Acetaminophen (Tylenol) 650 mg Q4H PRN ORAL Prn Headache/Temp > 101 04/30/18 18:45 05/30/18 18:44 Albuterol Sulfate (Proventil MDI) 2 puff Q6H PRN INH Shortness of Breath 04/30/18 19:30 05/30/18 18:44 Aspirin (ASA) 81 mg DAILY ORAL 05/01/18 09:00 05/31/18 08:59 05/01/18 08:31 Ceftriaxone Sodium 1 gm/ Dextrose 55 ml @ 110 mls/hr Q24H IVPB 04/30/18 22:00 05/07/18 21:59 04/30/18 22:59 Clonidine HCl (Catapres tab) 0.2 mg Q8HR ORAL 04/30/18 22:00 05/30/18 21:59 05/01/18 06:17 Diphenoxylate HCl/ Atropine (Lomotil) 2.5 mg Q4H PRN ORAL Diarrhea 04/30/18 19:21 05/30/18 19:20 Docusate Sodium (Colace) 100 mg TID ORAL 05/01/18 09:00 05/31/18 08:59 Lorazepam (Ativan) 1 mg Q8H PRN ORAL For Anxiety 04/30/18 18:45 05/07/18 18:44 Losartan Potassium (Cozaar) 25 mg DAILY ORAL 05/01/18 09:00 05/31/18 08:59 05/01/18 08:31 Magnesium Hydroxide (Mom) 30 ml DAILYPRN PRN ORAL Constipation 04/30/18 18:45 05/30/18 18:44 Metoprolol Tartrate (Lopressor) 12.5 mg EVERY 12 HOURS ORAL 04/30/18 21:00 05/30/18 20:59 04/30/18 20:23 Nifedipine (Procardia XL) 60 mg BID ORAL 05/01/18 09:00 05/31/18 08:59 Temazepam (Restoril) 7.5 mg BEDTIME PRN ORAL Insomnia 04/30/18 18:45 05/07/18 18:44 Assessment/Plan Assessment/Plan Hematology Evaluation Chief Complaint: General Complaint DOS: 05/01/18 Source: Patient, EMS REQ MD: Angeline Wu RFC: Pancytopenia HPI 73-year-old female presents ED for evaluation. Brought in by EMS for evaluation of possible pneumonia. Coming from [facility] facility. Patient has been having cough times several days. Productive with yellowish phlegm. Denies fevers or chills. Denies chest pain. Denies sick contacts or recent travel. History of psych. Denies SI or HI. Denies hearing voices. No other aggravating relieving factors. Denies any other associated symptoms. I was asked to see her for pancytopenia. I have seen her last month as well for similar issues, her wbc now has dropped, and she has likely infection. Allergies: CODEINE (Unverified Allergy, Unknown, 10/23/16) ENALAPRIL (Unverified Allergy, Unknown, 10/23/16) LISINOPRIL (Unverified Allergy, Unknown, 10/23/16) MORPHINE (Unverified Allergy, Unknown, 10/23/16) Past Medical History: DM, HTN, CVA/TIA, psych hx Past Surgical History: none Pertinent Family History: none Social History: Denies: smoking, alcohol use, drug use Now: No Immunizations: UTD Reviewed Nursing Documentation: PMH: Agreed; PSxH: Agreed Hx Cardiac Problems: No - anemia Hx Hypertension: Yes Hx Diabetes: Yes Hx Cancer: No Hx Gastrointestinal Problems: Yes - GERD Hx Neurological Problems: No Hx Cerebrovascular Accident: Yes Hx Tremors: Yes Hx Neurologic Surgery: No Review of systems: negative except mentioned in HPI Last 24 Hour Vital Signs Date Time Temp Pulse Resp B/P (MAP) Pulse Ox O2 Delivery O2 Flow Rate FiO2 05/01/18 12:00 97.0 59 18 143/92 (109) 95 05/01/18 09:00 Room Air 05/01/18 08:34 56 141/88 05/01/18 08:33 56 141/88 05/01/18 08:31 141/88 05/01/18 08:00 98.1 56 18 141/88 (105) 98 05/01/18 06:17 144/85 05/01/18 05:33 97.9 59 18 131/80 (97) 04/30/18 22:59 144/78 04/30/18 20:23 86 142/90 04/30/18 18:36 Room Air 04/30/18 18:20 97.0 72 14 125/84 (98) 97 04/30/18 17:53 98.2 84 29 151/135 96 Room Air 98 04/30/18 17:29 98.0 76 22 166/105 98 Room Air 98 04/30/18 15:26 75 25 Room Air 98 04/30/18 15:26 98.1 75 25 156/98 98 Room Air 04/30/18 15:09 98.2 64 20 124/92 97 Room Air General: no apparent distress, alert, GCS 15 Head: normocephalic, atraumatic Eyes: bilateral eye normal inspection, bilateral eye PERRL ENT: hearing grossly normal, normal pharynx, no angioedema, normal voice Neck: full range of motion, supple/symm/no masses Respiratory: lungs clear, crackles, speaking full sentences Cardiovascular: regular rate, rhythm, no edema Gastrointestinal: normal bowel sounds, nt Rectal: deferred Genitourinary: normal inspection, no CVA ttp Musculoskeletal: back normal, gait/station normal, nt Hospital Course 73-year-old F presenting to ED with persistent cough Differential diagnoses include: Pneumonia, CHF exacerbation, pneumothorax, fluid overload Clinical course Patient placed on stretcher. On cardiac sonographer with stable vitals. After initial history and physical, I ordered labs, IV fluids, EKG, chest x-ray, blood cultures, UA. Labs - no leukocytosis, hemoglobin/hematocrit stable, BUN/cr elevated, lactate okay EKG - NSR, no acute ischemic changes interpreted by me CXR - bilateral lower lobe inifltrates abx given. Case discussed with Dr. Wu and he agreed to the patient to his service for further care and support I feel this is a highly complex case requiring extensive working including EKG/ Rhythm strip, Xray/CT/US, Blood/urine lab work, repeat exams while in ED, and administration of strong opiates/narcotics for pain control, admission to hospital or close patient follow up. Diagnosis - pneumonia, acute on chronic renal failure Assessment/Plan # Panctyopenia -- have seen her in 07/2016 and had similar blood counts at that time as well, she has anemia of chronic disease to underlying chronic medical issues, multifactorial. ALso could be related to underlying pna, unspecific organism --> Anemia workup has been reviewed from prior --> hepatitis and hiv are neg from prior admission --> No evidence of hemolysis is noted, peripheral smear has been reviewed. --> Hgb goal >7. Transfuse prn. --> Epogen or iron at this time is not particularly indicated --> Medications have been reviewed # Elevated tumor markers --> CEA was before 4.3--> 3.2 --> prior colonoscopies were negative --> appreciate girecs # Acute on chronic renal failure --> repeat CXR: BNP not elevated, no signs of fluid overload --> renal failure Cr 1.9, trend pe renal and fluids # PNA on cxr --> started on abx # Hypertensive heart and chronic kidney disease --> BP control with Losartan and Norvasc --> Echocardiogram to evaluate filling pressures and LV function --> Outpatient stress testing, no indication for cardiac cath # Hypokalemia-- replete k per renal --> appreciate renal recs # Dehydration--Mild IV fluid hydration per renal The timing of this note does not necessarily reflect the time of the patient was seen Greatly appreciate consultation! Cl Bird MD May 01, 2018 12:46
--- NOTE | 2018-05-01 13:00 | NUR ---
NURSE NOTES: Patient refused to take docusate stating " I am not constipated."
--- NOTE | 2018-05-01 13:05 | NUR ---
NURSE NOTES: Patient is aware that stool specimen needs to be collected.
[2018-05-01 16:00] VITALS: BP 152/98
--- NOTE | 2018-05-01 16:56 | NUR ---
NURSE NOTES: Patient seen by Dr. Wu and RN relayed the episodes of pulse <60 this morning and 78 and 68 this afternoon and patient was asymptomatic. MD aware with new order to d/c metoprolol and nifedipine and give norvasc 5mg daily and no cardiology consult needed @ this time. Order read back and carried out. Will continue to monitor.
--- NOTE | 2018-05-01 19:16 | Diagnostic Imaging Report ---
Indication: Dyspnea Comparison: 03/09/2018 A single view chest radiograph was obtained. Findings: Pulmonary vascular prominence and cardiomegaly demonstrated. Mild blunting of the right costophrenic angle is noted. There is a small amount of fluid within the fissure at the right lung base as well. Hiatal hernia is present. IMPRESSION: Suspected mild CHF. Correlate clinically
--- NOTE | 2018-05-01 19:16 | NUR ---
NURSE NOTES: Received patient in bed, awake, alert, ambulatory but needs to be monitored, VSS, afebrile, no acute distress noted. Call light is within reach, bed is in low position, locked and alarm is on. Will continue to monitor for safety and comfort.
--- NOTE | 2018-05-01 19:18 | Cardiology Report ---
APPROVED REPORT EKG Measurement Heart [id number] Normal sinus rhythm Nonspecific T wave abnormality Abnormal ECG
--- NOTE | 2018-05-01 19:28 | NUR ---
HAND-OFF: Report given to Kaylah.
--- NOTE | 2018-05-01 19:30 | NUR ---
NURSE NOTES: Endorsed to collect stool for OB to Kaylah.Patient aware.
--- NOTE | 2018-05-01 19:45 | Consultation ---
DATE OF CONSULTATION: 05/01/2018 INFECTIOUS DISEASES CONSULTATION CONSULTING PHYSICIAN: Bryson An M.D. PRIMARY ATTENDING PHYSICIAN: Angelina Wu M.D. REASON FOR CONSULTATION: Pneumonia. HISTORY OF PRESENT ILLNESS: This is a 73-year-old female, admitted yesterday, complaining of coughing and productive cough. According to the ER doctor, she has haziness in the lower lung magallanes, hence was admitted with impression of pneumonia. The patient had no fever or leukocytosis. PAST MEDICAL HISTORY: Significant for diabetes mellitus, diet controlled; hypertension; history of anemia; history of chronic kidney disease; gastroesophageal reflux disease; and history of appendectomy. ALLERGIES: Allergic to codeine, enalapril, lisinopril, and morphine. MEDICATIONS: Aspirin, Colace, losartan, nifedipine, clonidine, ceftriaxone, metoprolol, albuterol, , lorazepam, and temazepam. SOCIAL HISTORY: Single. No biological child. Smokes once in a while. No drug or alcohol abuse. REVIEW OF SYSTEMS: No fever. No chills. Start productive cough and shortness of breath on exertion. No nausea. No vomiting. No dysuria. PHYSICAL EXAMINATION: VITAL SIGNS: Temperature 97, pulse 59, and blood pressure 143/92. GENERAL: Currently, the patient is awake, alert, and responsive. HEAD AND NECK: Poor dentition. Having decayed teeth. HEART: S1 and S2, regular. LUNGS: Clear. ABDOMEN: Soft and nontender. EXTREMITIES: No edema. NEUROLOGIC: She is awake and alert. She has tremor. LABORATORY AND DIAGNOSTIC DATA: Labs, WBC 4, hemoglobin 9.6, hematocrit 31.4, and platelets 172,000. Sodium 146, potassium 3.6, chloride 110, bicarbonate 29, BUN 28, and creatinine 1.8. Influenza A, B, and C test was negative. Chest x-ray official report is pending. UA was negative for nitrite, WBC, and blood. IMPRESSION: 1. Pneumonia. 2. Acute on chronic kidney disease. 3. Hypertension. 4. Diabetes mellitus. 5. Anemia. 6. History of coronary artery disease. RECOMMENDATION: We will continue Rocephin. We will follow up the chest x-ray. At the end of my exam, I thank Dr. Wu for involving me in the care of this patient. Bryson An M.D. DR: LEIGH ANN JOB#: [id number] CC:
[2018-05-01 20:00] VITALS: BP 128/76
[2018-05-01] MEDS: cefTRIAXone 1 GM in D5W 55 ML IVPB SCH (20:12)
--- NOTE | 2018-05-01 23:09 | Consultation ---
History of Present Illness General Chief Complaint: General Complaint Present Illness HPI the patient is 73 yo female who is a poor historian because of paranoid schizophrenia; however, does complain of shortness of breath and cough. the pt is agitated and delusional Allergies: Coded Allergies: CODEINE (Unverified Allergy, Unknown, 10/23/16) ENALAPRIL (Unverified Allergy, Unknown, 10/23/16) LISINOPRIL (Unverified Allergy, Unknown, 10/23/16) MORPHINE (Unverified Allergy, Unknown, 10/23/16) Medication History Scheduled Albuterol Sulfate* (Albuterol Sulfate Mdi*), 2 PUFF INH Q6H, (Reported) Aspirin* (Aspirin*), 81 MG ORAL DAILY, (Reported) Clonidine HCl (Clonidine HCl), 0.2 MG ORAL Q8HR, (Reported) Docusate Sodium (Docusate Sodium), 100 MG ORAL TID, (Reported) Hydralazine HCl (Hydralazine HCl), 50 MG ORAL EVERY 8 HOURS, (Reported) Losartan Potassium (Losartan Potassium), 25 MG PO DAILY, (Reported) Losartan Potassium (Losartan Potassium), 50 MG PO DAILY, (Reported) Metoprolol Tartrate* (Metoprolol Tartrate*), 12.5 MG ORAL EVERY 12 HOURS, ( Reported) Minoxidil (Minoxidil), 2.5 MG ORAL Q4HR, (Reported) Nifedipine Xl* (Procardia Xl*), 60 MG ORAL DAILY, (Reported) Olanzapine (Olanzapine), 20 MG ORAL BEDTIME, (Reported) Vancomycin Hcl (Vancomycin Hcl), 1 GM IVPB ONCE, (Reported) Scheduled PRN Acetaminophen (Acetaminophen), 650 MG ORAL Q4HR PRN for Prn Headache/Temp > 101, (Reported) Lorazepam* (Ativan*), 1 MG ORAL EVERY 8 HOURS PRN for For Anxiety, (Reported) Magnesium Hydroxide (Milk of Magnesia), 30 ML ORAL DAILY PRN for Constipation, ( Reported) Temazepam* (Restoril*), 7.5 MG ORAL BEDTIME PRN for Insomnia, (Reported) Patient History Limited by: medical condition History Provided By: Patient, Medical Record, PMD Healthcare decision maker N Resuscitation status Full Code Advanced Directive on File No Past Medical/Surgical History Past Medical/Surgical History: (1) Encounter for generalized patient complaints (2) Dehydration (3) Encephalopathy (4) ATN (acute tubular necrosis) (5) Severe protein-calorie malnutrition (6) MRSA (methicillin resistant Staphylococcus aureus) colonization (7) Cerebrovascular small vessel disease (8) encephalpathy metabolic (9) Pleural effusion (10) Acute on chronic renal failure (11) Anemia (12) Psychosis (13) Pneumonia (14) Schizoaffective disorder (15) Hypertensive heart and chronic kidney disease (16) Renal failure (ARF), acute on chronic (17) Acute encephalopathy (18) History of hypertension (19) Psychosis Review of Systems Psychiatric: Reports: prior hx, anxiety, depressed feelings, emotional problems , hallucinations Physical Exam General Appearance: alert, confused, agitated Last 24 Hour Vital Signs Date Time Temp Pulse Resp B/P (MAP) Pulse Ox O2 Delivery O2 Flow Rate FiO2 05/01/18 22:06 132/88 05/01/18 21:03 Room Air 05/01/18 20:00 97.6 82 20 128/76 (93) 05/01/18 16:00 98.3 68 20 152/98 (116) 97 05/01/18 14:26 154/98 05/01/18 12:00 97.0 59 18 143/92 (109) 95 05/01/18 09:00 Room Air 05/01/18 08:34 56 141/88 05/01/18 08:33 56 141/88 05/01/18 08:31 141/88 05/01/18 08:00 98.1 56 18 141/88 (105) 98 05/01/18 06:17 144/85 05/01/18 05:33 97.9 59 18 131/80 (97) Intake and Output 04/30/18 05/01/18 19:00 07:00 Intake Total 500 ml Balance 500 ml IV Total 500 ml # Voids 1 Laboratory Tests Test 05/01/18 05:15 05/01/18 12:10 05/01/18 15:40 White Blood Count 4.0 K/UL (4.8-10.8) L Red Blood Count 3.82 M/UL (4.20-5.40) L Hemoglobin 9.6 G/DL (12.0-16.0) L Hematocrit 31.4 % (37.0-47.0) L Mean Corpuscular Volume 82 FL (80-99) Mean Corpuscular Hemoglobin 25.0 PG (27.0-31.0) L Mean Corpuscular Hemoglobin Concent 30.4 G/DL (32.0-36.0) L Red Cell Distribution Width 17.0 % (11.6-14.8) H Platelet Count 172 K/UL (150-450) Mean Platelet Volume 8.3 FL (6.5-10.1) Neutrophils (%) (Auto) 51.6 % (45.0-75.0) Lymphocytes (%) (Auto) 30.9 % (20.0-45.0) Monocytes (%) (Auto) 12.3 % (1.0-10.0) H Eosinophils (%) (Auto) 4.5 % (0.0-3.0) H Basophils (%) (Auto) 0.7 % (0.0-2.0) Differential Total Cells Counted 100 Neutrophils % (Manual) 49 % (45-75) Lymphocytes % (Manual) 38 % (20-45) Monocytes % (Manual) 11 % (1-10) H Eosinophils % (Manual) 2 % (0-3) Basophils % (Manual) 0 % (0-2) Band Neutrophils 0 % (0-8) Platelet Estimate Adequate Platelet Morphology Normal Hypochromasia 2+ Anisocytosis 1+ Reticulocyte Count 0.4 % (0.0-2.0) Sodium Level 146 MMOL/L (136-145) H Potassium Level 3.6 MMOL/L (3.5-5.1) Chloride Level 110 MMOL/L (98-107) H Carbon Dioxide Level 29 MMOL/L (21-32) Anion Gap 7 mmol/L (5-15) Blood Urea Nitrogen 28 mg/dL (7-18) H Creatinine 1.9 MG/DL (0.55-1.30) H Estimat Glomerular Filtration Rate mL/min (>60) Glucose Level 83 MG/DL (74-106) Calcium Level 8.9 MG/DL (8.5-10.1) Ferritin 106 NG/ML (8-388) Total Bilirubin 0.1 MG/DL (0.2-1.0) L Aspartate Amino Transf (AST/SGOT) 15 U/L (15-37) Alanine Aminotransferase (ALT/SGPT) 10 U/L (12-78) L Alkaline Phosphatase 70 U/L (46-116) Total Protein 7.6 G/DL (6.4-8.2) Albumin 2.5 G/DL (3.4-5.0) L Globulin 5.1 g/dL Albumin/Globulin Ratio 0.5 (1.0-2.7) L Vitamin B12 Level 318 PG/ML (193-986) Folate 8.7 NG/ML (8.6-58.9) Thyroid Stimulating Hormone (TSH) 2.533 uiU/mL (0.358-3.740) Urine Color Pale yellow Urine Appearance Clear Urine pH 6 (4.5-8.0) Urine Specific [place] 1.015 (1.005-1.035) Urine Protein Negative (NEGATIVE) Urine Glucose (UA) Negative (NEGATIVE) Urine Ketones Negative (NEGATIVE) Urine Blood Negative (NEGATIVE) Urine Nitrite Negative (NEGATIVE) Urine Bilirubin Negative (NEGATIVE) Urine Urobilinogen Normal MG/DL (0.0-1.0) Urine Leukocyte Esterase Negative (NEGATIVE) Fibrinogen 353 mg/dL (200-400) Height (Feet): 5 Height (Inches): 8.00 Weight (Pounds): 211 Medications Current Medications Medications (Trade) Dose Ordered Sig/Yao Route PRN Reason Start Time Stop Time Status Last Admin Dose Admin Acetaminophen (Tylenol) 650 mg Q4H PRN ORAL Prn Headache/Temp > 101 04/30/18 18:45 05/30/18 18:44 Albuterol Sulfate (Proventil MDI) 2 puff Q6H PRN INH Shortness of Breath 04/30/18 19:30 05/30/18 18:44 Amlodipine Besylate (Norvasc) 5 mg DAILY ORAL 05/02/18 09:00 06/01/18 08:59 Aspirin (ASA) 81 mg DAILY ORAL 05/01/18 09:00 05/31/18 08:59 05/01/18 08:31 Ceftriaxone Sodium 1 gm/ Dextrose 55 ml @ 110 mls/hr Q24H IVPB 04/30/18 22:00 05/07/18 21:59 05/01/18 20:12 Clonidine HCl (Catapres tab) 0.2 mg Q8HR ORAL 04/30/18 22:00 05/30/18 21:59 05/01/18 22:06 Diphenoxylate HCl/ Atropine (Lomotil) 2.5 mg Q4H PRN ORAL Diarrhea 04/30/18 19:21 05/30/18 19:20 Docusate Sodium (Colace) 100 mg TID ORAL 05/01/18 09:00 05/31/18 08:59 Lorazepam (Ativan) 1 mg Q8H PRN ORAL For Anxiety 04/30/18 18:45 05/07/18 18:44 Losartan Potassium (Cozaar) 25 mg DAILY ORAL 05/01/18 09:00 05/31/18 08:59 05/01/18 08:31 Magnesium Hydroxide (Mom) 30 ml DAILYPRN PRN ORAL Constipation 04/30/18 18:45 05/30/18 18:44 Temazepam (Restoril) 7.5 mg BEDTIME PRN ORAL Insomnia 04/30/18 18:45 05/07/18 18:44 Assessment/Plan Problem List: (1) Schizoaffective disorder ICD Codes: F25.9 - Schizoaffective disorder, unspecified SNOMED: 58146916 (2) Acute encephalopathy ICD Codes: G93.40 - Encephalopathy, unspecified SNOMED: 9686447 Assessment/Plan Nga lewis /Stephanie Marie MD May 01, 2018 23:09
[2018-05-02] VITALS: BP 143/81
--- NOTE | 2018-05-02 02:30 | History and Physical Report ---
DATE OF ADMISSION: 04/30/2018 HISTORY OF PRESENT ILLNESS: The patient history of paranoid schizophrenia. Comes from a [facility], admitted for renal insufficiency as well as pneumonia. The patient is a poor historian because of paranoid schizophrenia; however, does complain of shortness of breath and cough, nonproductive cough for the past couple of days. The patient has history of smoking. Does have complaint of shortness of breath as well. The patient also does exhibit signs and symptoms of dehydration. Denies nausea, vomiting, or diarrhea. Denies fever or chills. PAST MEDICAL HISTORY: Significant for paranoid schizophrenia, hypertension, constipation, anxiety, GERD, insomnia, and paranoid schizophrenia. PAST SURGICAL HISTORY: Gastrointestinal surgery for removal of cancer and appendectomy. ALLERGIES: To codeine, enalapril, lisinopril, and morphine. MEDICATIONS: Aspirin, albuterol, clonidine, Colace, lorazepam, losartan, metoprolol, minoxidil, olanzapine, and temazepam. FAMILY HISTORY: Noncontributory. SOCIAL HISTORY: She has history of smoking. Does have history of drug abuse. No history of alcohol abuse. Comes from a [facility]. REVIEW OF SYSTEMS: HEENT: Denies headaches. RESPIRATORY: Denies shortness of breath. Does have cough, nonproductive. CARDIOVASCULAR: Denies chest pain. GI: Denies nausea, vomiting, or diarrhea. EXTREMITIES: Denies any pain. [employer]: Denies change in vision or speech pattern. PHYSICAL EXAMINATION: VITAL SIGNS: Temperature 97, pulse 59, and blood pressure 143/92. HEENT: PERRLA. NECK: Supple. No lymphadenopathy. CHEST: Clear to auscultation. CARDIOVASCULAR: Bradycardic. GASTROINTESTINAL: Soft, distended, nontender. Positive bowel sounds. EXTREMITIES: 1+ edema. Reflexes equal on both sides. Moves all extremities. LABORATORY DATA: EKG shows sinus bradycardia. Laboratory blas, WBC of 5.3, hemoglobin 10.4, and platelets of 193. Sodium 145, potassium 3.7, chloride 108, BUN of 31, creatinine 2.2, and glucose of 79. ASSESSMENT AND PLAN: 1. Bradycardia, most likely due to beta-blockers and calcium-channel blockers, so we will hold some of them. at this point. 2. Pneumonia. I have asked Dr. Bryson An to see the patient for management of the pneumonia. 3. For acute renal failure, Dr. Ramos is going to help with dehydration and possible IV fluids, and Dr. Kebede for her paranoid schizophrenia has been consulted. Angelina Wu M.D. DR: MAMIE JOB#: [id number] CC:
[2018-05-02 04:00] VITALS: BP 150/87
[2018-05-02] MEDS: cloNIDine 0.2mg Tab ORAL SCH ×3 (06:03→21:15)
--- NOTE | 2018-05-02 06:51 | NUR ---
HAND-OFF: Report given to Dana SHELTON.
[2018-05-02 06:56] LABS: ANION GAP 9 mmol/L (5-15); BLOOD UREA NITROGEN 31 mg/dL (7-18); CARBON DIOXIDE 27 MMOL/L (21-32); CHLORIDE 108 MMOL/L (98-107); POTASSIUM 3.5 MMOL/L (3.5-5.1); SODIUM 144 MMOL/L (136-145)
[2018-05-02 07:03] LABS: BASOPHILS % (AUTO) 0.8 % (0.0-2.0); HEMATOCRIT 30.2 % (37.0-47.0); HEMOGLOBIN 9.4 G/DL (12.0-16.0); LYMPHOCYTES % (AUTO) 30.6 % (20.0-45.0); MEAN CORPUSCULAR VOLUME 81 FL (80-99); MONOCYTES % (AUTO) 11.1 % (1.0-10.0); NEUTROPHILS % (AUTO) 51.5 % (45.0-75.0); PLATELET COUNT 172 K/UL (150-450); RED BLOOD COUNT 3.75 M/UL (4.20-5.40); RED CELL DISTRIBUTION WIDTH 16.5 % (11.6-14.8); WHITE BLOOD COUNT 4.5 K/UL (4.8-10.8)
[2018-05-02 08:00] VITALS: BP 163/95
--- NOTE | 2018-05-02 08:00 | NUR ---
NURSE NOTES: RECEIVED PATIENT IN BED, RESTING AND ALERT TO NAME, PLACE AND PURPOSE. PATIENT DENIES PAIN. NO SIGNS OF RESPIRATORY DISTRESS. IV INTACT. BED IN LOWEST POSITION, CALL LIGHT WITHIN REACH. WILL CONTINUE TO MONITOR.
[2018-05-02] MEDS: Docusate 100mg cap ORAL SCH ×3 (08:38→17:07)
[2018-05-02] MEDS: Aspirin Baby 81mg ORAL SCH (08:39)
[2018-05-02] MEDS: Losartan 25mg tab ORAL SCH (08:40)
[2018-05-02 12:00] VITALS: BP 157/93
--- NOTE | 2018-05-02 13:11 | Infectious Diseases Prog Note ---
Assessment/Plan Assessment/Plan IMPRESSION: 1. Pneumonia. 2. Acute on chronic kidney disease. 3. Hypertension. 4. Diabetes mellitus. 5. Anemia. 6. History of coronary artery disease. RECOMMENDATION: continue Rocephin Subjective ROS Limited/Unobtainable: No Constitutional: Reports: no symptoms Respiratory: Reports: no symptoms Cardiovascular: Reports: no symptoms Gastrointestinal/Abdominal: Reports: no symptoms Genitourinary: Reports: no symptoms Allergies: Coded Allergies: CODEINE (Unverified Allergy, Unknown, 10/23/16) ENALAPRIL (Unverified Allergy, Unknown, 10/23/16) LISINOPRIL (Unverified Allergy, Unknown, 10/23/16) MORPHINE (Unverified Allergy, Unknown, 10/23/16) Objective Vital Signs Last 24 Hour Vital Signs Date Time Temp Pulse Resp B/P (MAP) Pulse Ox O2 Delivery O2 Flow Rate FiO2 05/02/18 12:00 97.4 64 18 157/93 (114) 99 05/02/18 09:00 Room Air 05/02/18 08:40 60 163/95 05/02/18 08:40 163/95 05/02/18 08:00 98.2 60 21 163/95 (117) 96 05/02/18 07:25 86 18 Room Air 21 05/02/18 06:03 165/65 05/02/18 04:00 97.9 63 18 150/87 (108) 05/02/18 00:00 98.1 61 18 143/81 (101) 05/01/18 22:06 132/88 05/01/18 21:03 Room Air 05/01/18 20:00 97.6 82 20 128/76 (93) 05/01/18 16:00 98.3 68 20 152/98 (116) 97 05/01/18 14:26 154/98 Height (Feet): 5 Height (Inches): 8.00 Weight (Pounds): 211 General Appearance: no acute distress HEENT: mucous membranes moist Respiratory/Chest: lungs clear Cardiovascular: normal rate Abdomen: soft, non tender Extremities: no edema Neurologic/Psychiatric: alert, responsive Microbiology Date/Time Source Procedure Growth Status 04/30/18 15:45 Blood Blood Culture - Preliminary NO GROWTH AFTER 24 HOURS Resulted 04/30/18 15:30 Blood Blood Culture - Preliminary NO GROWTH AFTER 24 HOURS Resulted 04/30/18 17:00 Nasal Nares MRSA Culture - Final NO METHICILLIN RESISTANT STAPH AUREUS... Complete 04/30/18 15:40 Nasal Nares Influenza Types A,B Antigen (ARIANE) - Final Complete 04/30/18 17:00 Rectum VRE Culture - Final NO VANCOMYCIN RESISTANT ENTEROCOCCUS ... Resulted 04/30/18 17:00 Rectum Pending Resulted Laboratory Tests Test 05/01/18 15:40 05/02/18 05:05 Fibrinogen 353 mg/dL (200-400) White Blood Count 4.5 K/UL (4.8-10.8) L Red Blood Count 3.75 M/UL (4.20-5.40) L Hemoglobin 9.4 G/DL (12.0-16.0) L Hematocrit 30.2 % (37.0-47.0) L Mean Corpuscular Volume 81 FL (80-99) Mean Corpuscular Hemoglobin 25.1 PG (27.0-31.0) L Mean Corpuscular Hemoglobin Concent 31.1 G/DL (32.0-36.0) L Red Cell Distribution Width 16.5 % (11.6-14.8) H Platelet Count 172 K/UL (150-450) Mean Platelet Volume 8.0 FL (6.5-10.1) Neutrophils (%) (Auto) 51.5 % (45.0-75.0) Lymphocytes (%) (Auto) 30.6 % (20.0-45.0) Monocytes (%) (Auto) 11.1 % (1.0-10.0) H Eosinophils (%) (Auto) 6.0 % (0.0-3.0) H Basophils (%) (Auto) 0.8 % (0.0-2.0) Sodium Level 144 MMOL/L (136-145) Potassium Level 3.5 MMOL/L (3.5-5.1) Chloride Level 108 MMOL/L (98-107) H Carbon Dioxide Level 27 MMOL/L (21-32) Anion Gap 9 mmol/L (5-15) Blood Urea Nitrogen 31 mg/dL (7-18) H Creatinine 2.0 MG/DL (0.55-1.30) H Estimat Glomerular Filtration Rate mL/min (>60) Glucose Level 103 MG/DL (74-106) Calcium Level 9.0 MG/DL (8.5-10.1) Current Medications Medications (Trade) Dose Ordered Sig/Yao Route PRN Reason Start Time Stop Time Status Last Admin Dose Admin Acetaminophen (Tylenol) 650 mg Q4H PRN ORAL Prn Headache/Temp > 101 04/30/18 18:45 05/30/18 18:44 Albuterol Sulfate (Proventil MDI) 2 puff Q6H PRN INH Shortness of Breath 04/30/18 19:30 05/30/18 18:44 Amlodipine Besylate (Norvasc) 5 mg DAILY ORAL 05/02/18 09:00 06/01/18 08:59 05/02/18 08:40 Aspirin (ASA) 81 mg DAILY ORAL 05/01/18 09:00 05/31/18 08:59 05/02/18 08:39 Ceftriaxone Sodium 1 gm/ Dextrose 55 ml @ 110 mls/hr Q24H IVPB 04/30/18 22:00 05/07/18 21:59 05/01/18 20:12 Clonidine HCl (Catapres tab) 0.2 mg Q8HR ORAL 04/30/18 22:00 05/30/18 21:59 05/02/18 06:03 Diphenoxylate HCl/ Atropine (Lomotil) 2.5 mg Q4H PRN ORAL Diarrhea 04/30/18 19:21 05/30/18 19:20 Docusate Sodium (Colace) 100 mg TID ORAL 05/01/18 09:00 05/31/18 08:59 Lorazepam (Ativan) 1 mg Q8H PRN ORAL For Anxiety 04/30/18 18:45 05/07/18 18:44 Losartan Potassium (Cozaar) 25 mg DAILY ORAL 05/01/18 09:00 05/31/18 08:59 05/02/18 08:40 Magnesium Hydroxide (Mom) 30 ml DAILYPRN PRN ORAL Constipation 04/30/18 18:45 05/30/18 18:44 Olanzapine (ZyPREXA) 20 mg BEDTIME ORAL 05/02/18 21:00 06/01/18 20:59 Temazepam (Restoril) 7.5 mg BEDTIME PRN ORAL Insomnia 04/30/18 18:45 05/07/18 18:44 Bryson An MD May 02, 2018 13:11
[2018-05-02 16:00] VITALS: BP 160/96
--- NOTE | 2018-05-02 16:12 | Consultation ---
Consult Note Consult Note asked to eval for renal failure known to me from previous admissions HPI 73-year-old female presents ED for evaluation. Brought in by EMS for evaluation of possible pneumonia. Coming from senior care facility. Patient has been having cough times several days. Productive with yellowish phlegm. Denies fevers or chills. Denies chest pain. Denies sick contacts or recent travel. History of psych. Denies SI or HI. Denies hearing voices. No other aggravating relieving factors. Denies any other associated symptoms Allergies: Coded Allergies: CODEINE (Unverified Allergy, Unknown, 10/23/16) ENALAPRIL (Unverified Allergy, Unknown, 10/23/16) LISINOPRIL (Unverified Allergy, Unknown, 10/23/16) MORPHINE (Unverified Allergy, Unknown, 10/23/16) Past Medical History: DM, HTN, CVA/TIA, psych hx Hx Cardiac Problems: No - anemia Hx Hypertension: Yes Hx Diabetes: Yes Hx Gastrointestinal Problems: Yes - GERD Hx Neurological Problems: No Hx Cerebrovascular Accident: Yes Hx Tremors: Yes interviewed examined data reviewed Assessment/Plan admitted for Pneumonia Renal failure acute on chronic Dementia Partly Dehydration Encephalopathy HTN Diabetes Previous CVA h/o pleural effusions adjust bp meds very slow hydrate 2D echo urine studies monitor renal parameters Refugio Ramos MD May 02, 2018 16:12
--- NOTE | 2018-05-02 19:25 | NUR ---
HAND-OFF: Report given to CAT Tejada.
--- NOTE | 2018-05-02 19:47 | General Progress Note ---
Assessment/Plan Assessment/Plan Assessment/Plan # Panctyopenia -- have seen her in 07/2016 and had similar blood counts at that time as well, she has anemia of chronic disease to underlying chronic medical issues, multifactorial. ALso could be related to underlying pna, unspecific organism --> Anemia workup has been reviewed from prior --> hepatitis and hiv are neg from prior admission --> No evidence of hemolysis is noted, peripheral smear has been reviewed. --> Hgb goal >7. Transfuse prn. --> Epogen or iron at this time is not particularly indicated --> Medications have been reviewed # Elevated tumor markers --> CEA was before 4.3--> 3.2 --> prior colonoscopies were negative --> appreciate girecs # Acute on chronic renal failure --> repeat CXR: BNP not elevated, no signs of fluid overload --> renal failure Cr 1.9, trend pe renal and fluids # PNA on cxr --> started on abx # Hypertensive heart and chronic kidney disease --> BP control with Losartan and Norvasc --> Echocardiogram to evaluate filling pressures and LV function --> Outpatient stress testing, no indication for cardiac cath # Hypokalemia-- replete k per renal --> appreciate renal recs # Dehydration--Mild IV fluid hydration per renal The timing of this note does not necessarily reflect the time of the patient was seen Greatly appreciate consultation! Subjective Cardiovascular: Denies: no symptoms, chest pain, edema, irregular heart rate, lightheadedness, palpitations, syncope, other Gastrointestinal/Abdominal: Denies: no symptoms, abdomen distended, abdominal pain, black stools, tarry stools, blood in stool, constipated, diarrhea, difficulty swallowing, nausea, poor appetite, poor fluid intake, rectal bleeding , vomiting, other Genitourinary: Denies: no symptoms, burning, discharge, frequency, flank pain, hematuria, incontinence, pain, urgency, other Neurologic/Psychiatric: Denies: no symptoms, anxiety, depressed, emotional problems, headache, numbness, paresthesia, pre-existing deficit, seizure, tingling, tremors, weakness, other Endocrine: Denies: no symptoms, excessive sweating, flushing, intolerance to cold, intolerance to heat, increased hunger, increased thirst, increased urine, unexplained weight gain, unexplained weight loss, other Hematologic/Lymphatic: Denies: no symptoms, anemia, easy bleeding, easy bruising, other Allergies: Coded Allergies: CODEINE (Unverified Allergy, Unknown, 10/23/16) ENALAPRIL (Unverified Allergy, Unknown, 10/23/16) LISINOPRIL (Unverified Allergy, Unknown, 10/23/16) MORPHINE (Unverified Allergy, Unknown, 10/23/16) Subjective 05/02: no events overnight, no f/c, on rocephin, per id Objective Last 24 Hour Vital Signs Date Time Temp Pulse Resp B/P (MAP) Pulse Ox O2 Delivery O2 Flow Rate FiO2 05/02/18 17:14 65 160/96 05/02/18 16:00 99.0 65 18 160/96 (117) 96 05/02/18 15:38 160/74 05/02/18 12:00 97.4 64 18 157/93 (114) 99 05/02/18 09:00 Room Air 05/02/18 08:40 60 163/95 05/02/18 08:40 163/95 05/02/18 08:00 98.2 60 21 163/95 (117) 96 05/02/18 07:25 86 18 Room Air 21 05/02/18 06:03 165/65 05/02/18 04:00 97.9 63 18 150/87 (108) 05/02/18 00:00 98.1 61 18 143/81 (101) 05/01/18 22:06 132/88 05/01/18 21:03 Room Air 05/01/18 20:00 97.6 82 20 128/76 (93) Intake and Output 05/01/18 05/02/18 19:00 07:00 Intake Total 940 ml Balance 940 ml Intake Oral 940 ml # Voids 4 2 Laboratory Tests 05/02/18 05:05: White Blood Count 4.5L, Red Blood Count 3.75L, Hemoglobin 9.4L, Hematocrit 30.2L , Mean Corpuscular Volume 81, Mean Corpuscular Hemoglobin 25.1L, Mean Corpuscular Hemoglobin Concent 31.1L, Red Cell Distribution Width 16.5H, Platelet Count 172, Mean Platelet Volume 8.0, Neutrophils (%) (Auto) 51.5, Lymphocytes (%) (Auto) 30.6, Monocytes (%) (Auto) 11.1H, Eosinophils (%) (Auto) 6.0H, Basophils (%) (Auto) 0.8, Sodium Level 144, Potassium Level 3.5, Chloride Level 108H, Carbon Dioxide Level 27, Anion Gap 9, Blood Urea Nitrogen 31H, Creatinine 2.0H, Estimat Glomerular Filtration Rate , Glucose Level 103, Calcium Level 9.0 Height (Feet): 5 Height (Inches): 8.00 Weight (Pounds): 211 Objective General: no apparent distress, alert, GCS 15 Head: normocephalic, atraumatic Eyes: bilateral eye normal inspection, bilateral eye PERRL ENT: hearing grossly normal, normal pharynx, no angioedema, normal voice Neck: full range of motion, supple/symm/no masses Respiratory: lungs clear, crackles, speaking full sentences Cardiovascular: regular rate, rhythm, no edema Gastrointestinal: normal bowel sounds, nt Rectal: deferred Genitourinary: normal inspection, no CVA ttp Musculoskeletal: back normal, gait/station normal, nt Cl Bird MD May 02, 2018 19:47
[2018-05-02 20:00] VITALS: BP 155/95
--- NOTE | 2018-05-02 20:00 | NUR ---
NURSE NOTES: Patient received in bed, awake and alert. IV intact and patent. Belongings and call light within easy reach. Needs attended, will continue to monitor.
[2018-05-02] MEDS: OLANZapine 10mg tab ORAL SCH (21:15)
[2018-05-02] MEDS: cefTRIAXone 1 GM in D5W 55 ML IVPB SCH (21:15)
--- NOTE | 2018-05-02 21:57 | General Progress Note ---
Assessment/Plan Problem List: (1) Psychosis ICD Codes: F29 - Unspecified psychosis not due to a substance or known physiological condition SNOMED: 63497632 (2) Anemia ICD Codes: D64.9 - Anemia, unspecified SNOMED: 370285852 (3) Pneumonia ICD Codes: J18.9 - Pneumonia, unspecified organism SNOMED: 219905455 Qualifiers: Qualified Codes: J18.1 - Lobar pneumonia, unspecified organism (4) History of hypertension ICD Codes: Z86.79 - Personal history of other diseases of the circulatory system SNOMED: 378857247 (5) Psychosis ICD Codes: F29 - Unspecified psychosis not due to a substance or known physiological condition SNOMED: 24753155 Status: progressing Assessment/Plan afebrile pna is improving psychosis reviewed vaibhav and labs Subjective ROS Limited/Unobtainable: Yes Allergies: Coded Allergies: CODEINE (Unverified Allergy, Unknown, 10/23/16) ENALAPRIL (Unverified Allergy, Unknown, 10/23/16) LISINOPRIL (Unverified Allergy, Unknown, 10/23/16) MORPHINE (Unverified Allergy, Unknown, 10/23/16) Objective Last 24 Hour Vital Signs Date Time Temp Pulse Resp B/P (MAP) Pulse Ox O2 Delivery O2 Flow Rate FiO2 05/02/18 21:15 155/95 05/02/18 17:14 65 160/96 05/02/18 16:00 99.0 65 18 160/96 (117) 96 05/02/18 15:38 160/74 05/02/18 12:00 97.4 64 18 157/93 (114) 99 05/02/18 09:00 Room Air 05/02/18 08:40 60 163/95 05/02/18 08:40 163/95 05/02/18 08:00 98.2 60 21 163/95 (117) 96 05/02/18 07:25 86 18 Room Air 21 05/02/18 06:03 165/65 05/02/18 04:00 97.9 63 18 150/87 (108) 05/02/18 00:00 98.1 61 18 143/81 (101) 05/01/18 22:06 132/88 Intake and Output 05/01/18 05/02/18 19:00 07:00 Intake Total 940 ml Balance 940 ml Intake Oral 940 ml # Voids 4 2 Laboratory Tests 05/02/18 05:05: White Blood Count 4.5L, Red Blood Count 3.75L, Hemoglobin 9.4L, Hematocrit 30.2L , Mean Corpuscular Volume 81, Mean Corpuscular Hemoglobin 25.1L, Mean Corpuscular Hemoglobin Concent 31.1L, Red Cell Distribution Width 16.5H, Platelet Count 172, Mean Platelet Volume 8.0, Neutrophils (%) (Auto) 51.5, Lymphocytes (%) (Auto) 30.6, Monocytes (%) (Auto) 11.1H, Eosinophils (%) (Auto) 6.0H, Basophils (%) (Auto) 0.8, Sodium Level 144, Potassium Level 3.5, Chloride Level 108H, Carbon Dioxide Level 27, Anion Gap 9, Blood Urea Nitrogen 31H, Creatinine 2.0H, Estimat Glomerular Filtration Rate , Glucose Level 103, Calcium Level 9.0 Height (Feet): 5 Height (Inches): 8.00 Weight (Pounds): 211 Cardiovascular: normal peripheral pulses Respiratory/Chest: lungs clear Abdomen: soft Angelina Wu MD May 02, 2018 21:57
--- NOTE | 2018-05-02 23:01 | General Progress Note ---
Assessment/Plan Problem List: (1) Schizoaffective disorder ICD Codes: F25.9 - Schizoaffective disorder, unspecified SNOMED: 09877416 Assessment/Plan cont zyprexa cont ativan prn provided ro/st Subjective Neurologic/Psychiatric: Reports: anxiety, depressed, emotional problems Allergies: Coded Allergies: CODEINE (Unverified Allergy, Unknown, 10/23/16) ENALAPRIL (Unverified Allergy, Unknown, 10/23/16) LISINOPRIL (Unverified Allergy, Unknown, 10/23/16) MORPHINE (Unverified Allergy, Unknown, 10/23/16) Objective Last 24 Hour Vital Signs Date Time Temp Pulse Resp B/P (MAP) Pulse Ox O2 Delivery O2 Flow Rate FiO2 05/02/18 21:15 155/95 05/02/18 20:00 98.9 66 20 155/95 (115) 94 05/02/18 17:14 65 160/96 05/02/18 16:00 99.0 65 18 160/96 (117) 96 05/02/18 15:38 160/74 05/02/18 12:00 97.4 64 18 157/93 (114) 99 05/02/18 09:00 Room Air 05/02/18 08:40 60 163/95 05/02/18 08:40 163/95 05/02/18 08:00 98.2 60 21 163/95 (117) 96 05/02/18 07:25 86 18 Room Air 21 05/02/18 06:03 165/65 05/02/18 04:00 97.9 63 18 150/87 (108) 05/02/18 00:00 98.1 61 18 143/81 (101) Intake and Output 05/01/18 05/02/18 19:00 07:00 Intake Total 940 ml Balance 940 ml Intake Oral 940 ml # Voids 4 2 Laboratory Tests 05/02/18 05:05: White Blood Count 4.5L, Red Blood Count 3.75L, Hemoglobin 9.4L, Hematocrit 30.2L , Mean Corpuscular Volume 81, Mean Corpuscular Hemoglobin 25.1L, Mean Corpuscular Hemoglobin Concent 31.1L, Red Cell Distribution Width 16.5H, Platelet Count 172, Mean Platelet Volume 8.0, Neutrophils (%) (Auto) 51.5, Lymphocytes (%) (Auto) 30.6, Monocytes (%) (Auto) 11.1H, Eosinophils (%) (Auto) 6.0H, Basophils (%) (Auto) 0.8, Sodium Level 144, Potassium Level 3.5, Chloride Level 108H, Carbon Dioxide Level 27, Anion Gap 9, Blood Urea Nitrogen 31H, Creatinine 2.0H, Estimat Glomerular Filtration Rate , Glucose Level 103, Calcium Level 9.0 Height (Feet): 5 Height (Inches): 8.00 Weight (Pounds): 211 General Appearance: alert, confused, agitated Stephanie Kebede MD May 02, 2018 23:01
[2018-05-03] VITALS (8 sets, daily range): BP systolic 118–163; BP diastolic 62–103
[2018-05-03] MEDS: cloNIDine 0.2mg Tab ORAL SCH ×3 (05:01→21:08)
[2018-05-03 06:29] LABS: BASOPHILS % (AUTO) 1.1 % (0.0-2.0); EOSINOPHILS % (AUTO) 5.5 % (0.0-3.0); HEMATOCRIT 33.5 % (37.0-47.0); HEMOGLOBIN 10.3 G/DL (12.0-16.0); LYMPHOCYTES % (AUTO) 32.6 % (20.0-45.0); MEAN CORPUSCULAR VOLUME 81 FL (80-99); MONOCYTES % (AUTO) 7.3 % (1.0-10.0); NEUTROPHILS % (AUTO) 53.5 % (45.0-75.0); PLATELET COUNT 182 K/UL (150-450); RED BLOOD COUNT 4.11 M/UL (4.20-5.40); RED CELL DISTRIBUTION WIDTH 16.8 % (11.6-14.8); WHITE BLOOD COUNT 4.8 K/UL (4.8-10.8)
[2018-05-03 07:00] LABS: ALANINE AMINOTRANSFERASE 10 U/L (12-78); ALBUMIN 2.8 G/DL (3.4-5.0); ALBUMIN/GLOBULIN RATIO 0.5 (1.0-2.7); ALKALINE PHOSPHATASE 84 U/L (46-116); ANION GAP 12 mmol/L (5-15); ASPARTATE AMINO TRANSFERASE 17 U/L (15-37); BILIRUBIN,TOTAL 0.2 MG/DL (0.2-1.0); BLOOD UREA NITROGEN 35 mg/dL (7-18); CALCIUM 9.4 MG/DL (8.5-10.1); CARBON DIOXIDE 27 MMOL/L (21-32); CHLORIDE 106 MMOL/L (98-107); CHOLESTEROL 180 MG/DL (< 200); CREATININE 1.9 MG/DL (0.55-1.30); HDL CHOLESTEROL 73 MG/DL (40-60); POTASSIUM 3.7 MMOL/L (3.5-5.1); SODIUM 145 MMOL/L (136-145); TRIGLYCERIDES 84 MG/DL (30-150)
[2018-05-03 07:09] LABS: PHOSPHORUS 3.6 MG/DL (2.5-4.9)
[2018-05-03 07:10] LABS: % IRON SATURATION 16 % (15-50); IRON 46 ug/dL (50-175); TOTAL IRON BINDING CAPACITY 292 ug/dL (250-450)
--- NOTE | 2018-05-03 07:18 | NUR ---
HAND-OFF: Report given to Shameka SHELTON.
--- NOTE | 2018-05-03 07:42 | NUR ---
NURSE NOTES: Received report from CAT Tejada. Pt in bed, awake, talkative, eating breakfast, no apparent distress noted, no complaints of pain, bed in lowest position, call light within reach.
[2018-05-03] MEDS: Docusate 100mg cap ORAL SCH ×3 (09:00→18:00)
[2018-05-03] MEDS: Aspirin Baby 81mg ORAL SCH (09:15)
[2018-05-03] MEDS: Losartan 25mg tab ORAL SCH (09:16)
--- NOTE | 2018-05-03 09:52 | General Progress Note ---
Assessment/Plan Problem List: (1) Psychosis ICD Codes: F29 - Unspecified psychosis not due to a substance or known physiological condition SNOMED: 87213462 (2) Anemia ICD Codes: D64.9 - Anemia, unspecified SNOMED: 198680097 (3) Pneumonia ICD Codes: J18.9 - Pneumonia, unspecified organism SNOMED: 199042830 Qualifiers: Qualified Codes: J18.1 - Lobar pneumonia, unspecified organism (4) History of hypertension ICD Codes: Z86.79 - Personal history of other diseases of the circulatory system SNOMED: 397473930 (5) Psychosis ICD Codes: F29 - Unspecified psychosis not due to a substance or known physiological condition SNOMED: 38221361 Status: progressing Assessment/Plan check labs and meds and chart pna is improving psychosis Subjective ROS Limited/Unobtainable: Yes Allergies: Coded Allergies: CODEINE (Unverified Allergy, Unknown, 10/23/16) ENALAPRIL (Unverified Allergy, Unknown, 10/23/16) LISINOPRIL (Unverified Allergy, Unknown, 10/23/16) MORPHINE (Unverified Allergy, Unknown, 10/23/16) Objective Last 24 Hour Vital Signs Date Time Temp Pulse Resp B/P (MAP) Pulse Ox O2 Delivery O2 Flow Rate FiO2 05/03/18 09:16 63 158/95 05/03/18 09:16 158/95 05/03/18 09:00 Room Air 05/03/18 08:00 98.8 63 20 158/95 (116) 97 05/03/18 05:01 118/88 05/03/18 04:57 97.4 76 18 118/88 (98) 95 05/03/18 00:00 97.9 62 20 126/62 (83) 99 05/02/18 23:43 67 18 Room Air 21 05/02/18 21:15 155/95 05/02/18 21:00 Room Air 05/02/18 20:00 98.9 66 20 155/95 (115) 94 05/02/18 17:14 65 160/96 05/02/18 16:00 99.0 65 18 160/96 (117) 96 05/02/18 15:38 160/74 05/02/18 12:00 97.4 64 18 157/93 (114) 99 Intake and Output 05/02/18 05/03/18 18:59 06:59 Intake Total 55 ml Balance 55 ml IV Total 55 ml # Voids 3 2 Laboratory Tests 05/03/18 04:45: White Blood Count 4.8, Red Blood Count 4.11L, Hemoglobin 10.3L, Hematocrit 33.5L , Mean Corpuscular Volume 81, Mean Corpuscular Hemoglobin 25.0L, Mean Corpuscular Hemoglobin Concent 30.7L, Red Cell Distribution Width 16.8H, Platelet Count 182, Mean Platelet Volume 8.4, Neutrophils (%) (Auto) 53.5, Lymphocytes (%) (Auto) 32.6, Monocytes (%) (Auto) 7.3, Eosinophils (%) (Auto) 5.5H, Basophils (%) (Auto) 1.1, Sodium Level 145, Potassium Level 3.7, Chloride Level 106, Carbon Dioxide Level 27, Anion Gap 12, Blood Urea Nitrogen 35H, Creatinine 1.9H, Estimat Glomerular Filtration Rate , Glucose Level 91, Hemoglobin A1c 6.0, Uric Acid 5.8, Calcium Level 9.4, Phosphorus Level 3.6, Magnesium Level 1.8, Iron Level 46L, Total Iron Binding Capacity 292, Percent Iron Saturation 16, Unsaturated Iron Binding 246, Ferritin 109, Total Bilirubin 0.2, Gamma Glutamyl Transpeptidase 9, Aspartate Amino Transf (AST/SGOT) 17, Alanine Aminotransferase (ALT/SGPT) 10L, Alkaline Phosphatase 84, C-Reactive Protein, Quantitative 0.9, Total Protein 8.4H, Albumin 2.8L, Globulin 5.6, Albumin/Globulin Ratio 0.5L, Triglycerides Level 84, Cholesterol Level 180, LDL Cholesterol 82, HDL Cholesterol 73H, Cholesterol/HDL Ratio 2.5L, Thyroid Stimulating Hormone (TSH) 2.976 Height (Feet): 5 Height (Inches): 8.00 Weight (Pounds): 211 General Appearance: confused Cardiovascular: normal rate Abdomen: soft Angelina Wu MD May 03, 2018 09:52
--- NOTE | 2018-05-03 12:41 | Infectious Diseases Prog Note ---
Assessment/Plan Assessment/Plan IMPRESSION: 1. Pneumonia. 2. Acute on chronic kidney disease. 3. Hypertension. 4. Diabetes mellitus. 5. Anemia. 6. History of coronary artery disease. 7. Schizoaffective disorder RECOMMENDATION: continue Rocephin Subjective ROS Limited/Unobtainable: No Constitutional: Reports: no symptoms Respiratory: Reports: no symptoms Cardiovascular: Reports: no symptoms Gastrointestinal/Abdominal: Reports: no symptoms Genitourinary: Reports: no symptoms Allergies: Coded Allergies: CODEINE (Unverified Allergy, Unknown, 10/23/16) ENALAPRIL (Unverified Allergy, Unknown, 10/23/16) LISINOPRIL (Unverified Allergy, Unknown, 10/23/16) MORPHINE (Unverified Allergy, Unknown, 10/23/16) Objective Vital Signs Last 24 Hour Vital Signs Date Time Temp Pulse Resp B/P (MAP) Pulse Ox O2 Delivery O2 Flow Rate FiO2 05/03/18 09:16 63 158/95 05/03/18 09:16 158/95 05/03/18 09:00 Room Air 05/03/18 08:00 98.8 63 20 158/95 (116) 97 05/03/18 05:01 118/88 05/03/18 04:57 97.4 76 18 118/88 (98) 95 05/03/18 00:00 97.9 62 20 126/62 (83) 99 05/02/18 23:43 67 18 Room Air 21 05/02/18 21:15 155/95 05/02/18 21:00 Room Air 05/02/18 20:00 98.9 66 20 155/95 (115) 94 05/02/18 17:14 65 160/96 05/02/18 16:00 99.0 65 18 160/96 (117) 96 05/02/18 15:38 160/74 Height (Feet): 5 Height (Inches): 8.00 Weight (Pounds): 211 HEENT: mucous membranes moist Respiratory/Chest: lungs clear Cardiovascular: normal rate Abdomen: soft, non tender Extremities: no edema Neurologic/Psychiatric: alert, responsive Microbiology Date/Time Source Procedure Growth Status 04/30/18 15:45 Blood Blood Culture - Preliminary NO GROWTH AFTER 48 HOURS Resulted 04/30/18 15:30 Blood Blood Culture - Preliminary NO GROWTH AFTER 48 HOURS Resulted 04/30/18 17:00 Nasal Nares MRSA Culture - Final NO METHICILLIN RESISTANT STAPH AUREUS... Complete 04/30/18 15:40 Nasal Nares Influenza Types A,B Antigen (ARIANE) - Final Complete 04/30/18 17:00 Rectum VRE Culture - Final NO VANCOMYCIN RESISTANT ENTEROCOCCUS ... Complete 04/30/18 17:00 Rectum - Final NO CARBAPENEM-RESISTANT ENTEROBACTERI... Complete Laboratory Tests Test 05/03/18 04:45 05/03/18 09:10 White Blood Count 4.8 K/UL (4.8-10.8) Red Blood Count 4.11 M/UL (4.20-5.40) L Hemoglobin 10.3 G/DL (12.0-16.0) L Hematocrit 33.5 % (37.0-47.0) L Mean Corpuscular Volume 81 FL (80-99) Mean Corpuscular Hemoglobin 25.0 PG (27.0-31.0) L Mean Corpuscular Hemoglobin Concent 30.7 G/DL (32.0-36.0) L Red Cell Distribution Width 16.8 % (11.6-14.8) H Platelet Count 182 K/UL (150-450) Mean Platelet Volume 8.4 FL (6.5-10.1) Neutrophils (%) (Auto) 53.5 % (45.0-75.0) Lymphocytes (%) (Auto) 32.6 % (20.0-45.0) Monocytes (%) (Auto) 7.3 % (1.0-10.0) Eosinophils (%) (Auto) 5.5 % (0.0-3.0) H Basophils (%) (Auto) 1.1 % (0.0-2.0) Sodium Level 145 MMOL/L (136-145) Potassium Level 3.7 MMOL/L (3.5-5.1) Chloride Level 106 MMOL/L (98-107) Carbon Dioxide Level 27 MMOL/L (21-32) Anion Gap 12 mmol/L (5-15) Blood Urea Nitrogen 35 mg/dL (7-18) H Creatinine 1.9 MG/DL (0.55-1.30) H Estimat Glomerular Filtration Rate mL/min (>60) Glucose Level 91 MG/DL (74-106) Hemoglobin A1c 6.0 % (4.3-6.0) Uric Acid 5.8 MG/DL (2.6-7.2) Calcium Level 9.4 MG/DL (8.5-10.1) Phosphorus Level 3.6 MG/DL (2.5-4.9) Magnesium Level 1.8 MG/DL (1.8-2.4) Iron Level 46 ug/dL (50-175) L Total Iron Binding Capacity 292 ug/dL (250-450) Percent Iron Saturation 16 % (15-50) Unsaturated Iron Binding 246 ug/dL (112-346) Ferritin 109 NG/ML (8-388) Total Bilirubin 0.2 MG/DL (0.2-1.0) Gamma Glutamyl Transpeptidase 9 U/L (5-85) Aspartate Amino Transf (AST/SGOT) 17 U/L (15-37) Alanine Aminotransferase (ALT/SGPT) 10 U/L (12-78) L Alkaline Phosphatase 84 U/L (46-116) C-Reactive Protein, Quantitative 0.9 mg/dL (0.00-0.90) Total Protein 8.4 G/DL (6.4-8.2) H Albumin 2.8 G/DL (3.4-5.0) L Globulin 5.6 g/dL Albumin/Globulin Ratio 0.5 (1.0-2.7) L Triglycerides Level 84 MG/DL (30-150) Cholesterol Level 180 MG/DL (< 200) LDL Cholesterol 82 mg/dL (<100) HDL Cholesterol 73 MG/DL (40-60) H Cholesterol/HDL Ratio 2.5 (3.3-4.4) L Thyroid Stimulating Hormone (TSH) 2.976 uiU/mL (0.358-3.740) Stool Occult Blood Pending Current Medications Medications (Trade) Dose Ordered Sig/Yao Route PRN Reason Start Time Stop Time Status Last Admin Dose Admin Acetaminophen (Tylenol) 650 mg Q4H PRN ORAL Prn Headache/Temp > 101 04/30/18 18:45 05/30/18 18:44 Albuterol Sulfate (Proventil MDI) 2 puff Q6H PRN INH Shortness of Breath 04/30/18 19:30 05/30/18 18:44 Amlodipine Besylate (Norvasc) 5 mg BID ORAL 05/02/18 18:00 06/01/18 08:59 05/03/18 09:16 Aspirin (ASA) 81 mg DAILY ORAL 05/01/18 09:00 05/31/18 08:59 05/03/18 09:15 Ceftriaxone Sodium 1 gm/ Dextrose 55 ml @ 110 mls/hr Q24H IVPB 04/30/18 22:00 05/07/18 21:59 05/02/18 21:15 Clonidine HCl (Catapres tab) 0.2 mg Q8HR ORAL 05/02/18 22:00 05/30/18 21:59 05/02/18 21:15 Diphenoxylate HCl/ Atropine (Lomotil) 2.5 mg Q4H PRN ORAL Diarrhea 04/30/18 19:21 05/30/18 19:20 Docusate Sodium (Colace) 100 mg TID ORAL 05/01/18 09:00 05/31/18 08:59 Lorazepam (Ativan) 1 mg Q8H PRN ORAL For Anxiety 04/30/18 18:45 05/07/18 18:44 Losartan Potassium (Cozaar) 25 mg DAILY ORAL 05/01/18 09:00 05/31/18 08:59 05/03/18 09:16 Magnesium Hydroxide (Mom) 30 ml DAILYPRN PRN ORAL Constipation 04/30/18 18:45 05/30/18 18:44 Olanzapine (ZyPREXA) 20 mg BEDTIME ORAL 05/02/18 21:00 06/01/18 20:59 05/02/18 21:15 Pantoprazole (Protonix) 40 mg DAILY ORAL 05/02/18 16:30 06/01/18 16:29 05/03/18 09:17 Temazepam (Restoril) 7.5 mg BEDTIME PRN ORAL Insomnia 04/30/18 18:45 05/07/18 18:44 Bryson An MD May 03, 2018 12:41
--- NOTE | 2018-05-03 14:04 | Nephrology Progress Note ---
Assessment/Plan Problem List: (1) Renal failure (ARF), acute on chronic (2) Hypertensive heart and chronic kidney disease (3) Pneumonia (4) Acute encephalopathy Assessment admitted for Pneumonia Renal failure acute on chronic Dementia Partly Dehydration Encephalopathy HTN Diabetes Previous CVA h/o pleural effusions Plan adjust bp meds very slow hydrate 2D echo pending urine studies monitor renal parameters Subjective ROS Limited/Unobtainable: No Constitutional: Reports: malaise Objective Objective Last 24 Hour Vital Signs Date Time Temp Pulse Resp B/P (MAP) Pulse Ox O2 Delivery O2 Flow Rate FiO2 05/03/18 13:21 159/100 05/03/18 12:00 98.6 68 20 159/100 (119) 94 05/03/18 09:16 63 158/95 05/03/18 09:16 158/95 05/03/18 09:00 Room Air 05/03/18 08:00 98.8 63 20 158/95 (116) 97 05/03/18 05:01 118/88 05/03/18 04:57 97.4 76 18 118/88 (98) 95 05/03/18 00:00 97.9 62 20 126/62 (83) 99 05/02/18 23:43 67 18 Room Air 21 05/02/18 21:15 155/95 05/02/18 21:00 Room Air 05/02/18 20:00 98.9 66 20 155/95 (115) 94 05/02/18 17:14 65 160/96 05/02/18 16:00 99.0 65 18 160/96 (117) 96 05/02/18 15:38 160/74 Intake and Output 05/02/18 05/03/18 19:00 07:00 Intake Total 55 ml Balance 55 ml IV Total 55 ml # Voids 3 2 Laboratory Tests 05/03/18 04:45: White Blood Count 4.8, Red Blood Count 4.11L, Hemoglobin 10.3L, Hematocrit 33.5L , Mean Corpuscular Volume 81, Mean Corpuscular Hemoglobin 25.0L, Mean Corpuscular Hemoglobin Concent 30.7L, Red Cell Distribution Width 16.8H, Platelet Count 182, Mean Platelet Volume 8.4, Neutrophils (%) (Auto) 53.5, Lymphocytes (%) (Auto) 32.6, Monocytes (%) (Auto) 7.3, Eosinophils (%) (Auto) 5.5H, Basophils (%) (Auto) 1.1, Sodium Level 145, Potassium Level 3.7, Chloride Level 106, Carbon Dioxide Level 27, Anion Gap 12, Blood Urea Nitrogen 35H, Creatinine 1.9H, Estimat Glomerular Filtration Rate , Glucose Level 91, Hemoglobin A1c 6.0, Uric Acid 5.8, Calcium Level 9.4, Phosphorus Level 3.6, Magnesium Level 1.8, Iron Level 46L, Total Iron Binding Capacity 292, Percent Iron Saturation 16, Unsaturated Iron Binding 246, Ferritin 109, Total Bilirubin 0.2, Gamma Glutamyl Transpeptidase 9, Aspartate Amino Transf (AST/SGOT) 17, Alanine Aminotransferase (ALT/SGPT) 10L, Alkaline Phosphatase 84, C-Reactive Protein, Quantitative 0.9, Total Protein 8.4H, Albumin 2.8L, Globulin 5.6, Albumin/Globulin Ratio 0.5L, Triglycerides Level 84, Cholesterol Level 180, LDL Cholesterol 82, HDL Cholesterol 73H, Cholesterol/HDL Ratio 2.5L, Thyroid Stimulating Hormone (TSH) 2.976 05/03/18 09:10: Stool Occult Blood [Pending] Height (Feet): 5 Height (Inches): 8.00 Weight (Pounds): 211 Cardiovascular: normal rate Respiratory/Chest: decreased breath sounds Abdomen: soft Refugio Ramos MD May 03, 2018 14:04
[2018-05-03] MEDS ORDERED: HydrALAZINE 25mg tab ORAL SCH (14:15)
--- NOTE | 2018-05-03 16:09 | General Progress Note ---
Assessment/Plan Assessment/Plan Assessment/Plan # Panctyopenia -- have seen her in 07/2016 and had similar blood counts at that time as well, she has anemia of chronic disease to underlying chronic medical issues, multifactorial. ALso could be related to underlying pna, unspecific organism --> Anemia workup has been reviewed from prior --> hepatitis and hiv are neg from prior admission --> No evidence of hemolysis is noted, peripheral smear has been reviewed. --> Hgb goal >7. Transfuse prn. --> Epogen or iron at this time is not particularly indicated --> Medications have been reviewed --> hgb trend 9.6-->9.4-->10.3 # Elevated tumor markers --> CEA was before 4.3--> 3.2 --> prior colonoscopies were negative --> appreciate girecs # Acute on chronic renal failure --> repeat CXR: BNP not elevated, no signs of fluid overload --> renal failure cr2-->1.9 # PNA on cxr --> started on abx --> improving # Hypertensive heart and chronic kidney disease --> BP control with Losartan and hydralazine --> Outpatient stress testing, no indication for cardiac cath # Hypokalemia-- replete k per renal --> appreciate renal recs # Dehydration--Mild IV fluid hydration per renal The timing of this note does not necessarily reflect the time of the patient was seen Greatly appreciate consultation! Subjective Constitutional: Denies: no symptoms, chills, diaphoresis, fever, malaise, weakness, other HEENT: Denies: no symptoms, eye pain, blurred vision, tearing, double vision, ear pain, ear discharge, nose pain, nose congestion, throat pain, throat swelling, mouth pain, mouth swelling, other Cardiovascular: Denies: no symptoms, chest pain, edema, irregular heart rate, lightheadedness, palpitations, syncope, other Respiratory: Denies: no symptoms, cough, orthopnea, shortness of breath, SOB with excertion, SOB at rest, sputum, stridor, wheezing, other Gastrointestinal/Abdominal: Denies: no symptoms, abdomen distended, abdominal pain, black stools, tarry stools, blood in stool, constipated, diarrhea, difficulty swallowing, nausea, poor appetite, poor fluid intake, rectal bleeding , vomiting, other Genitourinary: Denies: no symptoms, burning, discharge, frequency, flank pain, hematuria, incontinence, pain, urgency, other Neurologic/Psychiatric: Denies: no symptoms, anxiety, depressed, emotional problems, headache, numbness, paresthesia, pre-existing deficit, seizure, tingling, tremors, weakness, other Endocrine: Denies: no symptoms, excessive sweating, flushing, intolerance to cold, intolerance to heat, increased hunger, increased thirst, increased urine, unexplained weight gain, unexplained weight loss, other Allergies: Coded Allergies: CODEINE (Unverified Allergy, Unknown, 10/23/16) ENALAPRIL (Unverified Allergy, Unknown, 10/23/16) LISINOPRIL (Unverified Allergy, Unknown, 10/23/16) MORPHINE (Unverified Allergy, Unknown, 10/23/16) Subjective 05/02: no events overnight, no f/c, on rocephin, per id 05/03: pna is improving, talkative, eating well, no complaints Objective Last 24 Hour Vital Signs Date Time Temp Pulse Resp B/P (MAP) Pulse Ox O2 Delivery O2 Flow Rate FiO2 05/03/18 15:27 68 20 Room Air 21 05/03/18 14:51 163/103 05/03/18 14:50 66 163/103 (123) 05/03/18 13:21 159/100 05/03/18 12:00 98.6 68 20 159/100 (119) 94 05/03/18 09:16 63 158/95 05/03/18 09:16 158/95 05/03/18 09:00 Room Air 05/03/18 08:00 98.8 63 20 158/95 (116) 97 05/03/18 05:01 118/88 05/03/18 04:57 97.4 76 18 118/88 (98) 95 05/03/18 00:00 97.9 62 20 126/62 (83) 99 05/02/18 23:43 67 18 Room Air 21 05/02/18 21:15 155/95 05/02/18 21:00 Room Air 05/02/18 20:00 98.9 66 20 155/95 (115) 94 05/02/18 17:14 65 160/96 Intake and Output 05/02/18 05/03/18 19:00 07:00 Intake Total 55 ml Balance 55 ml IV Total 55 ml # Voids 3 2 Laboratory Tests 05/03/18 04:45: White Blood Count 4.8, Red Blood Count 4.11L, Hemoglobin 10.3L, Hematocrit 33.5L , Mean Corpuscular Volume 81, Mean Corpuscular Hemoglobin 25.0L, Mean Corpuscular Hemoglobin Concent 30.7L, Red Cell Distribution Width 16.8H, Platelet Count 182, Mean Platelet Volume 8.4, Neutrophils (%) (Auto) 53.5, Lymphocytes (%) (Auto) 32.6, Monocytes (%) (Auto) 7.3, Eosinophils (%) (Auto) 5.5H, Basophils (%) (Auto) 1.1, Sodium Level 145, Potassium Level 3.7, Chloride Level 106, Carbon Dioxide Level 27, Anion Gap 12, Blood Urea Nitrogen 35H, Creatinine 1.9H, Estimat Glomerular Filtration Rate , Glucose Level 91, Hemoglobin A1c 6.0, Uric Acid 5.8, Calcium Level 9.4, Phosphorus Level 3.6, Magnesium Level 1.8, Iron Level 46L, Total Iron Binding Capacity 292, Percent Iron Saturation 16, Unsaturated Iron Binding 246, Ferritin 109, Total Bilirubin 0.2, Gamma Glutamyl Transpeptidase 9, Aspartate Amino Transf (AST/SGOT) 17, Alanine Aminotransferase (ALT/SGPT) 10L, Alkaline Phosphatase 84, C-Reactive Protein, Quantitative 0.9, Total Protein 8.4H, Albumin 2.8L, Globulin 5.6, Albumin/Globulin Ratio 0.5L, Triglycerides Level 84, Cholesterol Level 180, LDL Cholesterol 82, HDL Cholesterol 73H, Cholesterol/HDL Ratio 2.5L, Thyroid Stimulating Hormone (TSH) 2.976 05/03/18 09:10: Stool Occult Blood [Pending] Height (Feet): 5 Height (Inches): 8.00 Weight (Pounds): 211 General Appearance: no apparent distress EENT: normal ENT inspection Neck: supple Cardiovascular: normal rate Respiratory/Chest: lungs clear Abdomen: no organomegaly Extremities: non-tender Edema: 1+ Leg (L), 1+ Leg (R) Edema: mild edema Objective General: no apparent distress, alert, GCS 15 Head: normocephalic, atraumatic Eyes: bilateral eye normal inspection, bilateral eye PERRL ENT: hearing grossly normal, normal pharynx, no angioedema, normal voice Neck: full range of motion, supple/symm/no masses Respiratory: lungs clear, crackles, speaking full sentences Cardiovascular: regular rate, rhythm, no edema Gastrointestinal: normal bowel sounds, nt Rectal: deferred Genitourinary: normal inspection, no CVA ttp Musculoskeletal: back normal, gait/station normal, nt Cl Bird MD May 03, 2018 16:08
--- NOTE | 2018-05-03 16:21 | NUR ---
NURSE NOTES: Notified Dr. Wu of pt's high blood pressure today 12: 159/100 HR 68 gave scheduled Clonidine 0.2mg 1450: 163/103 HR 66 gave scheduled Hydralazine 1600: 163/99 Dr. Wu said to notified Dr. Raoms Called Dr. Ramos office, asked for him to call back to [facility]E
[2018-05-03] MEDS ORDERED: Minoxidil 2.5mg tab ORAL PRN (16:30)
--- NOTE | 2018-05-03 20:00 | NUR ---
NURSE NOTES: Patient received in bed,awake, alert. Denies distress or pain at this time. IV catheter already out. New IV access on RFA. Safe environment provided. Will continue plan of care.
[2018-05-03] MEDS: OLANZapine 10mg tab ORAL SCH (21:08)
[2018-05-03] MEDS: cefTRIAXone 1 GM in D5W 55 ML IVPB SCH (21:08)
[2018-05-03] MEDS: HydrALAZINE 25mg tab ORAL SCH (21:08)
--- NOTE | 2018-05-03 23:04 | General Progress Note ---
Assessment/Plan Problem List: (1) Schizoaffective disorder ICD Codes: F25.9 - Schizoaffective disorder, unspecified SNOMED: 12199940 Status: stable Assessment/Plan cont zyprexa cont ativan prn provided ro/st Subjective Neurologic/Psychiatric: Reports: anxiety, depressed, emotional problems Allergies: Coded Allergies: CODEINE (Unverified Allergy, Unknown, 10/23/16) ENALAPRIL (Unverified Allergy, Unknown, 10/23/16) LISINOPRIL (Unverified Allergy, Unknown, 10/23/16) MORPHINE (Unverified Allergy, Unknown, 10/23/16) Objective Last 24 Hour Vital Signs Date Time Temp Pulse Resp B/P (MAP) Pulse Ox O2 Delivery O2 Flow Rate FiO2 05/03/18 21:08 153/95 05/03/18 21:08 153/95 05/03/18 20:51 Room Air 05/03/18 20:00 99.0 75 18 153/95 (114) 97 05/03/18 19:37 69 18 Room Air 21 05/03/18 18:22 70 155/88 (110) 05/03/18 17:36 68 163/99 05/03/18 16:00 99.2 68 20 163/99 (120) 96 05/03/18 15:27 68 20 Room Air 21 05/03/18 14:51 163/103 05/03/18 14:50 66 163/103 (123) 05/03/18 13:21 159/100 05/03/18 12:00 98.6 68 20 159/100 (119) 94 05/03/18 09:16 63 158/95 05/03/18 09:16 158/95 05/03/18 09:00 Room Air 05/03/18 08:00 98.8 63 20 158/95 (116) 97 05/03/18 05:01 118/88 05/03/18 04:57 97.4 76 18 118/88 (98) 95 05/03/18 00:00 97.9 62 20 126/62 (83) 99 05/02/18 23:43 67 18 Room Air 21 Intake and Output 05/02/18 05/03/18 19:00 07:00 Intake Total 55 ml Balance 55 ml IV Total 55 ml # Voids 3 2 Laboratory Tests 05/03/18 04:45: White Blood Count 4.8, Red Blood Count 4.11L, Hemoglobin 10.3L, Hematocrit 33.5L , Mean Corpuscular Volume 81, Mean Corpuscular Hemoglobin 25.0L, Mean Corpuscular Hemoglobin Concent 30.7L, Red Cell Distribution Width 16.8H, Platelet Count 182, Mean Platelet Volume 8.4, Neutrophils (%) (Auto) 53.5, Lymphocytes (%) (Auto) 32.6, Monocytes (%) (Auto) 7.3, Eosinophils (%) (Auto) 5.5H, Basophils (%) (Auto) 1.1, Sodium Level 145, Potassium Level 3.7, Chloride Level 106, Carbon Dioxide Level 27, Anion Gap 12, Blood Urea Nitrogen 35H, Creatinine 1.9H, Estimat Glomerular Filtration Rate , Glucose Level 91, Hemoglobin A1c 6.0, Uric Acid 5.8, Calcium Level 9.4, Phosphorus Level 3.6, Magnesium Level 1.8, Iron Level 46L, Total Iron Binding Capacity 292, Percent Iron Saturation 16, Unsaturated Iron Binding 246, Ferritin 109, Total Bilirubin 0.2, Gamma Glutamyl Transpeptidase 9, Aspartate Amino Transf (AST/SGOT) 17, Alanine Aminotransferase (ALT/SGPT) 10L, Alkaline Phosphatase 84, C-Reactive Protein, Quantitative 0.9, Total Protein 8.4H, Albumin 2.8L, Globulin 5.6, Albumin/Globulin Ratio 0.5L, Triglycerides Level 84, Cholesterol Level 180, LDL Cholesterol 82, HDL Cholesterol 73H, Cholesterol/HDL Ratio 2.5L, Thyroid Stimulating Hormone (TSH) 2.976 05/03/18 09:10: Stool Occult Blood [Pending] Height (Feet): 5 Height (Inches): 8.00 Weight (Pounds): 211 General Appearance: no apparent distress, alert, confused, agitated Stephanie Kebede MD May 03, 2018 23:04
[2018-05-04] VITALS: BP 153/91
[2018-05-04 04:10] VITALS: BP 137/88
[2018-05-04] MEDS: cloNIDine 0.2mg Tab ORAL SCH (05:08)
[2018-05-04] MEDS: HydrALAZINE 25mg tab ORAL SCH (05:08)
[2018-05-04 05:43] LABS: BASOPHILS % (AUTO) 1.3 % (0.0-2.0); EOSINOPHILS % (AUTO) 5.2 % (0.0-3.0); HEMATOCRIT 33.3 % (37.0-47.0); HEMOGLOBIN 10.4 G/DL (12.0-16.0); LYMPHOCYTES % (AUTO) 22.7 % (20.0-45.0); MEAN CORPUSCULAR VOLUME 81 FL (80-99); NEUTROPHILS % (AUTO) 62.9 % (45.0-75.0); PLATELET COUNT 191 K/UL (150-450); RED CELL DISTRIBUTION WIDTH 16.4 % (11.6-14.8); WHITE BLOOD COUNT 5.2 K/UL (4.8-10.8)
[2018-05-04 06:08] LABS: ANION GAP 8 mmol/L (5-15); BLOOD UREA NITROGEN 35 mg/dL (7-18); CALCIUM 9.1 MG/DL (8.5-10.1); CARBON DIOXIDE 29 MMOL/L (21-32); CHLORIDE 107 MMOL/L (98-107); CREATININE 1.9 MG/DL (0.55-1.30); POTASSIUM 3.6 MMOL/L (3.5-5.1); SODIUM 144 MMOL/L (136-145)
--- NOTE | 2018-05-04 07:16 | NUR ---
HAND-OFF: Report given to Shameka Haskins.
--- NOTE | 2018-05-04 07:21 | NUR ---
NURSE NOTES: Received report from CAT Tejada. Pt sitting at edge of bed, dressing self, food tray near by, pt is talkative, no complaints of pain, no distress noted, bed in lowest position, call light within reach.
--- NOTE | 2018-05-04 07:30 | NUR ---
NURSE NOTES: Spoke with Dr Wu regarding home medications for discharge. Will resume home medications. Will refer to Dr. Ramos regarding BP meds for discharge and refer to Dr. Dina An for Abx at discharge.
[2018-05-04 07:58] VITALS: BP 129/80
[2018-05-04] MEDS: Docusate 100mg cap ORAL SCH (08:02)
[2018-05-04] MEDS: Aspirin Baby 81mg ORAL SCH (08:03)
[2018-05-04] MEDS ORDERED: Losartan 50mg tab ORAL SCH (09:00)
--- NOTE | 2018-05-04 10:02 | Infectious Diseases Prog Note ---
Assessment/Plan Assessment/Plan IMPRESSION: 1. Pneumonia, bronchitis treated 2. Acute on chronic kidney disease. 3. Hypertension. 4. Diabetes mellitus. 5. Anemia. 6. History of coronary artery disease. 7. Schizoaffective disorder RECOMMENDATION: Discontinue Rocephin Agree with discharge Subjective ROS Limited/Unobtainable: No Constitutional: Reports: no symptoms Gastrointestinal/Abdominal: Reports: no symptoms Genitourinary: Reports: no symptoms Neurologic: Reports: no symptoms Allergies: Coded Allergies: CODEINE (Unverified Allergy, Unknown, 10/23/16) ENALAPRIL (Unverified Allergy, Unknown, 10/23/16) LISINOPRIL (Unverified Allergy, Unknown, 10/23/16) MORPHINE (Unverified Allergy, Unknown, 10/23/16) Objective Vital Signs Last 24 Hour Vital Signs Date Time Temp Pulse Resp B/P (MAP) Pulse Ox O2 Delivery O2 Flow Rate FiO2 05/04/18 09:00 Room Air 05/04/18 08:03 65 129/80 05/04/18 08:03 129/80 05/04/18 07:58 97.9 65 18 129/80 (96) 95 05/04/18 05:08 137/88 05/04/18 05:08 137/88 05/04/18 04:10 97.9 83 20 137/88 (104) 95 05/04/18 00:00 99.0 74 20 153/91 (111) 95 05/03/18 21:08 153/95 05/03/18 21:08 153/95 05/03/18 20:51 Room Air 05/03/18 20:00 99.0 75 18 153/95 (114) 97 05/03/18 19:37 69 18 Room Air 05/03/18 18:22 70 155/88 (110) 05/03/18 17:36 68 163/99 05/03/18 16:00 99.2 68 20 163/99 (120) 96 05/03/18 15:27 68 20 Room Air 21 05/03/18 14:51 163/103 05/03/18 14:50 66 163/103 (123) 05/03/18 13:21 159/100 05/03/18 12:00 98.6 68 20 159/100 (119) 94 Height (Feet): 5 Height (Inches): 8.00 Weight (Pounds): 211 General Appearance: no acute distress HEENT: mucous membranes moist Respiratory/Chest: lungs clear Cardiovascular: normal rate Abdomen: soft, non tender Extremities: no edema Neurologic/Psychiatric: alert, oriented x 3, responsive Laboratory Tests Test 05/04/18 05:32 White Blood Count 5.2 K/UL (4.8-10.8) Red Blood Count 4.10 M/UL (4.20-5.40) L Hemoglobin 10.4 G/DL (12.0-16.0) L Hematocrit 33.3 % (37.0-47.0) L Mean Corpuscular Volume 81 FL (80-99) Mean Corpuscular Hemoglobin 25.3 PG (27.0-31.0) L Mean Corpuscular Hemoglobin Concent 31.2 G/DL (32.0-36.0) L Red Cell Distribution Width 16.4 % (11.6-14.8) H Platelet Count 191 K/UL (150-450) Mean Platelet Volume 8.3 FL (6.5-10.1) Neutrophils (%) (Auto) 62.9 % (45.0-75.0) Lymphocytes (%) (Auto) 22.7 % (20.0-45.0) Monocytes (%) (Auto) 8.0 % (1.0-10.0) Eosinophils (%) (Auto) 5.2 % (0.0-3.0) H Basophils (%) (Auto) 1.3 % (0.0-2.0) Sodium Level 144 MMOL/L (136-145) Potassium Level 3.6 MMOL/L (3.5-5.1) Chloride Level 107 MMOL/L (98-107) Carbon Dioxide Level 29 MMOL/L (21-32) Anion Gap 8 mmol/L (5-15) Blood Urea Nitrogen 35 mg/dL (7-18) H Creatinine 1.9 MG/DL (0.55-1.30) H Estimat Glomerular Filtration Rate mL/min (>60) Glucose Level 132 MG/DL (74-106) H Calcium Level 9.1 MG/DL (8.5-10.1) Current Medications Medications (Trade) Dose Ordered Sig/Yao Route PRN Reason Start Time Stop Time Status Last Admin Dose Admin Acetaminophen (Tylenol) 650 mg Q4H PRN ORAL Prn Headache/Temp > 101 04/30/18 18:45 05/30/18 18:44 Albuterol Sulfate (Proventil MDI) 2 puff Q6H PRN INH Shortness of Breath 04/30/18 19:30 05/30/18 18:44 Aspirin (ASA) 81 mg DAILY ORAL 05/01/18 09:00 05/31/18 08:59 05/04/18 08:03 Ceftriaxone Sodium 1 gm/ Dextrose 55 ml @ 110 mls/hr Q24H IVPB 04/30/18 22:00 05/07/18 21:59 05/03/18 21:08 Clonidine HCl (Catapres tab) 0.2 mg Q8HR ORAL 05/02/18 22:00 05/30/18 21:59 05/04/18 05:08 Diphenoxylate HCl/ Atropine (Lomotil) 2.5 mg Q4H PRN ORAL Diarrhea 04/30/18 19:21 05/30/18 19:20 Docusate Sodium (Colace) 100 mg TID ORAL 05/01/18 09:00 05/31/18 08:59 Hydralazine HCl (Apresoline) 50 mg Q8HR ORAL 05/03/18 22:00 06/02/18 14:14 05/04/18 05:08 Lorazepam (Ativan) 1 mg Q8H PRN ORAL For Anxiety 04/30/18 18:45 05/07/18 18:44 Losartan Potassium (Cozaar) 50 mg DAILY ORAL 05/04/18 09:00 05/31/18 08:59 05/04/18 08:03 Magnesium Hydroxide (Mom) 30 ml DAILYPRN PRN ORAL Constipation 04/30/18 18:45 05/30/18 18:44 Minoxidil (Loniten) 2.5 mg Q4H PRN ORAL bp over 160syst 05/03/18 16:30 06/02/18 16:29 Nifedipine (Procardia XL) 60 mg DAILY ORAL 05/04/18 09:00 06/03/18 08:59 05/04/18 08:03 Olanzapine (ZyPREXA) 20 mg BEDTIME ORAL 05/02/18 21:00 06/01/18 20:59 05/03/18 21:08 Pantoprazole (Protonix) 40 mg BEFORE BREAKFAST ORAL 05/05/18 06:30 06/01/18 16:29 Temazepam (Restoril) 7.5 mg BEDTIME PRN ORAL Insomnia 04/30/18 18:45 05/07/18 18:44 Bryson An MD May 04, 2018 10:02
--- NOTE | 2018-05-04 10:08 | NUR ---
DISCHARGE PLANNING FAXED REFERRAL TO [facility]
--- NOTE | 2018-05-04 10:12 | NUR ---
NURSE NOTES: Spoke with Dr. Dina An regarding Abx meds for discharge. Dr. Dina An said no need to DC with Abx. complete Rocephin order in eMAR
--- NOTE | 2018-05-04 10:52 | NUR ---
DISCHARGE PLANNED PT. WILL DC TO [facility] ROOM ANNEX 8C SKILLED T FOR NURSE TO NURSE REPORT [facility] WAS CALLED FOR PICK AT 1200 CALLED PEDRO PABLO NURIS (SISTER) TO INFORM ABOUT DC AND WAS UNABLE TO REACH HER.
[2018-05-04] MEDS ORDERED: VANCOMYCIN HCL1 G1 IVPB (11:01)
--- NOTE | 2018-05-04 11:01 | NUR ---
NURSE NOTES: 1055: Spoke with Dr. Dina An regarding Positive Blood Culture. ordered pt to stay one more night and receive Vancomycin 1 gm IVPB x1. 1058: Called Dr. Wu regarding pt staying one more night, said to call Nataliya back to let him know pt can have IVPB at [place]. 1100: Called Dr. An regarding IVPB at [facility], said okay for pt to get at SNF and proceed with DC.
--- NOTE | 2018-05-04 11:19 | Nephrology Progress Note ---
Assessment/Plan Problem List: (1) Renal failure (ARF), acute on chronic (2) Hypertensive heart and chronic kidney disease (3) Pneumonia (4) Acute encephalopathy Assessment admitted for Pneumonia Renal failure acute on chronic Dementia Partly Dehydration Encephalopathy HTN Diabetes Previous CVA h/o pleural effusions Plan adjust bp meds very slow hydrate 2D echo pending urine studies monitor renal parameters ? DC Subjective ROS Limited/Unobtainable: No Interval Events/Complaints seen at 9.30 am Objective Objective Last 24 Hour Vital Signs Date Time Temp Pulse Resp B/P (MAP) Pulse Ox O2 Delivery O2 Flow Rate FiO2 05/04/18 09:00 Room Air 05/04/18 08:35 81 18 Room Air 21 05/04/18 08:03 65 129/80 05/04/18 08:03 129/80 05/04/18 07:58 97.9 65 18 129/80 (96) 95 05/04/18 05:08 137/88 05/04/18 05:08 137/88 05/04/18 04:10 97.9 83 20 137/88 (104) 95 05/04/18 00:00 99.0 74 20 153/91 (111) 95 05/03/18 21:08 153/95 05/03/18 21:08 153/95 05/03/18 20:51 Room Air 05/03/18 20:00 99.0 75 18 153/95 (114) 97 05/03/18 19:37 69 18 Room Air 21 05/03/18 18:22 70 155/88 (110) 05/03/18 17:36 68 163/99 05/03/18 16:00 99.2 68 20 163/99 (120) 96 05/03/18 15:27 68 20 Room Air 21 05/03/18 14:51 163/103 05/03/18 14:50 66 163/103 (123) 05/03/18 13:21 159/100 05/03/18 12:00 98.6 68 20 159/100 (119) 94 Intake and Output 05/03/18 05/04/18 18:59 06:59 Intake Total 1080 ml 55 ml Balance 1080 ml 55 ml Intake Oral 1080 ml IV Total 55 ml # Voids 2 # Bowel Movements 1 Current Medications Medications (Trade) Dose Ordered Sig/Yao Route PRN Reason Start Time Stop Time Status Last Admin Dose Admin Acetaminophen (Tylenol) 650 mg Q4H PRN ORAL Prn Headache/Temp > 101 04/30/18 18:45 05/30/18 18:44 Albuterol Sulfate (Proventil MDI) 2 puff Q6H PRN INH Shortness of Breath 04/30/18 19:30 05/30/18 18:44 Aspirin (ASA) 81 mg DAILY ORAL 05/01/18 09:00 05/31/18 08:59 05/04/18 08:03 Clonidine HCl (Catapres tab) 0.2 mg Q8HR ORAL 05/02/18 22:00 05/30/18 21:59 05/04/18 05:08 Diphenoxylate HCl/ Atropine (Lomotil) 2.5 mg Q4H PRN ORAL Diarrhea 04/30/18 19:21 05/30/18 19:20 Docusate Sodium (Colace) 100 mg TID ORAL 05/01/18 09:00 05/31/18 08:59 Hydralazine HCl (Apresoline) 50 mg Q8HR ORAL 05/03/18 22:00 06/02/18 14:14 05/04/18 05:08 Lorazepam (Ativan) 1 mg Q8H PRN ORAL For Anxiety 04/30/18 18:45 05/07/18 18:44 Losartan Potassium (Cozaar) 50 mg DAILY ORAL 05/04/18 09:00 05/31/18 08:59 05/04/18 08:03 Magnesium Hydroxide (Mom) 30 ml DAILYPRN PRN ORAL Constipation 04/30/18 18:45 05/30/18 18:44 Minoxidil (Loniten) 2.5 mg Q4H PRN ORAL bp over 160syst 05/03/18 16:30 06/02/18 16:29 Nifedipine (Procardia XL) 60 mg DAILY ORAL 05/04/18 09:00 06/03/18 08:59 05/04/18 08:03 Olanzapine (ZyPREXA) 20 mg BEDTIME ORAL 05/02/18 21:00 06/01/18 20:59 05/03/18 21:08 Pantoprazole (Protonix) 40 mg BEFORE BREAKFAST ORAL 05/05/18 06:30 06/01/18 16:29 Temazepam (Restoril) 7.5 mg BEDTIME PRN ORAL Insomnia 04/30/18 18:45 05/07/18 18:44 Laboratory Tests 05/04/18 05:32: White Blood Count 5.2, Red Blood Count 4.10L, Hemoglobin 10.4L, Hematocrit 33.3L , Mean Corpuscular Volume 81, Mean Corpuscular Hemoglobin 25.3L, Mean Corpuscular Hemoglobin Concent 31.2L, Red Cell Distribution Width 16.4H, Platelet Count 191, Mean Platelet Volume 8.3, Neutrophils (%) (Auto) 62.9, Lymphocytes (%) (Auto) 22.7, Monocytes (%) (Auto) 8.0, Eosinophils (%) (Auto) 5.2H, Basophils (%) (Auto) 1.3, Sodium Level 144, Potassium Level 3.6, Chloride Level 107, Carbon Dioxide Level 29, Anion Gap 8, Blood Urea Nitrogen 35H, Creatinine 1.9H, Estimat Glomerular Filtration Rate , Glucose Level 132H, Calcium Level 9.1 Height (Feet): 5 Height (Inches): 8.00 Weight (Pounds): 211 General Appearance: no apparent distress Cardiovascular: normal rate Respiratory/Chest: decreased breath sounds Abdomen: soft Refugio Ramos MD May 04, 2018 11:19
[2018-05-04] MEDS ORDERED: LOSARTAN POTASS25 M1 PO (11:21)
[2018-05-04] MEDS ORDERED: APRESOLINE50 MG ORAL (11:23)
--- NOTE | 2018-05-04 11:29 | NUR ---
NURSE NOTES: Reviewed all BP meds with Dr. Ramos. Updated DC Med Recon for BP meds.
--- NOTE | 2018-05-04 11:31 | NUR ---
NURSE NOTES: Called report to nurse Lidia at [facility]
[2018-05-04 12:14] VITALS: BP 139/93
--- NOTE | 2018-05-04 12:30 | NUR ---
NURSE NOTES: Pt discharged back to [facility] with all belongings. All DC paperwork reviewed and signed by pt. IV intact and patent for dose of Vancomycin at IVPB at [facility]. ID band removed. PT stable for discharge.
[2018-05-04] MEDS ORDERED: HydrALAZINE 50mg tab ORAL SCH (14:00)
--- NOTE | 2018-05-04 15:58 | General Progress Note ---
Assessment/Plan Assessment/Plan Assessment/Plan # Panctyopenia -- have seen her in 07/2016 and had similar blood counts at that time as well, she has anemia of chronic disease to underlying chronic medical issues, multifactorial. ALso could be related to underlying pna, unspecific organism --> Anemia workup has been reviewed from prior --> hepatitis and hiv are neg from prior admission --> No evidence of hemolysis is noted, peripheral smear has been reviewed. --> Hgb goal >7. Transfuse prn. --> Epogen or iron at this time is not particularly indicated. stable for dc --> Medications have been reviewed --> hgb trend 9.6-->9.4-->10.3 # Elevated tumor markers --> CEA was before 4.3--> 3.2 --> prior colonoscopies were negative --> appreciate girecs # Acute on chronic renal failure --> repeat CXR: BNP not elevated, no signs of fluid overload --> renal failure cr2-->1.9 # PNA on cxr --> started on abx --> improving # Hypertensive heart and chronic kidney disease --> BP control with Losartan and hydralazine --> Outpatient stress testing, no indication for cardiac cath # Hypokalemia-- replete k per renal --> appreciate renal recs # Dehydration--Mild IV fluid hydration per renal The timing of this note does not necessarily reflect the time of the patient was seen Greatly appreciate consultation! Subjective HEENT: Denies: no symptoms, eye pain, blurred vision, tearing, double vision, ear pain, ear discharge, nose pain, nose congestion, throat pain, throat swelling, mouth pain, mouth swelling, other Cardiovascular: Denies: no symptoms, chest pain, edema, irregular heart rate, lightheadedness, palpitations, syncope, other Respiratory: Denies: no symptoms, cough, orthopnea, shortness of breath, SOB with excertion, SOB at rest, sputum, stridor, wheezing, other Gastrointestinal/Abdominal: Denies: no symptoms, abdomen distended, abdominal pain, black stools, tarry stools, blood in stool, constipated, diarrhea, difficulty swallowing, nausea, poor appetite, poor fluid intake, rectal bleeding , vomiting, other Genitourinary: Denies: no symptoms, burning, discharge, frequency, flank pain, hematuria, incontinence, pain, urgency, other Neurologic/Psychiatric: Denies: no symptoms, anxiety, depressed, emotional problems, headache, numbness, paresthesia, pre-existing deficit, seizure, tingling, tremors, weakness, other Endocrine: Denies: no symptoms, excessive sweating, flushing, intolerance to cold, intolerance to heat, increased hunger, increased thirst, increased urine, unexplained weight gain, unexplained weight loss, other Allergies: Coded Allergies: CODEINE (Unverified Allergy, Unknown, 10/23/16) ENALAPRIL (Unverified Allergy, Unknown, 10/23/16) LISINOPRIL (Unverified Allergy, Unknown, 10/23/16) MORPHINE (Unverified Allergy, Unknown, 10/23/16) Subjective 05/02: no events overnight, no f/c, on rocephin, per id 05/03: pna is improving, talkative, eating well, no complaints 05/04: on abx, to be discharged today Objective Last 24 Hour Vital Signs Date Time Temp Pulse Resp B/P (MAP) Pulse Ox O2 Delivery O2 Flow Rate FiO2 05/04/18 12:14 97.9 72 18 139/93 (108) 96 05/04/18 09:00 Room Air 05/04/18 08:35 81 18 Room Air 21 05/04/18 08:03 65 129/80 05/04/18 08:03 129/80 05/04/18 07:58 97.9 65 18 129/80 (96) 95 05/04/18 05:08 137/88 05/04/18 05:08 137/88 05/04/18 04:10 97.9 83 20 137/88 (104) 95 05/04/18 00:00 99.0 74 20 153/91 (111) 95 05/03/18 21:08 153/95 05/03/18 21:08 153/95 05/03/18 20:51 Room Air 05/03/18 20:00 99.0 75 18 153/95 (114) 97 05/03/18 19:37 69 18 Room Air 21 05/03/18 18:22 70 155/88 (110) 05/03/18 17:36 68 163/99 05/03/18 16:00 99.2 68 20 163/99 (120) 96 Intake and Output 05/03/18 05/04/18 18:59 06:59 Intake Total 1080 ml 55 ml Balance 1080 ml 55 ml Intake Oral 1080 ml IV Total 55 ml # Voids 2 # Bowel Movements 1 Laboratory Tests 05/04/18 05:32: White Blood Count 5.2, Red Blood Count 4.10L, Hemoglobin 10.4L, Hematocrit 33.3L , Mean Corpuscular Volume 81, Mean Corpuscular Hemoglobin 25.3L, Mean Corpuscular Hemoglobin Concent 31.2L, Red Cell Distribution Width 16.4H, Platelet Count 191, Mean Platelet Volume 8.3, Neutrophils (%) (Auto) 62.9, Lymphocytes (%) (Auto) 22.7, Monocytes (%) (Auto) 8.0, Eosinophils (%) (Auto) 5.2H, Basophils (%) (Auto) 1.3, Sodium Level 144, Potassium Level 3.6, Chloride Level 107, Carbon Dioxide Level 29, Anion Gap 8, Blood Urea Nitrogen 35H, Creatinine 1.9H, Estimat Glomerular Filtration Rate , Glucose Level 132H, Calcium Level 9.1 Height (Feet): 5 Height (Inches): 8.00 Weight (Pounds): 211 Objective General: no apparent distress, alert, GCS 15 Head: normocephalic, atraumatic Eyes: bilateral eye normal inspection, bilateral eye PERRL ENT: hearing grossly normal, normal pharynx, no angioedema, normal voice Neck: full range of motion, supple/symm/no masses Respiratory: lungs clear, crackles, speaking full sentences Cardiovascular: regular rate, rhythm, no edema Gastrointestinal: normal bowel sounds, nt Rectal: deferred Genitourinary: normal inspection, no CVA ttp Musculoskeletal: back normal, gait/station normal, nt Cl Bird MD May 04, 2018 15:58
--- NOTE | 2018-05-07 13:09 | Discharge Summary ---
Discharge Summary Discharge Summary _ DATE OF ADMISSION: 04/30/2018 DATE OF DISCHARGE: 2918 DISCHARGED BY: Dr Wu REASON FOR ADMISSION: 73 years old female with past medical history of hypertension, diabetes mellitus , CVA, psych psychiatric history, resident of [facility] facility, was brought from emergency room for evaluation due to possible pneumonia. Patient reported productive cough for several days with yellowish phlegm production. No fever or chills. No chest pain. Upon evaluation patient was afebrile , pulse oximetry was stable on room air. Laboratory workup revealed no leukocytosis, hemoglobin 10.4 hematocrit 35.1. Lactic acid within normal limits. BUN 31, creatinine 2.2. Urinalysis revealed no evidence of UTI. Chest x-ray demonstrated mild CHF, possible pneumonia . EKG revealed normal sinus rhythm, no acute ischemic changes. Patient was admitted for further management. CONSULTANTS: ID specialist Dr. Meraz tire service supervisor Dr. Ramos access services librarian/oncologist Dr. Bird psychiatrist HOSPITAL COURSE: Patient admitted to medical surgical floor and started on IV fluids and empiric antibiotics . Influenza screen test was negative. Antibiotics provided as per ID recommendation. Supplemental oxygen provided as needed to keep pulse oximetry above 92%. Pulmonary toilet provided as needed. Patient completed antibiotic treatment while at the hospital. Renal parameters and electrolytes were closely monitored, electrolytes corrected as needed. Patient was on slow hydration. Nephrotoxins were avoided. Electrolytes corrected as needed. Urine studies were done. Creatinine from 2.2 down to 1.9 Elementary Vocal [employer] Teacher optimized antihypertensive medication regimen. Patient was on calcium channel shannon, hydralazine, and Cozaar along minoxidil on as needed basis. Patient was on antiplatelet therapy with aspirin. Lipid panel stable Hemoglobin and hematocrit were closely monitored. Stool for occult blood was negative. Anemia workup revealed evidence of anemia of chronic disease . Stable B12 and folate level. GI prophylaxis provided. Supportive care provided. Bowel regimen instituted Per access services librarian, anemia of chronic disease due to underlying chronic medical issues, multifactorial. No need for transfusion, no evidence of hemolysis noted. Epogen or iron at this time where not particularly indicated. Blood sugar was closely monitored. Hemoglobin A1c at goal -6.0. Psychiatrist closely followed. Psychiatrist diagnosed patient with schizoaffective disorder. Reality orientation and supportive therapy provided. Zyprexa was continued. Ativan was on board as needed for agitation. Behavior was controlled. Patient clinically stabilized and was ready for transfer back to [facility] facility for continuation of care. FINAL DIAGNOSES: Pneumonia, status post treatment Acute on chronic renal failure Hypertensive heart and chronic kidney disease Acute encephalopathy Dehydration Dementia Anemia History of CVA Diabetes mellitus Schizoaffective disorder DISCHARGE MEDICATIONS: See Medication Reconciliation list. DISCHARGE INSTRUCTIONS: Patient was discharged to the [facility] facility. Follow up with medical doctor at the facility. I have been assigned to dictate discharge summary for this account. I was not involved in the patient's management. Gloria Aguillon NP May 07, 2018 13:09
== END 2018-05-04 12:30 | DRG 194 ==
LOC: EDBD 15:15 → EDBEDREQ 15:36 → EMR 15:56 → 4E 16:10 → EDBEDREQ 17:07 → 4E 18:40
DX: J18.9 Pneumonia, unspecified organism (principal); N17.9 Acute kidney failure, unspecified; D61.818 Other pancytopenia; G93.40 Encephalopathy, unspecified; I12.9 Hypertensive chronic kidney disease with stage 1 through stage 4 chronic kidney disease, or unspecified chronic kidney disease; N18.9 Chronic kidney disease, unspecified; K59.00 Constipation, unspecified; K21.9 Gastro-esophageal reflux disease without esophagitis; Z88.6 Allergy status to analgesic agent; Z88.8 Allergy status to other drugs, medicaments and biological substances; Z87.891 Personal history of nicotine dependence; R00.1 Bradycardia, unspecified; T44.7X5A Adverse effect of beta-adrenoreceptor antagonists, initial encounter; T46.1X5A Adverse effect of calcium-channel blockers, initial encounter; E11.22 Type 2 diabetes mellitus with diabetic chronic kidney disease; E86.0 Dehydration; F03.90 Unspecified dementia, unspecified severity, without behavioral disturbance, psychotic disturbance, mood disturbance, and anxiety; Z86.73 Personal history of transient ischemic attack (TIA), and cerebral infarction without residual deficits; F25.9 Schizoaffective disorder, unspecified; R97.0 Elevated carcinoembryonic antigen [CEA]; E87.6 Hypokalemia; Z79.82 Long term (current) use of aspirin; I25.10 Atherosclerotic heart disease of native coronary artery without angina pectoris
CPT/HCPCS: 36415; 71045; 80048; 80053; 80061; 81003; 82270; 82607; 82728; 82746; 82977; 83036; 83540; 83550; 83605; 83735; 84100; 84443; 84550; 85007; 85025; 85044; 85060; 85384; 86140; 86710; 87040; 87081; 93005; 94664; 96365; 99285